=== PATIENT | male | born 1945 | race Caucasian/White ===

== ENCOUNTER → 2016-05-18 | Outpatient (CLI) | payer MEDICARE ==
[~2016-05-18] MED LIST: AC500T PO; ASPI-892 PO; Anti-depressant; CEPH-507 PO; DOCU-143 PO; DOXY100C2 PO; FESO4TAB2 PO; FESO8TAB PO; HYDR-757 PO; LATA2.5D19; LEVO500T2 PO; LEVO500T69 PO; LISI-556 PO; METO25TA PO; PRD20T PO; TRAV2.5D5 OU; WRF5T PO
--- OUTSIDE RECORDS SUMMARY | 2016-05-18 10:00 | XMS REPORT | Continuity of Care Document ---
Author Author [facility] Organization [facility] Address Unknown Phone Unavailable Care Team Providers Care Paint Stripper Name Role Phone Indio Jung PCP [phone] Source Comments Some departments are not documenting in the electronic medical record. If you do not see the information that you expected, contact Release of Information in the Health Information Management department at [phone] for further assistance in locating additional records.[facility] Active Allergies and Adverse Reactions Allergen Noted Date Severity Reactions Comments Cephalexin 12/18/2009 RASH Current Medications Prescription Sig. Disp. Refills Start End Date Status Date CETIRIZINE HCL (ZYRTEC Take 1 Tab by mouth Active PO) Daily. oxycodone (ROXICODONE) 1 5 mL Every 4 Hours as 200 mL 0 12/20/19 Active mg/mL oral solution needed. 10 bacitracin 500 unit/g Apply to affected area 1 Container 0 12/20/19 Active topical ointment Three Times Daily. 10 clindamycin,+, (CLEOCIN) Take 1 Cap by mouth Four 20 Cap 0 12/20/19 Active 300 mg capsule Times Daily. 10 Active Problems Not on file Social History Tobacco Use Types Packs/Day Years Used Date Never Smoker Alcohol Use Drinks/Week oz/Week Comments No Last Filed Vital Signs Vital Sign Reading Time Taken Blood Pressure 138/95 12/19/2009 5:58 AM CDT Pulse 88 12/19/2009 9:55 AM CDT Temperature 36.5 C (97.7 F) 12/19/2009 5:58 AM CDT Respiratory Rate - - Height 1.854 m (6' 1") 12/15/2009 8:00 AM CDT Weight 119.8 kg (264 lb 1.8 oz) 12/15/2009 8:00 AM CDT Body Mass Index 34.85 12/15/2009 8:00 AM CDT Oxygen Saturation 92% 12/19/2009 9:55 AM CDT Plan of Care Health Maintenance Due Date Last Done Comments Physical (Comprehensive) 1952 Exam Pertussis Vaccine 1954 Tetanus Vaccine 01/09/1960 Colorectal Cancer 1993 Screening Shingles Vaccine 2003 Prevnar/Pneumovax (#1) 01/09/2008 Influenza Vaccine 01/15/2016 Results from Last 3 Months Not on file
--- NOTE | 2016-05-20 08:25 | ECHOCARDIOGRAPHY REPORT ---
PROCEDURE PHYSICIAN: SMITA REBOLLAR DATE OF PROCEDURE: 05/18/2016 TWO DIMENSIONAL ECHOCARDIOGRAM REPORT PRIMARY PHYSICIAN: OTHER PHYSICIAN: REFERRING PHYSICIAN: Dr. Cecilio Castano ORDERING PHYSICIAN: INDICATION FOR THE PROCEDURE: Coronary artery disease, hypertension MEASUREMENTS DERIVED VALUES LV DIAMETER (LAX) NORMALS NORMALS Diastolic 4.3 (3.6-5.2) Eject. Fract. 60% (60%+/-6%) Systolic (2.3-3.9) Diastolic Vol. % Shortening (0.22-0.42) Systolic Vol. Aortic Root IVS THICKNESS Diastolic 1. (0.6-1.1) LVPW THICKNESS Diastolic 1. (0.6-1.1) LA DIAMETER Systolic 4.2 (2.1-3.7) FINDINGS: 1. Technical quality is good. 2. The left ventricle is normal in size with normal contractility. Systolic function appeared to be normal. Estimated ejection fraction 60%. 3. The left atrium is mildly dilated. No clot or thrombus were seen within the left atrium. 4. The right atrium and right ventricle are normal in size. No clot or thrombus were seen within the right side. 5. Mitral valve is normal in morphology with mild mitral regurgitation noted by color Doppler flow. Doppler across the mitral valve showed pseudonormalization of E/A, which is suggestive diastolic dysfunction. 6. Aortic valve is functioning normally leaflets were not well visualized. There is no significant aortic stenosis or regurgitation was seen. 7. Tricuspid valve is normal in morphology with mild tricuspid regurgitation noted by color Doppler flow. Doppler across tricuspid valve estimated pulmonary artery pressure of 33+ right atrial pressure. 8. Pulmonic valve is functioning normally. 9. No pericardial effusion. CONCLUSION: 1. Normal left ventricular size and systolic function. Estimated ejection fraction 60%. Diastolic dysfunction is suggested by Doppler. 2. Mildly dilated left atrium. 3. Mild mitral and tricuspid regurgitation. 4. Estimated pulmonary artery pressure of 40 mmHg. Job ID: [id number] Dictated Date: 05/19/2016 16:51:29 Unix Developer Date: 05/20/2016 08:18:14 / lynn
== END ==
LOC: CARD 09:57
PROVIDERS: ATTEND Internal Medicine Cardiovascular Disease
DX: I25.10 Atherosclerotic heart disease of native coronary artery without angina pectoris (principal); I49.3 Ventricular premature depolarization; I10 Essential (primary) hypertension; I48.0 Paroxysmal atrial fibrillation; I47.2 Ventricular tachycardia
CPT/HCPCS: 93306

== ENCOUNTER 2016-06-13 11:12 | Emergency (ER) | payer MEDICARE ==
[~2016-06-13] VITALS: Ht 182.9 cm; Wt 124.7 kg
[~2016-06-13 11:12] MED LIST changes: -LEVO500T2 PO
--- OUTSIDE RECORDS SUMMARY | 2016-06-13 11:17 | XMS REPORT | Continuity of Care Document ---
Author Author [facility] Organization [facility] Address Unknown Phone Unavailable Care Team Providers Care Residential Monitor Name Role Phone Indio Jung PCP [phone] Source Comments Some departments are not documenting in the electronic medical record. If you do not see the information that you expected, contact Release of Information in the Health Information Management department at [phone] for further assistance in locating additional records.[facility] Active Allergies and Adverse Reactions [...]
[2016-06-13] MEDS ORDERED: LEVO500T2 PO (12:01)
--- NOTE | 2016-06-13 12:01 | ED Cough/URI ---
General Chief Complaint: Cough/Cold/Flu Symptoms Stated Complaint: COUGH/FEVER/SWEATS/HERNANDEZ Nursing Triage Note: COUGH CONGESTION FOR 4 WEEKS WAS SEEN AT URGENT CARE 2 WEEKS AGO PUT ON Z PACK AT THAT TIME AND GIVEN STEROID INJECTION. WAS BETTER THAT LAST WEEK FELT LIKE IT WAS COMING BACK. Source: patient Exam Limitations: no limitations History of Present Illness Time seen by provider: 11:59 Initial Comments To Er with c/o cough x4 weeks. Took a course of zithromax 2 weeks ago with minimal improvement. Productive cough continues. Timing/Duration: constant Severity/Quality: moderate Associated Symptoms: cough Allergies and Home Medications Allergies Coded Allergies: No Known Drug Allergies (Unverified , 09/24/10) Home Medications (Reported) Aspirin 81 Mg Tabec 81 MG PO DAILY (Reported) Docusate Sodium 100 Mg Capsule #10 100 MG PO DAILY Prescribed by: MANDA URRUTIA on 01/03/16 142 Fesoterodine Fumarate 8 Mg Tab.sr.24h 8 MG PO DAILY (Reported) Hydrocodone/Acetaminophen 1 Each Tablet #10 1 EACH PO Q4H PRN PRN PAIN Prescribed by: MANDA URRUTIA on 11/13/152008 Hydrocodone/Acetaminophen 1 Each Tablet #30 1 EACH PO Q6H PRN PRN PAIN Prescribed by: MANDA URRUTIA on 01/03/16 142 Latanoprost 2.5 Ml Drops #3 (Reported) Lisinopril 5 Mg Tablet #30 5 MG PO DAILY Prescribed by: SMITA REBOLLAR on 07/10/141036 Metoprolol Succinate 25 Mg Tab.sr.24h 25 MG PO DAILY (Reported) Travoprost (Benzalkonium) 2.5 Ml Drops 1 DROP OU DAILY (Reported) Constitutional: see HPI EENTM: see HPI Respiratory: see HPI cough Cardiovascular: no symptoms reported Genitourinary: no symptoms reported Musculoskeletal: no symptoms reported Skin: no symptoms reported Psychiatric/Neurological: No Symptoms Reported Hematologic/Lymphatic: No Symptoms Reported Immunological/Allergic: no symptoms reported Past Ypndcfy-Ykmvki-Lnmktc Hx Patient Social History Alcohol Use: Denies Use Recreational Drug Use: No Smoking Status: Never a Smoker Recent Foreign Travel: No Contact w/Someone Who Travel: No Recent Infectious Disease Expo: No Recent Hopitalizations: Yes Physical Abuse Screen: No Sexual Abuse: No Immunizations Up To Date Tetanus Booster (TDap): More than 5yrs PED Vaccines UTD: No Date of Pneumonia Vaccine: Jul 10, 2014 Date of Influenza Vaccine: Jul 11, 2014 Seasonal Allergies Seasonal Allergies: Yes Surgeries HX Surgeries: Yes (hernia repair / several skin cancer removal) Surgeries: Abdominal Respiratory Hx Respiratory Disorders: No Cardiovascular Hx Cardiac Disorders: Yes Cardiac Disorders: Atrial Fibrillation, Hypertension Neurological Hx Neurological Disorders: No Reproductive System Hx Reproductive Disorders: No Sexually Transmitted Disease: No HIV/AIDS: No Genitourinary Hx Genitourinary Disorders: Yes Genitourinary Disorders: Kidney Stones Gastrointestinal Hx Gastrointestinal Disorders: No Gastrointestinal Disorders: Hiatal Hernia Musculoskeletal Hx Musculoskeletal Disorders: No Endocrine Hx Endocrine Disorders: No HEENT HX ENT Disorders: No Cancer Hx Cancer: Yes Cancer: Skin Psychosocial Hx Psychiatric Problems: No Integumentary HX Skin/Integumentary Disorder: Yes Blood Transfusions Hx Blood Disorders: No Family Medical History Family Medial History: Arthritis G8 BROTHER Cardiovascular disease 19 MOTHER (AFib) DVT G8 BROTHER FHx: respiratory disease G8 SISTER Physical Exam Vital Signs Vital Sign - Last 12Hours 06/13/16 11:21 Temp 97.8 Pulse 71 Resp 18 B/P 114/73 Pulse Ox 96 O2 Delivery Room Air Capillary Refill : Less Than 3 Seconds General Appearance: WD/WN no apparent distress Eyes: Bilateral Eye EOMI, Bilateral Eye Normal Inspection, Bilateral Eye PERRL HEENT: PERRL/EOMI normal ENT inspection Neck: non-tender full range of motion Respiratory: no respiratory distress no accessory muscle use rales (RLL) Gastrointestinal: normal bowel sounds non tender soft Neurologic/Psychiatric: alert normal mood/affect oriented x 3 Skin: normal color warm/dry Progress/Results/Core Measures Results/Orders My Orders Orders-MANDA URRUTIA APRN Chest Pa/Lat (2 View) (06/13/16 11:34) Vital Signs/I&O Vital Sign - Last 12Hours 06/13/16 11:21 Temp 97.8 Pulse 71 Resp 18 B/P 114/73 Pulse Ox 96 O2 Delivery Room Air Blood Pressure Mean: 87 Departure Impression Impression: Primary Impression: Pneumonia Qualified Code: J18.1 - Lobar pneumonia, unspecified organism Disposition: 01 HOME, SELF-CARE Condition: Stable Departure-Patient Inst. Decision time for Depature: 12:00 Referrals: JULIANE CASTANO MD (PCP/Family) Primary Care Physician Patient Instructions: Community-Acquired Pneumonia in Adults Add. Discharge Instructions: 1. Antiboitics as directed 2. REturn to ER for any concerns 3. Folllow upwith Dr Castano later this week All discharge instructions reviewed with patient and/or family. Voiced understanding. Scripts Levofloxacin (Levaquin)500 Mg [id number] Mg PO DAILY #7 TAB Prov:MANDA URRUTIA APRN 06/13/16 MANDA URRUTIA APRN Jun 13, 2016 12:01
--- NOTE | 2016-06-13 12:05 | Diagnostic Imaging Report ---
INDICATION: Cough, achy joints, fatigue, malaise, night sweats. The exam compared 01/03/2016 FINDINGS: The hilar and mediastinal contours stable. The lungs showed chronic changes of COPD and air trapping stable. No focal infiltrate. No gross overdistention of the vascularity. There is thoracic spondylosis, chronic. No effusion or pneumothorax. IMPRESSION: Stable chronic findings Dictated by: Dictated on workstation # [id number]
[2016-06-13 12:08] VITALS: BP 114/72
== END 2016-06-13 12:08 | disposition home or self-care (01) ==
LOC: EDUNIT# 11:12 → ER 11:14
DX: J18.9 Pneumonia, unspecified organism (principal); R50.9 Fever, unspecified; I10 Essential (primary) hypertension; Z79.82 Long term (current) use of aspirin; Z79.899 Other long term (current) drug therapy
CPT/HCPCS: 71020

== ENCOUNTER → 2017-01-04 | Outpatient (CLI) | payer MEDICARE ==
[~2017-01-04] MED LIST changes: +BARIUM SUSPENSION 105% (LIQUID POLIBAR PLUS) 240 ML/DOSE PO ONE; +BARIUM SUSPENSION 60% (LIQUID EZ PAQUE) 240 ML DOSE PO ONE; +LEVO500T2 PO
--- NOTE | 2017-01-04 17:07 | Diagnostic Imaging Report ---
EXAM: Barium swallow. INDICATION: Difficulty swallowing FINDINGS: There are no prior studies available for comparison. A double contrast study was performed. The patient swallowed the contrast material without difficulty. There is no aspiration or penetration. The esophagus shows fairly good distensibility and motility. There were a few tertiary contractions noted, however. These generally indicate ineffective peristalsis. There was a small sliding hiatal hernia but there is no sign of reflux. A cursory examination of the stomach shows no mass or ulceration. The folds of the duodenal bulb are somewhat irregular and thickened. There also appears to be the suggestion of an ulcer crater in the apex of the duodenal bulb. These findings could be due to chronic duodenitis. The possibility that there is an element of acute duodenitis present and active ulcer crater should still be considered. If further evaluation is desired, then endoscopy would be recommended. There is also some thickening of the folds of the second portion of the duodenum. This does suggest duodenitis. The proximal small bowel is unremarkable. IMPRESSION: 1. There is no evidence for obstruction of the esophagus. There is no sign of aspiration or penetration either. 2. There is a small sliding hiatal hernia but there is no evidence of reflux. 3. The stomach is generally unremarkable. 4. There does appear to be duodenitis and an ulcer crater in the apex of the duodenal bulb. Whether these findings are acute or chronic is not certain. Clinical followup is recommended. These results were discussed with Dr. Julien Frances. Dictated by: Dictated on workstation # [id number]
== END ==
LOC: RAD 08:22
PROVIDERS: ATTEND Otolaryngology Otolaryngology/Facial Plastic Surgery
DX: K44.9 Diaphragmatic hernia without obstruction or gangrene (principal); K29.80 Duodenitis without bleeding; K26.9 Duodenal ulcer, unspecified as acute or chronic, without hemorrhage or perforation
CPT/HCPCS: 74220

== ENCOUNTER 2017-04-17 15:44 | Emergency (ER) | payer MEDICARE ==
[~2017-04-17] VITALS: Ht 185.4 cm; Wt 117.9 kg
[~2017-04-17 15:44] MED LIST changes: -BARIUM SUSPENSION 105% (LIQUID POLIBAR PLUS) 240 ML/DOSE PO ONE; -BARIUM SUSPENSION 60% (LIQUID EZ PAQUE) 240 ML DOSE PO ONE
--- OUTSIDE RECORDS SUMMARY | 2017-04-17 15:48 | XMS REPORT | Clinical Summary ---
Author Author [facility] Organization [facility] Address Unknown Phone Unavailable Care Team Providers Care Vice President Of News Name Role Phone PCP Unavailable Source Comments Some departments are not documenting in the electronic medical record. If you do not see the information that you expected, contact Release of Information in the Health Information Management department at [phone] for further assistance in locating additional records.[facility] Allergies Active Allergy Reactions Severity Noted Date Comments Cephalexin RASH 12/18/2009 Current Medications Prescription Sig. Disp. Refills Start [...] Daily. 10 Active Problems Not on file Family History Medical History Relation Name Comments Cancer Brother Cancer Father Relation Name Status Comments Brother Father Social History Tobacco Use Types Packs/Day Years Used Date Never Smoker Alcohol Use Drinks/Week oz/Week Comments No Sex Assigned at Date Recorded Not on file Last Filed Vital Signs Vital Sign Reading Time Taken Blood Pressure 138/95 12/19/2009 5:58 AM CDT Pulse 88 12/19/2009 9:55 AM CDT Temperature 36.5 C (97.7 F) 12/19/2009 5:58 AM CDT Respiratory Rate - - Oxygen Saturation 92% 12/19/2009 9:55 AM CDT Inhaled Oxygen - - Concentration Weight 119.8 kg (264 lb 1.8 oz) 12/15/2009 8:00 AM CDT Height 185.4 cm (6' 1") 12/15/2009 8:00 AM CDT Body Mass Index 34.85 12/15/2009 8:00 AM CDT Plan of Treatment Health Maintenance Due Date Last Done Comments PHYSICAL (COMPREHENSIVE) 1952 EXAM PERTUSSIS VACCINE 1954 TETANUS VACCINE 01/09/1960 COLORECTAL CANCER 1993 SCREENING SHINGLES VACCINE 2003 PREVNAR/PNEUMOVAX (#1) 01/09/2008 INFLUENZA VACCINE 12/14/2016 Results Not on filefrom Last 3 Months
--- NOTE | 2017-04-17 17:11 | ED Lower Extremity ---
General Chief Complaint: Lower Extremity Stated Complaint: L CALF SWELLING/PAIN Nursing Triage Note: c/o left leg redness/swelling. Onset 3-4 days ago. 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 He presents today with a complaint of 2-3 days of swelling in his left calf. There is some pain. He has a past history of deep venous thrombophlebitis although he is not able to remember which leg. He has been off anticoagulant therapy for some years. He has venous stasis and wears pressure stockings on both legs faithfully. He has also had literally 100s of skin cancers treated in a variety of modalities Onset: last week Pain/Injury Location: left leg Method of Injury: unknown (DESIERE DIAZ MD) Allergies and Home Medications Allergies Coded Allergies: No Known Drug Allergies (Unverified , 09/24/10) Home Medications Aspirin 81 Mg Tabec, 81 MG PO DAILY, (Reported) Docusate Sodium 100 Mg Capsule, 100 MG PO DAILY, #10 Prescribed by: MANDA URRUTIA on 01/03/16 1420 Fesoterodine Fumarate 8 Mg Tab.sr.24h, 8 MG PO DAILY, (Reported) Hydrocodone/Acetaminophen 1 Each Tablet, 1 EACH PO Q4H PRN for PAIN, #10 Prescribed by: MANDA URRUTIA on 11/13/152008 Hydrocodone/Acetaminophen 1 Each Tablet, 1 EACH PO Q6H PRN for PAIN, #30 Prescribed by: MANDA URRUTIA on 01/03/16 1420 Latanoprost 2.5 Ml Drops, #3 (Reported) Levofloxacin 500 Mg Tablet, 500 MG PO DAILY, #7 Prescribed by: MANDA URRUTIA on 06/13/16 1201 Lisinopril 5 Mg Tablet, 5 MG PO DAILY, #30 Ref 4 Prescribed by: SMITA REBOLLAR on 07/10/14 1037 Metoprolol Succinate 25 Mg Tab.sr.24h, 25 MG PO DAILY, (Reported) Rivaroxaban 1 Each Tab.ds.pk, 1 EACH PO UD, #51 15mg by mouth twice daily x 21 days then 20mg by mouth daily Prescribed by: THIEN KOHLER on 04/17/17 185 Travoprost (Benzalkonium) 2.5 Ml Drops, 1 DROP OU DAILY, (Reported) [Anti-depressant] , (Reported) Constitutional: see HPI EENTM: no symptoms reported Respiratory: no symptoms reported Cardiovascular: no symptoms reported Gastrointestinal: no symptoms reported Genitourinary: no symptoms reported Musculoskeletal: muscle pain (left lower extremity) Skin: no symptoms reported Psychiatric/Neurological: No Symptoms Reported (DESIREE DIAZ MD) Past Bfvhjfg-Vihswj-Tdcljk Hx Patient Social History Alcohol Use: Denies Use Recreational Drug Use: No Smoking Status: Never a Smoker Recent Foreign Travel: No Contact w/Someone Who Travel: No Recent Infectious Disease Expo: No Recent Hopitalizations: Yes (DESIREE DIAZ MD) Immunizations Up To Date Tetanus Booster (TDap): More than 5yrs PED Vaccines UTD: No Date of Pneumonia Vaccine: Jul 10, 2014 Date of Influenza Vaccine: Jul 11, 2014 (DESIREE DIAZ MD) Seasonal Allergies Seasonal Allergies: Yes (DESIREE DIAZ MD) Surgeries Surgeries: Abdominal (DESIREE DIAZ MD) Cardiovascular Cardiac Disorders: Atrial Fibrillation, Hypertension (DESIREE DIAZ MD) Reproductive System Hx Reproductive Disorders: No Sexually Transmitted Disease: No HIV/AIDS: No (DESIREE DIAZ MD) Genitourinary Genitourinary Disorders: Kidney Stones (DESIREE DIAZ MD) Gastrointestinal Gastrointestinal Disorders: Hiatal Hernia (DESIREE DIAZ MD) Cancer Cancer: Skin (DESIREE DIAZ MD) Family Medical History Family Medial History: Arthritis G8 BROTHER Cardiovascular disease 19 MOTHER (AFib) DVT G8 BROTHER FHx: respiratory disease G8 SISTER (DESIREE DIAZ MD) Family Medial History: Arthritis G8 BROTHER Cardiovascular disease 19 MOTHER (AFib) DVT G8 BROTHER FHx: respiratory disease G8 SISTER (THIEN KOHLER DO) Physical Exam Vital Signs Vital Sign - Last 12Hours 04/17/17 16:52 Temp 97.5 Pulse 70 Resp 16 B/P (MAP) 150/85 (106) O2 Delivery Room Air (THIEN KOHLER DO) Vital Signs Capillary Refill : Less Than 3 Seconds (DESIREE DIAZ MD) General Appearance: WD/WN, no apparent distress HEENT: normal ENT inspection Neck: full range of motion Cardiovascular: normal peripheral pulses, regular rate, rhythm, no edema, no gallop, no JVD, no murmur Respiratory: chest non-tender, lungs clear, normal breath sounds, no respiratory distress, no accessory muscle use Gastrointestinal: normal bowel sounds, non tender, soft, no organomegaly, no pulsatile mass Neurologic/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 The right leg reveals a compression stocking properly applied. (DESIREE DIAZ MD) Progress/Results/Core Measures Results/Orders Lab Results Laboratory Tests Test 04/17/17 19:00 Range/Units White Blood Count 7.7 4.3-11.0 10^3/uL Red Blood Count 4.79 4.35-5.85 10^6/uL Hemoglobin 14.4 13.3-17.7 G/DL Hematocrit 44 40-54 % Mean Corpuscular Volume 93 80-99 FL Mean Corpuscular Hemoglobin 30 25-34 PG Mean Corpuscular Hemoglobin Concent 32 32-36 G/DL Red Cell Distribution Width 12.7 10.0-14.5 % Platelet Count 215 130-400 10^3/uL Mean Platelet Volume 11.0 H 7.4-10.4 FL Neutrophils (%) (Auto) 58 42-75 % Lymphocytes (%) (Auto) 24 12-44 % Monocytes (%) (Auto) 12 0-12 % Eosinophils (%) (Auto) 5 0-10 % Basophils (%) (Auto) 1 0-10 % Neutrophils # (Auto) 4.5 1.8-7.8 X 10^3 Lymphocytes # (Auto) 1.9 1.0-4.0 X 10^3 Monocytes # (Auto) 0.9 0.0-1.0 X 10^3 Eosinophils # (Auto) 0.4 H 0.0-0.3 10^3/uL Basophils # (Auto) 0.1 0.0-0.1 10^3/uL (JOSE FTHIEN Shelly DO) My Orders Orders - LUIS KOHLERA Shelly DO Enoxaparin Injection (Lovenox Injection) (12/3/17 18:45) Enoxaparin Injection (Lovenox Injection) (04/17/17 18:45) Rivaroxaban Tablet (Xarelto Tablet) (04/17/17 18:45) Basic Metabolic Panel (04/17/17 18:40) Cbc With Automated Diff (04/17/17 18:40) Protime With Inr (04/17/17 18:40) Partial Thromboplastin Time (04/17/17 18:40) (THIEN KOHLER DO) Medications Given in ED Current Medications Medications Dose Ordered Sig/Donna Route Start Time Stop Time Status Last Admin Dose Admin Enoxaparin Sodium 30 mg ONCE ONCE SC 04/17/17 18:45 04/17/17 18:46 UNV 04/17/17 18:56 30 MG Enoxaparin Sodium 100 mg ONCE ONCE SC 04/17/17 18:45 04/17/17 18:46 UNV 04/17/17 18:56 100 MG Rivaroxaban 20 mg ONCE ONCE PO 04/17/17 18:45 04/17/17 18:46 UNV 04/17/17 19:10 20 MG (THIEN KOHLER DO) Vital Signs/I&O Vital Sign - Last 12Hours 04/17/17 04/17/17 04/17/17 16:52 18:56 18:56 Temp 97.5 97.5 97.5 Pulse 70 Resp 16 B/P (MAP) 150/85 (106) O2 Delivery Room Air (THIEN KOHLER DO) Blood Pressure Mean: 106 Progress Note : Progress Note 1814--ASSUMED CARE FROM DR. DIAZ, US RESULTS PENDING (THIEN KOHLER DO) Diagnostic Imaging Comments ULTRASOUND--+ DVT POPLITEAL VEIN AND GREATER SAPHENOUS VEINS, PER RADIOLOGIST REPORT @ 1827 Reviewed: Reviewed by Me (THIEN KOHLER DO) Departure Impression Impression: Primary Impression: Deep vein thrombosis (DVT) of left lower extremity Disposition: 01 HOME, SELF-CARE Condition: Stable Departure-Patient Inst. Referrals: JULINAE MURPHY MD (PCP/Family) Primary Care Physician Patient Instructions: Deep Vein Thrombosis (Blood Clots in the Legs) (DC), How to Prevent Blood Clots Add. Discharge Instructions: WEAR THIGH HIGH ROSEANNE HOSE/COMPRESSION STOCKINGS AT ALL TIMES ELEVATE LEG MUCH POSSIBLE FOLLOW UP WITH DR. MURPHY IN 2-3 DAYS FOR FURTHER CARE RETURN TO ER IF SYMPTOMS WORSEN OR YOU DEVELOP CHEST PAIN, SHORTNESS OF BREATH, PALPITATIONS, OR PASSING OUT. All discharge instructions reviewed with patient and/or family. Voiced understanding. Scripts Rivaroxaban (Xarelto Starter Pack) 1 Each Tab.ds.pk 1 EACH PO UD, #51 PKG 15mg by mouth twice daily x 21 days then 20mg by mouth daily Prov: THIEN KOHLER DO 04/17/17 DESIREE DIAZ MD Apr 17, 2017 17:11 THIEN KOHLER DO Apr 17, 2017 18:34
--- NOTE | 2017-04-17 18:25 | Diagnostic Imaging Report ---
PROCEDURE: US left lower extremity venous. TECHNIQUE: Multiple real-time grayscale images were obtained over the left lower extremity in various projections. Additional duplex Doppler and color Doppler images were also obtained. INDICATION: Left leg pain and swelling. FINDINGS: There is deep venous thrombosis in the popliteal vein extending into the peritoneal trunk which is also occluded. There is also thrombus in the greater saphenous vein from the proximal thigh to the ankle. The left common femoral vein and femoral veins are patent. There are no abnormal fluid collections or masses. IMPRESSION: 1. Deep venous thrombosis in the popliteal vein extending distally into the peritoneal trunk. 2. Superficial thrombophlebitis in the greater saphenous vein, as described. Dictated by: Dictated on workstation # [id number]
[2017-04-17] MEDS ORDERED: ENOXAPARIN 30 MG/0.3 ML (LOVENOX) SYR SC ONE (18:45)
[2017-04-17] MEDS ORDERED: RIVAROXABAN 20 MG TABLET (XARELTO) PO ONE (18:45)
[2017-04-17] MEDS ORDERED: ENOXAPARIN 100 MG/1 ML (LOVENOX) SYR SC ONE (18:45)
[2017-04-17] MEDS ORDERED: RIVA1TAB PO (18:50)
[2017-04-17] MEDS ORDERED: ENOXAPARIN 100 MG/1 ML (LOVENOX) SYR ONE (18:51)
[2017-04-17] MEDS ORDERED: ENOXAPARIN 30 MG/0.3 ML (LOVENOX) SYR ONE (18:52)
[2017-04-17] MEDS ORDERED: RIVAROXABAN 20 MG TABLET (XARELTO) ONE (19:04)
[2017-04-17 19:10] LABS: BASOPHILS # (AUTO) 0.1 10^3/uL (0.0-0.1); BASOPHILS % (AUTO) 1 % (0-10); EOSINOPHILS # (AUTO) 0.4 10^3/uL (0.0-0.3); EOSINOPHILS % (AUTO) 5 % (0-10); LYMPHOCYTES # (AUTO) 1.9 X 10^3 (1.0-4.0); LYMPHOCYTES % (AUTO) 24 % (12-44); MEAN CORPUSCULAR HEMOGLOBIN 30 PG (25-34); MEAN CORPUSCULAR HGB CONC 32 G/DL (32-36); MEAN CORPUSCULAR VOLUME 93 FL (80-99); MONOCYTES # (AUTO) 0.9 X 10^3 (0.0-1.0); MONOCYTES % (AUTO) 12 % (0-12); NEUTROPHILS # (AUTO) 4.5 X 10^3 (1.8-7.8); NEUTROPHILS % (AUTO) 58 % (42-75); PLATELET COUNT 215 10^3/uL (130-400); RED BLOOD COUNT 4.79 10^6/uL (4.35-5.85); RED CELL DISTRIBUTION WIDTH 12.7 % (10.0-14.5); WHITE BLOOD COUNT 7.7 10^3/uL (4.3-11.0)
[2017-04-17 19:32] LABS: PROTHROMBIN TIME PATIENT 13.2 SEC (12.2-14.7)
[2017-04-17 19:36] VITALS: BP 155/96
[2017-04-17 19:40] LABS: ANION GAP 9 MMOL/L (5-14); BLOOD UREA NITROGEN 18 MG/DL (7-18); BUN/CREATININE RATIO 17; CALCIUM 9.2 MG/DL (8.5-10.1); CARBON DIOXIDE 27 MMOL/L (21-32); CHLORIDE 107 MMOL/L (98-107); CREATININE SERUM 1.07 MG/DL (0.60-1.30); GFR ESTIMATED > 60; GLUCOSE 110 MG/DL (70-105); POTASSIUM 4.4 MMOL/L (3.6-5.0); SODIUM 143 MMOL/L (135-145)
== END 2017-04-17 19:35 | disposition home or self-care (01) ==
LOC: EDUNIT# 15:44 → ER 15:45
DX: I82.402 Acute embolism and thrombosis of unspecified deep veins of left lower extremity (principal); I48.91 Unspecified atrial fibrillation; I10 Essential (primary) hypertension; Z85.828 Personal history of other malignant neoplasm of skin; Z87.19 Personal history of other diseases of the digestive system; Z82.49 Family history of ischemic heart disease and other diseases of the circulatory system; Z87.442 Personal history of urinary calculi; Z79.82 Long term (current) use of aspirin
CPT/HCPCS: 36415; 80048; 85025; 85610; 85730; 99283

== ENCOUNTER → 2017-04-26 | Outpatient (CLI) | payer MEDICARE ==
[~2017-04-26] MED LIST changes: +RIVA1TAB PO
[2017-04-26 08:57] LABS: ALANINE AMINOTRANSFERASE 16 U/L (0-55); ALBUMIN 3.7 GM/DL (3.2-4.5); ANION GAP 9 MMOL/L (5-14); ASPARTATE AMINO TRANSFERASE 21 U/L (5-34); BILIRUBIN,TOTAL 0.5 MG/DL (0.1-1.0); BLOOD UREA NITROGEN 19 MG/DL (7-18); BUN/CREATININE RATIO 16; CALCIUM 8.9 MG/DL (8.5-10.1); CARBON DIOXIDE 28 MMOL/L (21-32); CHLORIDE 103 MMOL/L (98-107); CHOLESTEROL 153 MG/DL (< 200); CREATININE SERUM 1.17 MG/DL (0.60-1.30); DIRECT LDL 95 MG/DL (1-129); GFR ESTIMATED > 60; GLUCOSE 112 MG/DL (70-105); POTASSIUM 4.1 MMOL/L (3.6-5.0); SODIUM 140 MMOL/L (135-145); TOTAL PROTEIN 7.1 GM/DL (6.4-8.2); TRIGLYCERIDES 111 MG/DL (<150); VLDL CHOLESTEROL 22 MG/DL (5-40)
== END ==
LOC: LAB 08:18
PROVIDERS: ATTEND Physician Assistant
DX: I25.10 Atherosclerotic heart disease of native coronary artery without angina pectoris (principal); I10 Essential (primary) hypertension; E78.2 Mixed hyperlipidemia
CPT/HCPCS: 36415; 80053; 80061

== ENCOUNTER → 2017-05-17 | Outpatient (CLI) | payer MEDICARE ==
[2017-05-17 09:46] LABS: ALANINE AMINOTRANSFERASE 20 U/L (0-55); BUN/CREATININE RATIO 19; CALCIUM 9.3 MG/DL (8.5-10.1); CARBON DIOXIDE 29 MMOL/L (21-32); CHLORIDE 105 MMOL/L (98-107); CHOLESTEROL 161 MG/DL (< 200); GFR ESTIMATED > 60; GLUCOSE 111 MG/DL (70-105); HDL CHOLESTEROL 41 MG/DL (40-60); POTASSIUM 4.3 MMOL/L (3.6-5.0); SODIUM 141 MMOL/L (135-145); TRIGLYCERIDES 108 MG/DL (<150); VLDL CHOLESTEROL 22 MG/DL (5-40)
--- NOTE | 2017-05-19 16:41 | HISTORY AND PHYSICAL ---
DATE OF SERVICE: DATE OF ADMISSION: 05/17/2017. EGD HISTORY AND PHYSICAL HISTORY OF PRESENT ILLNESS: The patient is a 72-year-old white male who presented to my office on 05/19/2017 for followup of hypertension and paroxysmal atrial fibrillation. From these standpoints, he reports that he has been doing relatively well. He has noted some fatigue, but has not been as physically active and had put on another six pounds over the last 2 months. He denied orthopnea, PND or pedal edema and denied increase in dyspnea on exertion over baseline. 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 He reports a 4 to 5-year history of intermittent dysphagia. It has been getting worse as predominantly to solids, rarely liquids and worse over the past 2 to 3 months. He denies any overt sensation of heartburn. Many years ago, he underwent a barium swallow and was told that he had a hiatal hernia, but he has not had any subsequent evaluation for this and had not mentioned it to me in the past. He denies abdominal pain, melena or bright red blood per rectum. PHYSICAL EXAMINATION: GENERAL: An overweight white male who appears to be in no acute distress. Skin coloration is normal. He does have significant findings of rosacea and solar elastosis involving his face. No overt evidence for neoplasia was present. VITAL SIGNS: Blood pressure 130/70, heart rate 72 and regular. CHEST: Clear. CARDIOVASCULAR: Regular rate and rhythm without murmur, S3 or S4. EXTREMITIES: Reveal no cyanosis, clubbing. He does have 1+ bilateral edema. ASSESSMENT AND PLAN: 1. Further investigation of progressive dysphagia predominantly to solids. The patient is set up for an EGD on 05/20/2017 a.m. He is to hold his Coumadin. We will obtain an INR in the morning prior to endoscopy. 2. Paroxysmal atrial fibrillation, no symptomatic recurrence. Hold Coumadin tonight. 3. Hypertension, under good control. 4. Fatigue, recent normal blood studies, likely related to a weight gain. Intake and dietary history: Significant cutting back on ice cream intake would likely allow several pound per month weight loss. He is not getting any significant fluid calories other than a glass or 2 of milk per day. Association with reflux and fatigue were noted. We will have him followup in four months. Job ID: [id number] DocumentID: [id number] Dictated Date: 05/19/2017 15:40:38 Processing Assistant Date: 05/19/2017 16:40:32 Dictated By: JULIANE MURPHY MD
== END ==
LOC: LAB 08:50
PROVIDERS: ATTEND Internal Medicine
DX: E78.5 Hyperlipidemia, unspecified (principal); I82.409 Acute embolism and thrombosis of unspecified deep veins of unspecified lower extremity; Z79.899 Other long term (current) drug therapy
CPT/HCPCS: 36415; 80048; 80061; 84460

== ENCOUNTER → 2017-05-19 | Outpatient (CLI) | payer MEDICARE | LOC: PREOP 15:10 | PROVIDERS: ATTEND Internal Medicine | DX: Z01.818 Encounter for other preprocedural examination (principal); R13.10 Dysphagia, unspecified ==

== ENCOUNTER 2017-05-20 08:54 | Day surgery (SDC) | payer MEDICARE ==
[~2017-05-20] VITALS: Ht 185.4 cm; Wt 124.7 kg
[2017-05-20] MEDS ORDERED: D5 LR IV SOLUTION 1,000 ML IV STA (09:02)
[2017-05-20 09:15] VITALS: BP 154/96
[2017-05-20] MEDS ORDERED: LIDOCAINE JELLY 2% (XYLOCAINE) 5 ML TUBE MM PRN (09:15)
[2017-05-20] MEDS ORDERED: MIDAZOLAM 2 MG/2 ML (VERSED) VIAL IVP PRN (09:15)
[2017-05-20] MEDS ORDERED: HURRICAINE EXT TUBE (BENZOCAINE) XX PRN (09:15)
--- NOTE | 2017-05-20 09:24 | Pre-Op Note & Conscious Sedat ---
Pre-Operative Progress Note H&P Reviewed The H&P was reviewed, patient examined and no changes noted. Date H&P Reviewed: May 20, 2017 Time H&P Reviewed: 09:24 Conscious Sedation Pre-Proced ASA Class: 2 Airway Mallampati Classification: (jena appropriate class) I. II. III, IV Lungs Heart ASA score ASA 1: a normal healthy patient ASA 2: a patient with a mild systemic disease (mid diabetes, controlled hypertension, obesity ASA 3: a patient with a severe systemic disease that limits activity (angina , COPD, prior Myocardial infarction) ASA 4: a patient with an incapacitating disease that is a constant threat to life (CHF, renal failure) ASA 5: a moribund patient not expected to survive 24 hrs. (ruptured aneurysm) ASA 6: a declared brain patient whose organs are being harvested. For emergent operations, add the letter E after the classification Grade 3 Sedation Plan: Analgesia, Amnesia, Plan communicated to team members, Discussed options with patient/fam, Discussed risks with patient/fam Note The patient is an appropriate candidate to undergo the planned procedure, sedation, and anesthesia. The patient immediately re-assessed prior to indication. JULIANE MURPHY MD May 20, 2017 09:24
[2017-05-20] MEDS ORDERED: D5 LR IV SOLUTION 1,000 ML IV ONE (09:33)
[2017-05-20] MEDS ORDERED: LIDOCAINE JELLY 2% (XYLOCAINE) 5 ML TUBE ONE (10:03)
[2017-05-20] MEDS ORDERED: fentaNYL INJECTION 100 MCG/2 ML AMP ONE (10:03)
[2017-05-20] MEDS ORDERED: MIDAZOLAM 2 MG/2 ML (VERSED) VIAL ONE ×3 (10:03)
[2017-05-20] MEDS ORDERED: HURRICAINE EXT TUBE (BENZOCAINE) ONE (10:03)
[2017-05-20] MEDS: fentaNYL INJECTION 100 MCG/2 ML AMP IVP PRN ×2 (10:44→10:55)
[2017-05-20 10:59] LABS: PROTHROMBIN TIME PATIENT 22.8 SEC (12.2-14.7)
[2017-05-20 11:30] VITALS: BP 149/77
[2017-05-20 11:50] VITALS: BP 116/80
[2017-05-20 12:00] VITALS: BP 116/80
--- NOTE | 2017-05-20 14:30 | OPERATIVE REPORT ---
DATE OF SERVICE: EGD SUMMARY EGD is performed for evaluation of dysphagia. The patient was placed in the left lateral decubitus position. The patient is on Coumadin and INR was obtained with the patient having held his dose for 48 hours, the level was 2.0 2. The endoscope was inserted in the oral cavity and under direct visualization esophagus was intubated. The scope was passed down the esophagus through the stomach and second portion of the duodenum. Careful inspection was made as the endoscope was withdrawn. The patient tolerated the procedure well. FINDINGS: Proximal and mid esophagus were unremarkable. There was a benign appearing stricture with more than usual amount of force I was able to get across strictured area where there is likely a component of increased lower esophageal sphincter tone as well. No evidence for erosive esophagitis was noted. Biopsy was obtained and submitted for histopathology. A small sliding hiatal hernia is present. The cardia, fundus and antrum of the stomach were unremarkable. The pylorus, pyloric channel, duodenal bulb and second portion of duodenum were unremarkable as well with no evidence of peptic ulcer disease. ASSESSMENT: Benign appearing stricture with small sliding hiatal hernia is present. There was no evidence for significant esophageal dilatation to suggest achalasia. The patient underwent dilatation to the 60 Chinese size with a pneumatic dilator with no more than average amount of bleeding postprocedure as well as postbiopsy. We will await on histopath report before making medication recommendations. The patient was advised to hold Coumadin until tomorrow. Job ID: [id number] DocumentID: [id number] Dictated Date: 05/20/2017 11:30:24 Land Lease Information Clerk Date: 05/20/2017 14:29:57 Dictated By: JULIANE MURPHY MD [facility]
== END 2017-05-20 12:00 | disposition home or self-care (01) ==
LOC: ENDO 08:54
PROVIDERS: ATTEND Internal Medicine
DX: K22.2 Esophageal obstruction (principal); K44.9 Diaphragmatic hernia without obstruction or gangrene; I10 Essential (primary) hypertension; I48.0 Paroxysmal atrial fibrillation; R53.83 Other fatigue; E66.3 Overweight; Z68.36 Body mass index [BMI] 36.0-36.9, adult; Z79.01 Long term (current) use of anticoagulants
CPT/HCPCS: 36415; 85610

== ENCOUNTER 2017-07-11 08:12 | Outpatient (RCR) | payer MEDICARE ==
[2017-04-26 08:45] LABS: INR 4.9 (0.8-1.4); PROTHROMBIN TIME PATIENT 44.9 SEC (12.2-14.7)
[2017-05-02 07:54] LABS: INR 1.7 (0.8-1.4); PROTHROMBIN TIME PATIENT 20.3 SEC (12.2-14.7)
[2017-05-10 09:34] LABS: INR 1.9 (0.8-1.4); PROTHROMBIN TIME PATIENT 21.8 SEC (12.2-14.7)
[2017-05-17 09:41] LABS: INR 1.9 (0.8-1.4); PROTHROMBIN TIME PATIENT 21.7 SEC (12.2-14.7)
[2017-06-06 08:13] LABS: INR 1.6 (0.8-1.4); PROTHROMBIN TIME PATIENT 18.6 SEC (12.2-14.7)
[2017-06-21 09:51] LABS: INR 2.1 (0.8-1.4); PROTHROMBIN TIME PATIENT 23.5 SEC (12.2-14.7)
[2017-07-11 08:35] LABS: INR 3.3 (0.8-1.4); PROTHROMBIN TIME PATIENT 33.2 SEC (12.2-14.7)
== END 2017-07-25 | disposition home or self-care (01) ==
LOC: LAB 08:12
PROVIDERS: ATTEND Internal Medicine Cardiovascular Disease
DX: I25.10 Atherosclerotic heart disease of native coronary artery without angina pectoris (principal); I47.2 Ventricular tachycardia; I48.0 Paroxysmal atrial fibrillation; I49.3 Ventricular premature depolarization; I10 Essential (primary) hypertension; E78.2 Mixed hyperlipidemia
CPT/HCPCS: 36415; 80053; 80061; 85610

== ENCOUNTER 2017-10-13 08:16 | Outpatient (RCR) | payer MEDICARE ==
[2017-08-08 09:15] LABS: INR 2.8 (0.8-1.4); PROTHROMBIN TIME PATIENT 29.6 SEC (12.2-14.7)
[2017-10-13 08:38] LABS: INR 2.5 (0.8-1.4); PROTHROMBIN TIME PATIENT 26.9 SEC (12.2-14.7)
== END 2017-10-24 | disposition home or self-care (01) ==
LOC: LAB 08:16
PROVIDERS: ATTEND Internal Medicine Cardiovascular Disease
DX: I25.10 Atherosclerotic heart disease of native coronary artery without angina pectoris (principal); I47.2 Ventricular tachycardia; I48.0 Paroxysmal atrial fibrillation; I49.3 Ventricular premature depolarization; I10 Essential (primary) hypertension; E78.2 Mixed hyperlipidemia
CPT/HCPCS: 36415; 85610

== ENCOUNTER → 2017-11-30 | Outpatient (CLI) | payer MEDICARE ==
[2017-11-30 12:26] LABS: INR 3.2 (0.8-1.4); PROTHROMBIN TIME PATIENT 32.6 SEC (12.2-14.7)
== END ==
LOC: LAB 08:00
PROVIDERS: ATTEND Internal Medicine Cardiovascular Disease
DX: I25.10 Atherosclerotic heart disease of native coronary artery without angina pectoris (principal); I82.409 Acute embolism and thrombosis of unspecified deep veins of unspecified lower extremity; I47.2 Ventricular tachycardia; I48.0 Paroxysmal atrial fibrillation; I49.3 Ventricular premature depolarization
CPT/HCPCS: 36415; 85610

== ENCOUNTER 2018-01-12 13:23 | Outpatient (RCR) | payer MEDICARE ==
[2017-12-21 15:43] LABS: INR 3.1 (0.8-1.4); PROTHROMBIN TIME PATIENT 32.3 SEC (12.2-14.7)
[~2018-01-12 13:23] MED LIST changes: +HYDR-4226 PO; -HYDR-757 PO
[2018-01-12 13:40] LABS: INR 2.8 (0.8-1.4)
== END 2018-01-13 | disposition home or self-care (01) ==
LOC: LAB 13:23
PROVIDERS: ATTEND Internal Medicine Cardiovascular Disease
DX: I25.10 Atherosclerotic heart disease of native coronary artery without angina pectoris (principal); I47.2 Ventricular tachycardia; I48.0 Paroxysmal atrial fibrillation; I49.3 Ventricular premature depolarization
CPT/HCPCS: 36415; 85610

== ENCOUNTER 2018-02-17 08:00 | Outpatient (RCR) | payer MEDICARE ==
[2018-02-17 09:08] LABS: INR 2.8 (0.8-1.4)
== END 2018-03-20 10:42 | disposition home or self-care (01) ==
LOC: LAB 08:00
PROVIDERS: ATTEND Internal Medicine Cardiovascular Disease
DX: I25.10 Atherosclerotic heart disease of native coronary artery without angina pectoris (principal); I47.2 Ventricular tachycardia; I48.0 Paroxysmal atrial fibrillation; I49.3 Ventricular premature depolarization
CPT/HCPCS: 36415; 85610

== ENCOUNTER → 2018-04-14 | Outpatient (CLI) | payer MEDICARE ==
[2018-04-14 17:28] LABS: BASOPHILS % (AUTO) 1 % (0-10); EOSINOPHILS # (AUTO) 0.3 10^3/uL (0.0-0.3); EOSINOPHILS % (AUTO) 5 % (0-10); HEMATOCRIT 46 % (40-54); HEMOGLOBIN 14.8 G/DL (13.3-17.7); LYMPHOCYTES # (AUTO) 1.1 X 10^3 (1.0-4.0); LYMPHOCYTES % (AUTO) 15 % (12-44); MEAN CORPUSCULAR HEMOGLOBIN 30 PG (25-34); MEAN CORPUSCULAR HGB CONC 33 G/DL (32-36); MEAN CORPUSCULAR VOLUME 93 FL (80-99); MEAN PLATELET VOLUME 10.4 FL (7.4-10.4); MONOCYTES % (AUTO) 13 % (0-12); NEUTROPHILS # (AUTO) 5.1 X 10^3 (1.8-7.8); NEUTROPHILS % (AUTO) 67 % (42-75); PLATELET COUNT 184 10^3/uL (130-400); RED BLOOD COUNT 4.91 10^6/uL (4.35-5.85); RED CELL DISTRIBUTION WIDTH 13.4 % (10.0-14.5); WHITE BLOOD COUNT 7.6 10^3/uL (4.3-11.0)
== END ==
LOC: LAB 16:51
PROVIDERS: ATTEND Family Medicine
DX: J18.9 Pneumonia, unspecified organism (principal); I10 Essential (primary) hypertension
CPT/HCPCS: 36415; 85025

== ENCOUNTER → 2018-04-20 | Outpatient (CLI) | payer MEDICARE ==
[2018-04-20 10:06] LABS: ALBUMIN 3.8 GM/DL (3.2-4.5); BILIRUBIN,TOTAL 0.7 MG/DL (0.1-1.0); CALCIUM 9.4 MG/DL (8.5-10.1); CREATININE SERUM 1.2 MG/DL (0.60-1.30); POTASSIUM 4.2 MMOL/L (3.6-5.0); TOTAL PROTEIN 7.2 GM/DL (6.4-8.2)
== END ==
LOC: LAB 09:27
PROVIDERS: ATTEND Physician Assistant
DX: I25.10 Atherosclerotic heart disease of native coronary artery without angina pectoris (principal); I48.0 Paroxysmal atrial fibrillation; E78.2 Mixed hyperlipidemia
CPT/HCPCS: 36415; 80053; 80061

== ENCOUNTER → 2018-05-22 | Outpatient (CLI) | payer MEDICARE | END | disposition home or self-care (01) | LOC: PREOP 06:08 | PROVIDERS: ATTEND Internal Medicine | DX: Z01.818 Encounter for other preprocedural examination (principal) ==

== ENCOUNTER → 2018-05-31 | Outpatient (CLI) | payer MEDICARE | LOC: CARD 13:57 | PROVIDERS: ATTEND Internal Medicine | DX: I11.0 Hypertensive heart disease with heart failure (principal); I50.9 Heart failure, unspecified | CPT/HCPCS: 93306 ==

== ENCOUNTER 2018-06-07 10:35 | Outpatient (RCR) | payer MEDICARE ==
[2018-03-21 10:07] LABS: PROTHROMBIN TIME PATIENT 22.9 SEC (12.2-14.7)
[2018-05-02 10:57] LABS: INR 2.3 (0.8-1.4); PROTHROMBIN TIME PATIENT 25.6 SEC (12.2-14.7)
[2018-06-07 10:54] LABS: INR 2.1 (0.8-1.4); PROTHROMBIN TIME PATIENT 23.6 SEC (12.2-14.7)
== END 2018-06-19 | disposition home or self-care (01) ==
LOC: LAB 10:35
PROVIDERS: ATTEND Internal Medicine Cardiovascular Disease
DX: I25.10 Atherosclerotic heart disease of native coronary artery without angina pectoris (principal); I82.409 Acute embolism and thrombosis of unspecified deep veins of unspecified lower extremity; I47.2 Ventricular tachycardia; I48.0 Paroxysmal atrial fibrillation; I49.3 Ventricular premature depolarization
CPT/HCPCS: 36415; 85610

== ENCOUNTER 2018-08-08 07:58 | Outpatient (CLI) | payer MEDICARE ==
[~2018-08-08] VITALS: Ht 185.4 cm; Wt 127.0 kg
[2018-08-08 08:08] VITALS: BP 130/67
[2018-08-08 08:53] LABS: BASOPHILS % (AUTO) 1 % (0-10); EOSINOPHILS # (AUTO) 0.3 10^3/uL (0.0-0.3); EOSINOPHILS % (AUTO) 5 % (0-10); HEMATOCRIT 46 % (40-54); HEMOGLOBIN 15.4 G/DL (13.3-17.7); LYMPHOCYTES # (AUTO) 1.4 X 10^3 (1.0-4.0); LYMPHOCYTES % (AUTO) 20 % (12-44); MEAN CORPUSCULAR HEMOGLOBIN 31 PG (25-34); MEAN CORPUSCULAR HGB CONC 33 G/DL (32-36); MEAN CORPUSCULAR VOLUME 92 FL (80-99); MEAN PLATELET VOLUME 10.9 FL (7.4-10.4); MONOCYTES # (AUTO) 0.8 X 10^3 (0.0-1.0); MONOCYTES % (AUTO) 12 % (0-12); NEUTROPHILS # (AUTO) 4.5 X 10^3 (1.8-7.8); NEUTROPHILS % (AUTO) 64 % (42-75); PLATELET COUNT 201 10^3/uL (130-400); RED CELL DISTRIBUTION WIDTH 13.7 % (10.0-14.5)
[2018-08-08 09:11] LABS: BUN/CREATININE RATIO 16; CALCIUM 9.2 MG/DL (8.5-10.1); CARBON DIOXIDE 26 MMOL/L (21-32); CHLORIDE 104 MMOL/L (98-107); CREATININE SERUM 1.09 MG/DL (0.60-1.30); GFR ESTIMATED > 60; GLUCOSE 116 MG/DL (70-105); POTASSIUM 3.6 MMOL/L (3.6-5.0); SODIUM 139 MMOL/L (135-145)
[2018-08-08] MEDS ORDERED: ATOR10TA66 PO (09:35)
[2018-08-08] MEDS ORDERED: FINA5TAB6 PO (09:35)
[2018-08-08] MEDS ORDERED: WARF5TAB PO (09:35)
[2018-08-08] MEDS ORDERED: METO-370 PO (09:35)
[2018-08-08] MEDS ORDERED: LISI-556 PO (09:35)
[2018-08-08] MEDS ORDERED: TRAV5DRO OU (09:35)
--- NOTE | 2018-08-08 12:20 | Diagnostic Imaging Report ---
INDICATION: Preop facial lesions. EXAMINATION: PA and lateral chest. FINDINGS: The heart size is mildly enlarged. The pulmonary vascularity is normal. There is a loop recorder projecting over the left lower chest. The lungs are clear. There are no effusions or pneumothoraces. IMPRESSION: No acute abnormalities in the chest. Dictated by: Dictated on workstation # [id number]
== END 2018-08-08 09:00 | disposition home or self-care (01) ==
LOC: PREOP 07:58
PROVIDERS: ATTEND Otolaryngology Otolaryngology/Facial Plastic Surgery
DX: Z01.810 Encounter for preprocedural cardiovascular examination (principal); Z01.811 Encounter for preprocedural respiratory examination; Z01.812 Encounter for preprocedural laboratory examination; Z11.2 Encounter for screening for other bacterial diseases; L98.9 Disorder of the skin and subcutaneous tissue, unspecified
CPT/HCPCS: 36415; 71046; 80048; 85025; 87081; 93005

== ENCOUNTER 2018-08-17 07:02 | Day surgery (SDC) | payer MEDICARE ==
[~2018-08-17] VITALS: Ht 185.4 cm; Wt 127.0 kg
[~2018-08-17 07:02] MED LIST changes: +ATOR10TA66 PO; +FINA5TAB6 PO; +METO-370 PO; +TRAV5DRO OU; +WARF5TAB PO
[2018-08-17 07:15] VITALS: BP 127/82
--- NOTE | 2018-08-17 07:33 | Progress Note-Pre Operative ---
Pre-Operative Progress Note H&P Reviewed The H&P was reviewed, patient examined and no changes noted. Date Seen by Provider: Aug 17, 2018 Time Seen by Provider: 07:30 Date H&P Reviewed: Aug 17, 2018 Time H&P Reviewed: 07:30 Pre-Operative Diagnosis: Excison of Multiple Facial Lesions MELANIE MEDRANO MD Aug 17, 2018 07:33
[2018-08-17] MEDS ORDERED: ONDANSETRON 4 MG/2 ML (SDV) Z0FRAN ONE ×2 (07:53→08:09)
[2018-08-17] MEDS ORDERED: DEXAMETHASONE 10 MG/ML (DECADRON) 1 ML VIAL ONE (07:53)
[2018-08-17] MEDS ORDERED: fentaNYL INJECTION 100 MCG/2 ML AMP ONE (07:53)
[2018-08-17] MEDS ORDERED: proPOfol 200 MG/20 ML (DIPRIVAN) VIAL IV ONE (07:53)
[2018-08-17] MEDS ORDERED: LIDOCAINE PF 2% 5 ML (XYLOCAINE) VIAL ONE (07:53)
[2018-08-17] MEDS ORDERED: MUPIROCIN 2% OINT 22 GM (BACTROBAN) TUBE ONE (07:54)
[2018-08-17] MEDS ORDERED: LIDOCAINE/EPI 1%-1:100,000 (XYLOCAINE) 20ML ONE (07:54)
[2018-08-17 07:55] LABS: INR 1.5 (0.8-1.4); PROTHROMBIN TIME PATIENT 19.1 SEC (12.2-14.7)
[2018-08-17] MEDS ORDERED: LACTATED RINGERS 1,000 ML IV PRN (07:58)
[2018-08-17] MEDS ORDERED: FAMOTIDINE 20MG/2ML IV (PEPCID) ONE (08:09)
[2018-08-17] MEDS ORDERED: SEVOFLURANE (ULTANE) 15 ML INHAL SOLN ONE ×2 (08:14→09:28)
[2018-08-17] MEDS ORDERED: ONDANSETRON 4 MG/2 ML (SDV) Z0FRAN IV ONE (08:15)
[2018-08-17] MEDS ORDERED: FAMOTIDINE 20MG/2ML IV (PEPCID) IV ONE (08:15)
--- OUTSIDE RECORDS SUMMARY | 2018-08-17 08:21 | XMS REPORT | Clinical Summary ---
Author Author [facility] Organization [facility] Address Unknown Phone Unavailable Care Team Providers Care [employer] Name Role Phone Indio Jung MD PCP Corrie Hooper MD Unavailable Source Comments Some departments are not documenting in the electronic medical record. If you do not see the information that you expected, contact Release of Information in the Health Information Management department at [phone] for further assistance in locating additional records.[facility] Allergies Comments Active Allergy Reactions Severity Noted Date Cephalexin RASH 12/18/2009 Medications End Date Status Medication Sig Dispensed Refills Start Date Active CETIRIZINE HCL (ZYRTEC Take 1 Tab by 0 PO) mouth Daily. Active oxycodone (ROXICODONE) 1 5 mL Every 4 200 mL 0 mg/mL oral solution Hours as 0 needed. Active bacitracin 500 unit/g Apply to 1 Container 0 topical ointment affected area 0 Three Times Daily. Active clindamycin,+, (CLEOCIN) Take 1 Cap by 20 Cap 0 300 mg capsule mouth Four 0 Times Daily. Active Problems Not on file Family History Medical History Relation Name Comments Cancer Brother Cancer Father Relation Name Status Comments Brother Father Social History Date Tobacco Use Types Packs/Day Years Used Never Smoker Alcohol Use Drinks/Week oz/Week Comments No Sex Assigned at Date Recorded Not on file Industry Job Start Date Occupation Not on file Not on file Not on file Travel End Travel History Travel Start No recent travel history available. Last Filed Vital Signs Time Taken Vital Sign Reading 12/19/2009 5:58 AM CDT Blood Pressure 138/95 12/19/2009 9:55 AM CDT Pulse 88 12/19/2009 5:58 AM CDT Temperature 36.5 C (97.7 F) - Respiratory Rate - 12/19/2009 9:55 AM CDT Oxygen Saturation 92% - Inhaled Oxygen - Concentration 12/15/2009 8:00 AM CDT Weight 119.8 kg (264 lb 1.8 oz) 12/15/2009 8:00 AM CDT Height 185.4 cm (6' 1") 12/15/2009 8:00 AM CDT Body Mass Index 34.85 Plan of Treatment Health Maintenance Due Date Last Done Comments PHYSICAL (COMPREHENSIVE) 1950 EXAM DTAP/TDAP VACCINES (1 - 1961 Tdap) COLORECTAL CANCER 1993 SCREENING SHINGLES RECOMBINANT 1993 VACCINE (1 of 2) PNEUMONIA (PCV13/PPSV23) 01/09/2008 VACCINES (1 of 2 - PCV13) INFLUENZA VACCINE 12/14/2017 Results Not on filefrom Last 3 Months
--- OUTSIDE RECORDS SUMMARY | 2018-08-17 08:25 | XMS REPORT | Continuity of Care Document ---
Author Author [facility] Organization [facility] Address Unknown Phone Unavailable Allergies Active Description Code Type Severity Reaction Onset Reported/Identified Relationship to Patient Clinical Status Yes No Known Drug Allergies [id number] Drug Allergy Unknown N/A 09/24/2010 Medications There is no data. Problems Date Dx Coded Attending Type Code Diagnosis Diagnosed By 04/14/1041 KETURAH MORATAYA, SMITA Valdes Ot I25.10 ATHSCL HEART DISEASE OF [place] CORONARY 04/14/1041 SMITA REBOLLAR MD Ot I47.2 VENTRICULAR TACHYCARDIA 04/14/1041 SMITA REBOLLAR MD Ot I48.0 PAROXYSMAL ATRIAL FIBRILLATION 04/14/1041 SMITA REBOLLAR MD Ot I49.3 VENTRICULAR PREMATURE DEPOLARIZATION 09/28/2010 Ot 453.40 ACUTE VENOUS EMBOLISM THROMBOSIS [facility] 09/28/2010 Ot 459.81 VENOUS INSUFFICIENCY NOS 09/28/2010 Ot V10.82 HX-MALIG SKIN MELANOMA 09/28/2010 Ot V10.83 HX-SKIN MALIGNANCY NEC 12/30/2010 Ot 453.40 ACUTE VENOUS EMBOLISM THROMBOSIS [facility] 12/30/2010 Ot V58.61 ANTICOAGULANTS,LT,CURRENT USE 03/31/2011 Ot 453.40 ACUTE VENOUS EMBOLISM THROMBOSIS [facility] 03/31/2011 Ot V58.61 ANTICOAGULANTS,LT,CURRENT USE 04/26/2011 Ot 552.21 OBSTR INCISIONAL HERNIA 04/26/2011 Ot V64.41 LAPAROSCOPIC SURGICAL PROC CONVERTED TO 07/27/2011 Ot 453.40 ACUTE VENOUS EMBOLISM THROMBOSIS [facility] 07/27/2011 Ot V58.61 ANTICOAGULANTS,LT,CURRENT USE 11/21/2011 Ot 453.40 ACUTE VENOUS EMBOLISM THROMBOSIS [facility] 11/21/2011 Ot V58.61 ANTICOAGULANTS,LT,CURRENT USE 05/16/2012 Ot 466.0 ACUTE BRONCHITIS 05/16/2012 Ot 786.2 COUGH 10/16/2012 KAPIL MORATAYA, ALEXSANDRA Conley Ot V12.72 PERSONAL HISTORY OF COLONIC POLYPS 07/07/2013 RAMA MORATAYA, YONATHAN Baron Ot 892.0 OPEN WOUND OF FOOT 07/07/2013 RAMA MORATAYA, YONATHAN Baron Ot E000.8 OTHER EXTERNAL CAUSE STATUS 07/07/2013 RAMA MORATAYA, YONATHAN Baron Ot E920.8 ACC-CUTTING INSTRUM NEC 07/07/2013 YONATHAN ONTIVEROS MD Ot V06.1 [id number], COMBINED [ 04/29/2014 SIGRID MORATAYA, YINA Nga Ot 789.09 ABDOMINAL PAIN, OTHER SPECIFIED SITE 04/29/2014 Ot 172.3 04/29/2014 Ot 172.3 04/29/2014 Ot 453.41 04/29/2014 Ot 782.3 04/29/2014 Ot 453.40 04/29/2014 Ot V58.61 04/29/2014 Ot 799.81 04/29/2014 Ot 172.3 04/29/2014 Ot 453.40 04/29/2014 Ot V58.61 04/29/2014 MITCHELL MORATAYA, MELANIE Moctezuma Ot 172.3 04/29/2014 KAPIL MORATAYA, ALEXSANDRA Conley Ot V72.84 04/29/2014 MITCHELL MORATAYA, MELANIE P Ot 172.3 04/29/2014 Ot 473.9 05/01/2014 MITCHELL MORATAYA, MELANIE Moctezuma Ot V10.82 05/22/2014 MITCHELL MORATAYA, MELANIE P Ot V10.82 06/10/2014 MITCHELL MORATAYA, MELANIE P Ot V10.82 06/18/2014 Ot 172.3 06/18/2014 Ot 172.3 06/18/2014 Ot 453.41 06/18/2014 Ot 782.3 06/18/2014 Ot 453.40 06/18/2014 Ot V58.61 06/18/2014 Ot 799.81 06/18/2014 Ot 172.3 06/18/2014 Ot 453.40 06/18/2014 Ot V58.61 06/18/2014 MITCHELL MORATAYA, MELANIE P Ot 172.3 06/18/2014 KAPIL MORATAYA, ALEXSANDRA Conley Ot V72.84 06/18/2014 MITCHELL MORATAYA, MELANIE P Ot 172.3 06/18/2014 Ot 473.9 06/18/2014 MITCHELL MORATAYA, MELANIE Moctezuma Ot V10.82 06/18/2014 Ot 172.3 06/18/2014 Ot 172.3 06/18/2014 Ot 453.41 06/18/2014 Ot 782.3 06/18/2014 Ot 453.40 06/18/2014 Ot V58.61 06/18/2014 Ot 799.81 06/18/2014 Ot 172.3 06/18/2014 Ot 453.40 06/18/2014 Ot V58.61 06/18/2014 MITCHELL MORATAYA, MELANIE P Ot 172.3 06/18/2014 KAPIL MORATAYA, ALEXSANDRA S Ot V72.84 06/18/2014 MITCHELL MORATAYA, MELANIE P Ot 172.3 06/18/2014 Ot 473.9 06/18/2014 MITCHELL MORATAYA, MELANIE P Ot V10.82 06/20/2014 Ot 172.3 06/20/2014 Ot 172.3 06/20/2014 Ot 453.41 06/20/2014 Ot 782.3 06/20/2014 Ot 453.40 06/20/2014 Ot V58.61 06/20/2014 Ot 799.81 06/20/2014 Ot 172.3 06/20/2014 Ot 453.40 06/20/2014 Ot V58.61 06/20/2014 MITCHELL MORATAYA, MELANIE P Ot 172.3 06/20/2014 KAPIL MORATAYA, ALEXSANDRA S Ot V72.84 06/20/2014 MITCHELL MORATAYA, MELANIE P Ot 172.3 06/20/2014 Ot 473.9 06/20/2014 MITCHELL MORATAYA, MELANIE P Ot V10.82 06/20/2014 KAPIL MORATAYA, ALEXSANDRA S Ot 553.20 06/20/2014 KAPIL MORATAYA, ALEXSANDRA S Ot V72.63 06/20/2014 KAPIL MORATAYA, ALEXSANDRA S Ot V72.81 06/20/2014 KAPIL MORATAYA, ALEXSANDRA S Ot V72.83 06/20/2014 KAPIL MORATAYA, ALEXSANDRA S Ot V74.8 06/20/2014 YONATHAN ONTIVEROS MD Ot 427.31 ATRIAL FIBRILLATION 06/20/2014 RAMA MORATAYA, YONATHAN Baron Ot 729.5 PAIN IN LIMB 06/20/2014 YONATHAN ONTIVEROS MD Ot V12.51 HX-VENOUS THROMBOSIS EMBOLISM 06/20/2014 YONATHAN ONTIVEROS MD Ot V58.69 OTH MED,LT,CURRENT USE 06/20/2014 KAPIL MORATAYA, ALEXSANDRA S Ot 553.20 06/20/2014 KAPIL MORATAYA, ALEXSANDRA S Ot V72.63 06/20/2014 KAPIL MORATAYA, ALEXSANDRA Conley Ot V72.81 06/20/2014 KAPIL MORATAYA, ALEXSANDRA Conley Ot V72.83 06/20/2014 KAPIL MORATAYA, ALEXSANDRA S Ot V74.8 07/02/2014 Ot 172.3 07/02/2014 Ot 172.3 07/02/2014 Ot 453.41 07/02/2014 Ot 782.3 07/02/2014 Ot 453.40 07/02/2014 Ot V58.61 07/02/2014 Ot 799.81 07/02/2014 Ot 172.3 07/02/2014 Ot 453.40 07/02/2014 Ot V58.61 07/02/2014 MITCHELL MORATAYA, MELANIE P Ot 172.3 07/02/2014 KAPIL MORATAYA, ALEXSANDRA S Ot V72.84 07/02/2014 MITCHELL MORATAYA, MELANIE P Ot 172.3 07/02/2014 Ot 473.9 07/02/2014 MITCHELL MORATAYA, MELANIE P Ot V10.82 07/02/2014 KAPIL MORATAYA, ALEXSANDRA S Ot 553.20 07/02/2014 KAPIL MORATAYA, ALEXSANDRA S Ot V72.63 07/02/2014 KAPIL MORATAYA, ALEXSANDRA S Ot V72.81 07/02/2014 KAPIL MORATAYA, ALEXSANDRA Conley Ot V72.83 07/02/2014 KAPIL MORATAYA, ALEXSANDRA S Ot V74.8 07/11/2014 KAPIL MORATAYA, ALEXSANDRA S Ot 553.20 07/11/2014 KAPIL MORATAYA, ALEXSANDRA S Ot V72.63 07/11/2014 KAPIL MORATAYA, ALEXSANDRA S Ot V72.81 07/11/2014 KAPIL MORATAYA, ALEXSANDRA S Ot V72.83 07/11/2014 KAPIL MORATAYA, ALEXSANDRA S Ot V74.8 07/11/2014 KAPIL MORATAYA, ALEXSANDRA S Ot 553.20 07/11/2014 KAPIL MORATAYA, ALEXSANDRA S Ot V72.63 07/11/2014 KAPIL MORATAYA, ALEXSANDRA S Ot V72.81 07/11/2014 KAPIL MORATAYA, ALEXSANDRA S Ot V72.83 07/11/2014 KAPIL MORATAYA, ALEXSANDRA S Ot V74.8 07/12/2014 Ot 278.00 OBESITY, NOS 07/12/2014 Ot 401.9 HYPERTENSION NOS 07/12/2014 Ot 414.01 CORONARY ATHEROSCLEROSIS OF [place] CORON 07/12/2014 Ot 425.4 PRIM CARDIOMYOPATHY NEC 07/12/2014 Ot 427.0 PAROX ATRIAL TACHYCARDIA 07/12/2014 Ot 427.1 PAROX VENTRIC TACHYCARD 07/12/2014 Ot 427.31 ATRIAL FIBRILLATION 07/12/2014 Ot V58.69 OTH MED,LT, CURRENT USE 07/12/2014 Ot V85.34 BODY MASS INDEX 34.0-34.9, ADULT 09/13/2014 Ot 172.3 09/13/2014 Ot 172.3 09/13/2014 Ot 453.41 09/13/2014 Ot 782.3 09/13/2014 Ot 453.40 09/13/2014 Ot V58.61 09/13/2014 Ot 799.81 09/13/2014 Ot 172.3 09/13/2014 Ot 453.40 09/13/2014 Ot V58.61 09/13/2014 MITCHELL MORATAYA, MELANIE P Ot 172.3 09/13/2014 KAPIL MORATAYA, ALEXSANDRA S Ot V72.84 09/13/2014 MITCHELL MORATAYA, MELANIE P Ot 172.3 09/13/2014 Ot 473.9 09/13/2014 MITCHELL MORATAYA, MELANIE P Ot V10.82 09/13/2014 KAPIL MORATAYA, ALEXSANDRA S Ot 553.20 09/13/2014 KAPIL MORATAYA, ALEXSANDRA S Ot V72.63 09/13/2014 KAPIL MORATAYA, ALEXSANDRA S Ot V72.81 09/13/2014 KAPIL MORATAYA, ALEXSANDRA S Ot V72.83 09/13/2014 KAPIL MORATAYA, ALEXSANDRA S Ot V74.8 09/13/2014 KETURAH MORATAYA, SMITA Valdes Ot 173.31 09/13/2014 KETURAH MORATAYA, SMITA J Ot 278.00 09/13/2014 KETURAH MORATAYA, SMITA J Ot 401.9 09/13/2014 KETURAH MORATAYA, SMITA J Ot 427.69 09/13/2014 KETURAH MORATAYA, SMITA Valdes Ot V85.35 09/13/2014 KAPIL MORATAYA, ALEXSANDRA S Ot 553.20 09/13/2014 KAPIL MORATAYA, ALEXSANDRA S Ot V72.63 09/13/2014 KAPIL MORATAYA, ALEXSANDRA S Ot V74.8 09/14/2014 KAPIL MORATAYA, ALEXSANDRA S Ot 278.00 OBESITY, NOS 09/14/2014 ALEXSANDRA DICK MD Ot 401.9 HYPERTENSION NOS 09/14/2014 KAPIL MORATAYA, ALEXSANDRA Conley Ot 414.01 CORONARY ATHEROSCLEROSIS OF [place] CORON 09/14/2014 ALEXSANDRA DICK MD Ot 416.8 CHR PULMON HEART DIS NEC 09/14/2014 ALEXSANDRA DICK MD Ot 425.4 PRIM CARDIOMYOPATHY NEC 09/14/2014 ALEXSANDRA DICK MD Ot 426.11 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 09/14/2014 ALEXSANDRA DICK MD Ot 427.1 PAROX VENTRIC TACHYCARD 09/14/2014 ALEXSANDRA DICK MD Ot 427.31 ATRIAL FIBRILLATION 09/14/2014 ALEXSANDRA DICK MD Ot 552.21 OBSTR INCISIONAL HERNIA 09/14/2014 ALEXSANDRA DICK MD Ot 568.0 PERITONEAL [id number] 09/14/2014 ALEXSANDRA DICK MD Ot V64.41 LAPAROSCOPIC SURGICAL PROC CONVERTED TO 09/14/2014 ALEXSANDRA DICK MD Ot V85.34 BODY MASS INDEX 34.0-34.9, ADULT 10/01/2014 RAMA MORATAYA, YONATHAN Baron Ot 998.11 HEMOR COMPLIC A PROCEDURE 10/12/2014 ALEXSANDRA DICK MD Ot 553.20 10/12/2014 ALEXSANDRA DICK MD Ot V72.63 10/12/2014 ALEXSANDRA DICK MD Ot V74.8 12/04/2014 MANDA URRUTIA FIELD TECHNICIAN Ot 785.1 PALPITATIONS 12/04/2014 MANDA URRUTIA FIELD TECHNICIAN Ot 786.50 CHEST PAIN NOS 02/20/2015 Ot 172.3 02/20/2015 Ot 172.3 02/20/2015 Ot 453.41 02/20/2015 Ot 782.3 02/20/2015 Ot 453.40 02/20/2015 Ot V58.61 02/20/2015 Ot 799.81 02/20/2015 Ot 172.3 02/20/2015 Ot 453.40 02/20/2015 Ot V58.61 02/20/2015 MELANIE MEDRANO MD Ot 172.3 02/20/2015 ALEXSANDRA DICK MD Ot V72.84 02/20/2015 MELANIE MEDRANO MD Ot 172.3 02/20/2015 Ot 473.9 02/20/2015 MELANIE MEDRANO MD Ot V10.82 02/20/2015 KAPIL MORATAYA, ALEXSANDRA S Ot 553.20 02/20/2015 KAPIL MORATAYA, ALEXSANDRA S Ot V72.63 02/20/2015 KAPIL MORATAYA, ALEXSANDRA S Ot V72.81 02/20/2015 KAPIL MORATAYA, ALEXSANDRA S Ot V72.83 02/20/2015 KAPIL MORATAYA, ALEXSANDRA S Ot V74.8 02/20/2015 KETURAH MORATAYA, SMITA Valdes Ot 173.31 02/20/2015 KETURAH MORATAYA, SMITA Valdes Ot 278.00 02/20/2015 KETURAH MORATAYA, SMITA Valdes Ot 401.9 02/20/2015 SMITA REBOLLAR MD Ot 427.69 02/20/2015 SMITA REBOLLAR MD Ot V85.35 02/20/2015 KAPIL MORATAYA, ALEXSANDRA S Ot 553.20 02/20/2015 KAPIL MORATAYA, ALEXSANDRA S Ot V72.63 02/20/2015 KAPIL MORATAYA, ALEXSANDRA S Ot V74.8 02/21/2015 SMITA REBOLLAR MD Ot E66.9 02/21/2015 SMITA RBEOLLAR MD Ot I10 02/21/2015 SMITA REBOLLAR MD Ot I25.10 02/21/2015 SMITA REBOLLAR MD Ot I49.3 02/21/2015 SMITA REBOLLAR MD Ot E66.9 02/21/2015 SMITA REBOLLAR MD Ot I10 02/21/2015 SMITA REBOLLAR MD Ot I25.10 02/21/2015 SMITA REBOLLAR MD Ot I49.3 03/19/2015 Ot 172.3 03/19/2015 Ot 172.3 03/19/2015 Ot 453.41 03/19/2015 Ot 782.3 03/19/2015 Ot 453.40 03/19/2015 Ot V58.61 03/19/2015 Ot 799.81 03/19/2015 Ot 172.3 03/19/2015 Ot 453.40 03/19/2015 Ot V58.61 03/19/2015 MELANIE MEDRANO MD Ot 172.3 03/19/2015 KAPIL MORTAAYA, ALEXSANDRA S Ot V72.84 03/19/2015 MELANIE MEDRANO MD Ot 172.3 03/19/2015 Ot 473.9 03/19/2015 MITCHELL MORATAYA, MELANIE Moctezuma Ot V10.82 03/19/2015 KAPIL MORATAYA, ALEXSANDRA S Ot 553.20 03/19/2015 KAPIL MORATAYA, ALEXSANDRA S Ot V72.63 03/19/2015 KAPIL MORATAYA, ALEXSANDRA S Ot V72.81 03/19/2015 KAPIL MORATAYA, ALEXSANDRA S Ot V72.83 03/19/2015 KAPIL MORATAYA, ALEXSANDRA S Ot V74.8 03/19/2015 KETURAH MORAATYA, SMITA Valdes Ot 173.31 03/19/2015 KETURAH MORATAYA, SMITA Valdes Ot 278.00 03/19/2015 KETURAH MORATAYA, SMITA Valdes Ot 401.9 03/19/2015 KETURAH MORATAYA, SMITA Valdes Ot 427.69 03/19/2015 KETURAH MORATAYA, SMITA Valdes Ot V85.35 03/19/2015 KAPIL MORATAYA, ALEXSANDRA S Ot 553.20 03/19/2015 KAPIL MORATAYA, ALEXSANDRA S Ot V72.63 03/19/2015 KAPIL MORATAYA, ALEXSANDRA S Ot V74.8 03/19/2015 Ot E66.9 03/19/2015 Ot I10 03/19/2015 Ot I25.10 03/19/2015 KETURAH MORATAYA, SMITA Valdes Ot E66.9 03/19/2015 KETURAH MORATAYA, SMITA Valdes Ot I10 03/19/2015 KETURAH MORATAYA, SMITA Valdes Ot I25.10 03/19/2015 KETURAH MORATAYA, SMITA Valdes Ot I49.3 03/19/2015 Ot E66.9 03/19/2015 Ot I10 03/19/2015 Ot I25.10 03/25/2015 Ot 172.3 03/25/2015 Ot 172.3 03/25/2015 Ot 453.41 03/25/2015 Ot 782.3 03/25/2015 Ot 453.40 03/25/2015 Ot V58.61 03/25/2015 Ot 799.81 03/25/2015 Ot 172.3 03/25/2015 Ot 453.40 03/25/2015 Ot V58.61 03/25/2015 MELANIE MEDRANO MD Ot 172.3 03/25/2015 KAPIL MORATAYA, ALEXSANDRA S Ot V72.84 03/25/2015 MELANIE MEDRANO MD Ot 172.3 03/25/2015 Ot 473.9 03/25/2015 MITCHELL MORATAYA, MELANIE P Ot V10.82 03/25/2015 KAPIL MORATAYA, ALEXSANDRA S Ot 553.20 03/25/2015 KAPIL MORATAYA, ALEXSANDRA S Ot V72.63 03/25/2015 KAPIL MORATAYA, ALEXSANDRA S Ot V72.81 03/25/2015 KAPIL MORATAYA, ALEXSANDRA S Ot V72.83 03/25/2015 KAPIL MORATAYA, ALEXSANDRA S Ot V74.8 03/25/2015 KETURAH MORATAYA, SMITA Valdes Ot 173.31 03/25/2015 KETURAH MORATAYA, SMITA Valdes Ot 278.00 03/25/2015 KETURAH MORATAYA, SMITA Valdes Ot 401.9 03/25/2015 KETURAH MORATAYA, SMITA Valdes Ot 427.69 03/25/2015 KETURAH MORATAYA, SMITA Valdes Ot V85.35 03/25/2015 KAPIL MORATAYA, ALEXSANDRA S Ot 553.20 03/25/2015 KAPIL MORATAYA, ALEXSANDRA S Ot V72.63 03/25/2015 KAPIL MORATAYA, ALEXSANDRA S Ot V74.8 03/25/2015 Ot E66.9 03/25/2015 Ot I10 03/25/2015 Ot I25.10 03/25/2015 SMITA REBOLLAR MD Ot E66.9 03/25/2015 SMITA REBOLLAR MD Ot I10 03/25/2015 SMITA REBOLLAR MD Ot I25.10 03/25/2015 SMITA REBOLLAR MD Ot I49.3 03/25/2015 SMITA REBOLLAR MD Ot E66.9 03/25/2015 SMITA REBOLLAR MD Ot I10 03/25/2015 SMITA REBOLLAR MD Ot I42.9 03/25/2015 SMITA REBOLLAR MD Ot I47.2 03/25/2015 SMITA REBOLLAR MD Ot I48.0 03/25/2015 SMITA REBOLLAR MD Ot I49.3 03/25/2015 SMITA REBOLLAR MD Ot Z68.32 03/25/2015 SMITA REBOLLAR MD Ot Z79.899 03/27/2015 Ot E66.9 03/27/2015 Ot I10 03/27/2015 Ot I25.10 03/31/2015 KETURAH MORATAYA, SMITA Valdes Ot E66.9 03/31/2015 KETURAH MORATAYA, SMITA J Ot I10 03/31/2015 KETURAH MORATAYA, SMITA J Ot I42.9 03/31/2015 KETURAH MORATAYA, SMITA J Ot I47.2 03/31/2015 KETURAH MORATAYA, SMITA Valdes Ot I48.0 03/31/2015 KETURAH MORATAYA, SMITA Valdes Ot I49.3 03/31/2015 KETURAH MORATAYA, SMITA J Ot Z68.32 03/31/2015 KETURAH MORATAYA, SMITA J Ot Z79.899 04/14/2015 KETURAH MORATAYA, SMITA Valdes Ot E66.9 04/14/2015 KETURAH MORATAYA, SMITA Valdes Ot I10 04/14/2015 KETURAH MORATAYA, SMITA Valdes Ot I42.9 04/14/2015 KETURAH MORATAYA, SMITA Valdes Ot I47.2 04/14/2015 KETURAH MORATAYA, SMITA Valdes Ot I48.0 04/14/2015 KETURAH MORATAYA, SMITA Valdes Ot I49.3 04/14/2015 KETURAH MORATAYA, SMITA Valdes Ot Z68.32 04/14/2015 KETURAH MORATAYA, SMITA Valdes Ot Z79.899 04/15/2015 KETURAH MORATAYA, SMITA Valdes Ot E66.9 04/15/2015 KETURAH MORATAYA, SMITA Valdes Ot I10 04/15/2015 KETURAH MORATAYA, SMITA Valdes Ot I25.10 04/15/2015 KETURAH MORATAYA, SMITA Valdes Ot I49.3 04/17/2015 KETURAH MORATAYA, SMITA Valdes Ot E66.9 04/17/2015 KETURAH MORATAYA, SMITA J Ot I10 04/17/2015 KETURAH MORATAYA, SMITA J Ot I25.10 04/17/2015 KETURAH MORATAYA, SMITA J Ot I49.3 04/17/2015 KETURAH MORATAYA, SMITA Valdes Ot E66.9 04/17/2015 KETURAH MORATAYA, SMITA J Ot I10 04/17/2015 KETURAH MORATAYA, SMITA Valdes Ot I42.9 04/17/2015 KETURAH MORATAYA, SMITA Valdes Ot I47.2 04/17/2015 SMITA REBOLLAR MD Ot I48.0 04/17/2015 SMITA REBOLLAR MD Ot I49.3 04/17/2015 SMITA REBOLLAR MD Ot Z68.32 04/17/2015 SMITA REBOLLAR MD, Ot Z79.899 04/26/2015 STONE BEEBE Ot G47.33 OBSTRUCTIVE SLEEP APNEA (ADULT) (PEDIATR 04/26/2015 STONE BEEBE Ot G47.61 PERIODIC LIMB MOVEMENT DISORDER 05/01/2015 MITCHELL MORATAYA, MELANIE Moctezuma Ot C43.39 05/21/2015 SMITA REBOLLAR MD Ot E66.9 OBESITY, UNSPECIFIED 05/21/2015 SMITA REBOLLAR MD Ot I10 ESSENTIAL (PRIMARY) HYPERTENSION 05/21/2015 SMITA REBOLLAR MD Ot I25.10 ATHSCL HEART DISEASE OF [place] CORONARY 05/21/2015 SMITA REBOLLAR MD Ot I49.3 VENTRICULAR PREMATURE DEPOLARIZATION 06/12/2015 MITCHELL MORATAYA, MELANIE Moctezuma Ot C43.39 07/19/2015 KIMMY DOMINGUEZ APRN Ot G47.33 OBSTRUCTIVE SLEEP APNEA (ADULT) (PEDIATR 07/24/2015 KIMMY DOMINGUEZ APRN Ot G47.33 08/13/2015 STONE BEEBE Ot I10 08/13/2015 STONE BEEBE Ot I25.10 08/13/2015 STONE BEEBE Ot I48.0 08/13/2015 STONE BEEBE Ot I49.3 09/04/2015 STONE BEEBE Ot I10 ESSENTIAL (PRIMARY) HYPERTENSION 09/04/2015 STONE BEEBE Ot I25.10 ATHSCL HEART DISEASE OF [place] CORONARY 09/04/2015 STONE BEEBE Ot I48.0 PAROXYSMAL ATRIAL FIBRILLATION 09/04/2015 STONE BEEBE Ot I49.3 VENTRICULAR PREMATURE DEPOLARIZATION 11/13/2015 MANDA URRUTIA APRN Ot T45.1X5A ADVERSE EFFECT OF ANTINEOPLASTIC AND IMM 11/14/2015 MANDA URRUTIA APRN Ot T45.1X5A ADVERSE EFFECT OF ANTINEOPLASTIC AND IMM 11/16/2015 RAMA MORATAYA, YONATHAN Baron Ot L24.4 IRRITANT CONTACT DERMATITIS DUE TO DRUGS 11/20/2015 RAMA MORATAYA, YONATHAN Baron Ot L24.4 IRRITANT CONTACT DERMATITIS DUE TO DRUGS 01/03/2016 Ot 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 01/03/2016 Ot 453.41 ACUTE VENOUS EMBOLISM THROMBOSIS DEEP 01/03/2016 Ot 782.3 EDEMA 01/03/2016 Ot 453.40 ACUTE VENOUS EMBOLISM THROMBOSIS UNSP 01/03/2016 Ot V58.61 ANTICOAGULANTS,LT,CURRENT USE 01/03/2016 Ot 799.81 DECREASED LIBIDO 01/03/2016 Ot 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 01/03/2016 Ot 453.40 ACUTE VENOUS EMBOLISM THROMBOSIS UNSP 01/03/2016 Ot V58.61 ANTICOAGULANTS,LT,CURRENT USE 01/03/2016 MITCHELL MORATAYA, MELANIE Moctezuma Ot 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 01/03/2016 KAPIL MORATAYA, ALEXSANDRA S Ot V72.84 EXAM PRE-OPERATIVE NOS 01/03/2016 MELANIE MEDRANO MD Ot 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 01/03/2016 Ot 473.9 CHRONIC SINUSITIS NOS 01/03/2016 MITCHELL MORATAYA, MELANIE Moctezuma Ot V10.82 HX-MALIG SKIN MELANOMA 01/03/2016 KAPIL MORATAYA, ALEXSANDRA S Ot 553.20 VENTRAL HERNIA NOS 01/03/2016 KAPIL MORATAYA, ALEXSANDRA S Ot V72.63 PRE-PROCEDURAL LABORATORY EXAMINATION 01/03/2016 KAPIL MORATAYA, ALEXSANDRA S Ot V72.81 [id number] CARDIOVASCULAR 01/03/2016 ALEXSANDRA DICK MD S Ot V72.83 EXAM PRE-OPERATIVE NEC 01/03/2016 KAPIL MORATAYA, ALEXSANDRA S Ot V74.8 SCREEN-BACTERIAL DIS NEC 01/03/2016 KETURAH MORATAYA, SMITA Valdes Ot 173.31 BASAL CELL CARCINOMA OF SKIN OF OTH UN 01/03/2016 SMITA REBOLLAR MD Ot 278.00 OBESITY, NOS 01/03/2016 SMITA REBOLLAR MD Ot 401.9 HYPERTENSION NOS 01/03/2016 SMITA REBOLLAR MD Ot 427.69 PREMATURE BEATS NEC 01/03/2016 SMITA REBOLLAR MD Ot V85.35 BODY MASS INDEX 35.0-35.9, ADULT 01/03/2016 KAPIL MORATAYA, ALEXSANDRA S Ot 553.20 VENTRAL HERNIA NOS 01/03/2016 ALEXSANDRA DICK MD S Ot V72.63 PRE-PROCEDURAL LABORATORY EXAMINATION 01/03/2016 ALEXSANDRA DICK MD Ot V74.8 SCREEN-BACTERIAL DIS NEC 01/03/2016 Ot E66.9 OBESITY, UNSPECIFIED 01/03/2016 Ot I10 ESSENTIAL ( PRIMARY) HYPERTENSION 01/03/2016 Ot I25.10 ATHSCL HEART DISEASE OF [place] CORONARY 01/03/2016 SMITA REBOLLAR MD Ot E66.9 OBESITY, UNSPECIFIED 01/03/2016 SMITA REBOLLAR MD Ot I10 ESSENTIAL (PRIMARY) HYPERTENSION 01/03/2016 SMITA REBOLLAR MD Ot I42.9 CARDIOMYOPATHY, UNSPECIFIED 01/03/2016 SMITA REBOLLAR MD Ot I47.2 VENTRICULAR TACHYCARDIA 01/03/2016 SMITA REBOLLAR MD Ot I48.0 PAROXYSMAL ATRIAL FIBRILLATION 01/03/2016 SMITA REBOLLAR MD Ot I49.3 VENTRICULAR PREMATURE DEPOLARIZATION 01/03/2016 SMITA REBOLLAR MD Ot Z68.32 BODY MASS INDEX (BMI) 32.0-32.9, ADULT 01/03/2016 SMITA REBOLLAR MD Ot Z79.899 OTHER [facility] (CURRENT) DRUG THERAPY 01/03/2016 MITCHELL MORATAYA, MELANIE Moctezuma Ot C43.39 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 01/03/2016 SMITA REBOLLAR MD Ot E66.9 OBESITY, UNSPECIFIED 01/03/2016 SMITA REBOLLAR MD Ot I10 ESSENTIAL (PRIMARY) HYPERTENSION 01/03/2016 SMITA REBOLLAR MD Ot I25.10 ATHSCL HEART DISEASE OF [place] CORONARY 01/03/2016 SMITA REBOLLAR MD Ot I49.3 VENTRICULAR PREMATURE DEPOLARIZATION 01/03/2016 STONE BEEBE Ot I10 ESSENTIAL (PRIMARY) HYPERTENSION 01/03/2016 STONE BEEBE Ot I25.10 ATHSCL HEART DISEASE OF [place] CORONARY 01/03/2016 STONE BEEBE Ot I48.0 PAROXYSMAL ATRIAL FIBRILLATION 01/03/2016 STONE BEEBE Ot I49.3 VENTRICULAR PREMATURE DEPOLARIZATION 01/03/2016 MANDA URRUTIA APRN Ot S22.31XA FRACTURE OF ONE RIB, RIGHT SIDE, INIT FO 01/03/2016 URRUTIA, PETER J FIELD TECHNICIAN Ot S29.9XXA UNSPECIFIED INJURY OF THORAX, INITIAL EN 01/03/2016 MANDA URRUTIA FIELD TECHNICIAN Ot W01.198A FALL SAME LEV FROM SLIP/TRIP W STRIKE AG 01/03/2016 MANDA URRUTIA APRN Ot Y92.512 SUPERMARKET, STORE OR MARKET PLACE 01/03/2016 MANDA URRUTIA FIELD TECHNICIAN Ot Y99.8 OTHER EXTERNAL CAUSE STATUS 01/05/2016 MANDA URRUTIA FIELD TECHNICIAN Ot S22.31XA FRACTURE OF ONE RIB, RIGHT SIDE, INIT FO 01/05/2016 MANDA URRUTIA FIELD TECHNICIAN Ot S29.9XXA UNSPECIFIED INJURY OF THORAX, INITIAL EN 01/05/2016 MANDA URRUTIA FIELD TECHNICIAN Ot W01.198A FALL SAME LEV FROM SLIP/TRIP W STRIKE AG 01/05/2016 MANDA URRUTIA APRN Ot Y92.512 SUPERMARKET, STORE OR MARKET PLACE 01/05/2016 MANDA URRUTIA APRN Ot Y99.8 OTHER EXTERNAL CAUSE STATUS 04/22/2016 Ot 799.81 DECREASED LIBIDO 04/22/2016 Ot 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 04/22/2016 Ot 453.40 ACUTE VENOUS EMBOLISM THROMBOSIS UNSP 04/22/2016 Ot V58.61 ANTICOAGULANTS,LT,CURRENT USE 04/22/2016 MELANIE MEDRANO MD Ot 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 04/22/2016 ALEXSANDRA DICK MD Ot V72.84 EXAM PRE-OPERATIVE NOS 04/22/2016 MELANIE MEDRANO MD Ot 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 04/22/2016 Ot 473.9 CHRONIC SINUSITIS NOS 04/22/2016 MELANIE MEDRANO MD Ot V10.82 HX-MALIG SKIN MELANOMA 04/22/2016 ALEXSANDRA DICK MD Ot 553.20 VENTRAL HERNIA NOS 04/22/2016 ALEXSANDRA DICK MD Ot V72.63 PRE-PROCEDURAL LABORATORY EXAMINATION 04/22/2016 ALEXSANDRA DICK MD Ot V72.81 [id number] CARDIOVASCULAR 04/22/2016 ALEXSANDRA DICK MD Ot V72.83 EXAM PRE-OPERATIVE NEC 04/22/2016 ALEXSANDRA DICK MD Ot V74.8 SCREEN-BACTERIAL DIS NEC 04/22/2016 SMITA REBOLLAR MD Ot 173.31 BASAL CELL CARCINOMA OF SKIN OF OTH UN 04/22/2016 SMITA REBOLLAR MD Ot 278.00 OBESITY, NOS 04/22/2016 SMITA REBOLLAR MD Ot 401.9 HYPERTENSION NOS 04/22/2016 SMITA REBOLLAR MD Ot 427.69 PREMATURE BEATS NEC 04/22/2016 SMITA REBOLLAR MD Ot V85.35 BODY MASS INDEX 35.0-35.9, ADULT 04/22/2016 ALEXSANDRA DICK MD Ot 553.20 VENTRAL HERNIA NOS 04/22/2016 ALEXSANDRA DICK MD Ot V72.63 PRE-PROCEDURAL LABORATORY EXAMINATION 04/22/2016 ALEXSANDRA DICK MD Ot V74.8 SCREEN-BACTERIAL DIS NEC 04/22/2016 Ot E66.9 OBESITY, UNSPECIFIED 04/22/2016 Ot I10 ESSENTIAL ( PRIMARY) HYPERTENSION 04/22/2016 Ot I25.10 ATHSCL HEART DISEASE OF [place] CORONARY 04/22/2016 SMITA REBOLLAR MD Ot E66.9 OBESITY, UNSPECIFIED 04/22/2016 SMITA REBOLLAR MD Ot I10 ESSENTIAL (PRIMARY) HYPERTENSION 04/22/2016 SMITA REBOLLAR MD Ot I42.9 CARDIOMYOPATHY, UNSPECIFIED 04/22/2016 SMITA REBOLLAR MD Ot I47.2 VENTRICULAR TACHYCARDIA 04/22/2016 SMITA REBOLLAR MD Ot I48.0 PAROXYSMAL ATRIAL FIBRILLATION 04/22/2016 SMITA REBOLLRA MD Ot I49.3 VENTRICULAR PREMATURE DEPOLARIZATION 04/22/2016 SMITA REBOLLAR MD Ot Z68.32 BODY MASS INDEX (BMI) 32.0-32.9, ADULT 04/22/2016 SMITA REBOLLAR MD Ot Z79.899 OTHER LABORER PLUMBING (CURRENT) DRUG THERAPY 04/22/2016 MITCHELL MORATAYA, MELANIE Moctezuma Ot C43.39 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 04/22/2016 SMITA REBOLLAR MD Ot E66.9 OBESITY, UNSPECIFIED 04/22/2016 SMITA REBOLLAR MD Ot I10 ESSENTIAL (PRIMARY) HYPERTENSION 04/22/2016 SMITA REBOLLAR MD Ot I25.10 ATHSCL HEART DISEASE OF [place] CORONARY 04/22/2016 SMITA REBOLLAR MD Ot I49.3 VENTRICULAR PREMATURE DEPOLARIZATION 04/22/2016 STONE BEEBE Ot I10 ESSENTIAL (PRIMARY) HYPERTENSION 04/22/2016 STONE BEEBE Ot I25.10 ATHSCL HEART DISEASE OF [place] CORONARY 04/22/2016 STONE BEEBE Ot I48.0 PAROXYSMAL ATRIAL FIBRILLATION 04/22/2016 DOMI DOBBINS STONE K Ot I49.3 VENTRICULAR PREMATURE DEPOLARIZATION 04/23/2016 SMITA REBOLLAR MD Ot I10 ESSENTIAL (PRIMARY) HYPERTENSION 04/23/2016 SMITA REBOLLAR MD Ot I25.10 ATHSCL HEART DISEASE OF [place] CORONARY 04/23/2016 SMITA REBOLLAR MD Ot I47.2 VENTRICULAR TACHYCARDIA 04/23/2016 SMITA REBOLLAR MD Ot I48.0 PAROXYSMAL ATRIAL FIBRILLATION 04/23/2016 SMITA REBOLLAR MD Ot I49.3 VENTRICULAR PREMATURE DEPOLARIZATION 05/14/2016 SMITA REBOLLAR MD Ot I10 ESSENTIAL (PRIMARY) HYPERTENSION 05/14/2016 SMITA REBOLLAR MD Ot I25.10 ATHSCL HEART DISEASE OF [place] CORONARY 05/14/2016 SMITA REBOLLAR MD Ot I47.2 VENTRICULAR TACHYCARDIA 05/14/2016 SMITA REBOLLAR MD Ot I48.0 PAROXYSMAL ATRIAL FIBRILLATION 05/14/2016 SMITA REBOLLAR MD Ot I49.3 VENTRICULAR PREMATURE DEPOLARIZATION 05/19/2016 SMITA REBOLLAR MD Ot I10 ESSENTIAL (PRIMARY) HYPERTENSION 05/19/2016 SMITA REBOLLAR MD Ot I25.10 ATHSCL HEART DISEASE OF [place] CORONARY 05/19/2016 SMITA REBOLLAR MD Ot I47.2 VENTRICULAR TACHYCARDIA 05/19/2016 SMITA REBOLLAR MD Ot I48.0 PAROXYSMAL ATRIAL FIBRILLATION 05/19/2016 SMITA REBOLLAR MD Ot I49.3 VENTRICULAR PREMATURE DEPOLARIZATION 06/13/2016 MANDA URRUTIA APRN Ot I10 ESSENTIAL (PRIMARY) HYPERTENSION 06/13/2016 MANDA URRUTIA APRN Ot J18.9 PNEUMONIA, UNSPECIFIED ORGANISM 06/13/2016 MANDA URRUTIA APRN Ot R05 COUGH 06/13/2016 MANDA URRUTIA APRN Ot R50.9 FEVER, UNSPECIFIED 06/13/2016 MANDA URRUTIA APRN Ot Z79.82 LABORER PLUMBING (CURRENT) USE OF ASPIRIN 06/13/2016 MANDA URRUTIA FIELD TECHNICIAN Ot Z79.899 OTHER LABORER PLUMBING (CURRENT) DRUG THERAPY 06/15/2016 MANDA URRUTIA FIELD TECHNICIAN Ot I10 ESSENTIAL (PRIMARY) HYPERTENSION 06/15/2016 MANDA URRUTIA FIELD TECHNICIAN Ot J18.9 PNEUMONIA, UNSPECIFIED ORGANISM 06/15/2016 MANDA URRUTIA FIELD TECHNICIAN Ot R05 COUGH 06/15/2016 MANDA URRUTIA FIELD TECHNICIAN Ot R50.9 FEVER, UNSPECIFIED 06/15/2016 MANDA URRUTIA FIELD TECHNICIAN Ot Z79.82 [facility] (CURRENT) USE OF ASPIRIN 06/15/2016 MANDA URRUTIA FIELD TECHNICIAN Ot Z79.899 OTHER LABORER [place] (CURRENT) DRUG THERAPY 06/16/2016 SMITA REBOLLAR MD Ot I10 ESSENTIAL (PRIMARY) HYPERTENSION 06/16/2016 SMITA REBOLLAR MD Ot I25.10 ATHSCL HEART DISEASE OF [place] CORONARY 06/16/2016 SMITA REBOLLAR MD Ot I47.2 VENTRICULAR TACHYCARDIA 06/16/2016 SMITA REBOLLAR MD Ot I48.0 PAROXYSMAL ATRIAL FIBRILLATION 06/16/2016 SMITA REBOLLAR MD Ot I49.3 VENTRICULAR PREMATURE DEPOLARIZATION 06/17/2016 SMITA REBOLLAR MD Ot I10 ESSENTIAL (PRIMARY) HYPERTENSION 06/17/2016 SMITA REBOLLAR MD Ot I25.10 ATHSCL HEART DISEASE OF [place] CORONARY 06/17/2016 SMITA REBOLLAR MD Ot I47.2 VENTRICULAR TACHYCARDIA 06/17/2016 SMITA REBOLLAR MD Ot I48.0 PAROXYSMAL ATRIAL FIBRILLATION 06/17/2016 SMITA REBOLLAR MD Ot I49.3 VENTRICULAR PREMATURE DEPOLARIZATION 01/25/2017 MELANIE MEDRANO MD Ot K26.9 DUODENAL ULCER, UNSP ACUTE OR CHRONIC 01/25/2017 MELANIE MEDRANO MD Ot K29.80 DUODENITIS WITHOUT BLEEDING 01/25/2017 MELANIE MEDRANO MD Ot K44.9 DIAPHRAGMATIC HERNIA WITHOUT OBSTRUCTION 02/03/2017 MELANIE MEDRANO MD Ot K26.9 DUODENAL ULCER, UNSP ACUTE OR CHRONIC 02/03/2017 MELANIE MEDRANO MD Ot K29.80 DUODENITIS WITHOUT BLEEDING 02/03/2017 MELANIE MEDRANO MD Ot K44.9 DIAPHRAGMATIC HERNIA WITHOUT OBSTRUCTION 03/25/2017 JULIANE MURPHY MD Ot R16.0 HEPATOMEGALY, NOT ELSEWHERE CLASSIFIED 04/17/2017 JOSE F DO, THIEN K Ot I10 ESSENTIAL (PRIMARY) HYPERTENSION 04/17/2017 JOSE F DO, THIEN K Ot I48.91 UNSPECIFIED ATRIAL FIBRILLATION 04/17/2017 JOSE F DO, THIEN K Ot I82.402 ACUTE EMBOLISM AND THOMBOS UNSP DEEP VEI 04/17/2017 JOSE F DO TIHEN K Ot M79.89 OTHER SPECIFIED SOFT TISSUE DISORDERS 04/17/2017 JOSE F DO THIEN K Ot Z79.82 [facility] (CURRENT) USE OF ASPIRIN 04/17/2017 JOSE F DO THIEN K Ot Z82.49 FAMILY HX OF ISCHEM HEART DIS AND OTH DI 04/17/2017 JOSE F DO, THIEN K Ot Z85.828 PERSONAL HISTORY OF OTHER MALIGNANT NEOP 04/17/2017 JOSE F DO THIEN K Ot Z87.19 PERSONAL HISTORY OF OTHER DISEASES OF TH 04/17/2017 JOSE F DO THIEN K Ot Z87.442 PERSONAL HISTORY OF URINARY CALCULI 04/18/2017 JULIANE MURPHY MD Ot R16.0 HEPATOMEGALY, NOT ELSEWHERE CLASSIFIED 04/20/2017 JOSE F DO, THIEN K Ot I10 ESSENTIAL (PRIMARY) HYPERTENSION 04/20/2017 JOSE F DO, THIEN K Ot I48.91 UNSPECIFIED ATRIAL FIBRILLATION 04/20/2017 JOSE F DO, THIEN K Ot I82.402 ACUTE EMBOLISM AND THOMBOS UNSP DEEP VEI 04/20/2017 JOSE F DO THIEN K Ot M79.89 OTHER SPECIFIED SOFT TISSUE DISORDERS 04/20/2017 JOSE F DO THIEN K Ot Z79.82 [facility] (CURRENT) USE OF ASPIRIN 04/20/2017 JOSE F DO THIEN K Ot Z82.49 FAMILY HX OF ISCHEM HEART DIS AND OTH DI 04/20/2017 JOSE F DO THIEN K Ot Z85.828 PERSONAL HISTORY OF OTHER MALIGNANT NEOP 04/20/2017 JOSE F DO, THIEN K Ot Z87.19 PERSONAL HISTORY OF OTHER DISEASES OF TH 04/20/2017 JOSE F DO THIEN K Ot Z87.442 PERSONAL HISTORY OF URINARY CALCULI 04/20/2017 JULIANE MURPHY MD Ot R16.0 HEPATOMEGALY, NOT ELSEWHERE CLASSIFIED 05/02/2017 SMITA REBOLLAR MD Ot I25.10 ATHSCL HEART DISEASE OF [place] CORONARY 05/02/2017 SMITA REBOLLAR MD Ot I47.2 VENTRICULAR TACHYCARDIA 05/02/2017 SMITA REBOLLAR MD Ot I48.0 PAROXYSMAL ATRIAL FIBRILLATION 05/02/2017 SMITA REBOLLAR MD Ot I49.3 VENTRICULAR PREMATURE DEPOLARIZATION 05/02/2017 SMITA REBOLLAR MD Ot I25.10 ATHSCL HEART DISEASE OF [place] CORONARY 05/02/2017 SMITA REBOLLAR MD Ot I47.2 VENTRICULAR TACHYCARDIA 05/02/2017 SMITA REBOLLAR MD Ot I48.0 PAROXYSMAL ATRIAL FIBRILLATION 05/02/2017 SMITA REBOLLAR MD Ot I49.3 VENTRICULAR PREMATURE DEPOLARIZATION 05/10/2017 STONE BEEBE Ot E78.2 MIXED HYPERLIPIDEMIA 05/10/2017 STONE BEEBE Ot I10 ESSENTIAL (PRIMARY) HYPERTENSION 05/10/2017 STONE BEEBE Ot I25.10 ATHSCL HEART DISEASE OF [place] CORONARY 05/17/2017 MELANIE MEDRANO MD Ot 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 05/17/2017 ALEXSANDRA DICK MD Ot V72.84 EXAM PRE-OPERATIVE NOS 05/17/2017 MELANIE MEDRANO MD Ot 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 05/17/2017 Ot 473.9 CHRONIC SINUSITIS NOS 05/17/2017 MELANIE MEDRANO MD Ot V10.82 HX-MALIG SKIN MELANOMA 05/17/2017 ALEXSANDRA DICK MD Ot 553.20 VENTRAL HERNIA NOS 05/17/2017 ALEXSANDRA DICK MD Ot V72.63 PRE-PROCEDURAL LABORATORY EXAMINATION 05/17/2017 ALEXSANDRA DICK MD Ot V72.81 UDGB-FTE-UEMEQIBEO CARDIOVASCULAR 05/17/2017 ALEXSANDRA DICK MD Ot V72.83 EXAM PRE-OPERATIVE NEC 05/17/2017 ALEXSANDRA DICK MD Ot V74.8 SCREEN-BACTERIAL DIS NEC 05/17/2017 SMITA REBOLLAR MD Ot 173.31 BASAL CELL CARCINOMA OF SKIN OF OTH UN 05/17/2017 SMITA REBOLLAR MD Ot 278.00 OBESITY, NOS 05/17/2017 SMITA REBOLLAR MD Ot 401.9 HYPERTENSION NOS 05/17/2017 SMITA REBOLLAR MD Ot 427.69 PREMATURE BEATS NEC 05/17/2017 SMIAT REBOLLAR MD Ot V85.35 BODY MASS INDEX 35.0-35.9, ADULT 05/17/2017 ALEXSANDRA DICK MD Ot 553.20 VENTRAL HERNIA NOS 05/17/2017 ALEXSANDRA DICK MD Ot V72.63 PRE-PROCEDURAL LABORATORY EXAMINATION 05/17/2017 ALEXSANDRA DICK MD Ot V74.8 SCREEN-BACTERIAL DIS NEC 05/17/2017 Ot E66.9 OBESITY, UNSPECIFIED 05/17/2017 Ot I10 ESSENTIAL ( PRIMARY) HYPERTENSION 05/17/2017 Ot I25.10 ATHSCL HEART DISEASE OF [place] CORONARY 05/17/2017 SMITA REBOLLAR MD Ot E66.9 OBESITY, UNSPECIFIED 05/17/2017 SMITA REBOLLAR MD, Ot I10 ESSENTIAL (PRIMARY) HYPERTENSION 05/17/2017 SMITA REBOLLAR MD Ot I42.9 CARDIOMYOPATHY, UNSPECIFIED 05/17/2017 SMITA REBOLLAR MD Ot I47.2 VENTRICULAR TACHYCARDIA 05/17/2017 SMITA REBOLLAR MD Ot I48.0 PAROXYSMAL ATRIAL FIBRILLATION 05/17/2017 SMITA REBOLLAR MD Ot I49.3 VENTRICULAR PREMATURE DEPOLARIZATION 05/17/2017 SMITA REBOLLAR MD Ot Z68.32 BODY MASS INDEX (BMI) 32.0-32.9, ADULT 05/17/2017 SMITA REBOLLAR MD Ot Z79.899 OTHER [facility] (CURRENT) DRUG THERAPY 05/17/2017 MITCHELL MORATAYA, MELANIE Moctezuma Ot C43.39 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 05/17/2017 SMITA REBOLLAR MD Ot E66.9 OBESITY, UNSPECIFIED 05/17/2017 SMITA REBOLLAR MD Ot I10 ESSENTIAL (PRIMARY) HYPERTENSION 05/17/2017 SMITA REBOLLAR MD Ot I25.10 ATHSCL HEART DISEASE OF [place] CORONARY 05/17/2017 SMITA REBOLLAR MD Ot I49.3 VENTRICULAR PREMATURE DEPOLARIZATION 05/17/2017 STONE BEEBE Ot I10 ESSENTIAL (PRIMARY) HYPERTENSION 05/17/2017 STONE BEEBE Ot I25.10 ATHSCL HEART DISEASE OF [place] CORONARY 05/17/2017 STONE BEEBE Ot I48.0 PAROXYSMAL ATRIAL FIBRILLATION 05/17/2017 STONE BEEBE Ot I49.3 VENTRICULAR PREMATURE DEPOLARIZATION 05/17/2017 SMITA REBOLLAR MD Ot I10 ESSENTIAL (PRIMARY) HYPERTENSION 05/17/2017 SMITA REBOLLAR MD Ot I25.10 ATHSCL HEART DISEASE OF [place] CORONARY 05/17/2017 SMITA REBOLLAR MD Ot I47.2 VENTRICULAR TACHYCARDIA 05/17/2017 SMITA REBOLLAR MD Ot I48.0 PAROXYSMAL ATRIAL FIBRILLATION 05/17/2017 SMITA REBOLLAR MD Ot I49.3 VENTRICULAR PREMATURE DEPOLARIZATION 05/17/2017 SMITA REBOLLAR MD Ot I10 ESSENTIAL (PRIMARY) HYPERTENSION 05/17/2017 SMITA REBOLLAR MD Ot I25.10 ATHSCL HEART DISEASE OF [place] CORONARY 05/17/2017 SMITA REBOLLAR MD Ot I47.2 VENTRICULAR TACHYCARDIA 05/17/2017 SMITA REBOLLAR MD Ot I48.0 PAROXYSMAL ATRIAL FIBRILLATION 05/17/2017 SMITA REBOLLAR MD Ot I49.3 VENTRICULAR PREMATURE DEPOLARIZATION 05/17/2017 MELANIE MEDRANO MD Ot K26.9 DUODENAL ULCER, UNSP ACUTE OR CHRONIC 05/17/2017 MELANIE MEDRANO MD Ot K29.80 DUODENITIS WITHOUT BLEEDING 05/17/2017 MELANIE MEDRANO MD Ot K44.9 DIAPHRAGMATIC HERNIA WITHOUT OBSTRUCTION 05/17/2017 KATHERINE MORATAYA, JULIANE Baron Ot R16.0 HEPATOMEGALY, NOT ELSEWHERE CLASSIFIED 05/17/2017 STONE EBEBE Ot E78.2 MIXED HYPERLIPIDEMIA 05/17/2017 STONE BEEBE Ot I10 ESSENTIAL (PRIMARY) HYPERTENSION 05/17/2017 STONE BEEBE Ot I25.10 ATHSCL HEART DISEASE OF [place] CORONARY 05/17/2017 SMITA REBOLLAR MD Ot I25.10 ATHSCL HEART DISEASE OF [place] CORONARY 05/17/2017 SMITA REBOLLAR MD Ot I47.2 VENTRICULAR TACHYCARDIA 05/17/2017 SMITA REBOLLAR MD Ot I48.0 PAROXYSMAL ATRIAL FIBRILLATION 05/17/2017 SMITA REBOLLAR MD Ot I49.3 VENTRICULAR PREMATURE DEPOLARIZATION 05/17/2017 KATHERINE MORATAYA, JULIANE Baron Ot E78.2 MIXED HYPERLIPIDEMIA 05/18/2017 SMITA REBOLLAR MD Ot I25.10 ATHSCL HEART DISEASE OF [place] CORONARY 05/18/2017 SMITA REBOLLAR MD Ot I47.2 VENTRICULAR TACHYCARDIA 05/18/2017 SMITA REBOLLAR MD Ot I48.0 PAROXYSMAL ATRIAL FIBRILLATION 05/18/2017 SMITA REBOLLAR MD Ot I49.3 VENTRICULAR PREMATURE DEPOLARIZATION 05/18/2017 MELANIE MEDRANO MD Ot 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 05/18/2017 ALEXSANDRA DICK MD Ot V72.84 EXAM PRE-OPERATIVE NOS 05/18/2017 MELANIE MEDRANO MD Ot 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 05/18/2017 Ot 473.9 CHRONIC SINUSITIS NOS 05/18/2017 MELANIE MEDRANO MD Ot V10.82 HX-MALIG SKIN MELANOMA 05/18/2017 ALEXSANDRA DICK MD Ot 553.20 VENTRAL HERNIA NOS 05/18/2017 ALEXSANDRA DICK MD Ot V72.63 PRE-PROCEDURAL LABORATORY EXAMINATION 05/18/2017 ALEXSANDRA DICK MD Ot V72.81 UASO-OFL-GYYBSUWIF CARDIOVASCULAR 05/18/2017 ALEXSANDRA DICK MD Ot V72.83 EXAM PRE-OPERATIVE NEC 05/18/2017 ALEXSANDRA DICK MD Ot V74.8 SCREEN-BACTERIAL DIS NEC 05/18/2017 SMITA REBOLLAR MD Ot 173.31 BASAL CELL CARCINOMA OF SKIN OF OTH UN 05/18/2017 SMITA REBOLLAR MD Ot 278.00 OBESITY, NOS 05/18/2017 SMITA REBOLLAR MD Ot 401.9 HYPERTENSION NOS 05/18/2017 SMITA REBOLLAR MD Ot 427.69 PREMATURE BEATS NEC 05/18/2017 SMITA REBOLLAR MD Ot V85.35 BODY MASS INDEX 35.0-35.9, ADULT 05/18/2017 ALEXSANDRA DICK MD Ot 553.20 VENTRAL HERNIA NOS 05/18/2017 ALEXSANDRA DICK MD Ot V72.63 PRE-PROCEDURAL LABORATORY EXAMINATION 05/18/2017 ALEXSANDRA DICK MD Ot V74.8 SCREEN-BACTERIAL DIS NEC 05/18/2017 Ot E66.9 OBESITY, UNSPECIFIED 05/18/2017 Ot I10 ESSENTIAL ( PRIMARY) HYPERTENSION 05/18/2017 Ot I25.10 ATHSCL HEART DISEASE OF [place] CORONARY 05/18/2017 SMITA REBOLLAR MD Ot E66.9 OBESITY, UNSPECIFIED 05/18/2017 SMITA REBOLLAR MD Ot I10 ESSENTIAL (PRIMARY) HYPERTENSION 05/18/2017 SMITA REBOLLAR MD Ot I42.9 CARDIOMYOPATHY, UNSPECIFIED 05/18/2017 SMITA REBOLLAR MD Ot I47.2 VENTRICULAR TACHYCARDIA 05/18/2017 SMITA REBOLLAR MD Ot I48.0 PAROXYSMAL ATRIAL FIBRILLATION 05/18/2017 SMITA REBOLLAR MD Ot I49.3 VENTRICULAR PREMATURE DEPOLARIZATION 05/18/2017 SMITA REBOLLAR MD Ot Z68.32 BODY MASS INDEX (BMI) 32.0-32.9, ADULT 05/18/2017 SMITA REBOLLAR MD Ot Z79.899 OTHER [facility] (CURRENT) DRUG THERAPY 05/18/2017 MITCHELL MORATAYA, MELANIE Moctezuma Ot C43.39 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 05/18/2017 SMITA REBOLLAR MD Ot E66.9 OBESITY, UNSPECIFIED 05/18/2017 SMITA REBOLLAR MD Ot I10 ESSENTIAL (PRIMARY) HYPERTENSION 05/18/2017 SMITA REBOLLAR MD Ot I25.10 ATHSCL HEART DISEASE OF [place] CORONARY 05/18/2017 SMITA REBOLLAR MD Ot I49.3 VENTRICULAR PREMATURE DEPOLARIZATION 05/18/2017 STONE BEEBE Ot I10 ESSENTIAL (PRIMARY) HYPERTENSION 05/18/2017 STONE BEEBE Ot I25.10 ATHSCL HEART DISEASE OF [place] CORONARY 05/18/2017 STONE BEEBE Ot I48.0 PAROXYSMAL ATRIAL FIBRILLATION 05/18/2017 STONE BEEBE Ot I49.3 VENTRICULAR PREMATURE DEPOLARIZATION 05/18/2017 SMITA REBOLLAR MD Ot I10 ESSENTIAL (PRIMARY) HYPERTENSION 05/18/2017 SMITA REBOLLAR MD Ot I25.10 ATHSCL HEART DISEASE OF [place] CORONARY 05/18/2017 SMITA REBOLLAR MD Ot I47.2 VENTRICULAR TACHYCARDIA 05/18/2017 SMITA REBOLLAR MD Ot I48.0 PAROXYSMAL ATRIAL FIBRILLATION 05/18/2017 SMITA REBOLLAR MD Ot I49.3 VENTRICULAR PREMATURE DEPOLARIZATION 05/18/2017 SMITA REBOLLAR MD Ot I10 ESSENTIAL (PRIMARY) HYPERTENSION 05/18/2017 SMITA REBOLLAR MD Ot I25.10 ATHSCL HEART DISEASE OF [place] CORONARY 05/18/2017 SMITA REBOLLAR MD Ot I47.2 VENTRICULAR TACHYCARDIA 05/18/2017 SMITA REBOLLAR MD Ot I48.0 PAROXYSMAL ATRIAL FIBRILLATION 05/18/2017 SMITA REBOLLAR MD Ot I49.3 VENTRICULAR PREMATURE DEPOLARIZATION 05/18/2017 MELANIE MEDRANO MD Ot K26.9 DUODENAL ULCER, UNSP ACUTE OR CHRONIC 05/18/2017 MELANIE MEDRANO MD Ot K29.80 DUODENITIS WITHOUT BLEEDING 05/18/2017 MELANIE MEDRANO MD Ot K44.9 DIAPHRAGMATIC HERNIA WITHOUT OBSTRUCTION 05/18/2017 JULIANE MURPHY MD Ot R16.0 HEPATOMEGALY, NOT ELSEWHERE CLASSIFIED 05/18/2017 STONE BEEBE Ot E78.2 MIXED HYPERLIPIDEMIA 05/18/2017 STONE BEEBE Ot I10 ESSENTIAL (PRIMARY) HYPERTENSION 05/18/2017 STONE BEEBE Ot I25.10 ATHSCL HEART DISEASE OF [place] CORONARY 05/18/2017 SMITA REBOLLAR MD Ot I25.10 ATHSCL HEART DISEASE OF [place] CORONARY 05/18/2017 SMITA REBOLLAR MD Ot I47.2 VENTRICULAR TACHYCARDIA 05/18/2017 SMITA REBOLLAR MD Ot I48.0 PAROXYSMAL ATRIAL FIBRILLATION 05/18/2017 SMITA REBOLLAR MD Ot I49.3 VENTRICULAR PREMATURE DEPOLARIZATION 05/18/2017 JULIANE MURPHY MD Ot E78.5 HYPERLIPIDEMIA, UNSPECIFIED 05/18/2017 JULIANE MURPHY MD Ot I82.409 ACUTE EMBOLISM AND THOMBOS UNSP DEEP VN 05/18/2017 JULIANE MURPHY MD Ot Z79.899 OTHER [facility] (CURRENT) DRUG THERAPY 05/18/2017 SMITA REBOLLAR MD Ot I25.10 ATHSCL HEART DISEASE OF [place] CORONARY 05/18/2017 SMITA REBOLLAR MD Ot I47.2 VENTRICULAR TACHYCARDIA 05/18/2017 SMITA REBOLLAR MD Ot I48.0 PAROXYSMAL ATRIAL FIBRILLATION 05/18/2017 KETURAH MORATAYA, SMITA Valdes Ot I49.3 VENTRICULAR PREMATURE DEPOLARIZATION 05/20/2017 KATHERINE MORATAYA, JULIANE Baron Ot E66.3 OVERWEIGHT 05/20/2017 KATHERINE MORATAYA, JULIANE Baron Ot I10 ESSENTIAL (PRIMARY) HYPERTENSION 05/20/2017 KATHERINE MORATAYA, JULIANE Baron Ot I48.0 PAROXYSMAL ATRIAL FIBRILLATION 05/20/2017 KATHERINE MORATAYA, JULIANE Baron Ot K22.2 ESOPHAGEAL OBSTRUCTION 05/20/2017 KATHERINE MORATAYA, JULIANE Baron Ot K44.9 DIAPHRAGMATIC HERNIA WITHOUT OBSTRUCTION 05/20/2017 KATHERINE MORATAYA, JULIANE Baron Ot R53.83 OTHER FATIGUE 05/20/2017 JULIANE MURPHY MD Ot Z68.36 BODY MASS INDEX (BMI) 36.0-36.9, ADULT 05/20/2017 JULIANE MURPHY MD Ot Z79.01 [facility] (CURRENT) USE OF ANTICOAGULANT 05/23/2017 JULIANE MURPHY MD Ot E66.3 OVERWEIGHT 05/23/2017 JULIANE MURPHY MD Ot I10 ESSENTIAL (PRIMARY) HYPERTENSION 05/23/2017 JULIANE MURPHY MD Ot I48.0 PAROXYSMAL ATRIAL FIBRILLATION 05/23/2017 JULIANE MURPHY MD Ot K22.2 ESOPHAGEAL OBSTRUCTION 05/23/2017 JULIANE MURPHY MD Ot K44.9 DIAPHRAGMATIC HERNIA WITHOUT OBSTRUCTION 05/23/2017 JULIANE MURPHY MD Ot R53.83 OTHER FATIGUE 05/23/2017 JULIANE MURPHY MD Ot Z68.36 BODY MASS INDEX (BMI) 36.0-36.9, ADULT 05/23/2017 JULIANE MURPHY MD Ot Z79.01 [facility] (CURRENT) USE OF ANTICOAGULANT 05/26/2017 JULIANE MURPHY MD Ot E66.3 OVERWEIGHT 05/26/2017 JULIANE MURPHY MD Ot I10 ESSENTIAL (PRIMARY) HYPERTENSION 05/26/2017 JULIANE MURPHY MD Ot I48.0 PAROXYSMAL ATRIAL FIBRILLATION 05/26/2017 JULIANE MURPHY MD Ot K22.2 ESOPHAGEAL OBSTRUCTION 05/26/2017 JULIANE MURPHY MD Ot K44.9 DIAPHRAGMATIC HERNIA WITHOUT OBSTRUCTION 05/26/2017 JULIANE MURPHY MD Ot R53.83 OTHER FATIGUE 05/26/2017 JULIANE MURPHY MD Ot Z68.36 BODY MASS INDEX (BMI) 36.0-36.9, ADULT 05/26/2017 JULIANE MURPHY MD Ot Z79.01 [facility] (CURRENT) USE OF ANTICOAGULANT 06/07/2017 JULIANE MURPHY MD Ot E78.5 HYPERLIPIDEMIA, UNSPECIFIED 06/07/2017 JULIANE MURPHY MD Ot I82.409 ACUTE EMBOLISM AND THOMBOS UNSP DEEP VN 06/07/2017 JULIANE MURPHY MD Ot Z79.899 OTHER [facility] (CURRENT) DRUG THERAPY 07/25/2017 SMITA REBOLLAR MD Ot E78.2 MIXED HYPERLIPIDEMIA 07/25/2017 SMITA REBOLLAR MD Ot I10 ESSENTIAL (PRIMARY) HYPERTENSION 07/25/2017 SMITA REBOLLAR MD Ot I25.10 ATHSCL HEART DISEASE OF [place] CORONARY 07/25/2017 SMITA REBOLLAR MD Ot I47.2 VENTRICULAR TACHYCARDIA 07/25/2017 SMITA REBOLLAR MD Ot I48.0 PAROXYSMAL ATRIAL FIBRILLATION 07/25/2017 SMITA REBOLLAR MD Ot I49.3 VENTRICULAR PREMATURE DEPOLARIZATION 08/25/2017 SMITA REBOLLAR MD Ot E78.2 MIXED HYPERLIPIDEMIA 08/25/2017 SMITA REBOLLAR MD Ot I10 ESSENTIAL (PRIMARY) HYPERTENSION 08/25/2017 SMITA REBOLLAR MD Ot I25.10 ATHSCL HEART DISEASE OF [place] CORONARY 08/25/2017 SMITA REBOLLAR MD Ot I47.2 VENTRICULAR TACHYCARDIA 08/25/2017 SMITA REBOLLAR MD Ot I48.0 PAROXYSMAL ATRIAL FIBRILLATION 08/25/2017 SMITA REBOLLAR MD Ot I49.3 VENTRICULAR PREMATURE DEPOLARIZATION 09/12/2017 SMITA REBOLLAR MD Ot E78.2 MIXED HYPERLIPIDEMIA 09/12/2017 SMITA REBOLLAR MD Ot I10 ESSENTIAL (PRIMARY) HYPERTENSION 09/12/2017 SMITA REBOLLAR MD Ot I25.10 ATHSCL HEART DISEASE OF [place] CORONARY 09/12/2017 SMITA REBOLLAR MD Ot I47.2 VENTRICULAR TACHYCARDIA 09/12/2017 SMITA REBOLLAR MD Ot I48.0 PAROXYSMAL ATRIAL FIBRILLATION 09/12/2017 SMITA REBOLLAR MD Ot I49.3 VENTRICULAR PREMATURE DEPOLARIZATION 10/24/2017 SMITA REBOLLAR MD Ot E78.2 MIXED HYPERLIPIDEMIA 10/24/2017 SMITA REBOLLAR MD J Ot I10 ESSENTIAL (PRIMARY) HYPERTENSION 10/24/2017 SMITA REBOLLAR MD Ot I25.10 ATHSCL HEART DISEASE OF [place] CORONARY 10/24/2017 SMITA REBOLLAR MD Ot I47.2 VENTRICULAR TACHYCARDIA 10/24/2017 SMITA REBOLLAR MD Ot I48.0 PAROXYSMAL ATRIAL FIBRILLATION 10/24/2017 SMITA REBOLLAR MD Ot I49.3 VENTRICULAR PREMATURE DEPOLARIZATION 01/09/2018 SMITA REBOLLAR MD Ot E78.2 MIXED HYPERLIPIDEMIA 01/09/2018 SMITA REBOLLAR MD Ot E78.5 HYPERLIPIDEMIA, UNSPECIFIED 01/09/2018 SMITA REBOLLAR MD Ot I10 ESSENTIAL (PRIMARY) HYPERTENSION 01/09/2018 SMITA REBOLLAR MD Ot I25.10 ATHSCL HEART DISEASE OF [place] CORONARY 01/09/2018 SMITA REBOLLAR MD Ot I47.2 VENTRICULAR TACHYCARDIA 01/09/2018 SMITA REBOLLAR MD Ot I48.0 PAROXYSMAL ATRIAL FIBRILLATION 01/09/2018 SMITA REBOLLAR MD Ot I49.3 VENTRICULAR PREMATURE DEPOLARIZATION 01/09/2018 SMITA REBOLLAR MD Ot I82.409 ACUTE EMBOLISM AND THOMBOS UNSP DEEP VN 01/09/2018 SMITA REBOLLAR MD Ot Z79.899 OTHER [facility] (CURRENT) DRUG THERAPY 01/09/2018 SMITA REBOLLAR MD Ot E78.2 MIXED HYPERLIPIDEMIA 01/09/2018 SMITA REBOLLAR MD Ot E78.5 HYPERLIPIDEMIA, UNSPECIFIED 01/09/2018 SMITA REBOLLAR MD Ot I10 ESSENTIAL (PRIMARY) HYPERTENSION 01/09/2018 SMITA REBOLLAR MD Ot I25.10 ATHSCL HEART DISEASE OF [place] CORONARY 01/09/2018 SMITA REBOLLAR MD Ot I47.2 VENTRICULAR TACHYCARDIA 01/09/2018 SMITA REBOLLAR MD Ot I48.0 PAROXYSMAL ATRIAL FIBRILLATION 01/09/2018 SMITA REBOLLAR MD Ot I49.3 VENTRICULAR PREMATURE DEPOLARIZATION 01/09/2018 SMITA REBOLLAR MD Ot I82.409 ACUTE EMBOLISM AND THOMBOS UNSP DEEP VN 01/09/2018 SMITA REBOLLAR MD Ot Z79.899 OTHER [facility] (CURRENT) DRUG THERAPY 01/13/2018 SMITA REBOLLAR MD Ot I25.10 ATHSCL HEART DISEASE OF [place] CORONARY 01/13/2018 SMITA REBOLLAR MD Ot I47.2 VENTRICULAR TACHYCARDIA 01/13/2018 SMITA REBOLLAR MD Ot I48.0 PAROXYSMAL ATRIAL FIBRILLATION 01/13/2018 SMITA REBOLLAR MD Ot I49.3 VENTRICULAR PREMATURE DEPOLARIZATION 02/02/2018 Ot I25.10 ATHSCL HEART DISEASE OF [place] CORONARY 02/02/2018 Ot I47.2 VENTRICULAR TACHYCARDIA 02/02/2018 Ot I48.0 PAROXYSMAL ATRIAL FIBRILLATION 02/02/2018 Ot I49.3 VENTRICULAR PREMATURE DEPOLARIZATION 02/02/2018 Ot I82.409 ACUTE EMBOLISM AND THOMBOS UNSP DEEP VN 02/07/2018 SMITA REBOLLAR MD Ot I25.10 ATHSCL HEART DISEASE OF [place] CORONARY 02/07/2018 SMITA REBOLLAR MD Ot I47.2 VENTRICULAR TACHYCARDIA 02/07/2018 SMITA REBOLLAR MD Ot I48.0 PAROXYSMAL ATRIAL FIBRILLATION 02/07/2018 SMITA REBOLLAR MD Ot I49.3 VENTRICULAR PREMATURE DEPOLARIZATION 02/13/2018 SMITA REBOLLAR MD Ot I25.10 ATHSCL HEART DISEASE OF [place] CORONARY 02/13/2018 SMITA REBOLLAR MD Ot I47.2 VENTRICULAR TACHYCARDIA 02/13/2018 SMITA REBOLLAR MD Ot I48.0 PAROXYSMAL ATRIAL FIBRILLATION 02/13/2018 SMITA REBOLLAR MD Ot I49.3 VENTRICULAR PREMATURE DEPOLARIZATION 03/21/2018 SMITA REBOLLAR MD Ot I25.10 ATHSCL HEART DISEASE OF [place] CORONARY 03/21/2018 SMITA REBOLLAR MD Ot I47.2 VENTRICULAR TACHYCARDIA 03/21/2018 SMITA REBOLLAR MD Ot I48.0 PAROXYSMAL ATRIAL FIBRILLATION 03/21/2018 SMITA REBOLLAR MD Ot I49.3 VENTRICULAR PREMATURE DEPOLARIZATION 04/18/2018 LEENA GONG DO Ot I10 ESSENTIAL (PRIMARY) HYPERTENSION 04/18/2018 LEENA GONG DO Ot J18.9 PNEUMONIA, UNSPECIFIED ORGANISM 04/24/2018 STONE BEEBE Ot E78.2 MIXED HYPERLIPIDEMIA 04/24/2018 STONE BEEBE Ot I25.10 ATHSCL HEART DISEASE OF [place] CORONARY 04/24/2018 STONE BEEBE Ot I48.0 PAROXYSMAL ATRIAL FIBRILLATION 05/05/2018 LEENA GONG DO Ot I10 ESSENTIAL (PRIMARY) HYPERTENSION 05/05/2018 LEENA GONG DO Ot J18.9 PNEUMONIA, UNSPECIFIED ORGANISM 05/12/2018 SMITA REBOLLAR MD Ot I25.10 ATHSCL HEART DISEASE OF [place] CORONARY 05/12/2018 SMITA REBOLLAR MD Ot I47.2 VENTRICULAR TACHYCARDIA 05/12/2018 SMITA REBOLLAR MD Ot I48.0 PAROXYSMAL ATRIAL FIBRILLATION 05/12/2018 SMITA REBOLLAR MD Ot I49.3 VENTRICULAR PREMATURE DEPOLARIZATION 05/12/2018 SMITA REBOLLAR MD Ot I82.409 ACUTE EMBOLISM AND THOMBOS UNSP DEEP VN 05/13/2018 STONE BEEBE Ot E78.2 MIXED HYPERLIPIDEMIA 05/13/2018 STONE BEEBE Ot I25.10 ATHSCL HEART DISEASE OF [place] CORONARY 05/13/2018 SOTNE BEEBE Ot I48.0 PAROXYSMAL ATRIAL FIBRILLATION 05/23/2018 JULINAE MURPHY MD Ot Z01.818 ENCOUNTER FOR OTHER PREPROCEDURAL EXAMIN 06/02/2018 JULIANE MURPHY MD Ot I11.0 HYPERTENSIVE HEART DISEASE WITH HEART FA 06/02/2018 JULIANE MURPHY MD, Ot I50.9 HEART FAILURE, UNSPECIFIED 06/19/2018 SMITA REBOLLAR MD, Ot I25.10 ATHSCL HEART DISEASE OF [place] CORONARY 06/19/2018 SMITA REBOLLAR MD Ot I47.2 VENTRICULAR TACHYCARDIA 06/19/2018 SMITA REBOLLAR MD Ot I48.0 PAROXYSMAL ATRIAL FIBRILLATION 06/19/2018 SMITA REBOLLAR MD Ot I49.3 VENTRICULAR PREMATURE DEPOLARIZATION 06/19/2018 SMITA REBOLLAR MD Ot I82.409 ACUTE EMBOLISM AND THOMBOS UNSP DEEP VN 06/20/2018 JULIANE MURPHY MD Ot I11.0 HYPERTENSIVE HEART DISEASE WITH HEART FA 06/20/2018 JULIANE MURPHY MD Ot I50.9 HEART FAILURE, UNSPECIFIED 06/22/2018 SMITA REBOLLAR MD Ot I25.10 ATHSCL HEART DISEASE OF [place] CORONARY 06/22/2018 SMITA REBOLLAR MD Ot I47.2 VENTRICULAR TACHYCARDIA 06/22/2018 SMITA REBOLLAR MD Ot I48.0 PAROXYSMAL ATRIAL FIBRILLATION 06/22/2018 SMITA REBOLLAR MD Ot I49.3 VENTRICULAR PREMATURE DEPOLARIZATION 06/22/2018 SMITA REBOLLAR MD Ot I82.409 ACUTE EMBOLISM AND THOMBOS UNSP DEEP VN 06/28/2018 KATHERINE MORATAYA, JULIANE Baron Ot I11.0 HYPERTENSIVE HEART DISEASE WITH HEART FA 06/28/2018 JULIANE MURPHY MD Ot I50.9 HEART FAILURE, UNSPECIFIED 07/26/2018 SMITA REBOLLAR MD Ot I25.10 ATHSCL HEART DISEASE OF [place] CORONARY 07/26/2018 SMITA REBOLLAR MD Ot I47.2 VENTRICULAR TACHYCARDIA 07/26/2018 SMITA REBOLLAR MD Ot I48.0 PAROXYSMAL ATRIAL FIBRILLATION 07/26/2018 SMITA REBOLLAR MD Ot I49.3 VENTRICULAR PREMATURE DEPOLARIZATION 07/26/2018 SMITA REBOLLAR MD Ot I82.409 ACUTE EMBOLISM AND THOMBOS UNSP DEEP VN 08/08/2018 SMITA REBOLLAR MD Ot I25.10 ATHSCL HEART DISEASE OF [place] CORONARY 08/08/2018 SMITA REBOLLAR MD Ot I47.2 VENTRICULAR TACHYCARDIA 08/08/2018 SMITA REBOLLAR MD Ot I48.0 PAROXYSMAL ATRIAL FIBRILLATION 08/08/2018 SMITA REBOLLAR MD Ot I49.3 VENTRICULAR PREMATURE DEPOLARIZATION 08/09/2018 MELANIE MEDRANO MD Ot L98.9 DISORDER OF THE SKIN AND SUBCUTANEOUS TI 08/09/2018 MELANIE MEDRANO MD Ot Z01.810 ENCOUNTER FOR PREPROCEDURAL CARDIOVASCUL 08/09/2018 MELANIE MEDRANO MD Ot Z01.811 ENCOUNTER FOR PREPROCEDURAL RESPIRATORY 08/09/2018 MELANIE MEDRANO MD Ot Z01.812 ENCOUNTER FOR PREPROCEDURAL LABORATORY E 08/09/2018 MELANIE MEDRANO MD Ot Z11.2 ENCOUNTER FOR SCREENING FOR OTHER BACTER Procedures Code Description Performed By Performed On 53.51 INCISIONAL HERNIA REPAIR 04/25/2011 53.51 INCISIONAL HERNIA REPAIR 09/13/2014 Results Test Result Range Comprehensive metabolic panel - 04/22/16 08:35 Serum or plasma sodium measurement (moles/volume) 140 mmol/L 135-145 Serum or plasma potassium measurement (moles/volume) 3.9 mmol/L 3.6-5.0 Serum or plasma chloride measurement (moles/volume) 105 mmol/L 98-107 Carbon dioxide 26 mmol/L 21-32 Serum or plasma anion gap determination (moles/volume) 9 mmol/L 5-14 Serum or plasma urea nitrogen measurement (mass/volume) 19 mg/dL 7-18 Serum or plasma creatinine measurement (mass/volume) 1.01 mg/dL 0.60-1.30 Serum or plasma urea nitrogen/creatinine mass ratio 19 NRG Serum or plasma creatinine measurement with calculation of estimated glomerular filtration rate > NRG Serum or plasma glucose measurement (mass/volume) 110 mg/dL 70-105 Serum or plasma calcium measurement (mass/volume) 9.0 mg/dL 8.5-10.1 Serum or plasma total bilirubin measurement (mass/volume) 0.5 mg/dL 0.1-1.0 Serum or plasma alkaline phosphatase measurement (enzymatic activity/volume) 89 U/L 40-136 Serum or plasma aspartate aminotransferase measurement (enzymatic activity/ volume) 21 U/L 5-34 Serum or plasma alanine aminotransferase measurement (enzymatic activity/volume ) 21 U/L 0-55 Serum or plasma protein measurement (mass/volume) 6.8 g/dL 6.4-8.2 Serum or plasma albumin measurement (mass/volume) 3.8 g/dL 3.2-4.5 Lipid 1996 panel - 04/22/16 08:35 Serum or plasma triglyceride measurement (mass/volume) 80 mg/dL <150 Serum or plasma cholesterol measurement (mass/volume) 150 mg/dL < 200 Serum or plasma cholesterol in HDL measurement (mass/volume) 43 mg/ dL 40-60 Cholesterol in LDL [mass/volume] in serum or plasma by direct assay 94 mg/dL 1-129 Serum or plasma cholesterol in VLDL measurement (mass/volume) 16 mg/ dL 5-40 Complete blood count (CBC) with automated white blood cell (WBC) differential - 04/17/17 19:00 Blood leukocytes automated count (number/volume) 7.7 10*3/uL 4.3-11.0 Blood erythrocytes automated count (number/volume) 4.79 10*6/uL 4.35-5.85 Venous blood hemoglobin measurement (mass/volume) 14.4 g/dL 13.3-17.7 Blood hematocrit (volume fraction) 44 % 40-54 Automated erythrocyte mean corpuscular volume 93 [foz_us] 80-99 Automated erythrocyte mean corpuscular hemoglobin (mass per erythrocyte) 30 pg 25-34 Automated erythrocyte mean corpuscular hemoglobin concentration measurement ( mass/volume) 32 g/dL 32-36 Automated erythrocyte distribution width ratio 12.7 % 10.0-14.5 Automated blood platelet count (count/volume) 215 10*3/uL 130-400 Automated blood platelet mean volume measurement 11.0 [foz_us] 7.4-10.4 Automated blood neutrophils/100 leukocytes 58 % 42-75 Automated blood lymphocytes/100 leukocytes 24 % 12-44 Blood monocytes/100 leukocytes 12 % 0-12 Automated blood eosinophils/100 leukocytes 5 % 0-10 Automated blood basophils/100 leukocytes 1 % 0-10 Blood neutrophils automated count (number/volume) 4.5 10*3 1.8-7.8 Blood lymphocytes automated count (number/volume) 1.9 10*3 1.0-4.0 Blood monocytes automated count (number/volume) 0.9 10*3 0.0-1.0 Automated eosinophil count 0.4 10*3/uL 0.0-0.3 Automated blood basophil count (count/volume) 0.1 10*3/uL 0.0-0.1 PT panel in platelet poor plasma by coagulation assay - 04/17/17 19:00 Prothrombin time (PT) in platelet poor plasma by coagulation assay 13.2 s 12.2-14.7 INR in platelet poor plasma or blood by coagulation assay 1.0 0.8-1.4 Whole blood basic metabolic panel - 04/17/17 19:00 Serum or plasma sodium measurement (moles/volume) 143 mmol/L 135-145 Serum or plasma potassium measurement (moles/volume) 4.4 mmol/L 3.6-5.0 Serum or plasma chloride measurement (moles/volume) 107 mmol/L 98-107 Carbon dioxide 27 mmol/L 21-32 Serum or plasma anion gap determination (moles/volume) 9 mmol/L 5-14 Serum or plasma urea nitrogen measurement (mass/volume) 18 mg/dL 7-18 Serum or plasma creatinine measurement (mass/volume) 1.07 mg/dL 0.60-1.30 Serum or plasma urea nitrogen/creatinine mass ratio 17 NRG Serum or plasma creatinine measurement with calculation of estimated glomerular filtration rate > NRG Serum or plasma glucose measurement (mass/volume) 110 mg/dL 70-105 Serum or plasma calcium measurement (mass/volume) 9.2 mg/dL 8.5-10.1 Activated partial thromboplastin time (aPTT) in platelet poor plasma bycoagulation assay - 04/17/17 19:00 Activated partial thromboplastin time (aPTT) in platelet poor plasma bycoagulation assay 29 s 24-35 PT panel in platelet poor plasma by coagulation assay - 05/10/17 09:20 Prothrombin time (PT) in platelet poor plasma by coagulation assay 21.8 s 12.2-14.7 INR in platelet poor plasma or blood by coagulation assay 1.9 0.8-1.4 Whole blood basic metabolic panel - 05/17/17 09:18 Serum or plasma sodium measurement (moles/volume) 141 mmol/L 135-145 Serum or plasma potassium measurement (moles/volume) 4.3 mmol/L 3.6-5.0 Serum or plasma chloride measurement (moles/volume) 105 mmol/L 98-107 Carbon dioxide 29 mmol/L 21-32 Serum or plasma anion gap determination (moles/volume) 7 mmol/L 5-14 Serum or plasma urea nitrogen measurement (mass/volume) 21 mg/dL 7-18 Serum or plasma creatinine measurement (mass/volume) 1.10 mg/dL 0.60-1.30 Serum or plasma urea nitrogen/creatinine mass ratio 19 NRG Serum or plasma creatinine measurement with calculation of estimated glomerular filtration rate > NRG Serum or plasma glucose measurement (mass/volume) 111 mg/dL 70-105 Serum or plasma calcium measurement (mass/volume) 9.3 mg/dL 8.5-10.1 Serum or plasma alanine aminotransferase measurement (enzymatic activity/volume ) - 05/17/17 09:18 Serum or plasma alanine aminotransferase measurement (enzymatic activity/volume ) 20 U/L 0-55 Lipid 1996 panel - 05/17/17 09:18 Serum or plasma triglyceride measurement (mass/volume) 108 mg/dL <150 Serum or plasma cholesterol measurement (mass/volume) 161 mg/dL < 200 Serum or plasma cholesterol in HDL measurement (mass/volume) 41 mg/ dL 40-60 Cholesterol in LDL [mass/volume] in serum or plasma by direct assay 100 mg/dL 1-129 Serum or plasma cholesterol in VLDL measurement (mass/volume) 22 mg/ dL 5-40 PT panel in platelet poor plasma by coagulation assay - 05/20/17 10:31 Prothrombin time (PT) in platelet poor plasma by coagulation assay 22.8 s 12.2-14.7 INR in platelet poor plasma or blood by coagulation assay 2.0 0.8-1.4 PT panel in platelet poor plasma by coagulation assay - 06/21/17 09:33 Prothrombin time (PT) in platelet poor plasma by coagulation assay 23.5 s 12.2-14.7 INR in platelet poor plasma or blood by coagulation assay 2.1 0.8-1.4 PT panel in platelet poor plasma by coagulation assay - 07/11/17 08:18 Prothrombin time (PT) in platelet poor plasma by coagulation assay 33.2 s 12.2-14.7 INR in platelet poor plasma or blood by coagulation assay 3.3 0.8-1.4 PT panel in platelet poor plasma by coagulation assay - 11/30/17 12:08 Prothrombin time (PT) in platelet poor plasma by coagulation assay 32.6 s 12.2-14.7 INR in platelet poor plasma or blood by coagulation assay 3.2 0.8-1.4 PT panel in platelet poor plasma by coagulation assay - 12/21/17 15:11 Prothrombin time (PT) in platelet poor plasma by coagulation assay 32.3 s 12.2-14.7 INR in platelet poor plasma or blood by coagulation assay 3.1 0.8-1.4 PT panel in platelet poor plasma by coagulation assay - 01/12/18 13:25 Prothrombin time (PT) in platelet poor plasma by coagulation assay 30.0 s 12.2-14.7 INR in platelet poor plasma or blood by coagulation assay 2.8 0.8-1.4 Complete blood count (CBC) with automated white blood cell (WBC) differential - 04/14/18 17:23 Blood leukocytes automated count (number/volume) 7.6 10*3/uL 4.3-11.0 Blood erythrocytes automated count (number/volume) 4.91 10*6/uL 4.35-5.85 Venous blood hemoglobin measurement (mass/volume) 14.8 g/dL 13.3-17.7 Blood hematocrit (volume fraction) 46 % 40-54 Automated erythrocyte mean corpuscular volume 93 [foz_us] 80-99 Automated erythrocyte mean corpuscular hemoglobin (mass per erythrocyte) 30 pg 25-34 Automated erythrocyte mean corpuscular hemoglobin concentration measurement ( mass/volume) 33 g/dL 32-36 Automated erythrocyte distribution width ratio 13.4 % 10.0-14.5 Automated blood platelet count (count/volume) 184 10*3/uL 130-400 Automated blood platelet mean volume measurement 10.4 [foz_us] 7.4-10.4 Automated blood neutrophils/100 leukocytes 67 % 42-75 Automated blood lymphocytes/100 leukocytes 15 % 12-44 Blood monocytes/100 leukocytes 13 % 0-12 Automated blood eosinophils/100 leukocytes 5 % 0-10 Automated blood basophils/100 leukocytes 1 % 0-10 Blood neutrophils automated count (number/volume) 5.1 10*3 1.8-7.8 Blood lymphocytes automated count (number/volume) 1.1 10*3 1.0-4.0 Blood monocytes automated count (number/volume) 1.0 10*3 0.0-1.0 Automated eosinophil count 0.3 10*3/uL 0.0-0.3 Automated blood basophil count (count/volume) 0.0 10*3/uL 0.0-0.1 Methicillin resistant Staphylococcus aureus (MRSA) screening culture - 08:30 Methicillin resistant Staphylococcus aureus (MRSA) screening culture NEG NRG Complete blood count (CBC) with automated white blood cell (WBC) differential - 08/08/18 08:45 Blood leukocytes automated count (number/volume) 7.0 10*3/uL 4.3-11.0 Blood erythrocytes automated count (number/volume) 5.05 10*6/uL 4.35-5.85 Venous blood hemoglobin measurement (mass/volume) 15.4 g/dL 13.3-17.7 Blood hematocrit (volume fraction) 46 % 40-54 Automated erythrocyte mean corpuscular volume 92 [foz_us] 80-99 Automated erythrocyte mean corpuscular hemoglobin (mass per erythrocyte) 31 pg 25-34 Automated erythrocyte mean corpuscular hemoglobin concentration measurement ( mass/volume) 33 g/dL 32-36 Automated erythrocyte distribution width ratio 13.7 % 10.0-14.5 Automated blood platelet count (count/volume) 201 10*3/uL 130-400 Automated blood platelet mean volume measurement 10.9 [foz_us] 7.4-10.4 Automated blood neutrophils/100 leukocytes 64 % 42-75 Automated blood lymphocytes/100 leukocytes 20 % 12-44 Blood monocytes/100 leukocytes 12 % 0-12 Automated blood eosinophils/100 leukocytes 5 % 0-10 Automated blood basophils/100 leukocytes 1 % 0-10 Blood neutrophils automated count (number/volume) 4.5 10*3 1.8-7.8 Blood lymphocytes automated count (number/volume) 1.4 10*3 1.0-4.0 Blood monocytes automated count (number/volume) 0.8 10*3 0.0-1.0 Automated eosinophil count 0.3 10*3/uL 0.0-0.3 Automated blood basophil count (count/volume) 0.0 10*3/uL 0.0-0.1 PT panel in platelet poor plasma by coagulation assay - 08/08/18 08:45 Prothrombin time (PT) in platelet poor plasma by coagulation assay 21.9 s 12.2-14.7 INR in platelet poor plasma or blood by coagulation assay 1.8 0.8-1.4 Whole blood basic metabolic panel - 08/08/18 08:45 Serum or plasma sodium measurement (moles/volume) 139 mmol/L 135-145 Serum or plasma potassium measurement (moles/volume) 3.6 mmol/L 3.6-5.0 Serum or plasma chloride measurement (moles/volume) 104 mmol/L 98-107 Carbon dioxide 26 mmol/L 21-32 Serum or plasma anion gap determination (moles/volume) 9 mmol/L 5-14 Serum or plasma urea nitrogen measurement (mass/volume) 17 mg/dL 7-18 Serum or plasma creatinine measurement (mass/volume) 1.09 mg/dL 0.60-1.30 Serum or plasma urea nitrogen/creatinine mass ratio 16 NRG Serum or plasma creatinine measurement with calculation of estimated glomerular filtration rate > NRG Serum or plasma glucose measurement (mass/volume) 116 mg/dL 70-105 Serum or plasma calcium measurement (mass/volume) 9.2 mg/dL 8.5-10.1 Encounters ACCT No. Visit Date/Time Discharge Status Pt. Type Provider Facility Loc./Unit Complaint [id number] 08/08/2018 08:39:00 08/08/2018 23:59:59 [facility] Outpatient KETURAH MORATAYA, SMITA Valdes [facility] LAB I25.10 [id number] 08/08/2018 07:58:00 08/08/2018 09:00:00 DIS Outpatient MELANIE MEDRANO MD [facility] PREOP MULTIPLE FACIAL LESIONS [id number] 06/07/2018 10:35:00 06/19/2018 00:01:00 DIS Outpatient SMITA REBOLLAR MD [facility] LAB I25.10 [id number] 05/31/2018 13:57:00 05/31/2018 23:59:59 CLS Outpatient JULIANE MURPHY MD [facility] CARD CHF [id number] 05/26/2018 10:15:00 05/26/2018 23:59:59 CLS Preadmit JULIANE MURPHY MD [facility] ENDO SCREENING/FAMILY HX COLON CA [id number] 05/22/2018 06:08:00 05/22/2018 23:59:59 CLS Outpatient JULIANE MURPHY MD [facility] PREOP COLONOSCOPY [id number] 04/20/2018 09:27:00 04/20/2018 23:59:59 CLS Outpatient STONE BEEBE [facility] LAB I25.10 [id number] 04/14/2018 16:51:00 04/14/2018 23:59:59 CLS Outpatient LEENA GONG DO [facility] LAB PNEUMONIA [id number] 02/17/2018 08:00:00 03/20/2018 10:42:00 DIS Outpatient SMITA REBOLLAR MD [facility] LAB I25.10 I82.409 [id number] 01/12/2018 13:23:00 01/13/2018 00:01:00 DIS Outpatient SMITA REBOLLAR MD [facility] LAB I25.10 I82.409 [id number] 10/13/2017 08:16:00 10/24/2017 00:01:00 DIS Outpatient SMITA REBOLLAR MD [facility] LAB I25.10 I82.409 [id number] 07/11/2017 08:12:00 07/25/2017 00:01:00 DIS Outpatient SMITA REBOLLAR MD [facility] LAB I25.10 I82.409 [id number] 05/20/2017 08:54:00 05/20/2017 12:00:00 DIS Outpatient JULIANE MURPHY MD [facility] ENDO DYSPHAGIA [id number] 05/19/2017 15:10:00 05/19/2017 23:59:59 CLS Outpatient JULIANE MURPHY MD [facility] PREOP DYPHAGIA [id number] 05/17/2017 08:50:00 05/17/2017 23:59:59 CLS Outpatient JULIANE MURPHY MD [facility] LAB E78.5, I82.409, Z79 [id number] 04/26/2017 08:18:00 04/26/2017 23:59:59 CLS Outpatient STONE BEEBE [facility] LAB I25.10 I10 E78.2 [id number] 04/17/2017 15:45:00 04/17/2017 19:35:00 DIS Emergency THIEN KOHLER DO [facility] ER L CALF SWELLING/PAIN [id number] 03/25/2017 06:56:00 03/25/2017 23:59:59 CLS Outpatient JULIANE MURPHY MD [facility] RAD ELEVATED LIVER FUNCTION STUDIES [id number] 01/04/2017 08:22:00 01/04/2017 23:59:59 CLS Outpatient MELANIE MEDRANO MD [facility] RAD DYSPHAGIA [id number] 06/13/2016 11:14:00 06/13/2016 12:08:00 DIS Emergency MANDA URRUTIA APRN [facility] ER COUGH/FEVER/SWEATS/HERNANDEZ [id number] 05/18/2016 09:57:00 05/18/2016 23:59:59 CLS Outpatient SMITA REBOLLAR MD [facility] CARD CAD,PVC,HTN,PAF,NSVT [id number] 04/22/2016 08:26:00 04/22/2016 23:59:59 CLS Outpatient SMITA REBOLLAR MD [facility] LAB CAD,PVC,HTN,PAF [id number] 01/03/2016 13:14:00 01/03/2016 14:38:00 DIS Emergency MANDA URRUTIA FIELD TECHNICIAN [facility] ER BACK INJ/PAIN [id number] 11/16/2015 07:50:00 11/16/2015 08:51:00 DIS Emergency YONATHAN ONTIVEROS MD [facility] ER FACIAL RASH, POSS ALLERGIC REACTION [id number] 11/13/2015 19:52:00 11/13/2015 20:17:00 DIS Emergency MANDA URRUTIA FIELD TECHNICIAN [facility] ER ALLERGIC REACTION TO MEDICINE [id number] 08/12/2015 08:06:00 08/12/2015 23:59:59 CLS Outpatient STONE BEEBE [facility] LAB CAD, HTN, PAF , PVC [id number] 07/18/2015 19:51:00 07/19/2015 06:05:00 DIS Outpatient KIMMY DOMINGUEZ APRN [facility] SLEEP OBSTRUCTIVE SLEEP APNEA [id number] 06/26/2015 10:55:00 06/26/2015 23:59:59 CLS Preadmit LESLIE GARCES APRN [facility] WOUNDCARE [id number] 05/22/2015 09:30:00 05/22/2015 23:59:59 CLS Preadmit SMITA REBOLLAR MD [facility] CARD CAD,HTN,PVC [id number] 02/20/2015 08:56:00 05/21/2015 00:01:00 DIS Outpatient SMITA REBOLLAR MD [facility] CARD CAD,HTN,PVC [id number] 04/29/2015 08:51:00 04/29/2015 23:59:59 CLS Outpatient MELANIE MEDRANO MD [facility] RAD MALIGNENT CA OF LT CHEEK [id number] 04/25/2015 20:29:00 04/26/2015 05:00:00 DIS Outpatient STONE BEEBE [facility] SLEEP ARRHYTHMIAS , HTN, EXCESSIVE DAYTIME SLEEPINESS [id number] 03/19/2015 09:07:00 03/19/2015 23:59:59 CLS Outpatient SMITA REBOLLAR MD [facility] CATH AFIB,NSVT,PVC, PALPITATIONS,CHF [id number] 12/04/2014 10:42:00 12/04/2014 13:08:00 DIS Emergency MANDA URRUTIA APRN [facility] ER CHEST PAIN/WEAKNESS [id number] 10/01/2014 08:14:00 10/01/2014 09:02:00 DIS Emergency YONATHAN ONTIVEROS MD [facility] ER POST OP BLEEDING [id number] 09/13/2014 09:30:00 09/14/2014 13:18:00 DIS Inpatient ALEXSANDRA DICK MD [facility] SURGICAL VENTRAL HERNIA [id number] 09/09/2014 10:03:00 09/09/2014 23:59:59 CLS Outpatient ALEXSANDRA DICK MD [facility] PREOP VENTRAL HERNIA [id number] 07/03/2014 08:00:00 07/03/2014 23:59:59 CLS Outpatient SMITA REBOLLAR MD [facility] CARD HTN,PVC [id number] 06/20/2014 10:36:00 06/20/2014 11:41:00 DIS Emergency YONATHAN ONTIVEROS MD [facility] ER L LEG PAIN [id number] 06/19/2014 08:00:00 06/19/2014 23:59:59 CLS Preadmit ALEXSANDRA DICK MD [facility] SDC VENTRAL HERNIA [id number] 06/18/2014 08:04:00 06/18/2014 23:59:59 CLS Outpatient ALEXSANDRA DICK MD [facility] PREOP VENTRAL HERNIA [id number] 04/30/2014 08:03:00 04/30/2014 23:59:59 CLS Outpatient MELANIE MEDRANO MD [facility] RAD HX MELANOMA LT CHEEK [id number] 04/29/2014 08:00:00 04/29/2014 10:40:00 DIS Emergency YINA MATTA MD [facility] ER LEFT FLANK PAIN [id number] 10/16/2013 08:00:00 10/16/2013 23:59:59 CLS Outpatient MELANIE MEDRANO MD [facility] RAD MELANOMA [id number] 07/07/2013 16:45:00 07/07/2013 17:40:00 DIS Emergency YONATHAN ONTIVEROS MD [facility] ER LEFT FOOT INJ [id number] 11/14/2012 06:30:00 11/14/2012 23:59:59 CLS Outpatient MELANIE MEDRANO MD [facility] RAD 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 [id number] 10/16/2012 05:57:00 10/16/2012 11:00:00 DIS Outpatient ALEXSANDRA DICK MD [facility] CHANGE IN BOWEL HABITS [id number] 10/12/2012 07:35:00 10/12/2012 23:59:59 CLS Outpatient ALEXSANDRA DICK MD [facility] PREOP CHANGE IN BOWEL HABITS [id number] 08/17/2018 07:30:00 PEN Preadmit MELANIE MEDRANO MD [facility] MULTIPLE FACIAL LESIONS [id number] 11/30/2017 08:00:00 Document Registration [id number] 02/27/2015 14:41:00 Document Registration [id number] 07/10/2014 08:04:00 Document Registration [id number] 04/29/2014 10:54:00 Document Registration [id number] 04/29/2014 10:54:00 Document Registration [id number] 10/29/2013 08:44:00 Document Registration [id number] 05/16/2012 12:50:00 Document Registration [id number] 11/22/2011 00:00:00 Document Registration [id number] 11/09/2011 09:10:00 Document Registration [id number] 09/20/2011 08:05:00 Document Registration [id number] 07/26/2011 08:09:00 Document Registration [id number] 06/28/2011 08:52:00 Document Registration [id number] 04/25/2011 03:58:00 Document Registration [id number] 03/29/2011 08:02:00 Document Registration [id number] 12/16/2010 07:52:00 Document Registration [id number] 10/15/2010 07:59:00 Document Registration [id number] 09/29/2010 11:17:00 Document Registration [id number] 09/24/2010 09:18:00 Document Registration [id number] 09/23/2010 16:34:00 Document Registration [id number] 04/16/2010 10:11:00 Document Registration
[2018-08-17] MEDS ORDERED: GLYCOPYRROLATE 0.2 MG/ML (ROBINUL) 2 ML VIAL ONE (09:18)
[2018-08-17] MEDS ORDERED: BSS 15 ML ONE (09:29)
--- NOTE | 2018-08-17 09:32 | Progress Note-Post Operative ---
Post-Operative Progess Note Surgeon (s)/[employer]ater (s) Surgeon MELANIE MEDRANO MD [employer] n/a Pre-Operative Diagnosis Excison of Multiple Facial Lesions Post-Operative Diagnosis same Post-Op Procedure Note Date of Procedure: Aug 17, 2018 Name of Procedure Performed: Excision of Multriple Facial Lesions with Reconstruction/Repair Description & Findings Description and Findings: n/a Anesthesia Type get Estimated Blood Loss minimal Packing none. Specimen(s) collected/removed nasal lesion-basal cell-clear margins right medial [place] lesion-basal cell margins clear right pre-auricular lesion left scalp lesion right cfheek lesion MELANIE MEDRANO MD Aug 17, 2018 09:32
[2018-08-17] MEDS ORDERED: HYDROcodone/APAP 5 MG/325 MG (LORTAB) TAB PO PRN (09:45)
[2018-08-17] MEDS ORDERED: ACETAMINOPHEN 325 MG TABLET PO PRN (09:45)
[2018-08-17 10:30] VITALS: BP 140/71
[2018-08-17 11:00] VITALS: BP 129/77
--- NOTE | 2018-08-17 11:08 | Anesthesia-General Post-Op ---
General Patient Condition Mental Status/LOC: Same as Preop Cardiovascular: Satisfactory Nausea/Vomiting: Absent Respiratory: Satisfactory Pain: Controlled Complications: Absent Post Op Complications Complications None Follow Up Care/Instructions Patient Instructions None needed. Anesthesia/Patient Condition Patient Condition Patient is doing well, no complaints, stable vital signs, no apparent adverse anesthesia problems. MATTHEW STORY DO Aug 17, 2018 11:08
--- NOTE | 2018-08-17 11:10 | NUR ---
SLIGHT DRAINAGE NOTED FROM INCISION TO LEFT TEMPORAL AREA OF FOREHEAD. COVERED WITH GAUZE ET TAPE.
[2018-08-17] MEDS ORDERED: HYDR-3812 PO (11:29)
[2018-08-17 11:30] VITALS: BP 154/78
[2018-08-17 11:45] VITALS: BP 154/78
== END 2018-08-17 12:10 | disposition home or self-care (01) ==
LOC: SDC 07:02
PROVIDERS: ATTEND Otolaryngology Otolaryngology/Facial Plastic Surgery
DX: C44.311 Basal cell carcinoma of skin of nose (principal); C44.1121 Basal cell carcinoma of skin of right upper eyelid, including canthus; C44.212 Basal cell carcinoma of skin of right ear and external auricular canal; C44.319 Basal cell carcinoma of skin of other parts of face; I11.0 Hypertensive heart disease with heart failure; I50.9 Heart failure, unspecified; I48.91 Unspecified atrial fibrillation; G47.33 Obstructive sleep apnea (adult) (pediatric); K21.9 Gastro-esophageal reflux disease without esophagitis; K44.9 Diaphragmatic hernia without obstruction or gangrene; Z86.718 Personal history of other venous thrombosis and embolism; Z79.01 Long term (current) use of anticoagulants; Z79.899 Other long term (current) drug therapy
CPT/HCPCS: 36415; 85610

== ENCOUNTER 2018-09-15 13:34 | Outpatient (RCR) | payer MEDICARE ==
[2018-07-25 14:03] LABS: INR 1.8 (0.8-1.4); PROTHROMBIN TIME PATIENT 21.1 SEC (12.2-14.7)
[2018-08-08 09:07] LABS: INR 1.8 (0.8-1.4); PROTHROMBIN TIME PATIENT 21.9 SEC (12.2-14.7)
[2018-08-25 10:46] LABS: INR 1.8 (0.8-1.4)
[~2018-09-15 13:34] MED LIST changes: +HYDR-3812 PO
[2018-09-15 13:54] LABS: INR 2.3 (0.8-1.4)
== END 2018-10-23 | disposition home or self-care (01) ==
LOC: LAB 13:34
PROVIDERS: ATTEND Internal Medicine Cardiovascular Disease
DX: I25.10 Atherosclerotic heart disease of native coronary artery without angina pectoris (principal); I47.2 Ventricular tachycardia; I48.0 Paroxysmal atrial fibrillation; I49.3 Ventricular premature depolarization
CPT/HCPCS: 36415; 85610

== ENCOUNTER 2018-11-10 10:32 | Emergency (ER) | payer MEDICARE ==
[~2018-11-10] VITALS: Ht 182.9 cm; Wt 124.7 kg
--- NOTE | 2018-11-10 12:30 | ED Lower Extremity ---
General Chief Complaint: Lower Extremity Stated Complaint: LACERATION LEFT FOOT Nursing Triage Note: PT AMB TO TRIAGE WITH COMPLAINT OF BLEEDING TOE AFTER TRIMMING TOENAILS. STATES HE IS UNABLE TO STOP BLEEDING. TAKES COUMADIN. Nursing Sepsis Screen: No Definite Risk Source: patient Exam Limitations: no limitations History of Present Illness Date Seen by Provider: Nov 10, 2018 Time Seen by Provider: 12:29 Initial Comments To ER with reports of bleeding to the distal aspect of the left fourth toe after accidentally trimming it too short with her slippers this morning. He is on Coumadin. Onset: just prior to arrival Pain/Injury Location: left 4th toe Modifying Factors: Worse With Movement Allergies and Home Medications Allergies Coded Allergies: Sulfa (Sulfonamide Antibiotics) (Unverified Adverse Reaction, Unknown, 08/17/18) Home Medications Atorvastatin Calcium 10 Mg Tablet, 10 MG PO HS, (Reported) Finasteride 5 Mg Tablet, 5 MG PO HS, (Reported) Hydrocodone/Acetaminophen 1 Each Tablet, 1 TAB PO Q4H PRN for PAIN-MODERATE Prescribed by: JOY MCKEON on 08/17/18 1129 Lisinopril 5 Mg Tablet, 5 MG PO HS, (Reported) Metoprolol Succinate 50 Mg Tab.er.24h, 50 MG PO HS, (Reported) Travoprost 5 Ml Drops, 1 DROP OU HS, (Reported) Patient Home Medication List Home Medication List Reviewed: Yes Review of Systems Constitutional: see HPI EENTM: see HPI Respiratory: no symptoms reported Cardiovascular: no symptoms reported Genitourinary: no symptoms reported Musculoskeletal: no symptoms reported Skin: no symptoms reported Psychiatric/Neurological: No Symptoms Reported Past Mgybtun-Wxkzwt-Wslxoy Hx Patient Social History Alcohol Use: Denies Use Recreational Drug Use: No Smoking Status: Never a Smoker 2nd Hand Smoke Exposure: No Recent Foreign Travel: No Contact w/Someone Who Travel: No Recent Infectious Disease Expo: No Recent Hopitalizations: No Immunizations Up To Date Tetanus Booster (TDap): More than 5yrs PED Vaccines UTD: No Date of Pneumonia Vaccine: Jul 10, 2014 Date of Influenza Vaccine: Mar 15, 2018 Seasonal Allergies Seasonal Allergies: Yes Past Medical History Surgeries: Yes (hernia repair / several skin cancer removal) Abdominal, Tonsillectomy Respiratory: Yes Sleep Apnea Currently Using CPAP: Yes Cardiac: Yes (linq recorder) Atrial Fibrillation, Hypertension Neurological: No Reproductive Disorders: No Sexually Transmitted Disease: No HIV/AIDS: No Genitourinary: Yes Benign Prostatic Hyperpl, Kidney Stones Gastrointestinal: No Hiatal Hernia Musculoskeletal: No Endocrine: No HEENT: No Cancer: Yes Skin What Type of Treatment Did You: Radiation, Surgical Intervention Psychosocial: No Integumentary: Yes (skin lesions) Blood Disorders: No Family Medical History Arthritis G8 BROTHER Cardiovascular disease 19 MOTHER (AFib) DVT G8 BROTHER FHx: respiratory disease G8 SISTER Physical Exam Vital Signs Vital Signs - First Documented 11/10/18 10:47 Pulse 68 Resp 17 B/P (MAP) 123/100 (108) Pulse Ox 96 Capillary Refill : Less Than 3 Seconds Height, Weight, BMI Height: 6'0" Weight: 275lbs. 0.0oz. 124.504359pt; 36.9 BMI Method:Stated General Appearance: WD/WN, no apparent distress HEENT: PERRL/EOMI, normal ENT inspection Respiratory: no respiratory distress, no accessory muscle use Hips: bilateral hip non-tender, bilateral hip normal inspection, bilateral hip normal range of motion Legs: bilateral leg non-tender, bilateral leg normal inspection, bilateral leg normal range of motion Knees: bilateral knee non-tender, bilateral knee normal inspection, bilateral knee normal range of motion Ankles: bilateral ankle non-tender, bilateral ankle normal inspection, bilateral ankle normal range of motion Feet: left foot other (active bleeding from the distal aspect of the left fourth toe. This was stopped with silver nitrate.) Neurologic/Psychiatric: alert, normal mood/affect, oriented x 3 Skin: normal color, warm/dry Progress/Results/Core Measures Results/Orders Vital Signs/I&O 11/10/18 10:47 Pulse 68 Resp 17 B/P (MAP) 123/100 (108) Pulse Ox 96 Blood Pressure Mean: 108 Departure Impression Primary Impression: Avulsion of toe Qualified Codes: S91.109A - Unspecified open wound of unspecified toe(s) without damage to nail, initial encounter Disposition: 01 HOME, SELF-CARE Condition: Stable Departure-Patient Inst. Decision time for Depature: 12:30 Referrals: JULIANE MURPHY MD (PCP/Family) Primary Care Physician Patient Instructions: NO INSTRUCTIONS GIVEN Add. Discharge Instructions: 1. Return to ER for any concerns 2. Follow-up with your doctor next week 3. All discharge instructions reviewed with patient and/or family. Voiced understanding. URRUTIA,PETER J TIMBER SUPERVISOR Nov 10, 2018 12:30
[2018-11-10 12:39] VITALS: BP 123/100
== END 2018-11-10 12:39 | disposition home or self-care (01) ==
LOC: EDUNIT# 10:32 → ER 10:35
DX: S91.105A Unspecified open wound of left lesser toe(s) without damage to nail, initial encounter (principal); G47.30 Sleep apnea, unspecified; I48.91 Unspecified atrial fibrillation; I10 Essential (primary) hypertension; N40.0 Benign prostatic hyperplasia without lower urinary tract symptoms; Z87.19 Personal history of other diseases of the digestive system; Z87.442 Personal history of urinary calculi; Z88.2 Allergy status to sulfonamides; Z90.89 Acquired absence of other organs; Z85.828 Personal history of other malignant neoplasm of skin; Z82.49 Family history of ischemic heart disease and other diseases of the circulatory system; Z79.01 Long term (current) use of anticoagulants; W29.8XXA Contact with other powered hand tools and household machinery, initial encounter

== ENCOUNTER 2019-01-02 12:05 | Outpatient (RCR) | payer MEDICARE ==
[2018-10-26 16:30] LABS: INR 2.3 (0.8-1.4); PROTHROMBIN TIME PATIENT 26.7 SEC (12.2-14.7)
[2018-11-24 13:26] LABS: INR 2.5 (0.8-1.4); PROTHROMBIN TIME PATIENT 27.8 SEC (12.2-14.7)
[2019-01-02 12:36] LABS: INR 2.4 (0.8-1.4); PROTHROMBIN TIME PATIENT 27.2 SEC (12.2-14.7)
== END 2019-01-24 | disposition home or self-care (01) ==
LOC: LAB 12:05
PROVIDERS: ATTEND Internal Medicine Cardiovascular Disease
DX: I25.10 Atherosclerotic heart disease of native coronary artery without angina pectoris (principal); I47.2 Ventricular tachycardia; I48.0 Paroxysmal atrial fibrillation; I49.3 Ventricular premature depolarization
CPT/HCPCS: 36415; 85610

== ENCOUNTER 2019-05-04 14:41 | Outpatient (RCR) | payer MEDICARE ==
[2019-02-05 12:36] LABS: INR 2.2 (0.8-1.4)
[2019-03-05 12:27] LABS: INR 1.9 (0.8-1.4); PROTHROMBIN TIME PATIENT 22.4 SEC (12.2-14.7)
[2019-03-20 13:15] LABS: INR 2.1 (0.8-1.4); PROTHROMBIN TIME PATIENT 24.3 SEC (12.2-14.7)
[2019-05-04 15:06] LABS: INR 2.8 (0.8-1.4)
== END 2019-05-06 | disposition home or self-care (01) ==
LOC: LAB 14:41
PROVIDERS: ATTEND Internal Medicine Cardiovascular Disease
DX: I25.10 Atherosclerotic heart disease of native coronary artery without angina pectoris (principal); I47.2 Ventricular tachycardia; I48.0 Paroxysmal atrial fibrillation; I49.3 Ventricular premature depolarization; I82.409 Acute embolism and thrombosis of unspecified deep veins of unspecified lower extremity
CPT/HCPCS: 36415; 85610

== ENCOUNTER → 2019-06-15 | Outpatient (CLI) | payer MEDICARE ==
[~2019-06-15] MED LIST changes: -METO-370 PO; +METO50TA7 PO
[2019-06-15 10:25] LABS: ALBUMIN 3.8 GM/DL (3.2-4.5); BILIRUBIN,TOTAL 0.6 MG/DL (0.1-1.0); CALCIUM 9.2 MG/DL (8.5-10.1); CREATININE SERUM 1.23 MG/DL (0.60-1.30); POTASSIUM 4.1 MMOL/L (3.6-5.0); TOTAL PROTEIN 7.3 GM/DL (6.4-8.2)
== END ==
LOC: LAB 09:56
PROVIDERS: ATTEND Physician Assistant
DX: I25.10 Atherosclerotic heart disease of native coronary artery without angina pectoris (principal); I10 Essential (primary) hypertension; I47.2 Ventricular tachycardia; N40.0 Benign prostatic hyperplasia without lower urinary tract symptoms
CPT/HCPCS: 36415; 80053; 80061

== ENCOUNTER 2019-06-20 14:17 | Outpatient (RCR) | payer MEDICARE ==
[~2019-06-20 14:17] MED LIST changes: +ACHD5005 PO; -HYDR-3812 PO
[2019-06-20 14:49] LABS: PROTHROMBIN TIME PATIENT 23.2 SEC (12.2-14.7)
[2019-08-06 10:31] LABS: INR 2.2 (0.8-1.4); PROTHROMBIN TIME PATIENT 25.2 SEC (12.2-14.7)
== END 2019-09-18 | disposition home or self-care (01) ==
LOC: LAB 14:17
PROVIDERS: ATTEND Internal Medicine Cardiovascular Disease
DX: Z51.81 Encounter for therapeutic drug level monitoring (principal); Z79.01 Long term (current) use of anticoagulants
CPT/HCPCS: 36415; 85610

== ENCOUNTER 2019-09-28 12:54 | Outpatient (RCR) | payer MEDICARE ==
[~2019-09-28 12:54] MED LIST changes: -WARF5TAB PO; +WARF5TAB2 PO
[2019-09-28 13:20] LABS: INR 2.4 (0.8-1.4)
[2019-10-10] MEDS ORDERED: WARF5TAB2 PO ×2 (13:26)
[2019-11-03] MEDS ORDERED: PRD20T PO (03:12)
[2019-11-03] MEDS ORDERED: FAMO40TA72 PO (03:12)
== END 2019-12-27 | disposition home or self-care (01) ==
LOC: LAB 12:54
PROVIDERS: ATTEND Internal Medicine Cardiovascular Disease
DX: Z51.81 Encounter for therapeutic drug level monitoring (principal); Z79.01 Long term (current) use of anticoagulants
CPT/HCPCS: 36415; 85610

== ENCOUNTER 2019-10-12 08:09 | Outpatient (RCR) | payer MEDICARE ==
[~2019-10-12] VITALS: Ht 182 cm; Wt 129.5 kg
[~2019-10-12 08:09] MED LIST changes: +WARF5TAB PO; -WARF5TAB2 PO
== END 2019-10-12 14:32 | disposition home or self-care (01) ==
LOC: PREOP 08:09
PROVIDERS: ATTEND Surgery
DX: Z01.812 Encounter for preprocedural laboratory examination (principal); Z11.59 Encounter for screening for other viral diseases; C44.712 Basal cell carcinoma of skin of right lower limb, including hip
CPT/HCPCS: 87635

== ENCOUNTER → 2019-10-15 | Outpatient (CLI) | payer MEDICARE ==
--- NOTE | 2019-10-15 16:06 | Diagnostic Imaging Report ---
PROCEDURE: US right lower extremity venous. TECHNIQUE: Multiple real-time grayscale images were obtained over the right lower extremity in various projections. Additional spectral analysis and color Doppler duplex images were also obtained. INDICATION: Right leg swelling and pain. Patient has stopped blood thinners three days ago. FINDINGS: There is thrombus occluding the deep venous system on the right lower extremity from just distal to the common femoral vein into the gastrocnemius veins. The greater saphenous and common femoral vein are widely patent. IMPRESSION: Long segment deep venous thrombosis of the right lower extremity. Dictated by: Dictated on workstation # [id number]
== END ==
LOC: RAD 13:51
PROVIDERS: ATTEND Internal Medicine
DX: I82.401 Acute embolism and thrombosis of unspecified deep veins of right lower extremity (principal)

== ENCOUNTER 2019-11-02 23:38 | Emergency (ER) | payer MEDICARE ==
[~2019-11-02] VITALS: Ht 182.9 cm; Wt 129.3 kg
--- NOTE | 2019-11-02 23:46 | ED Dyspnea ---
General Stated Complaint: SOA,ALLERGIC RXN Source of Information: Patient History of Present Illness Date Seen by Provider: Nov 02, 2019 Time Seen by Provider: 23:40 Initial Comments PT ARRIVES VIA POV FROM HOME C/O SHORTNESS OF BREATH AND CHEST TIGHTNESS SINCE 1500 TODAY PT RELATES THAT WHILE HE WAS AT HOME, HE WAS STUNG BY SOMETHING ON RIGHT UPPER ABDOMEN--DID NOT SEE WHAT IT WAS STATES SHORTLY AFTER THAT, HE BEGAN TO HAVE THE SHORTNESS OF BREATH AND CHEST TIGHTNESS TOOK 2 BENADRYL AND IT HELPED, THEN SYMPTOMS RETURNED / GOT WORSE AN HOUR AGO, TOOK ANOTHER BENADRYL WITHOUT RELIEF NO SYNCOPE NO SWEATS NO CHANGE IN CHRONIC LEG SWELLING NO SWELLING OF TONGUE OR THROAT STATES HE WAS WHEEZING WHEN HE TRIED TO LAY DOWN TONIGHT NO FEVER NO COUGH NO RECENT ILLNESS NO KNOWN EXPOSURE TO COVID-19 PT HAD NEGATIVE COVID-19 TEST DONE LAST WEEK--WAS ROUTINE PRE-OP SCREEN, PT IS SCHEDULED TO HAVE A BASAL CELL CANCER REMOVED PT HAS CHRONIC ATRIAL FIBRILLATION AND IS ON ELIQUIS ( SWITCHED FROM FLUORESCENT LAMP REPLACER COUMADIN USE) HAS HAD CARDIAC CATHS--NO INTERVENTION, BUT DOES HAVE LINQ RECORDER DEVICE IN PLACE PCP: DR. MURPHY PILLOWCASE MAKER: DR REBOLLAR Allergies and Home Medications Allergies Coded Allergies: Sulfa (Sulfonamide Antibiotics) (Unverified Allergy, Mild, N/V, 10/10/19) Home Medications Atorvastatin Calcium 10 Mg Tablet, 10 MG PO HS, (Reported) Famotidine 40 Mg Tablet, 40 MG PO DAILY Prescribed by: THIEN KOHLER on 11/03/19311 Finasteride 5 Mg Tablet, 5 MG PO HS, (Reported) Lisinopril 5 Mg Tablet, 5 MG PO HS, (Reported) Metoprolol Succinate 50 Mg Tab.er.24h, 50 MG PO HS, (Reported) Prednisone 20 Mg Tab, 40 MG PO DAILY Prescribed by: THIEN KOHLER on 11/03/19311 Warfarin Sodium 5 Mg Tablet, 5 MG PO SuTuThFrSa, (Reported) Warfarin Sodium 5 Mg Tablet, 7.5 MG PO MoWe, (Reported) Patient Home Medication List Home Medication List Reviewed: Yes Review of Systems Review of Systems Constitutional: no symptoms reported; No chills, No dizziness, No fever EENTM: no symptoms reported; No nose congestion, No throat swelling Respiratory: see HPI, orthopnea, short of breath Cardiovascular: see HPI, chest pain, edema; No palpitations, No syncope Gastrointestinal: no symptoms reported Genitourinary: no symptoms reported Musculoskeletal: other (NO CHANGE IN CHRONIC EDEMA) Skin: see HPI Psychiatric/Neurological: No Symptoms Reported Endocrine: No Symptoms Reported Hematologic/Lymphatic: No Symptoms Reported Past Csxkjnh-Qlmlal-Sqhylw Hx Past Med/Social Hx: Reviewed and Corrections made Patient Social History 2nd Hand Smoke Exposure: No Recent Hopitalizations: No Immunizations Up To Date Tetanus Booster (TDap): More than 5yrs PED Vaccines UTD: No Date of Pneumonia Vaccine: Jul 10, 2014 Date of Influenza Vaccine: Feb 19, 2019 Seasonal Allergies Seasonal Allergies: Yes Past Medical History Surgeries: Yes (HERNIA REPAIR X 2;MULT SKIN CANCER REMOVALS; CARDIAC CATH; LINQ DEVICE ) Abdominal, Cardiac, Tonsillectomy Respiratory: Yes Sleep Apnea Currently Using CPAP: Yes Cardiac: Yes (LINQ RECORDER; CARDIAC CATHS-NO INTERVENTION) Atrial Fibrillation, Chronic Edema/Swelling, Deep Vein Thrombosis, Hypertension Neurological: No Reproductive Disorders: No Sexually Transmitted Disease: No HIV/AIDS: No Genitourinary: Yes Benign Prostatic Hyperpl, Kidney Stones Gastrointestinal: Yes Gastroesophageal Reflux, Hiatal Hernia Musculoskeletal: No Endocrine: No (OBESITY) HEENT: Yes (GLASSES) Loss of Vision: Denies Hearing Impairment: Hard of Hearing Cancer: Yes Skin Did You Recieve Any Treatments: Yes What Type of Treatment Did You: Radiation, Surgical Intervention Psychosocial: No Integumentary: Yes (SKIN CANCERS ) Blood Disorders: No Adverse Reaction/Blood Tranf: No (N/A) Family Medical History Arthritis G8 BROTHER Cardiovascular disease 19 MOTHER (AFib) DVT G8 BROTHER FHx: respiratory disease G8 SISTER ADDITIONAL PSH: -EGD'S AND COLONOSCOPIES - Physical Exam Vital Signs Vital Signs - First Documented 11/02/19 23:51 Temp 36.9 Pulse 75 Resp 18 B/P (MAP) 156/104 (121) O2 Delivery Room Air Capillary Refill : Height, Weight, BMI Height: 6'0" Weight: 275lbs. 0.0oz. 124.877102nc; 39.09 BMI Method:Stated General Appearance: Mild Distress (MILD TO MODERATE DYSPNEA--ABLE TO TALK IN SHORT SENTENCES), Obese HEENT: PERRL/EOMI Neck: Normal Inspection Respiratory: Accessory Muscle Use, Rales (IN BASES); No Wheezing; Other (MILD TO MODERATE DYSPNEA ON ARRIVAL) Cardiovascular: No JVD, No Murmur, Irregularly Irregular Gastrointestinal: Non Tender, Soft, Hernia (VENTRAL/INCISIONAL HERNIA) Extremity: Non Tender, No Calf Tenderness, Pedal Edema (3+ EDEMA BILATERALLY WITH CHRONIC VENOUS STASIS CHANGES BILATERALLY) Neurologic/Psychiatric: Alert, Oriented x3, No Motor/Sensory Deficits, Normal Mood/Affect, 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 HAS ANOTHER AREA OF ERYTHEMA LATERAL TO THIS IN MID AXILLARY LINE-IN LINEAR DISTRIBUTION. ) Progress/Results/Core Measures Results/Orders Lab Results Laboratory Tests Test 11/02/19 00:13 11/03/19 00:08 11/03/19 02:45 Range/Units White Blood Count 9.3 4.3-11.0 10^3/uL Red Blood Count 4.97 4.35-5.85 10^6/uL Hemoglobin 15.2 13.3-17.7 G/DL Hematocrit 46 40-54 % Mean Corpuscular Volume 92 80-99 FL Mean Corpuscular Hemoglobin 31 25-34 PG Mean Corpuscular Hemoglobin Concent 33 32-36 G/DL Red Cell Distribution Width 13.7 10.0-14.5 % Platelet Count 198 130-400 10^3/uL Mean Platelet Volume 11.3 H 7.4-10.4 FL Neutrophils (%) (Auto) 80 H 42-75 % Lymphocytes (%) (Auto) 12 12-44 % Monocytes (%) (Auto) 7 0-12 % Eosinophils (%) (Auto) 1 0-10 % Basophils (%) (Auto) 0 0-10 % Neutrophils # (Auto) 7.5 1.8-7.8 X 10^3 Lymphocytes # (Auto) 1.1 1.0-4.0 X 10^3 Monocytes # (Auto) 0.7 0.0-1.0 X 10^3 Eosinophils # (Auto) 0.1 0.0-0.3 10^3/uL Basophils # (Auto) 0.0 0.0-0.1 10^3/uL Erythrocyte Sedimentation Rate 10 0-30 MM/HR Prothrombin Time 16.7 H 12.2-14.7 SEC INR Comment 1.3 0.8-1.4 Activated Partial Thromboplast Time 30 24-35 SEC D-Dimer 0.58 H 0.00-0.49 UG/ML Sodium Level 142 135-145 MMOL/L Potassium Level 3.7 3.6-5.0 MMOL/L Chloride Level 101 98-107 MMOL/L Carbon Dioxide Level 31 21-32 MMOL/L Anion Gap 10 5-14 MMOL/L Blood Urea Nitrogen 16 7-18 MG/DL Creatinine 1.39 H 0.60-1.30 MG/DL Estimat Glomerular Filtration Rate 50 BUN/Creatinine Ratio 12 Glucose Level 153 H 70-105 MG/DL Calcium Level 9.7 8.5-10.1 MG/DL Corrected Calcium 9.8 8.5-10.1 MG/DL Magnesium Level 1.9 1.6-2.4 MG/DL Total Bilirubin 0.6 0.1-1.0 MG/DL Aspartate Amino Transf (AST/SGOT) 35 H 5-34 U/L Alanine Aminotransferase (ALT/SGPT) 37 0-55 U/L Alkaline Phosphatase 73 40-136 U/L Lactate Dehydrogenase 212 125-220 U/L Total Creatine Kinase 57 30-200 U/L Creatine Kinase MB 1.3 <6.6 NG/ML Troponin I 0.034 H < 0.028 <0.028 NG/ML C-Reactive Protein High Sensitivity 0.40 0.00-0.50 MG/DL B-Type Natriuretic Peptide 102.1 H <100.0 PG/ML Total Protein 7.7 6.4-8.2 GM/DL Albumin 3.9 3.2-4.5 GM/DL Lipase 14 8-78 U/L Procalcitonin 0.06 <0.10 NG/ML My Orders Orders - JOSE F,THIEN K DO Diphenhydramine Injection (Benadryl Inje (11/03/19 00:00) Methylprednisolone Sod Succ (Solu-Medrol (11/03/19 00:00) Famotidine Injection (Pepcid Injection) (11/03/19 00:00) Ed Iv/Invasive Line Start (11/02/19 23:46) Ekg Tracing (11/02/19 23:46) O2 (11/02/19 23:46) Monitor-Rhythm Ecg Trace Only (11/02/19 23:46) BNP (11/02/19 23:46) Cbc With Automated Diff (11/02/19 23:46) Comprehensive Metabolic Panel (11/02/19 23:46) Creatine Kinase (11/02/19 23:46) Creatine Kinase Mb (11/02/19 23:46) Lipase (11/02/19 23:46) Magnesium (11/02/19 23:46) Protime With Inr (11/02/19 23:46) Partial Thromboplastin Time (11/02/19 23:46) Troponin I (11/02/19 23:46) Fibrin Degradation Products (11/02/19 23:46) Procalcitonin (Pct) (11/02/19 23:46) Hs C Reactive Protein (11/02/19 23:46) Erythrocyte Sedimentation Rate (11/02/19 23:46) LDH (11/02/19 23:46) Coronavirus Sars-Cov-2 So 2018 (11/02/19 23:46) Chest 1 View, Ap/Pa Only (11/03/19 00:01) Ed Iv/Invasive Line Start (11/03/19 01:29) Ns Iv 1000 Ml (Sodium Chloride 0.9%) (11/03/19 01:29) Ekg Tracing (11/03/19 02:46) Troponin I (11/03/19 02:46) Medications Given in ED Current Medications Medications Dose Ordered Sig/Donna Route Start Time Stop Time Status Last Admin Dose Admin Diphenhydramine HCl 50 mg ONCE ONCE IVP 11/03/19 00:00 11/03/19 00:01 DC 11/03/19 00:23 50 MG Famotidine 40 mg ONCE ONCE IVP 11/03/19 00:00 11/03/19 00:01 DC 11/03/19 00:28 40 MG Methylprednisolone Sodium Succinate 125 mg ONCE ONCE IVP 11/03/19 00:00 11/03/19 00:01 DC 11/03/19 00:23 125 MG Vital Signs/I&O 11/02/19 23:51 Temp 36.9 Pulse 75 Resp 18 B/P (MAP) 156/104 (121) O2 Delivery Room Air Progress Progress Note : Progress Note PT SEEN IN COVID UNIT AND PPE WORN AT ALL TIMES, BASED ON PT'S PRESENTING COMPLAINT OF SHORTNESS OF BREATH, PER CURRENT HOSPITAL GUIDELINES. COVID-19 TESTING PERFORMED MONITOR SHOWING ATRIAL FIBRILLATION ON ARRIVAL, WITH FREQUENT MULTIFOCAL PVC'S AND PAC'S --APPEARS TO HAVE INTERMITTENT ATRIAL FIBRILLATION PT GIVEN SOLU-MEDROL, PEPCID AND BENADRYL--SIGNIFICANT IMPROVEMENT/RESOLUTION OF SYMPTOMS. PT OBSERVED AND 3 HOUR REPEAT EKG AND TROPONIN PERFORMED. REPEAT EKG UNCHANGED REPEAT TROPONIN NEGATIVE. Initial ECG Impression Date: Nov 03, 2019 Initial ECG Impression Time: 23:51 Initial ECG Rate: 74 Initial ECG Rhythm: Normal Sinus (WITH PAC'S AND PVC'S ) Initial ECG Impression: Nonspecific Changes, 1st Degree AV Block EKG : EKG Time: 02:46 Rate: 91 Rhythm: Normal Sinus ( WITH MULTIFOCAL PVC'S) ECG Comparisson: Unchanged Diagnostic Imaging Comments CXR Reviewed: Reviewed by Me Departure Impression Primary Impression: INSECT BITE WITH SYSEMIC ALLERGIC REACTION Disposition: 01 HOME, SELF-CARE Condition: Improved Departure-Patient Inst. Referrals: JULIANE MURPHY MD (PCP/Family) Primary Care Physician Patient Instructions: BRONCHOSPASM-ADULT, Insect Bites and Stings (DC) Add. Discharge Instructions: CONTINUE YOUR REGULAR MEDICATIONS PRESCRIBED CONTINUE BENADRYL 50 MG EVERY 4 HOURS NEEDED RETURN TO ER IF SYMPTOMS RETURN Scripts Famotidine (Pepcid) 40 Mg Tablet 40 MG PO DAILY, #10 TAB Prov: THIEN KOHLER DO 11/03/19 Prednisone (Prednisone) 20 Mg Tab 40 MG PO DAILY, #6 TAB 0 Refills Prov: THIEN KOHLER DO 11/03/19 THIEN KOHLER DO Nov 02, 2019 23:46
[2019-11-03] MEDS ORDERED: FAMOTIDINE 20MG/2ML IV (PEPCID) IVP ONE
[2019-11-03] MEDS ORDERED: diphenhydrAMINE 50 MG/ML INJ (BENADRYL) IVP ONE
[2019-11-03] MEDS ORDERED: methylPREDNISolone 125 MG (Solu-MEDROL) VIAL IVP ONE
[2019-11-03 00:48] LABS: BASOPHILS % (AUTO) 0 % (0-10); EOSINOPHILS # (AUTO) 0.1 10^3/uL (0.0-0.3); EOSINOPHILS % (AUTO) 1 % (0-10); HEMATOCRIT 46 % (40-54); HEMOGLOBIN 15.2 G/DL (13.3-17.7); LYMPHOCYTES # (AUTO) 1.1 X 10^3 (1.0-4.0); LYMPHOCYTES % (AUTO) 12 % (12-44); MEAN CORPUSCULAR HEMOGLOBIN 31 PG (25-34); MEAN CORPUSCULAR HGB CONC 33 G/DL (32-36); MEAN CORPUSCULAR VOLUME 92 FL (80-99); MEAN PLATELET VOLUME 11.3 FL (7.4-10.4); MONOCYTES # (AUTO) 0.7 X 10^3 (0.0-1.0); MONOCYTES % (AUTO) 7 % (0-12); NEUTROPHILS # (AUTO) 7.5 X 10^3 (1.8-7.8); NEUTROPHILS % (AUTO) 80 % (42-75); PLATELET COUNT 198 10^3/uL (130-400); RED CELL DISTRIBUTION WIDTH 13.7 % (10.0-14.5); WHITE BLOOD COUNT 9.3 10^3/uL (4.3-11.0)
[2019-11-03 00:58] LABS: ALBUMIN 3.9 GM/DL (3.2-4.5); POTASSIUM 3.7 MMOL/L (3.6-5.0)
[2019-11-03 00:59] LABS: CALCIUM 9.7 MG/DL (8.5-10.1)
[2019-11-03 01:00] LABS: FIBRIN DEGRADATION PRODUCTS 0.58 UG/ML (0.00-0.49); INR 1.3 (0.8-1.4); PROTHROMBIN TIME PATIENT 16.7 SEC (12.2-14.7)
[2019-11-03 01:01] LABS: TOTAL PROTEIN 7.7 GM/DL (6.4-8.2)
[2019-11-03 01:02] LABS: BILIRUBIN,TOTAL 0.6 MG/DL (0.1-1.0)
[2019-11-03 01:04] LABS: CREATININE SERUM 1.39 MG/DL (0.60-1.30)
[2019-11-03 01:07] LABS: MAGNESIUM 1.9 MG/DL (1.6-2.4)
[2019-11-03 01:15] LABS: CREATINE KINASE MB 1.3 NG/ML (<6.6)
[2019-11-03 01:17] LABS: ERYTHROCYTE SEDIMENTATION RATE 10 MM/HR (0-30)
[2019-11-03] MEDS ORDERED: NS IV 1000 ML 1,000 ML IV SCH (01:29)
[2019-11-03] MEDS ORDERED: FAMO40TA72 PO (03:12)
[2019-11-03] MEDS ORDERED: PRD20T PO (03:12)
[2019-11-03 03:31] VITALS: BP 153/87
--- NOTE | 2019-11-03 05:31 | Diagnostic Imaging Report ---
INDICATION: Shortness of air. COMPARISON: 08/08/2018 FINDINGS: Single frontal radiograph view of the chest was obtained and shows moderate cardiomegaly and mild pulmonary vascular congestion. There is also mild diffuse prominence of the pulmonary interstitium. Right basilar patchy atelectasis is noted. There is no large effusion or pneumothorax. Osseous structures show no gross acute abnormalities. IMPRESSION: 1. Cardiomegaly with sequela of CHF including interstitial pulmonary edema. 2. Small amount of right basilar atelectasis. Dictated by: Dictated on workstation # [id number]
== END 2019-11-03 03:41 | disposition home or self-care (01) ==
LOC: EDUNIT# 23:38 → ER 23:41
DX: S30.861A Insect bite (nonvenomous) of abdominal wall, initial encounter (principal); T78.49XA Other allergy, initial encounter; I48.91 Unspecified atrial fibrillation; E66.9 Obesity, unspecified; I10 Essential (primary) hypertension; K21.9 Gastro-esophageal reflux disease without esophagitis; Z85.828 Personal history of other malignant neoplasm of skin; Z79.01 Long term (current) use of anticoagulants; Z95.9 Presence of cardiac and vascular implant and graft, unspecified; Z88.2 Allergy status to sulfonamides; Z68.38 Body mass index [BMI] 38.0-38.9, adult; Z20.828 Contact with and (suspected) exposure to other viral communicable diseases; Z82.49 Family history of ischemic heart disease and other diseases of the circulatory system; Z86.718 Personal history of other venous thrombosis and embolism; W57.XXXA Bitten or stung by nonvenomous insect and other nonvenomous arthropods, initial encounter; Y92.009 Unspecified place in unspecified non-institutional (private) residence as the place of occurrence of the external cause
CPT/HCPCS: 71045; 80053; 82550; 82553; 83615; 83690; 83735; 83880; 84145; 84484; 85025; 85379; 85610; 85652; 85730; 86141; 93041; 99284; U0002; 36415; 87635; 93005

== ENCOUNTER → 2020-03-06 | Outpatient (CLI) | payer MEDICARE ==
[~2020-03-06] MED LIST changes: +FAMO40TA72 PO; -WARF5TAB PO; +WARF5TAB2 PO
[2020-03-06 10:28] LABS: BASOPHILS # (AUTO) 0.1 10^3/uL (0.0-0.1); BASOPHILS % (AUTO) 1 % (0-10); EOSINOPHILS # (AUTO) 0.2 10^3/uL (0.0-0.3); EOSINOPHILS % (AUTO) 3 % (0-10); HEMATOCRIT 44 % (40-54); HEMOGLOBIN 14.3 g/dL (13.3-17.7); LYMPHOCYTES # (AUTO) 1.8 10^3/uL (1.0-4.0); LYMPHOCYTES % (AUTO) 25 % (12-44); MEAN CORPUSCULAR HEMOGLOBIN 31 pg (25-34); MEAN CORPUSCULAR HGB CONC 33 g/dL (32-36); MEAN CORPUSCULAR VOLUME 93 fL (80-99); MEAN PLATELET VOLUME 11.1 fL (9.0-12.2); MONOCYTES # (AUTO) 1.1 10^3/uL (0.0-1.0); MONOCYTES % (AUTO) 15 % (0-12); NEUTROPHILS # (AUTO) 4.1 10^3/uL (1.8-7.8); NEUTROPHILS % (AUTO) 55 % (42-75); PLATELET COUNT 209 10^3/uL (130-400); WHITE BLOOD COUNT 7.3 10^3/uL (4.3-11.0)
[2020-03-06 11:01] LABS: ERYTHROCYTE SEDIMENTATION RATE 21 MM/HR (0-30)
== END ==
LOC: LAB 10:13
PROVIDERS: ATTEND Podiatrist Foot & Ankle Surgery
DX: R60.9 Edema, unspecified (principal); R52 Pain, unspecified
CPT/HCPCS: 36415; 84550; 85025; 85652

== ENCOUNTER → 2020-07-17 | Outpatient (CLI) | payer MEDICARE ==
[~2020-07-17] MED LIST changes: +LISI-729 PO
== END ==
LOC: CARD 11:46
PROVIDERS: ATTEND Internal Medicine Cardiovascular Disease
DX: I10 Essential (primary) hypertension (principal); I08.0 Rheumatic disorders of both mitral and aortic valves
CPT/HCPCS: 93306

== ENCOUNTER → 2020-07-25 | Outpatient (CLI) | payer MEDICARE ==
[2020-07-25 10:34] LABS: CALCIUM 9.2 MG/DL (8.5-10.1); CREATININE SERUM 1.34 MG/DL (0.60-1.30); POTASSIUM 4.1 MMOL/L (3.6-5.0); URIC ACID 7.1 MG/DL (2.6-7.2)
== END ==
LOC: LAB 09:45
PROVIDERS: ATTEND Internal Medicine
DX: E11.9 Type 2 diabetes mellitus without complications (principal); M10.9 Gout, unspecified
CPT/HCPCS: 36415; 80048; 83036; 84550

== ENCOUNTER → 2020-10-06 | Outpatient (CLI) | payer MEDICARE ==
--- NOTE | 2020-10-06 12:18 | Diagnostic Imaging Report ---
INDICATION: LT SHOULDER PAIN, HISTORY MELANOMA. TECHNIQUE: Three views of the left shoulder CORRELATION STUDY: None FINDINGS: The glenohumeral and acromioclavicular alignment are maintained and unremarkable. There is no evidence for acute fracture or dislocation. Loop recorder device is present. Surgical clips within the soft tissue of the neck. IMPRESSION: 1. Negative for acute bony abnormality about the shoulder. Dictated by: Dictated on workstation # [id number]
--- NOTE | 2020-10-06 12:37 | Diagnostic Imaging Report ---
INDICATION: Chest pain, hoarseness, weight loss, post fall. TECHNIQUE: Two view chest at 12:08 PM. CORRELATION STUDY: 11/03/2019. FINDINGS: A Loop recorder device is over the left heart border. The heart size and vasculature are overall within normal lives. Mildly tortuous course of the thoracic aorta. Mildly hyperinflated lung bills and mildly prominent interstitial markings. No infiltrate. Slight blunting of the right costophrenic angle. Mildly advanced degenerative changes through the thoracic spine. IMPRESSION: Chronic appearing changes about the chest. Negative for acute cardiopulmonary abnormality. Dictated by: Dictated on workstation # [id number]
== END ==
LOC: RAD 11:41
PROVIDERS: ATTEND Internal Medicine
DX: M25.512 Pain in left shoulder (principal); R07.9 Chest pain, unspecified; R49.0 Dysphonia
CPT/HCPCS: 71046; 73030

== ENCOUNTER 2020-11-16 17:55 | Emergency (ER) | payer MEDICARE ==
[~2020-11-16] VITALS: Ht 182 cm; Wt 77.1 kg
[2020-11-16] MEDS ORDERED: APIX5TAB PO (18:17)
[2020-11-16] MEDS ORDERED: ALLO300T2 PO (18:17)
[2020-11-16] MEDS ORDERED: LACTATED RINGERS 1,000 ML IV ONE ×2 (18:19→18:30)
--- NOTE | 2020-11-16 18:28 | ED GI ---
General Chief Complaint: Respiratory Problems Stated Complaint: LIGHTHEADED/DIARRHEA/WEAKNESS/SOB Nursing Triage Note: PT PRESENTS TO ED [facility] FROM HOME WITH COMPLAINTS OF SOA X 1 WEEK, GENERILZED WEAKNESS, AND 2 EPISODES OF DIAHRREA Source of Information: Patient Exam Limitations: No Limitations History of Present Illness Date Seen by Provider: Nov 16, 2020 Time Seen by Provider: 18:07 Initial Comments Patient to the ER by private conveyance from home with chief complaint of 2 days of loose watery stools. Is not having any abdominal pain. He has decreased his appetite because he is concerned about having diarrhea. He started a new med from Dr. Bonner for his multiple skin cancers basal cell carcinomas etc roughly 3 to 4 months ago. He read on the medication insert the GI symptoms are very common side effect of that medication so he associates that with today's episodes. He has had no fevers chills cough chest pain shortness of breath swelling or weakness. He says he has not had much sun exposure. He typically walks twice a day for exercise but says he has not been able to do that because of his diarrhea for the past couple days. He is at poor appetite for the past 1 to 2 weeks because of taste change associated with the medication. He is known to Dr. Mack and Dr. Castano. He is up-to-date with his COVID-19 vaccination with derma and uses Eliquis for atrial fibrillation. Echocardiogram by Dr. Mack from July 2020 demonstrates an EF 55 to 65%. Cardiac catheterization [address] Mack demonstrates nonischemic cardiomyopathy with an EF of 40 to 45% and normal coronaries. Allergies and Home Medications Allergies Coded Allergies: Sulfa (Sulfonamide Antibiotics) (Unverified Allergy, Mild, N/V, 10/10/19) Home Medications Apixaban 5 Mg Tablet, 5 MG PO BID, (Reported) Last Action: New Order Atorvastatin Calcium 10 Mg Tablet, 10 MG PO HS, (Reported) Famotidine 40 Mg Tablet, 40 MG PO DAILY Prescribed by: THIEN KOHLER on 11/03/19 0312 Finasteride 5 Mg Tablet, 5 MG PO HS, (Reported) Lisinopril 5 Mg Tablet, 5 MG PO HS, (Reported) Metoprolol Succinate 50 Mg Tab.er.24h, 50 MG PO HS, (Reported) Prednisone 20 Mg Tab, 40 MG PO DAILY Prescribed by: THIEN KOHLER on 11/03/19 0312 Warfarin Sodium 5 Mg Tablet, 5 MG PO SuTuThFrSa, (Reported) Warfarin Sodium 5 Mg Tablet, 7.5 MG PO MoWe, (Reported) Patient Home Medication List Home Medication List Reviewed: Yes Review of Systems Review of Systems Constitutional: No chills, No diaphoresis EENTM: No Blurred Vision, No Double Vision Respiratory: Denies Cough, Denies Shortness of Air Cardiovascular: Denies Chest Pain, Denies Lightheadedness Gastrointestinal: Denies Abdominal Pain, Denies Constipated; Diarrhea; Denies Nausea; Poor Fluid Intake; Denies Rectal Bleeding, Denies Vomiting Genitourinary: Denies Burning, Denies Discharge Musculoskeletal: No back pain, No joint pain All Other Systems Reviewed Negative Unless Noted: Yes Past Yvemima-Zbffuq-Txoape Hx Patient Social History Tobacco Use?: No Substance use?: No Alcohol Use?: No Pt feels they are or have been: No Immunizations Up To Date Tetanus Booster (TDap): More than 5yrs PED Vaccines UTD: No First/Initial COVID19 Vaccinat: 08/06/20 Second COVID19 Vaccination Rayray: 09/04/20 COVID19 Vaccine Turbine Attendant: Backtrace I/Ojory Seasonal Allergies Seasonal Allergies: Yes Past Medical History Surgery/Hospitalization HX: HX OF SKIN CA, HTN, HIGH CHOLESTEROL, GOUT Surgeries: Yes (HERNIA REPAIR X 2;MULT SKIN CANCER REMOVALS; CARDIAC CATH; LINQ DEVICE ) Abdominal, Cardiac, Tonsillectomy Respiratory: Yes Sleep Apnea Currently Using CPAP: Yes Cardiac: Yes (LINQ RECORDER; CARDIAC CATHS-NO INTERVENTION) Atrial Fibrillation, Chronic Edema/Swelling, Deep Vein Thrombosis, Hypertension Neurological: No Reproductive Disorders: No Sexually Transmitted Disease: No HIV/AIDS: No Genitourinary: Yes Benign Prostatic Hyperpl, Kidney Stones Gastrointestinal: Yes Gastroesophageal Reflux, Hiatal Hernia Musculoskeletal: No Endocrine: No (OBESITY) HEENT: Yes (GLASSES) Loss of Vision: Denies Hearing Impairment: Hard of Hearing Cancer: Yes Skin Did You Recieve Any Treatments: Yes What Type of Treatment Did You: Radiation, Surgical Intervention Psychosocial: No Integumentary: Yes (SKIN CANCERS ) Blood Disorders: No Adverse Reaction/Blood Tranf: No (N/A) Family Medical History Arthritis G8 BROTHER Cardiovascular disease 19 MOTHER (AFib) DVT G8 BROTHER FHx: respiratory disease G8 SISTER ADDITIONAL PSH: -EGD'S AND COLONOSCOPIES - Physical Exam Vital Signs Vital Signs - First Documented 11/16/20 18:08 Temp 35.5 Pulse 75 Resp 18 B/P (MAP) 122/103 (109) Pulse Ox 94 Capillary Refill : Less Than 3 Seconds Height/Weight/BMI Height: 6'0" Weight: 275lbs. 0.0oz. 124.918451hs; 23.00 BMI Method:Stated General Appearance: WD/WN, no apparent distress HEENT: PERRL/EOMI; No pharynx normal (Oropharynx is dry); other (Hard of hearing) Neck: full range of motion, normal inspection Respiratory: lungs clear, normal breath sounds, no respiratory distress, no accessory muscle use Cardiovascular: normal peripheral pulses, regular rate, rhythm Gastrointestinal: normal bowel sounds, non tender, soft, no organomegaly Extremities: normal range of motion, non-tender, normal inspection, normal ca pillary refill Neurologic/Psychiatric: alert, normal mood/affect, oriented x 3 Skin: warm/dry, other (Erythematous with several small actinic keratoses throughout) Progress/Results/Core Measures Results/Orders Lab Results Laboratory Tests Test 11/16/20 18:10 Range/Units White Blood Count 13.9 H 4.3-11.0 10^3/uL Red Blood Count 4.84 4.30-5.52 10^6/uL Hemoglobin 15.1 13.3-17.7 g/dL Hematocrit 46 40-54 % Mean Corpuscular Volume 95 80-99 fL Mean Corpuscular Hemoglobin 31 25-34 pg Mean Corpuscular Hemoglobin Concent 33 32-36 g/dL Red Cell Distribution Width 14.7 H 10.0-14.5 % Platelet Count 250 130-400 10^3/uL Mean Platelet Volume 12.6 H 9.0-12.2 fL Immature Granulocyte % (Auto) 1 % Neutrophils (%) (Auto) 67 42-75 % Lymphocytes (%) (Auto) 19 12-44 % Monocytes (%) (Auto) 10 0-12 % Eosinophils (%) (Auto) 3 0-10 % Basophils (%) (Auto) 1 0-10 % Neutrophils # (Auto) 9.3 H 1.8-7.8 10^3/uL Lymphocytes # (Auto) 2.6 1.0-4.0 10^3/uL Monocytes # (Auto) 1.3 H 0.0-1.0 10^3/uL Eosinophils # (Auto) 0.4 H 0.0-0.3 10^3/uL Basophils # (Auto) 0.1 0.0-0.1 10^3/uL Immature Granulocyte # (Auto) 0.2 H 0.0-0.1 10^3/uL Sodium Level 140 135-145 MMOL/L Potassium Level 4.1 3.6-5.0 MMOL/L Chloride Level 104 98-107 MMOL/L Carbon Dioxide Level 23 21-32 MMOL/L Anion Gap 13 5-14 MMOL/L Blood Urea Nitrogen 51 H 7-18 MG/DL Creatinine 2.15 H 0.60-1.30 MG/DL Estimat Glomerular Filtration Rate 30 BUN/Creatinine Ratio 24 Glucose Level 139 H 70-105 MG/DL Calcium Level 9.6 8.5-10.1 MG/DL Corrected Calcium 9.8 8.5-10.1 MG/DL Total Bilirubin 0.6 0.1-1.0 MG/DL Aspartate Amino Transf (AST/SGOT) 16 5-34 U/L Alanine Aminotransferase (ALT/SGPT) 15 0-55 U/L Alkaline Phosphatase 74 40-136 U/L Total Protein 7.3 6.4-8.2 GM/DL Albumin 3.8 3.2-4.5 GM/DL Lipase 67 8-78 U/L Influenza Type A (RT-PCR) Not Detected Not Detecte Influenza Type B (RT-PCR) Not Detected Not Detecte SARS-CoV-2 RNA (RT-PCR) Not Detected Not Detecte My Orders Orders - GUILLERMINA DUMONT Lactated Ringers (Lr 1000 Ml Iv Solution (11/16/20 18:19) Covid 19 Inhouse Test (11/16/20 18:21) Influenza A And B By Pcr (11/16/20 18:21) Cbc With Automated Diff (11/16/20 18:21) Comprehensive Metabolic Panel (11/16/20 18:21) Lipase (11/16/20 18:21) Ed Iv/Invasive Line Start (11/16/20 18:21) Lactated Ringers (Lr 1000 Ml Iv Solution (11/16/20 18:30) Ekg Tracing (11/16/20 19:07) Continuous Ekg Monitoring (11/16/20 19:07) Medications Given in ED Current Medications Medications Dose Ordered Sig/Donna Route Start Time Stop Time Status Last Admin Dose Admin Lactated Ringer's 1,000 ml @ 0 mls/hr Q0M ONCE IV 11/16/20 18:30 11/16/20 18:31 DC 11/16/20 18:00 0 MLS/HR Vital Signs/I&O 11/16/20 18:08 Temp 35.5 Pulse 75 Resp 18 B/P (MAP) 122/103 (109) Pulse Ox 94 Blood Pressure Mean: 109 Progress Progress Note #1: Time: 18:27 Progress Note He is not having abdominal pain just 2 days of diarrhea. Viral or sun exposure come to mind but he states he has not been out in the heat much. Plan to check some labs give him a liter of lactated Ringer's and reassess. Vital signs are stable. Progress Note #2: Time: 20:01 Progress Note Patient does have some dehydration evident on labs which goes with his history and physical exam. We have given him some fluids and he says he is already ready to go home after a 500 mL bolus. We will let him finish out the liter and start some Imodium. Follow-up [address] Castano Initial ECG Impression Date: Nov 16, 2020 Initial ECG Impression Time: 19:21 Initial ECG Rate: 92 Initial ECG Rhythm: Normal Sinus Initial ECG Intervals: Normal Initial ECG Impression: Normal Initial ECG Comparisson: No Previous ECG Available Comment Irregular, paired couplets with prolonged CA interval, sinus rhythm with borderline prolonged QTC interval. No clinically relevant ST elevation or depression from baseline Departure Impression Primary Impression: Gastroenteritis and colitis, viral Disposition: HOME, SELF-CARE Condition: Stable Departure-Patient Inst. Decision time for Depature: 20:03 Referrals: JULIANE CASTANO MD (PCP/Family) Primary Care Physician Patient Instructions: Dehydration, Adult ED, Diarrhea, Adult ED Add. Discharge Instructions: If you develop any nausea you can use Zofran 1 tablet every 6 hours under the tongue as necessary. Drink plenty of fluids. Sports drinks are encouraged. supervisor sample preparation some Imodium/loperamide. 2tablets at once and then 1 tablet every 4 hours afterwards that you still have a loose, watery stool. Return to the ER if you continue to get dehydrated and cannot keep up with your fluid intake or you have new or worrisome symptoms. Otherwise follow-up with your primary care doctor outpatient as needed. All discharge instructions reviewed with patient and/or family. Voiced understanding. Scripts Ondansetron (Ondansetron Odt) 4 Mg Tab.rapdis 4 MG PO Q6H PRN for NAUSEA/VOMITING, #8 TAB 0 Refills Prov: GUILLERMINA DUMONT 11/16/20 Copy Copies To 1: JULIANE CASTANO MD, TITUS J Nov 16, 2020 18:28
[2020-11-16 18:56] LABS: BASOPHILS # (AUTO) 0.1 10^3/uL (0.0-0.1); BASOPHILS % (AUTO) 1 % (0-10); EOSINOPHILS # (AUTO) 0.4 10^3/uL (0.0-0.3); EOSINOPHILS % (AUTO) 3 % (0-10); HEMATOCRIT 46 % (40-54); HEMOGLOBIN 15.1 g/dL (13.3-17.7); LYMPHOCYTES # (AUTO) 2.6 10^3/uL (1.0-4.0); LYMPHOCYTES % (AUTO) 19 % (12-44); MEAN CORPUSCULAR HEMOGLOBIN 31 pg (25-34); MEAN CORPUSCULAR HGB CONC 33 g/dL (32-36); MEAN CORPUSCULAR VOLUME 95 fL (80-99); MEAN PLATELET VOLUME 12.6 fL (9.0-12.2); MONOCYTES # (AUTO) 1.3 10^3/uL (0.0-1.0); MONOCYTES % (AUTO) 10 % (0-12); NEUTROPHILS # (AUTO) 9.3 10^3/uL (1.8-7.8); NEUTROPHILS % (AUTO) 67 % (42-75); PLATELET COUNT 250 10^3/uL (130-400); WHITE BLOOD COUNT 13.9 10^3/uL (4.3-11.0)
[2020-11-16 19:18] LABS: ALBUMIN 3.8 GM/DL (3.2-4.5)
[2020-11-16 19:19] LABS: POTASSIUM 4.1 MMOL/L (3.6-5.0)
[2020-11-16 19:20] LABS: CALCIUM 9.6 MG/DL (8.5-10.1)
[2020-11-16 19:21] LABS: TOTAL PROTEIN 7.3 GM/DL (6.4-8.2)
[2020-11-16 19:23] LABS: BILIRUBIN,TOTAL 0.6 MG/DL (0.1-1.0)
[2020-11-16 19:25] LABS: CREATININE SERUM 2.15 MG/DL (0.60-1.30)
[2020-11-16] MEDS ORDERED: ONDA4TAB11 PO (20:04)
[2020-11-16 20:19] VITALS: BP 117/64
== END 2020-11-16 20:19 | disposition home or self-care (01) ==
LOC: EDUNIT# 17:55 → ER 17:56
DX: A08.4 Viral intestinal infection, unspecified (principal); I10 Essential (primary) hypertension; G47.30 Sleep apnea, unspecified; N40.0 Benign prostatic hyperplasia without lower urinary tract symptoms; I48.91 Unspecified atrial fibrillation; K21.9 Gastro-esophageal reflux disease without esophagitis; E66.9 Obesity, unspecified; Z68.23 Body mass index [BMI] 23.0-23.9, adult; Z20.822 Contact with and (suspected) exposure to COVID-19; Z86.718 Personal history of other venous thrombosis and embolism; Z79.01 Long term (current) use of anticoagulants; Z79.899 Other long term (current) drug therapy; Z79.52 Long term (current) use of systemic steroids
CPT/HCPCS: 36415; 80053; 83690; 85025; 87636; 93005

== ENCOUNTER → 2020-11-24 | Outpatient (CLI) | payer MEDICARE ==
[~2020-11-24] MED LIST changes: +ALLO300T2 PO; +APIX5TAB PO; +ONDA4TAB11 PO
[2020-11-24 12:44] LABS: POTASSIUM 4.7 MMOL/L (3.6-5.0)
[2020-11-24 12:50] LABS: CREATININE SERUM 2.25 MG/DL (0.60-1.30)
== END ==
LOC: LAB 12:09
PROVIDERS: ATTEND Internal Medicine
DX: I10 Essential (primary) hypertension (principal)
CPT/HCPCS: 36415; 80048

== ENCOUNTER → 2020-12-12 | Outpatient (CLI) | payer MEDICARE ==
[2020-12-12 10:19] LABS: BASOPHILS # (AUTO) 0.1 10^3/uL (0.0-0.1); BASOPHILS % (AUTO) 1 % (0-10); EOSINOPHILS # (AUTO) 0.1 10^3/uL (0.0-0.3); EOSINOPHILS % (AUTO) 2 % (0-10); HEMATOCRIT 42 % (40-54); HEMOGLOBIN 13.7 g/dL (13.3-17.7); LYMPHOCYTES # (AUTO) 1.4 10^3/uL (1.0-4.0); LYMPHOCYTES % (AUTO) 19 % (12-44); MEAN CORPUSCULAR HEMOGLOBIN 31 pg (25-34); MEAN CORPUSCULAR HGB CONC 33 g/dL (32-36); MEAN CORPUSCULAR VOLUME 96 fL (80-99); MEAN PLATELET VOLUME 12.1 fL (9.0-12.2); MONOCYTES # (AUTO) 0.8 10^3/uL (0.0-1.0); MONOCYTES % (AUTO) 11 % (0-12); NEUTROPHILS # (AUTO) 4.9 10^3/uL (1.8-7.8); NEUTROPHILS % (AUTO) 67 % (42-75); PLATELET COUNT 201 10^3/uL (130-400); WHITE BLOOD COUNT 7.3 10^3/uL (4.3-11.0)
[2020-12-12 10:36] LABS: ALBUMIN 3.7 GM/DL (3.2-4.5); BILIRUBIN,TOTAL 0.6 MG/DL (0.1-1.0); CALCIUM 9.5 MG/DL (8.5-10.1); CREATININE SERUM 1.83 MG/DL (0.60-1.30); POTASSIUM 4.3 MMOL/L (3.6-5.0)
== END ==
LOC: LAB 09:59
PROVIDERS: ATTEND Internal Medicine
DX: I10 Essential (primary) hypertension (principal); N17.8 Other acute kidney failure
CPT/HCPCS: 36415; 80053; 84443; 85025

== ENCOUNTER → 2020-12-19 | Outpatient (CLI) | payer MEDICARE | LOC: CARD 10:00 | PROVIDERS: ATTEND Nurse Practitioner Family | DX: R00.1 Bradycardia, unspecified (principal) | CPT/HCPCS: 93306 ==

== ENCOUNTER 2021-04-11 16:17 | Emergency (ER) | payer MEDICARE ==
[~2021-04-11] VITALS: Ht 183 cm; Wt 119.7 kg
[~2021-04-11 16:17] MED LIST changes: -LISI-729 PO; +LISI5TAB20 PO
[2021-04-11] MEDS ORDERED: ASPIRIN 81 MG CHEW (CHILDREN'S ASA) PO ONE (16:30)
--- NOTE | 2021-04-11 16:46 | ED Cardiac General ---
History of Present Illness General Chief Complaint: Cardiac/General Problems Stated Complaint: SOB/HEART PALPITATIONS Source: patient Exam Limitations: no limitations (MANDA URRUTIA APRN) History of Present Illness Date Seen by Provider: Apr 11, 2021 Time Seen by Provider: 16:43 Initial Comments To ER with a cough of 3 weeks duration. Sometimes is productive and sometimes not. No chest pain. He has occasional palpitations and shortness of breath. No fevers or chills. Has had both Covid vaccines. Follows with Dr. Mack for history of atrial fibrillation. Managed with Eliquis. Timing/Duration: changing over time Severity: moderate Location: central Prior CP/Workup: no prior chest pain NTG SL ASSISTANCE REPRESENTATIVE: No ASA po ASSISTANCE REPRESENTATIVE: No Associated Systoms: No Chest Pain; Cough; No Diaphoresis, No Fever/Chills, No Headaches, No Loss of Appetite, No Malaise, No Nausea/Vomiting (MANDA URRUTIA APRN) Allergies and Home Medications Allergies Coded Allergies: Sulfa (Sulfonamide Antibiotics) (Unverified Allergy, Mild, N/V, 10/10/19) Patient Home Medication List Home Medication List Reviewed: Yes (MANDA URRUTIA APRN) Allopurinol (Allopurinol) 300 Mg Tablet, 300 MG PO, (Reported) Entered as Reported by: PURNIMA FERRARI on 11/16/201816 Apixaban (Eliquis) 5 Mg Tablet, 5 MG PO BID, (Reported) Entered as Reported by: PURNIMA FERRARI on 11/16/201816 Atorvastatin Calcium (Atorvastatin Calcium) 10 Mg Tablet, 10 MG PO HS, (Reported) Entered as Reported by: DOREEN MARK on 08/08/18 0935 Famotidine (Pepcid) 40 Mg Tablet, 40 MG PO DAILY Prescribed by: THIEN KOHLER on 11/03/19 0312 Finasteride (Finasteride) 5 Mg Tablet, 5 MG PO HS, (Reported) Entered as Reported by: DOREEN MARK on 08/08/18 0935 Lisinopril (Lisinopril) 5 Mg Tablet, 5 MG PO HS, (Reported) Entered as Reported by: DOREEN MARK on 08/08/18 0935 Metoprolol Succinate (Metoprolol Succinate) 50 Mg Tab.er.24h, 50 MG PO HS, (Reported) Entered as Reported by: DOREEN MARK on 08/08/18 0935 Ondansetron (Ondansetron Odt) 4 Mg Tab.rapdis, 4 MG PO Q6H PRN for NAUSEA/VOMITING Prescribed by: GUILLERMINA DUMONT on 11/16/202003 Prednisone (Prednisone) 20 Mg Tab, 40 MG PO DAILY Prescribed by: THIEN KOHLER on 11/03/19 0312 Warfarin Sodium (Coumadin) 5 Mg Tablet, 5 MG PO SuTuThFrSa, (Reported) Entered as Reported by: LANA TIMMONS on 10/10/19 1326 Warfarin Sodium (Coumadin) 5 Mg Tablet, 7.5 MG PO MoWe, (Reported) Entered as Reported by: LANA TIMMONS on 10/10/19 1326 Review of Systems Review of Systems Constitutional: see HPI; No chills, No fever EENTM: No Symptoms Reported Respiratory: See HPI, Cough, SOA With Exertion Cardiovascular: See HPI; Denies Chest Pain, Denies Edema; Irregular Heart Rate, Palpitations Gastrointestinal: No Symptoms Reported, See HPI Genitourinary: No Symptoms Reported Musculoskeletal: no symptoms reported Skin: no symptoms reported Psychiatric/Neurological: No Symptoms Reported Endocrine: No Symptoms Reported (MANDA URRUTIA APRN) Past Gcoezxq-Gtzboq-Bxoawr Hx Patient Social History Tobacco Use?: No Substance use?: No Alcohol Use?: No Pt feels they are or have been: No (MANDA URRUTIA APRN) Immunizations Up To Date Tetanus Booster (TDap): More than 5yrs PED Vaccines UTD: No First/Initial COVID19 Vaccinat: 08/06/20 Second COVID19 Vaccination Rayray: 09/04/20 Third COVID19 Vaccination Date: 08/06/20 (MANDA URRUTIA APRN) Seasonal Allergies Seasonal Allergies: Yes (MANDA URRUTIA APRN) Past Medical History Surgery/Hospitalization HX: PMH : AFIB Surgeries: Yes (HERNIA REPAIR X 2;MULT SKIN CANCER REMOVALS; CARDIAC CATH; LINQ DEVICE ) Abdominal, Cardiac, Tonsillectomy Respiratory: Yes Sleep Apnea Currently Using CPAP: Yes Cardiac: Yes (LINQ RECORDER; CARDIAC CATHS-NO INTERVENTION) Atrial Fibrillation, Chronic Edema/Swelling, Deep Vein Thrombosis, Hypertension Neurological: No Reproductive Disorders: No Sexually Transmitted Disease: No HIV/AIDS: No Genitourinary: Yes Benign Prostatic Hyperpl, Kidney Stones Gastrointestinal: Yes Gastroesophageal Reflux, Hiatal Hernia Musculoskeletal: No Endocrine: No (OBESITY) HEENT: Yes (GLASSES) Loss of Vision: Denies Hearing Impairment: Hard of Hearing Cancer: Yes Skin Did You Recieve Any Treatments: Yes What Type of Treatment Did You: Radiation, Surgical Intervention Psychosocial: No Integumentary: Yes (SKIN CANCERS ) Blood Disorders: No Adverse Reaction/Blood Tranf: No (N/A) (MANDA URRUTIA APRN) Family Medical History Arthritis G8 BROTHER Cardiovascular disease 19 MOTHER (AFib) DVT G8 BROTHER FHx: respiratory disease G8 SISTER ADDITIONAL PSH: -EGD'S AND COLONOSCOPIES - (MANDA URRUTIA APRN) Physical Exam Vital Signs Vital Signs - First Documented 04/11/21 16:32 Temp 36.8 Pulse 86 Resp 20 B/P (MAP) 131/90 (104) Pulse Ox 95 (YINA MATTA MD) Vital Signs Capillary Refill : (MANDA URRUTIA APRN) Height, Weight, BMI Height: 6'0" Weight: 275lbs. 0.0oz. 124.254451vh; 23.00 BMI Method:Stated General Appearance: No Apparent Distress, WD/WN, Other (Alert and oriented jok ing, laughing jovial and pleasant. No distress. Bedside telemetry shows atrial fibrillation rate of 80s to 90s. Blood pressure 131/90.) Neck: Full Range of Motion, Normal Inspection Respiratory: Lungs Clear, Normal Breath Sounds, No Accessory Muscle Use, No Respiratory Distress Cardiovascular: No Bradycardia; Irregularly Irregular; No JVD, No Tachycardia Gastrointestinal: Non Tender, Soft Extremity: Normal Capillary Refill, Normal Inspection, Pedal Edema (Bilateral lower extremities) Neurologic/Psychiatric: Alert, Oriented x3 Skin: Normal Color, Warm/Dry (MANDA URRUTIA APRN) Progress/Results/Core Measures Results/Orders Lab Results Laboratory Tests Test 04/11/21 16:43 04/11/21 16:54 Range/Units White Blood Count 7.9 4.3-11.0 10^3/uL Red Blood Count 4.48 4.30-5.52 10^6/uL Hemoglobin 13.6 13.3-17.7 g/dL Hematocrit 43 40-54 % Mean Corpuscular Volume 96 80-99 fL Mean Corpuscular Hemoglobin 30 25-34 pg Mean Corpuscular Hemoglobin Concent 32 32-36 g/dL Red Cell Distribution Width 13.2 10.0-14.5 % Platelet Count 227 130-400 10^3/uL Mean Platelet Volume 11.7 9.0-12.2 fL Immature Granulocyte % (Auto) 0 % Neutrophils (%) (Auto) 64 42-75 % Lymphocytes (%) (Auto) 21 12-44 % Monocytes (%) (Auto) 11 0-12 % Eosinophils (%) (Auto) 2 0-10 % Basophils (%) (Auto) 1 0-10 % Neutrophils # (Auto) 5.1 1.8-7.8 10^3/uL Lymphocytes # (Auto) 1.7 1.0-4.0 10^3/uL Monocytes # (Auto) 0.9 0.0-1.0 10^3/uL Eosinophils # (Auto) 0.2 0.0-0.3 10^3/uL Basophils # (Auto) 0.1 0.0-0.1 10^3/uL Immature Granulocyte # (Auto) 0.0 0.0-0.1 10^3/uL Prothrombin Time 15.8 H 12.2-14.7 SEC INR Comment 1.2 0.8-1.4 Activated Partial Thromboplast Time 33 24-35 SEC Sodium Level 141 135-145 MMOL/L Potassium Level 4.0 3.6-5.0 MMOL/L Chloride Level 103 98-107 MMOL/L Carbon Dioxide Level 27 21-32 MMOL/L Anion Gap 11 5-14 MMOL/L Blood Urea Nitrogen 19 H 7-18 MG/DL Creatinine 1.42 H 0.60-1.30 MG/DL Estimat Glomerular Filtration Rate 48 BUN/Creatinine Ratio 13 Glucose Level 116 H 70-105 MG/DL Calcium Level 9.5 8.5-10.1 MG/DL Corrected Calcium 9.5 8.5-10.1 MG/DL Magnesium Level 1.9 1.6-2.4 MG/DL Total Bilirubin 0.9 0.1-1.0 MG/DL Aspartate Amino Transf (AST/SGOT) 22 5-34 U/L Alanine Aminotransferase (ALT/SGPT) 14 0-55 U/L Alkaline Phosphatase 94 40-136 U/L Myoglobin 68.0 10.0-92.0 NG/ML Troponin I 0.046 H <0.028 NG/ML B-Type Natriuretic Peptide 427.6 H <100.0 PG/ML Total Protein 7.3 6.4-8.2 GM/DL Albumin 4.0 3.2-4.5 GM/DL SARS-CoV-2 RNA (RT-PCR) Not Detected Not Detecte (YINA MATTA MD) Medications Given in ED Current Medications Medications Dose Ordered Sig/Donna Route Start Time Stop Time Status Last Admin Dose Admin Aspirin 324 mg ONCE ONCE PO 04/11/21 16:30 04/11/21 16:31 DC 04/11/21 16:51 324 MG Furosemide 40 mg ONCE ONCE IVP 04/11/21 18:45 04/11/21 18:46 DC 04/11/21 18:44 40 MG (YINA MATTA MD) Vital Signs/I&O 04/11/21 04/11/21 16:32 18:53 Temp 36.8 Pulse 86 76 Resp 20 18 B/P (MAP) 131/90 (104) 175/100 Pulse Ox 95 98 (YINA MATTA MD) Departure Communication (Admissions) 1830-I spoke with Dr. Mack, recommends Lasix 40 mg IV x1 here and he will follow up with the patient on Tuesday. (MANDA URRUTIA APRN) Impression Primary Impression: Palpitations Disposition: 01 HOME, SELF-CARE Condition: Stable Departure-Patient Inst. Decision time for Depature: 18:32 (MANDA URRUTIA APRN) Referrals: JULIANE MURPHY MD (PCP/Family) Primary Care Physician Patient Instructions: Palpitations ED Add. Discharge Instructions: 1. Call Dr. Mack on Tuesday to make an appointment to be seen. Return to ER for any worsening. All discharge instructions reviewed with patient and/or family. Voiced understanding. ATTENDING PHYSICIAN NOTE: I was physically present as attending physician in the emergency department during the care of this patient, but I was not directly involved in the decision making or delivery of care for this patient. (YINA MATTA MD) Copy Copies To 1: SMITA MACK MD, PETER J APRN Apr 11, 2021 16:46 YINA MATTA MD Apr 11, 2021 20:24
[2021-04-11 16:54] LABS: BASOPHILS # (AUTO) 0.1 10^3/uL (0.0-0.1); BASOPHILS % (AUTO) 1 % (0-10); EOSINOPHILS # (AUTO) 0.2 10^3/uL (0.0-0.3); EOSINOPHILS % (AUTO) 2 % (0-10); HEMATOCRIT 43 % (40-54); HEMOGLOBIN 13.6 g/dL (13.3-17.7); LYMPHOCYTES # (AUTO) 1.7 10^3/uL (1.0-4.0); LYMPHOCYTES % (AUTO) 21 % (12-44); MEAN CORPUSCULAR HEMOGLOBIN 30 pg (25-34); MEAN CORPUSCULAR HGB CONC 32 g/dL (32-36); MEAN CORPUSCULAR VOLUME 96 fL (80-99); MEAN PLATELET VOLUME 11.7 fL (9.0-12.2); MONOCYTES # (AUTO) 0.9 10^3/uL (0.0-1.0); MONOCYTES % (AUTO) 11 % (0-12); NEUTROPHILS # (AUTO) 5.1 10^3/uL (1.8-7.8); NEUTROPHILS % (AUTO) 64 % (42-75); PLATELET COUNT 227 10^3/uL (130-400); WHITE BLOOD COUNT 7.9 10^3/uL (4.3-11.0)
[2021-04-11 17:06] LABS: INR 1.2 (0.8-1.4); PROTHROMBIN TIME PATIENT 15.8 SEC (12.2-14.7)
[2021-04-11 17:07] LABS: CALCIUM 9.5 MG/DL (8.5-10.1)
[2021-04-11 17:08] LABS: TOTAL PROTEIN 7.3 GM/DL (6.4-8.2)
[2021-04-11 17:10] LABS: BILIRUBIN,TOTAL 0.9 MG/DL (0.1-1.0)
[2021-04-11 17:12] LABS: CREATININE SERUM 1.42 MG/DL (0.60-1.30)
[2021-04-11 17:15] LABS: MAGNESIUM 1.9 MG/DL (1.6-2.4)
--- NOTE | 2021-04-11 17:55 | Diagnostic Imaging Report ---
INDICATION: Chest pain. COMPARISON: 11/03/2019. FINDINGS: The heart is enlarged, increased from prior. Vascular congestion has developed. There are small pleural effusions, greater right, new, as well as pulmonary edema. IMPRESSION: Failure pattern has developed, as described. Dictated by: Dictated on workstation # [id number]
[2021-04-11] MEDS ORDERED: FUROSEMIDE 40 MG/4 ML INJ (LASIX) IVP ONE (18:45)
[2021-04-11 18:53] VITALS: BP 175/100
== END 2021-04-11 18:53 | disposition home or self-care (01) ==
LOC: EDUNIT# 16:17 → ER 16:19
DX: R00.2 Palpitations (principal); G47.30 Sleep apnea, unspecified; I10 Essential (primary) hypertension; I48.91 Unspecified atrial fibrillation; K21.9 Gastro-esophageal reflux disease without esophagitis; N40.0 Benign prostatic hyperplasia without lower urinary tract symptoms; E66.9 Obesity, unspecified; Z68.23 Body mass index [BMI] 23.0-23.9, adult; Z20.822 Contact with and (suspected) exposure to COVID-19; Z86.718 Personal history of other venous thrombosis and embolism; Z79.01 Long term (current) use of anticoagulants; Z79.899 Other long term (current) drug therapy
CPT/HCPCS: 36415; 71045; 80053; 83735; 83874; 83880; 84484; 85025; 85610; 85730; 87636; 93005; 93041

== ENCOUNTER 2021-04-16 16:05 | Inpatient (IN) | payer MEDICARE ==
[2021-04-16] VITALS (7 sets, daily range): BP systolic 106–153; BP diastolic 51–106
[~2021-04-16] VITALS: Ht 182.8 cm; Wt 107.9 kg
[2021-04-16] MEDS ORDERED: meTOprolol 5 MG/5 ML (LOPRESSOR) VIAL IV ONE (16:15)
--- NOTE | 2021-04-16 16:18 | ED General ---
General Stated Complaint: INTERMITTEN SOB/HEART RACING Source of Information: Patient Exam Limitations: No Limitations History of Present Illness Date Seen by Provider: Apr 16, 2021 Time Seen by Provider: 16:16 Initial Comments To ER by private vehicle with reports of palpitations and shortness of breath. This is been ongoing for a couple of months. I saw him here a few days ago for the same. He has known atrial fibrillation on Eliquis. He followed up with Dr. Mack on Tuesday and was started on Toprol-XL 25 mg. He denies any improvement in symptoms. Timing/Duration: Constant, Getting Worse Severity: Moderate Allergies and Home Medications Allergies Coded Allergies: Sulfa (Sulfonamide Antibiotics) (Unverified Allergy, Mild, N/V, 10/10/19) Patient Home Medication List Home Medication List Reviewed: Yes Allopurinol (Allopurinol) 300 Mg Tablet, 300 MG PO, (Reported) Entered as Reported by: PURNIMA FERRARI on 11/16/201816 Apixaban (Eliquis) 5 Mg Tablet, 5 MG PO BID, (Reported) Entered as Reported by: PURNIMA FERRARI on 11/16/201816 Atorvastatin Calcium (Atorvastatin Calcium) 10 Mg Tablet, 10 MG PO HS, (Reported) Entered as Reported by: DOREEN MARK on 08/08/18 09 Famotidine (Pepcid) 40 Mg Tablet, 40 MG PO DAILY Prescribed by: THIEN KOHLER on 11/03/19311 Finasteride (Finasteride) 5 Mg Tablet, 5 MG PO HS, (Reported) Entered as Reported by: DOREEN MARK on 08/08/18 0935 Lisinopril (Lisinopril) 5 Mg Tablet, 5 MG PO HS, (Reported) Entered as Reported by: DOREEN MARK on 08/08/18 09 Metoprolol Succinate (Metoprolol Succinate) 50 Mg Tab.er.24h, 50 MG PO HS, (Reported) Entered as Reported by: DOREEN MARK on 08/08/18 09 Ondansetron (Ondansetron Odt) 4 Mg Tab.rapdis, 4 MG PO Q6H PRN for NAUSEA/VOMITING Prescribed by: GUILLERMINA DUMONT on 11/16/202003 Prednisone (Prednisone) 20 Mg Tab, 40 MG PO DAILY Prescribed by: THIEN KOHLER on 11/03/19 0312 Warfarin Sodium (Coumadin) 5 Mg Tablet, 5 MG PO SuTuThFrSa, (Reported) Entered as Reported by: LANA TIMMONS on 10/10/19 1326 Warfarin Sodium (Coumadin) 5 Mg Tablet, 7.5 MG PO MoWe, (Reported) Entered as Reported by: LANA TIMMONS on 10/10/19 1326 Review of Systems Review of Systems Constitutional: see HPI EENTM: see HPI Respiratory: see HPI, dyspnea on exertion, short of breath Cardiovascular: no symptoms reported, palpitations Genitourinary: no symptoms reported Musculoskeletal: no symptoms reported Skin: no symptoms reported Psychiatric/Neurological: No Symptoms Reported Hematologic/Lymphatic: No Symptoms Reported Immunological/Allergic: no symptoms reported Past Jybbkro-Tanvzd-Lfrvmr Hx Immunizations Up To Date Tetanus Booster (TDap): More than 5yrs PED Vaccines UTD: No First/Initial COVID19 Vaccinat: 08/06/20 Second COVID19 Vaccination Rayray: 09/04/20 Third COVID19 Vaccination Date: 08/06/20 Seasonal Allergies Seasonal Allergies: Yes Past Medical History Surgery/Hospitalization HX: PMH : AFIB Surgeries: Yes (HERNIA REPAIR X 2;MULT SKIN CANCER REMOVALS; CARDIAC CATH; LINQ DEVICE ) Abdominal, Cardiac, Tonsillectomy Respiratory: Yes Sleep Apnea Currently Using CPAP: Yes Cardiac: Yes (LINQ RECORDER; CARDIAC CATHS-NO INTERVENTION) Atrial Fibrillation, Chronic Edema/Swelling, Deep Vein Thrombosis, Hypertension Neurological: No Reproductive Disorders: No Sexually Transmitted Disease: No HIV/AIDS: No Genitourinary: Yes Benign Prostatic Hyperpl, Kidney Stones Gastrointestinal: Yes Gastroesophageal Reflux, Hiatal Hernia Musculoskeletal: No Endocrine: No (OBESITY) HEENT: Yes (GLASSES) Loss of Vision: Denies Hearing Impairment: Hard of Hearing Cancer: Yes Skin Did You Recieve Any Treatments: Yes What Type of Treatment Did You: Radiation, Surgical Intervention Psychosocial: No Integumentary: Yes (SKIN CANCERS ) Blood Disorders: No Adverse Reaction/Blood Tranf: No (N/A) Family Medical History Arthritis G8 BROTHER Cardiovascular disease 19 MOTHER (AFib) DVT G8 BROTHER FHx: respiratory disease G8 SISTER ADDITIONAL PSH: -EGD'S AND COLONOSCOPIES - Physical Exam Vital Signs Vital Signs - First Documented 04/16/21 16:09 Pulse 85 Resp 18 B/P (MAP) 151/115 (127) Pulse Ox 95 O2 Delivery Room Air Capillary Refill : Height, Weight, BMI Height: 6'0" Weight: 275lbs. 0.0oz. 124.838746ak; 35.00 BMI Method:Stated General Appearance: No Apparent Distress, WD/WN Eyes: Bilateral Eye Normal Inspection, Bilateral Eye PERRL, Bilateral Eye EOMI Neck: Full Range of Motion, Normal Inspection Respiratory: No Accessory Muscle Use, No Respiratory Distress, Other (bibasilar crackles) Cardiovascular: Normal Peripheral Pulses, Irregularly Irregular, Other (Rate of 105 A. fib with frequent multifocal PVCs) Gastrointestinal: Normal Bowel Sounds, Non Tender, Soft Extremity: Normal Capillary Refill, Pedal Edema Neurologic/Psychiatric: Alert, Oriented x3 Skin: Normal Color, Warm/Dry Progress/Results/Core Measures Suspected Sepsis SIRS Temperature: Pulse: Respiratory Rate: Laboratory Tests 04/16/21 16:26: White Blood Count 8.6 Blood Pressure / Mean: Laboratory Tests 04/16/21 16:26: Creatinine 1.48H, INR Comment 1.3, Platelet Count 235, Total Bilirubin 1.3H Results/Orders Lab Results Laboratory Tests Test 04/16/21 16:26 Range/Units White Blood Count 8.6 4.3-11.0 10^3/uL Red Blood Count 4.88 4.30-5.52 10^6/uL Hemoglobin 14.8 13.3-17.7 g/dL Hematocrit 46 40-54 % Mean Corpuscular Volume 95 80-99 fL Mean Corpuscular Hemoglobin 30 25-34 pg Mean Corpuscular Hemoglobin Concent 32 32-36 g/dL Red Cell Distribution Width 13.2 10.0-14.5 % Platelet Count 235 130-400 10^3/uL Mean Platelet Volume 12.3 H 9.0-12.2 fL Immature Granulocyte % (Auto) 0 % Neutrophils (%) (Auto) 61 42-75 % Lymphocytes (%) (Auto) 24 12-44 % Monocytes (%) (Auto) 12 0-12 % Eosinophils (%) (Auto) 2 0-10 % Basophils (%) (Auto) 1 0-10 % Neutrophils # (Auto) 5.3 1.8-7.8 10^3/uL Lymphocytes # (Auto) 2.1 1.0-4.0 10^3/uL Monocytes # (Auto) 1.0 0.0-1.0 10^3/uL Eosinophils # (Auto) 0.1 0.0-0.3 10^3/uL Basophils # (Auto) 0.1 0.0-0.1 10^3/uL Immature Granulocyte # (Auto) 0.0 0.0-0.1 10^3/uL Prothrombin Time 16.2 H 12.2-14.7 SEC INR Comment 1.3 0.8-1.4 Activated Partial Thromboplast Time 33 24-35 SEC Sodium Level 142 135-145 MMOL/L Potassium Level 3.6 3.6-5.0 MMOL/L Chloride Level 103 98-107 MMOL/L Carbon Dioxide Level 27 21-32 MMOL/L Anion Gap 12 5-14 MMOL/L Blood Urea Nitrogen 18 7-18 MG/DL Creatinine 1.48 H 0.60-1.30 MG/DL Estimat Glomerular Filtration Rate 46 BUN/Creatinine Ratio 12 Glucose Level 120 H 70-105 MG/DL Calcium Level 10.0 8.5-10.1 MG/DL Corrected Calcium 9.8 8.5-10.1 MG/DL Magnesium Level 2.0 1.6-2.4 MG/DL Total Bilirubin 1.3 H 0.1-1.0 MG/DL Aspartate Amino Transf (AST/SGOT) 19 5-34 U/L Alanine Aminotransferase (ALT/SGPT) 14 0-55 U/L Alkaline Phosphatase 94 40-136 U/L Total Protein 7.9 6.4-8.2 GM/DL Albumin 4.2 3.2-4.5 GM/DL My Orders Orders - MANDA URRUTIA [employer] EXECUTIVE Cbc With Automated Diff (04/16/21 16:14) Magnesium (04/16/21 16:14) Chest 1 View, Ap/Pa Only (04/16/21 16:14) Ekg Tracing (04/16/21 16:14) Comprehensive Metabolic Panel (04/16/21 16:14) Myoglobin Serum (04/16/21 16:14) Protime With Inr (04/16/21 16:14) Partial Thromboplastin Time (04/16/21 16:14) O2 (04/16/21 16:14) Monitor-Rhythm Ecg Trace Only (04/16/21 16:14) Lipid Panel (04/17/21 06:00) Ed Iv/Invasive Line Start (04/16/21 16:14) Troponin I [place] (04/16/21 16:14) Metoprolol Tartrate Injection (Lopressor (04/16/21 16:15) Amiodarone For Bolus (Cordarone Bolus) (04/16/21 16:45) Amiodarone Injection (Cordarone Injectio (04/16/21 16:45) Medications Given in ED Current Medications Medications Dose Ordered Sig/Donna Route Start Time Stop Time Status Last Admin Dose Admin Metoprolol Tartrate 5 mg ONCE ONCE IV 04/16/21 16:15 04/16/21 16:16 DC 04/16/21 16:39 5 MG Vital Signs/I&O 04/16/21 16:09 Pulse 85 Resp 18 B/P (MAP) 151/115 (127) Pulse Ox 95 O2 Delivery Room Air Capillary Refill : Departure Communication (Admissions) NAME: CHETAN GARCIA MED REC#: [id number] PT STATUS: REG ER : 1945 PHYSICIAN: MANDA URRUTIA APRN ADMIT DATE: 04/16/21/ER Draft Date of Exam:04/16/21 CHEST 1 VIEW, AP/PA ONLY HISTORY: Chest pain COMPARISON: 04/11/2021 TECHNIQUE: Frontal view of the chest. FINDINGS: There is a moderate right pleural effusion which is increased since the prior study. There is marked cardiomegaly which is unchanged. There is central vascular congestion with mild interstitial edema. No pneumothorax is seen. There is no left effusion. IMPRESSION: 1. Moderate right pleural effusion, increased since the prior exam. 2. Cardiomegaly with central vascular congestion and mild interstitial edema. Dictated on workstation # [id number] Dict: 04/16/216 Trans: 04/16/211647 CV [id number] Interpreted by: UDAY KAUR MD Electronically signed by: [id number]-troponin is pending most of his labs are back. Chest x-ray shows a new small right pleural effusion from just a few days ago. He has quite a bit of ventricular ectopy on his EKG today that was not present previously. Discussed with Dr. Mack will admit the patient on amiodarone protocol, continue aspirin plus Eliquis, n.p.o. after midnight in case troponin is elevated he may need to cath tomorrow. He had an echocardiogram on 12/26/2020 showing ejection fraction of 55 to 65%. He had a cardiac catheterization in 2014 showing nonischemic cardiomyopathy with normal coronaries but at that time he had an ejection fraction of 40 to 45%. Impression Primary Impression: Ventricular ectopy present on electrocardiography Additional Impression: Palpitations Disposition: ADMITTED INPATIENT Condition: Stable Admissions Decision to Admit Reason: Admit from ER (General) Decision to Admit/Date: Apr 16, 2021 Time/Decision to Admit Time: 16:47 Departure-Patient Inst. Referrals: JULIANE MURPHY MD (PCP/Family) Primary Care Physician MANDA URRUTIA APRN Apr 16, 2021 16:18
[2021-04-16 16:33] LABS: BASOPHILS # (AUTO) 0.1 10^3/uL (0.0-0.1); BASOPHILS % (AUTO) 1 % (0-10); EOSINOPHILS # (AUTO) 0.1 10^3/uL (0.0-0.3); EOSINOPHILS % (AUTO) 2 % (0-10); HEMATOCRIT 46 % (40-54); HEMOGLOBIN 14.8 g/dL (13.3-17.7); LYMPHOCYTES # (AUTO) 2.1 10^3/uL (1.0-4.0); LYMPHOCYTES % (AUTO) 24 % (12-44); MEAN CORPUSCULAR HEMOGLOBIN 30 pg (25-34); MEAN CORPUSCULAR HGB CONC 32 g/dL (32-36); MEAN CORPUSCULAR VOLUME 95 fL (80-99); MEAN PLATELET VOLUME 12.3 fL (9.0-12.2); MONOCYTES % (AUTO) 12 % (0-12); NEUTROPHILS # (AUTO) 5.3 10^3/uL (1.8-7.8); NEUTROPHILS % (AUTO) 61 % (42-75); PLATELET COUNT 235 10^3/uL (130-400); WHITE BLOOD COUNT 8.6 10^3/uL (4.3-11.0)
[2021-04-16 16:37] LABS: ALBUMIN 4.2 GM/DL (3.2-4.5); POTASSIUM 3.6 MMOL/L (3.6-5.0)
[2021-04-16 16:39] LABS: TOTAL PROTEIN 7.9 GM/DL (6.4-8.2)
[2021-04-16 16:41] LABS: BILIRUBIN,TOTAL 1.3 MG/DL (0.1-1.0); INR 1.3 (0.8-1.4); PROTHROMBIN TIME PATIENT 16.2 SEC (12.2-14.7)
[2021-04-16 16:43] LABS: CREATININE SERUM 1.48 MG/DL (0.60-1.30)
[2021-04-16] MEDS ORDERED: AMIODARONE FOR BOLUS 150 MG in D5W 100 ML IVPB 100 ML IV ONE (16:45)
--- NOTE | 2021-04-16 16:49 | Diagnostic Imaging Report ---
HISTORY: Chest pain COMPARISON: 04/11/2021 TECHNIQUE: Frontal view of the chest. FINDINGS: There is a moderate right pleural effusion which is increased since the prior study. There is marked cardiomegaly which is unchanged. There is central vascular congestion with mild interstitial edema. No pneumothorax is seen. There is no left effusion. IMPRESSION: 1. Moderate right pleural effusion, increased since the prior exam. 2. Cardiomegaly with central vascular congestion and mild interstitial edema. Dictated by: Dictated on workstation # [id number]
[2021-04-16] MEDS ORDERED: ASPIRIN 81 MG CHEW (CHILDREN'S ASA) PO ONE (17:15)
[2021-04-16] MEDS: AMIODARONE INJECTION 450 MG in D5W IV SOLUTION (EXCEL) 250 ML IV SCH (18:03)
[2021-04-16] MEDS ORDERED: ONDANSETRON 4 MG/2 ML (SDV) Z0FRAN IV PRN (19:30)
[2021-04-16] MEDS ORDERED: MELATONIN 3 MG TABLET PO PRN (19:30)
[2021-04-16] MEDS ORDERED: AMIODARONE INJECTION 450 MG in D5W IV SOLUTION (EXCEL) 250 ML IV SCH (19:30)
[2021-04-16] MEDS ORDERED: polyethylene glycoL POWDER 17 GM (MIRALAX) PACK PO PRN (19:30)
[2021-04-16] MEDS ORDERED: ANTACID SUSP 30 ML UDC (MYLANTA) PO PRN (19:30)
[2021-04-16] MEDS ORDERED: ONDANSETRON 4 MG (ZOFRAN) ORAL DISSOLVE TAB PO PRN (19:30)
[2021-04-16] MEDS: inSUlin ASPART (NovoLOG) 1 UNIT/0.01 ML (CHARGE PER UNIT) SC SCH (20:42)
[2021-04-16] MEDS ORDERED: ENOXAPARIN 100 MG/1 ML (LOVENOX) SYR SC SCH (21:00)
[2021-04-17] VITALS (7 sets, daily range): BP systolic 119–145; BP diastolic 85–106
[2021-04-17] MEDS: AMIODARONE INJECTION 450 MG in D5W IV SOLUTION (EXCEL) 250 ML IV SCH ×2 (03:32→17:32)
[2021-04-17] MEDS: ACETAMINOPHEN 325 MG TABLET PO PRN ×2 (05:46→20:37)
[2021-04-17 06:09] LABS: BASOPHILS # (AUTO) 0.1 10^3/uL (0.0-0.1)
[2021-04-17 06:11] LABS: BASOPHILS % (AUTO) 1 % (0-10); EOSINOPHILS # (AUTO) 0.1 10^3/uL (0.0-0.3); EOSINOPHILS % (AUTO) 1 % (0-10); HEMATOCRIT 44 % (40-54); HEMOGLOBIN 14.1 g/dL (13.3-17.7); LYMPHOCYTES # (AUTO) 1.5 10^3/uL (1.0-4.0); LYMPHOCYTES % (AUTO) 19 % (12-44); MEAN CORPUSCULAR HEMOGLOBIN 30 pg (25-34); MEAN CORPUSCULAR HGB CONC 32 g/dL (32-36); MEAN CORPUSCULAR VOLUME 94 fL (80-99); MEAN PLATELET VOLUME 12.7 fL (9.0-12.2); MONOCYTES # (AUTO) 0.9 10^3/uL (0.0-1.0); MONOCYTES % (AUTO) 11 % (0-12); NEUTROPHILS # (AUTO) 5.5 10^3/uL (1.8-7.8); NEUTROPHILS % (AUTO) 68 % (42-75); PLATELET COUNT 178 10^3/uL (130-400); WHITE BLOOD COUNT 8.1 10^3/uL (4.3-11.0)
[2021-04-17 06:21] LABS: TRIGLYCERIDES 65 MG/DL (<150); VLDL CHOLESTEROL 13 MG/DL (5-40)
[2021-04-17 06:26] LABS: CHOLESTEROL 117 MG/DL (< 200)
[2021-04-17 06:27] LABS: HDL CHOLESTEROL 41 MG/DL (40-60)
[2021-04-17] MEDS: inSUlin ASPART (NovoLOG) 1 UNIT/0.01 ML (CHARGE PER UNIT) SC SCH ×4 (06:39→20:45)
[2021-04-17 06:42] LABS: ALBUMIN 3.7 GM/DL (3.2-4.5); POTASSIUM 4.4 MMOL/L (3.6-5.0)
[2021-04-17 06:43] LABS: CALCIUM 9.6 MG/DL (8.5-10.1)
[2021-04-17 06:44] LABS: TOTAL PROTEIN 6.9 GM/DL (6.4-8.2)
[2021-04-17 06:46] LABS: BILIRUBIN,TOTAL 1.6 MG/DL (0.1-1.0)
[2021-04-17 06:48] LABS: CREATININE SERUM 1.35 MG/DL (0.60-1.30)
[2021-04-17] MEDS: ASPIRIN 81 MG CHEW (CHILDREN'S ASA) PO SCH (09:05)
[2021-04-17] MEDS ORDERED: VERAPAMIL 5 MG/2 ML (CALAN) VIAL IV ONE (09:15)
[2021-04-17] MEDS ORDERED: fentaNYL INJ 100 MCG/2 ML AMP ONE (09:15)
[2021-04-17] MEDS ORDERED: MIDAZOLAM 5 MG/5 ML (VERSED) VIAL ONE (09:16)
[2021-04-17] MEDS ORDERED: HEParin 1000 UNIT/ML (10ML VIAL) FOR BOLUS ONE (09:16)
[2021-04-17] MEDS ORDERED: NS IV 1000 ML 1,000 ML ONE (09:16)
[2021-04-17] MEDS ORDERED: HEParin (CATH LAB) 2,000 ML IV ONE (09:16)
[2021-04-17] MEDS ORDERED: NITRO DRIP 25000 MCG/D5W 250 ML IV ONE (09:16)
[2021-04-17] MEDS ORDERED: LIDOCAINE 1% INJ 20 ML 20 ML VIAL ONE (09:19)
--- NOTE | 2021-04-17 09:50 | Conscious Sedation/ASA ---
Conscious Sedation Pre-Proced Time 09:50 ASA Score 3 For ASA 3 and 4: Consider anesthesia and medical clearance. Also, for patients with a history of failed moderate sedation consider anesthesia. Airway Lungs Heart ASA score ASA 1: a normal healthy patient ASA 2: a patient with a mild systemic disease (mid diabetes, controlled hypertension, obesity x ASA 3: a patient with a severe systemic disease that limits activity (angina, COPD, prior Myocardial infarction) ASA 4: a patient with an incapacitating disease that is a constant threat to life (CHF, renal failure) ASA 5: a moribund patient not expected to survive 24 hrs. (ruptured aneurysm) ASA 6: a declared brain- patient whose organs are being harvested. For emergent operations, add the letter E after the classification Mallampati Classification Grade 3 Sedation Plan Analgesia, Amnesia, Plan communicated to team members, Discussed options with patient/fam, Discussed risks with patient/fam The patient is an appropriate candidate to undergo the planned procedure, sedation, and anesthesia. The patient immediately re-assessed prior to indication. SMITA REBOLLAR MD Apr 17, 2021 09:50
--- NOTE | 2021-04-17 09:50 | Consultation-Cardiology ---
HPI-Cardiology Cardiology Consultation Date of Consultation 04/17/21 Date of Admission Time Seen by Provider: 09:47 Indication: Palpitation, shortness of breath HPI 76 years old gentleman with paroxysmal atrial fibrillation, history of DVT, history of nonsustained ventricular tachycardia. Has been having increasing palpitation, has called the office multiple times for worsening shortness of breath and palpitation. He was sent to the emergency room and noted to have atrial fibrillation with frequent PVCs and elevated BNP and troponin level. He denied chest pain, no syncope or near syncopal episodes. He was started on amiodarone drip last night. Home Medications & Allergies Allergies: Coded Allergies: Sulfa (Sulfonamide Antibiotics) (Unverified Allergy, Mild, N/V, 10/10/19) Home Medication List Reviewed: Yes IBA-Dmotay-Pfxtxl Hx Patient Social History Marital Status: Employed/Student: retired Smoking Status: Never a Smoker 2nd Hand Smoke Exposure: No Recent Hopitalizations: No Have you traveled recently?: No Alcohol Use?: No Substance type: Other Immunizations Up To Date Tetanus Booster (TDap): More than 5yrs Date of Pneumonia Vaccine: Jul 10, 2014 Date of Influenza Vaccine: Feb 19, 2019 Past Medical History Discussed below Family Medical History Family History: Arthritis G8 BROTHER Cardiovascular disease 19 MOTHER (AFib) DVT G8 BROTHER FHx: respiratory disease G8 SISTER Review of Systems-General Review of Systems Constitutional: see HPI EENTM: see HPI Respiratory: see HPI, dyspnea on exertion, short of breath Cardiovascular: no symptoms reported, palpitations Genitourinary: no symptoms reported Musculoskeletal: no symptoms reported Skin: no symptoms reported Psychiatric/Neurological: No Symptoms Reported Reviewed Test Results Reviewed Test Results Lab Laboratory Tests Test 04/16/21 16:26 04/16/21 17:19 04/16/21 20:31 04/17/21 05:15 Range/Units White Blood Count 8.6 8.1 4.3-11.0 10^3/uL Red Blood Count 4.88 4.66 4.30-5.52 10^6/uL Hemoglobin 14.8 14.1 13.3-17.7 g/dL Hematocrit 46 44 40-54 % Mean Corpuscular Volume 95 94 80-99 fL Mean Corpuscular Hemoglobin 30 30 25-34 pg Mean Corpuscular Hemoglobin Concent 32 32 32-36 g/dL Red Cell Distribution Width 13.2 13.3 10.0-14.5 % Platelet Count 235 178 130-400 10^3/uL Mean Platelet Volume 12.3 H 12.7 H 9.0-12.2 fL Immature Granulocyte % (Auto) 0 0 % Neutrophils (%) (Auto) 61 68 42-75 % Lymphocytes (%) (Auto) 24 19 12-44 % Monocytes (%) (Auto) 12 11 0-12 % Eosinophils (%) (Auto) 2 1 0-10 % Basophils (%) (Auto) 1 1 0-10 % Neutrophils # (Auto) 5.3 5.5 1.8-7.8 10^3/uL Lymphocytes # (Auto) 2.1 1.5 1.0-4.0 10^3/uL Monocytes # (Auto) 1.0 0.9 0.0-1.0 10^3/uL Eosinophils # (Auto) 0.1 0.1 0.0-0.3 10^3/uL Basophils # (Auto) 0.1 0.1 0.0-0.1 10^3/uL Immature Granulocyte # (Auto) 0.0 0.0 0.0-0.1 10^3/uL Prothrombin Time 16.2 H 12.2-14.7 SEC INR Comment 1.3 0.8-1.4 Activated Partial Thromboplast Time 33 24-35 SEC Sodium Level 142 141 135-145 MMOL/L Potassium Level 3.6 4.4 3.6-5.0 MMOL/L Chloride Level 103 106 98-107 MMOL/L Carbon Dioxide Level 27 23 21-32 MMOL/L Anion Gap 12 12 5-14 MMOL/L Blood Urea Nitrogen 18 19 H 7-18 MG/DL Creatinine 1.48 H 1.35 H 0.60-1.30 MG/DL Estimat Glomerular Filtration Rate 46 51 BUN/Creatinine Ratio 12 14 Glucose Level 120 H 113 H 70-105 MG/DL Calcium Level 10.0 9.6 8.5-10.1 MG/DL Corrected Calcium 9.8 9.8 8.5-10.1 MG/DL Magnesium Level 2.0 1.6-2.4 MG/DL Total Bilirubin 1.3 H 1.6 H 0.1-1.0 MG/DL Aspartate Amino Transf (AST/SGOT) 19 25 5-34 U/L Alanine Aminotransferase (ALT/SGPT) 14 14 0-55 U/L Alkaline Phosphatase 94 79 40-136 U/L Myoglobin 75.1 10.0-92.0 NG/ML Troponin I 0.040 H 0.046 H <0.028 NG/ML Total Protein 7.9 6.9 6.4-8.2 GM/DL Albumin 4.2 3.7 3.2-4.5 GM/DL B-Type Natriuretic Peptide 666.0 H <100.0 PG/ML Glucometer 132 H 70-110 MG/DL Percent Immature Platelet Fraction 8.0 H 0.0-7.6 % Triglycerides Level 65 <150 MG/DL Cholesterol Level 117 < 200 MG/DL LDL Cholesterol Direct 69 1-129 MG/DL VLDL Cholesterol 13 5-40 MG/DL HDL Cholesterol 41 40-60 MG/DL Test 04/17/21 06:37 Range/Units Glucometer 113 H 70-110 MG/DL Physical Exam Physical Exam Vital Signs Vital Signs - First Documented 04/16/21 04/16/21 04/16/21 16:09 18:35 20:00 Temp 36.2 Pulse 85 Resp 18 B/P (MAP) 151/115 (127) Pulse Ox 95 O2 Delivery Room Air O2 Flow Rate 2.00 Capillary Refill : Less Than 3 Seconds Height, Weight, BMI Height: 6'0" Weight: 275lbs. 0.0oz. 124.193363zx; 31.81 BMI Method:Stated General Appearance: No Apparent Distress, WD/WN Eyes: Bilateral Eye Normal Inspection, Bilateral Eye PERRL, Bilateral Eye EOMI Neck: Full Range of Motion, Normal Inspection Respiratory: No Accessory Muscle Use, No Respiratory Distress, Other (bibasilar crackles) Cardiovascular: Normal Peripheral Pulses, Irregularly Irregular, Other (Rate of 105 A. fib with frequent multifocal PVCs) Gastrointestinal: Normal Bowel Sounds, Non Tender, Soft Extremity: Normal Capillary Refill, Pedal Edema Neurologic/Psychiatric: Alert, Oriented x3 Skin: Normal Color, Warm/Dry A/P-Cardiology Admission Diagnosis Palpitation Shortness of breath Atrial fibrillation Hypertension Assessment/Plan Palpitation, frequent PVCs, history of ventricular tachycardia, no recent cardiac work-up, I am planning to proceed with cardiac catheterization, continue on amiodarone loading dose. Shortness of breath, congestive heart failure, left ventricular systolic dysfunction, had history of aortic valve sclerosis no aortic stenosis. Last echo in December 2020 showing normal LV size with EF 55 to 60%, grade 1 diastolic dysfunction, prominent right atrium., Mildly dilated left atrium, mild mitral regurgitation, PA pressure was 25 to 30 mmHg Paroxysmal atrial fibrillation, maintained on Toprol XL 50 mg and Coumadin, s/p LINQ implantation with battery reached end of life Jun 2018. Started on amiodarone drip Deep venous thrombosis, unprovoked, in the left calf, occurred April 2017, repeat ultrasound in October 2019 showed long segments of DVT on the right lower extremity, treated with Coumadin in the past, currently on Eliquis Nonsustained ventricular tachycardia noted during exercise stress test in 2014. Holter monitor revealed episodes of nonsustained ventricular tachycardia area patient is maintained on Toprol-XL 50 mg. NO further episode detected on loop recorder. Restarting Toprol 25 mg daily and monitor tolerance and response Nonobstructive coronary artery disease per cardiac catheterization carried out on July 10, 2014. Has been having chest pain and shortness of breath on exertion worsening recently, I am proceeding with cardiac catheterization possible PTCA Nonischemic cardiomyopathy with EF 40-45 percent in June 2014. Resolved, last echo showed improvement with normal ejection fraction. Continue to monitor Pulmonary hypertension with PA pressure 40 mmHg, improved, continue to monitor [id number] score is 2, yearly risk of stroke without oral anticoagulation is 2.2 percent. Maintained on Coumadin, continue to monitor PT/INR. Hypertension, good control, continue to monitor blood pressure/heart rate. SMITA REBOLLAR MD Apr 17, 2021 09:50
--- NOTE | 2021-04-17 10:34 | Cardiac Cath Report ---
Cardiac Cath Report Physician (s)/Butter Printer (s) Physician SMITA REBOLLAR MD Pre-Procedure Diagnosis Pre-Procedure Diagnosis: Coronary artery disease Post-Procedure Note Procedure Start Date: Apr 17, 2021 Name of Procedure: Left heart catheterization Findings/Procedure Note PROCEDURE NOTE: 76-year-old gentleman with paroxysmal atrial fibrillation, frequent PVCs, history of nonsustained ventricular tachycardia, admitted with shortness of breath, chest pain, had elevation in troponin level. Scheduled for cardiac catheterization possible PTCA. After explaining the procedure to the patient, all pros and cons were explained, all questions were answered. The patient signed the consent and then he was placed on the cardiac catheterization laboratory. Groin was prepped SL fashion local anesthesia was used. Sheath placed in the right radial artery, Sherrill catheter was prolapsed to the left ventricular cavity, pressure was measured, pullback LV to aorta was done, engaged the left main and angiogram to the left system was done, I was unable to engage the right, I used Raghu right catheter and engaged the right coronary artery and angiogram was done. At the end of the procedure the sheath was removed. Vascular band was used FINDINGS: Hemodynamics LV 128/22, end-diastolic pressure of 22 Aorta 126/77 mean of 96 ANATOMY: Left Main is free of obstructive disease Left Anterior Descending has mild disease but slow flow due to small vessel disease Left Circumflex has mild disease nonobstructive disease Right Coronary Artery is large dominant artery with slow flow due to small vessel disease LV Gram was not done, pressure was measured CONCLUSION: 1. Slow flow in the coronary system, there is no significant obstructive d isease. 2. Elevated left ventricular end-diastolic pressure DISCUSSION AND RECOMMENDATION: Patient was started on amiodarone, restart Eliquis, I will evaluate 2D echo and started diuretics. Monitor tolerance and response Anesthesia Type: Conscious Sedation Estimated blood loss (mL): 10 ml Contrast Amount: 38 ml Total Radiation Dose: 691 mGy Post-Procedure Diagnosis Post-operative diagnosis: Shortness of breath Atrial fibrillation Palpitation Hypertension SMITA REBOLLAR MD Apr 17, 2021 10:34
[2021-04-17] MEDS: NS IV 1000 ML 1,000 ML IV SCH ×2 (11:57→21:39)
[2021-04-17] MEDS: FUROSEMIDE 40 MG/4 ML INJ (LASIX) IVP SCH ×2 (11:57→17:09)
[2021-04-17] MEDS ORDERED: MTP25TSR PO (12:40)
[2021-04-17] MEDS ORDERED: D5W IV SOLUTION (EXCEL) 0 ML IV ONE (17:17)
--- NOTE | 2021-04-17 17:44 | History & Physical-Hospitalist ---
History of Present Illness HPI/Chief Complaint Juan Ramon Masters is a 76 year old male with PMH HTN, HLD, AFib, NSVT, BPH, GERD, DVT, TASHI, obestity, CKD, who presented with shortness of breath. He has also been having palpitations. He denies chest pain. He denies cough. He denies fevers and chills. He denies abdominal pain, nausea, vomiting, and diarrhea. He has no other complaints or concerns. He is feeling much better upon my exam. Source: patient Exam Limitations: no limitations Date Seen 04/17/21 Time Seen by a Provider: 12:45 Attending Physician Hiro Andrew MD PCP Cecilio Castano MD Referring Physician Date of Admission Apr 16, 2021 at 17:07 Home Medications & Allergies Home Medications Reviewed patient Home Medication Reconciliation performed by pharmacy medication reconciliations digital camera technician and/or nursing. Patients Allergies have been reviewed. Allergies Allergies Coded Allergies Sulfa (Sulfonamide Antibiotics) (Unverified Allergy, Mild, N/V, 10/10/19) Past Cjqgdla-Tvqrtc-Mdulev Hx Patient Social History Marrital Status: Employed/Student: retired Tobacco Use?: No Smoking Status: Never a Smoker Use of E-Cig and/or Vaping Ochoa: Never a User Substance type: Other Alcohol Use?: No Pt feels they are or have been: No Immunizations Up To Date Date of Influenza Vaccine: Feb 19, 2019 First/Initial COVID19 Vaccinat: 08/06/20 Second COVID19 Vaccination Rayray: 09/04/20 PED Vaccines UTD: No Date of Pneumonia Vaccine: Jul 10, 2014 Seasonal Allergies Seasonal Allergies: Yes Current Status Advance Directives: No Communicates: Verbally Primary Language: Armenian Preferred Spoken Language: Armenian Is interpretation needed?: No Sensory deficits: Vision impairment Past Medical History Surgeries: Abdominal, Cardiac, Tonsillectomy Sleep Apnea Currently Using CPAP: Yes Atrial Fibrillation, Chronic Edema/Swelling, Deep Vein Thrombosis, Hypertension Sexually Transmitted Disease: No HIV/AIDS: No Benign Prostatic Hyperpl, Kidney Stones Gastroesophageal Reflux, Hiatal Hernia Loss of Vision: Denies Hearing Impairment: Hard of Hearing Skin Did You Recieve Any Treatments: Yes What Type of Treatment Did You: Radiation, Surgical Intervention Blood Disorders: No Adverse Reaction/Blood Tranf: No (N/A) Family Medical History Arthritis G8 BROTHER Cardiovascular disease 19 MOTHER (AFib) DVT G8 BROTHER FHx: respiratory disease G8 SISTER ADDITIONAL PSH: -EGD'S AND COLONOSCOPIES - Review of Systems Constitutional: no symptoms reported EENTM: no symptoms reported Respiratory: short of breath Cardiovascular: palpitations Gastrointestinal: no symptoms reported Genitourinary: no symptoms reported Musculoskeletal: no symptoms reported Skin: no symptoms reported Psychiatric/Neurological: No Symptoms Reported Physical Exam Physical Exam Vital Signs Vital Signs - First Documented 04/16/21 04/16/21 04/16/21 16:09 18:35 20:00 Temp 36.2 Pulse 85 Resp 18 B/P (MAP) 151/115 (127) Pulse Ox 95 O2 Delivery Room Air O2 Flow Rate 2.00 Capillary Refill : Less Than 3 Seconds Height, Weight, BMI Height: 6'0" Weight: 275lbs. 0.0oz. [id number]; 31.81 BMI Method:Stated General Appearance: No Apparent Distress, Obese, Other HEENT: PERRL/EOMI, Pharynx Normal Neck: Normal Inspection, Supple Respiratory: Lungs Clear, Normal Breath Sounds, No Respiratory Distress Cardiovascular: No Edema, No Murmur, Irregularly Irregular Gastrointestinal: Normal Bowel Sounds, Non Tender, Soft Extremity: Normal Inspection, Non Tender, No Pedal Edema Neurologic/Psychiatric: Alert, Oriented x3, No Motor/Sensory Deficits, Normal Mood/Affect Skin: Warm/Dry, Other (plethoric) Results Results/Procedures Labs Laboratory Tests 04/16/21 16:26 04/17/21 05:15 Patient resulted labs reviewed. Imaging: Reviewed Imaging Report Assessment/Plan Admission Diagnosis Ventricular ectopy Admission Status: Inpatient Order (span 2 midnights) Reason for Inpatient Admission: IV antiarrhythmics Assessment and Plan Ventricular ectopy Frequent PVCs Atrial fibrillation Acute on chronic heart failure with preserved ejection fraction Cardiology consulted Left heart cath unremarkable Echo with EF 40-45% Amiodarone gtt Eliquis Lasix HTN BPH HLD Continue home meds Obesity Clinically significant, no acute management needs Diagnosis/Problems Diagnosis/Problems (1) Ventricular ectopy Status: Acute (2) Palpitations Status: Acute (3) Acute on chronic heart failure with preserved ejection fraction (HFpEF) Status: Acute (4) Afib Status: Chronic (5) Obesity Status: Chronic (6) HTN (hypertension) Status: Chronic (7) HLD (hyperlipidemia) Status: Chronic (8) BPH (benign prostatic hyperplasia) Status: Chronic (9) History of DVT (deep vein thrombosis) Status: Chronic HIRO ANDREW MD Apr 17, 2021 17:44
[2021-04-17] MEDS: AMIODARONE 200 MG (CORDARONE) TAB PO SCH (20:27)
[2021-04-17] MEDS: APIXABAN 5 MG (ELIQUIS) TABLET PO SCH (20:27)
[2021-04-17] MEDS ORDERED: AtorvaSTATin TABLET 10 MG TABLET PO SCH (21:00)
[2021-04-17] MEDS ORDERED: FINASTERIDE (PROSCAR) 5 MG TAB PO SCH (21:00)
[2021-04-17] MEDS ORDERED: ALLOPURINOL 300 MG (ZYLOPRIM) TAB PO SCH (21:00)
[2021-04-18] VITALS: BP 137/94
[2021-04-18 04:00] VITALS: BP 138/86
[2021-04-18 05:59] LABS: HEMATOCRIT 43 % (40-54); HEMOGLOBIN 13.9 g/dL (13.3-17.7); MEAN CORPUSCULAR HEMOGLOBIN 30 pg (25-34); MEAN CORPUSCULAR HGB CONC 32 g/dL (32-36); MEAN CORPUSCULAR VOLUME 94 fL (80-99); MEAN PLATELET VOLUME 12.5 fL (9.0-12.2); PLATELET COUNT 184 10^3/uL (130-400); WHITE BLOOD COUNT 11.1 10^3/uL (4.3-11.0)
[2021-04-18 06:27] LABS: POTASSIUM 3.5 MMOL/L (3.6-5.0)
[2021-04-18 06:28] LABS: CALCIUM 9.1 MG/DL (8.5-10.1)
[2021-04-18 06:33] LABS: CREATININE SERUM 1.46 MG/DL (0.60-1.30)
[2021-04-18 06:35] LABS: MAGNESIUM 1.7 MG/DL (1.6-2.4)
[2021-04-18] MEDS ORDERED: KCL 20 MEQ TAB (K-DUR) PO SCH (07:00)
[2021-04-18] MEDS: inSUlin ASPART (NovoLOG) 1 UNIT/0.01 ML (CHARGE PER UNIT) SC SCH ×2 (07:31→10:56)
[2021-04-18 08:00] VITALS: BP 155/85
[2021-04-18] MEDS: ACETAMINOPHEN 325 MG TABLET PO PRN (08:09)
[2021-04-18] MEDS: NS IV 1000 ML 1,000 ML IV SCH (08:41)
[2021-04-18] MEDS: ASPIRIN 81 MG CHEW (CHILDREN'S ASA) PO SCH (08:42)
[2021-04-18] MEDS: APIXABAN 5 MG (ELIQUIS) TABLET PO SCH (08:42)
[2021-04-18] MEDS: FUROSEMIDE 40 MG/4 ML INJ (LASIX) IVP SCH (08:42)
[2021-04-18] MEDS: AMIODARONE 200 MG (CORDARONE) TAB PO SCH (08:42)
--- NOTE | 2021-04-18 11:00 | Progress Note - Cardiology ---
Cardiology SOAP Progress Note Subjective: Reports resolution of palpitations No cp or palp or syncope Chronic, mod exertional shortness of breath Gen malaise present but better No n/v/d Wants to go home. Refuses to stay in the hosp any longer Objective: I&O/Vital Signs 04/17/21 04/18/21 04/18/21 04/18/21 22:57 00:00 01:00 02:57 Temp 37.2 Pulse 66 78 Resp 22 B/P (MAP) 137/94 (108) Pulse Ox 95 95 95 O2 Delivery Nasal Cannula Nasal Cannula Nasal Cannula O2 Flow Rate 2.00 2.50 2.00 04/18/21 04/18/21 04/18/21 04:00 07:00 08:00 Temp 36.9 36.9 Pulse 78 61 71 Resp 20 22 B/P (MAP) 138/86 (103) 155/85 (108) Pulse Ox 95 96 O2 Delivery Nasal Cannula Nasal Cannula O2 Flow Rate 3.00 2.00 04/18/21 00:00 Intake Total 910 ml Output Total 2950 ml Balance -2040 ml Weight (Pounds): 275 Weight (Ounces): 0.0 Weight (Calculated Kilograms): 124.115668 Constitutional: AAO x 3, well-developed, well-nourished Respiratory: No accessory muscle use; other (good, bilateral air entry) Cardiovascular: irregularly irregular, S1 and S2, systolic murmur (soft BAY at card base) Gastrointestional: No tender; soft; No guarding, No rebound; audible bowel sounds Extremities: No clubbing, No cyanosis, No significant edema Neurologic/Psychiatric: oriented x 3, other (moves all limbs equally) Skin: warm/dry; No rash on exposed areas, No ulcerations on exposed areas Results/Procedures: Labs Laboratory Tests 04/17/21 11:03: Glucometer 109 04/17/21 15:48: Glucometer 119H 04/17/21 20:19: Glucometer 92 04/18/21 05:30: White Blood Count 11.1H, Red Blood Count 4.58, Hemoglobin 13.9, Hematocrit 43, Mean Corpuscular Volume 94, Mean Corpuscular Hemoglobin 30, Mean Corpuscular Hemoglobin Concent 32, Red Cell Distribution Width 13.2, Platelet Count 184, Mean Platelet Volume 12.5H, Sodium Level 141, Potassium Level 3.5L, Chloride Level 103, Carbon Dioxide Level 24, Anion Gap 14, Blood Urea Nitrogen 21H, Creatinine 1.46H, Estimat Glomerular Filtration Rate 47, BUN/Creatinine Ratio 14, Glucose Level 104, Calcium Level 9.1, Magnesium Level 1.7 04/18/21 10:28: Glucometer 109 Laboratory Tests 04/16/21 16:26 04/17/21 05:15 04/18/21 05:30 A/P: Assessment: Atrial fibrillation: persistent/permanent - rate controlled, stroke prophylaxis with apixaban Frequent PVCs, improved after initiation of amiodarone Ac on chronic systolic CHF due to nonischemic cardiomyopathy, clinically compensated - Echo on 04/17/21: LVEF 40-45%, biatrial enlargement, AoV sclerosis w/o stenosis, mild to mod MR and TR, PASP 40-45 mmHg - Card cath on 04/17/21: Slow flow in the coronary system, there is no significant obstructive disease. 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 Discussed. He understands SERENITY VELASQUEZ MD [facility] Apr 18, 2021 11:00
[2021-04-18] MEDS ORDERED: AMIO200T65 PO (11:09)
[2021-04-18] MEDS ORDERED: POTA10TA37 PO (11:09)
[2021-04-18] MEDS ORDERED: FURO-124 PO (11:09)
[2021-04-18] MEDS ORDERED: KCL 20 MEQ TAB (K-DUR) PO ONE (11:30)
[2021-04-18 12:00] VITALS: BP 132/82
[2021-04-18 12:25] VITALS: BP 132/82
[2021-04-18] MEDS ORDERED: RT-ALBUTEROL SULF 2.5 MG/3 ML PRE-MIX VIAL INH PRN (13:00)
[2021-04-18] MEDS ORDERED: RT-ALBUTEROL SULF 2.5 MG/3 ML PRE-MIX VIAL INH SCH (15:00)
== END 2021-04-18 14:15 | disposition home or self-care (01) | DRG 286 ==
LOC: EDUNIT# 16:05 → ER 16:07 → CSD 17:07
PROVIDERS: ADMIT Internal Medicine; ATTEND Internal Medicine
PROC: 4A023N7 Measurement of Cardiac Sampling and Pressure, Left Heart, Percutaneous Approach (ICD-10-PCS; principal; 2021-04-17)
PROC: B2111ZZ Fluoroscopy of Multiple Coronary Arteries using Low Osmolar Contrast (ICD-10-PCS; 2021-04-17)
DX: I49.3 Ventricular premature depolarization (principal); I50.33 Acute on chronic diastolic (congestive) heart failure; I47.1 Supraventricular tachycardia; I13.0 Hypertensive heart and chronic kidney disease with heart failure and stage 1 through stage 4 chronic kidney disease, or unspecified chronic kidney disease; I47.2 Ventricular tachycardia; I48.21 Permanent atrial fibrillation; E78.5 Hyperlipidemia, unspecified; I48.91 Unspecified atrial fibrillation; N40.0 Benign prostatic hyperplasia without lower urinary tract symptoms; K21.9 Gastro-esophageal reflux disease without esophagitis; Z86.718 Personal history of other venous thrombosis and embolism; G47.33 Obstructive sleep apnea (adult) (pediatric); E66.9 Obesity, unspecified; N18.9 Chronic kidney disease, unspecified; Z85.828 Personal history of other malignant neoplasm of skin; Z92.21 Personal history of antineoplastic chemotherapy; I25.10 Atherosclerotic heart disease of native coronary artery without angina pectoris; I48.0 Paroxysmal atrial fibrillation; I42.8 Other cardiomyopathies; I27.20 Pulmonary hypertension, unspecified
CPT/HCPCS: 36415; 71045; 80048; 80053; 80061; 82947; 83735; 83874; 83880; 84484; 85025; 85027; 85610; 85730; 93005; 93041; 93306; 93458; 94640; 94664; 94760

== ENCOUNTER → 2021-05-06 | Outpatient (CLI) | payer MEDICARE ==
[~2021-05-06] MED LIST changes: +AMIO200T65 PO; +FURO-124 PO; +MTP25TSR PO; +POTA10TA37 PO
[2021-05-06 14:32] LABS: BASOPHILS # (AUTO) 0.1 10^3/uL (0.0-0.1); BASOPHILS % (AUTO) 1 % (0-10); EOSINOPHILS # (AUTO) 0.2 10^3/uL (0.0-0.3); EOSINOPHILS % (AUTO) 2 % (0-10); HEMATOCRIT 43 % (40-54); HEMOGLOBIN 13.7 g/dL (13.3-17.7); LYMPHOCYTES # (AUTO) 1.6 10^3/uL (1.0-4.0); LYMPHOCYTES % (AUTO) 15 % (12-44); MEAN CORPUSCULAR HEMOGLOBIN 30 pg (25-34); MEAN CORPUSCULAR HGB CONC 32 g/dL (32-36); MEAN CORPUSCULAR VOLUME 95 fL (80-99); MEAN PLATELET VOLUME 12.3 fL (9.0-12.2); MONOCYTES # (AUTO) 1.3 10^3/uL (0.0-1.0); MONOCYTES % (AUTO) 12 % (0-12); NEUTROPHILS # (AUTO) 7.4 10^3/uL (1.8-7.8); NEUTROPHILS % (AUTO) 70 % (42-75); PLATELET COUNT 218 10^3/uL (130-400); WHITE BLOOD COUNT 10.6 10^3/uL (4.3-11.0)
[2021-05-06 14:37] LABS: ALBUMIN 3.6 GM/DL (3.2-4.5); BILIRUBIN,TOTAL 0.9 MG/DL (0.1-1.0); CALCIUM 9.4 MG/DL (8.5-10.1); CREATININE SERUM 1.46 MG/DL (0.60-1.30); POTASSIUM 4.1 MMOL/L (3.6-5.0); TOTAL PROTEIN 7.1 GM/DL (6.4-8.2)
== END ==
LOC: LAB 13:58
PROVIDERS: ATTEND Internal Medicine
DX: I48.91 Unspecified atrial fibrillation (principal); E11.9 Type 2 diabetes mellitus without complications
CPT/HCPCS: 36415; 80053; 85025

== ENCOUNTER → 2021-06-10 | Outpatient (CLI) | payer MEDICARE ==
[2021-06-10 11:10] LABS: HEMATOCRIT 46 % (40-54); HEMOGLOBIN 14.5 g/dL (13.3-17.7); MEAN CORPUSCULAR HEMOGLOBIN 30 pg (25-34); MEAN CORPUSCULAR HGB CONC 32 g/dL (32-36); MEAN CORPUSCULAR VOLUME 94 fL (80-99); PLATELET COUNT 158 10^3/uL (130-400); WHITE BLOOD COUNT 7.5 10^3/uL (4.3-11.0)
[2021-06-10 11:20] LABS: ALBUMIN 3.8 GM/DL (3.2-4.5); POTASSIUM 4.2 MMOL/L (3.6-5.0)
[2021-06-10 11:21] LABS: CALCIUM 9.3 MG/DL (8.5-10.1)
[2021-06-10 11:22] LABS: TOTAL PROTEIN 7.1 GM/DL (6.4-8.2)
[2021-06-10 11:26] LABS: CREATININE SERUM 1.51 MG/DL (0.60-1.30)
== END ==
LOC: LAB 10:46
PROVIDERS: ATTEND Internal Medicine
DX: I48.91 Unspecified atrial fibrillation (principal); R41.3 Other amnesia
CPT/HCPCS: 36415; 80053; 82607; 84443; 85027

== ENCOUNTER 2021-07-06 10:03 | Emergency (ER) | payer MEDICARE ==
[~2021-07-06] VITALS: Ht 182 cm; Wt 113.0 kg
--- NOTE | 2021-07-06 10:39 | ED Abdominal Pain ---
General Chief Complaint: Abdominal/GI Problems Stated Complaint: ABD PAIN/DIZZINESS Nursing Triage Note: Pt here with abdominal pain, sudden onset this morning [id number]. EMS reports that upon their arrival patient was ambulating to their cot and was found to be in bigeminy, non-perfusing, at a rate of 30-40's. Pt also c/o dizziness. Source of Information: Patient Exam Limitations: No Limitations History of Present Illness Date Seen by Provider: Jul 06, 2021 Time Seen by Provider: 10:28 Initial Comments Patient is a 76-year-old male who presents to the emergency department with a chief complaint of left-sided abdominal pain. Patient states that he woke with the symptoms around 7:00 this morning. He rated them at about a "7-8". Patient denies any associated symptoms such as nausea, vomiting, diarrhea. He has had multiple times a night to urinate, 5 or 6. He has chronic lower extremity edema for which he routinely wears compression stockings however he decided not to wear them today secondary to coming to the emergency department. He states that he is completely pain-free at this time. He has had colonoscopy in the past but states its been many years ago. Denies any recent black or bloody stools, no blood in his urine. Nothing really made the pain any better or worse. He states he was able to make it through his breakfast this morning. No recent fevers or chills or other symptoms of illness. He has a history of chronic atrial fibrillation anticoagulated on Eliquis. According to EMS the patient was quite bradycardic in the 30s and 40s in a bigeminy rhythm which resolved after he got settled on the ambulance cot. Patient states he was a little bit dizzy and weak this morning. Again asymptomatic at this time, resting comfortably. No complaints. Previous cholecystectomy he thinks. Otherwise no abdominal surgeries. All other review of systems reviewed and negative except as stated Timing/Duration: 1-3 Hours Severity/Quality: Moderate Location: Other (left sided abdomen) Radiation: No Radiation Activities at Onset: Sleeping Associated Symptoms: Denies Symptoms Allergies and Home Medications Allergies Coded Allergies: Sulfa (Sulfonamide Antibiotics) (Unverified Allergy, Mild, N/V, 10/10/19) Patient Home Medication List Home Medication List Reviewed: Yes Allopurinol (Allopurinol) 300 Mg Tablet, 300 MG PO HS, (Reported) Entered as Reported by: PURNIMA FERRARI on 11/16/201816 Amiodarone HCl (Amiodarone HCl) 200 Mg Tablet, 400 MG PO BID Prescribed by: HIRO ANDREW on 04/18/21 110 Apixaban (Eliquis) 5 Mg Tablet, 5 MG PO BID, (Reported) Entered as Reported by: PURNIMA FERRARI on 11/16/201816 Atorvastatin Calcium (Atorvastatin Calcium) 10 Mg Tablet, 10 MG PO HS, (Reported) Entered as Reported by: DOREEN MARK on 08/08/18 0935 Finasteride (Finasteride) 5 Mg Tablet, 5 MG PO HS, (Reported) Entered as Reported by: DOREEN MARK on 08/08/18 0935 Furosemide (Lasix) 40 Mg Tablet, 40 MG PO DAILY Prescribed by: HIRO ANDREW on 04/18/21 110 Metoprolol Succinate (Metoprolol Succinate) 25 Mg Tab.er.24h, 25 MG PO HS, (Reported) Entered as Reported by: KATHLEEN HANLEY on 04/17/21 1240 Potassium Chloride (Potassium Chloride) 10 Meq Tab.er.prt, 10 MEQ PO DAILY Prescribed by: HIRO ANDREW on 04/18/21 1109 Review of Systems Review of Systems Constitutional: see HPI EENTM: No Symptoms Reported Respiratory: No Symptoms Reported Cardiovascular: No Symptoms Reported Gastrointestinal: Abdominal Pain Genitourinary: No Symptoms Reported Musculoskeletal: no symptoms reported Skin: no symptoms reported Psychiatric/Neurological: No Symptoms Reported All Other Systems Reviewed Negative Unless Noted: Yes Past Etbtmwg-Mfdrhg-Bewuzq Hx Immunizations Up To Date Tetanus Booster (TDap): More than 5yrs PED Vaccines UTD: No First/Initial COVID19 Vaccinat: 08/06/20 Second COVID19 Vaccination Rayrya: 09/04/20 Third COVID19 Vaccination Date: 08/06/20 Seasonal Allergies Seasonal Allergies: Yes Past Medical History Surgery/Hospitalization HX: 150 SKIN CANCER REMOVED. ABD HERNIA REPAIRS, T&A, Surgeries: Yes (HERNIA REPAIR X 2;MULT SKIN CANCER REMOVALS; CARDIAC CATH; LINQ DEVICE ) Abdominal, Cardiac, Tonsillectomy Respiratory: Yes Sleep Apnea Currently Using CPAP: Yes Cardiac: Yes (LINQ RECORDER; CARDIAC CATHS-NO INTERVENTION) Atrial Fibrillation, Chronic Edema/Swelling, Deep Vein Thrombosis, Hypertension Neurological: No Reproductive Disorders: No Sexually Transmitted Disease: No HIV/AIDS: No Genitourinary: Yes Benign Prostatic Hyperpl, Kidney Stones Gastrointestinal: Yes Gastroesophageal Reflux, Hiatal Hernia Musculoskeletal: No Endocrine: No (OBESITY) HEENT: Yes (GLASSES) Loss of Vision: Denies Hearing Impairment: Hard of Hearing Cancer: Yes Skin Did You Recieve Any Treatments: Yes What Type of Treatment Did You: Radiation, Surgical Intervention Psychosocial: No Integumentary: Yes (SKIN CANCERS ) Blood Disorders: No Adverse Reaction/Blood Tranf: No (N/A) Family Medical History Arthritis G8 BROTHER Cardiovascular disease 19 MOTHER (AFib) DVT G8 BROTHER FHx: respiratory disease G8 SISTER ADDITIONAL PSH: -EGD'S AND COLONOSCOPIES - Physical Exam Vital Signs Vital Signs - First Documented 07/06/21 10:15 Temp 36.2 Pulse 86 Resp 20 B/P (MAP) 152/71 (98) Pulse Ox 96 O2 Delivery Room Air Capillary Refill : Less Than 3 Seconds Height/Weight/BMI Height: 6'0" Weight: 275lbs. 0.0oz. 124.531808ic; 34.00 BMI Method:Stated General Appearance: WD/WN, no apparent distress HEENT: PERRL/EOMI Neck: normal inspection Respiratory: lungs clear, normal breath sounds, no respiratory distress, no accessory muscle use Cardiovascular: irregularly irregular Peripheral Pulses: 2+ Radial Pulses (R) Gastrointestinal: normal bowel sounds, non tender, soft, no pulsatile mass Extremities: normal inspection, pedal edema (2+ bilateral) Neurologic/Psychiatric: alert, normal mood/affect, oriented x 3 Skin: normal color, warm/dry Progress/Results/Core Measures Results/Orders Lab Results Laboratory Tests Test 07/06/21 10:15 07/06/21 11:45 Range/Units White Blood Count 7.0 4.3-11.0 10^3/uL Red Blood Count 4.76 4.30-5.52 10^6/uL Hemoglobin 14.2 13.3-17.7 g/dL Hematocrit 45 40-54 % Mean Corpuscular Volume 94 80-99 fL Mean Corpuscular Hemoglobin 30 25-34 pg Mean Corpuscular Hemoglobin Concent 32 32-36 g/dL Red Cell Distribution Width 15.8 H 10.0-14.5 % Platelet Count 167 130-400 10^3/uL Mean Platelet Volume 12.6 H 9.0-12.2 fL Immature Granulocyte % (Auto) 1 % Neutrophils (%) (Auto) 66 42-75 % Lymphocytes (%) (Auto) 18 12-44 % Monocytes (%) (Auto) 12 0-12 % Eosinophils (%) (Auto) 2 0-10 % Basophils (%) (Auto) 1 0-10 % Neutrophils # (Auto) 4.6 1.8-7.8 10^3/uL Lymphocytes # (Auto) 1.3 1.0-4.0 10^3/uL Monocytes # (Auto) 0.8 0.0-1.0 10^3/uL Eosinophils # (Auto) 0.2 0.0-0.3 10^3/uL Basophils # (Auto) 0.1 0.0-0.1 10^3/uL Immature Granulocyte # (Auto) 0.0 0.0-0.1 10^3/uL Prothrombin Time 16.0 H 12.2-14.7 SEC INR Comment 1.2 0.8-1.4 Activated Partial Thromboplast Time 33 24-35 SEC Sodium Level 142 135-145 MMOL/L Potassium Level 4.2 3.6-5.0 MMOL/L Chloride Level 106 98-107 MMOL/L Carbon Dioxide Level 27 21-32 MMOL/L Anion Gap 9 5-14 MMOL/L Blood Urea Nitrogen 22 H 7-18 MG/DL Creatinine 1.45 H 0.60-1.30 MG/DL Estimat Glomerular Filtration Rate 49 BUN/Creatinine Ratio 15 Glucose Level 114 H 70-105 MG/DL Calcium Level 9.5 8.5-10.1 MG/DL Corrected Calcium 9.6 8.5-10.1 MG/DL Total Bilirubin 1.1 H 0.1-1.0 MG/DL Aspartate Amino Transf (AST/SGOT) 26 5-34 U/L Alanine Aminotransferase (ALT/SGPT) 17 0-55 U/L Alkaline Phosphatase 122 40-136 U/L C-Reactive Protein High Sensitivity 0.78 H 0.00-0.50 MG/DL Total Protein 7.5 6.4-8.2 GM/DL Albumin 3.9 3.2-4.5 GM/DL Lipase 12 8-78 U/L Urine Color YELLOW Urine Clarity CLEAR Urine pH 5.5 5-9 Urine Specific [place] >=1.030 1.016-1.022 Urine Protein 2+ H NEGATIVE Urine Glucose (UA) NEGATIVE NEGATIVE Urine Ketones NEGATIVE NEGATIVE Urine Nitrite POSITIVE H NEGATIVE Urine Bilirubin NEGATIVE NEGATIVE Urine Urobilinogen 0.2 < = 1.0 MG/DL Urine Leukocyte Esterase 2+ H NEGATIVE Urine RBC (Auto) 3+ H NEGATIVE Urine RBC 2-5 H /HPF Urine WBC >100 H /HPF Urine Crystals NONE /LPF Urine Bacteria FEW H /HPF Urine Casts NONE /LPF Urine Mucus NEGATIVE /LPF Urine Culture Indicated YES My Orders Orders - KHURRAM GALLEGO MD Ua Culture If Indicated (07/06/21 10:34) Cbc With Automated Diff (07/06/21 10:34) Comprehensive Metabolic Panel (07/06/21 10:34) Lipase (07/06/21 10:34) Hs C Reactive Protein (07/06/21 10:34) Ekg Tracing (07/06/21 10:34) Protime With Inr (07/06/21 10:34) Partial Thromboplastin Time (07/06/21 10:34) Ed Iv/Invasive Line Start (07/06/21 10:35) Urine Culture (07/06/21 11:45) Vital Signs/I&O 07/06/21 10:15 Temp 36.2 Pulse 86 Resp 20 B/P (MAP) 152/71 (98) Pulse Ox 96 O2 Delivery Room Air Blood Pressure Mean: 98 Progress Progress Note : Time: 12:14 Progress Note Patient seen and evaluated, 76-year-old with left flank pain. Pain had resolved by the time he got to the emergency department. He remained pain-free throughout his ER visit. Laboratory studies obtained and evaluated, no elevated white blood cell count, he is not anemic. Chemistries are normal. CRP is very minimally elevated. He does have evidence of urinary tract infection on urinalysis. His vital signs remained stable. He is given his first dose of Cipro here in the emergency department. He is advised to keep his follow-up appointment with his primary care doctor on of this week which she had previously scheduled. He is comfortable with this plan of care. Return precautions discussed. He verbalized understanding, all questions are sought and answered. Initial ECG Impression Date: Jul 06, 2021 Initial ECG Impression Time: 10:40 Initial ECG Rate: 90 Comment Junctional rhythm vs atrial fibrillation; ventricular bigeminy; no STTW change/elevation or depression Departure Impression Primary Impression: Abdominal pain Qualified Codes: R10.12 - Left upper quadrant pain Additional Impression: Urinary tract infection Qualified Codes: N39.0 - Urinary tract infection, site not specified; R31.9 - Hematuria, unspecified Disposition: 01 HOME, SELF-CARE Condition: Stable Departure-Patient Inst. Decision time for Depature: 12:12 Referrals: JULIANE CASTANO MD (PCP/Family) Primary Care Physician Patient Instructions: Urinary Tract Infection, Adult ED Add. Discharge Instructions: Plenty of fluids to stay well-hydrated over the next several days. Take Cipro, 500 mg antibiotic twice daily for 7 days. We have given you your fi rst dose today in the emergency department. Keep your follow-up with Dr. Castano for July 09. Return to the emergency room for any return of or worsening abdominal pain especially if you develop a fever. Scripts Ciprofloxacin HCl (Ciprofloxacin HCl) 500 Mg Tablet 500 MG PO BID for 7 Days, #14 TAB Prov: KHURRAM GALLEGO MD 07/06/21 Copy Copies To 1: JULIANE CASTANO MD, KATHRYN M MD Jul 06, 2021 10:38
[2021-07-06 10:41] LABS: BASOPHILS # (AUTO) 0.1 10^3/uL (0.0-0.1); BASOPHILS % (AUTO) 1 % (0-10); EOSINOPHILS # (AUTO) 0.2 10^3/uL (0.0-0.3); EOSINOPHILS % (AUTO) 2 % (0-10); HEMATOCRIT 45 % (40-54); HEMOGLOBIN 14.2 g/dL (13.3-17.7); LYMPHOCYTES # (AUTO) 1.3 10^3/uL (1.0-4.0); LYMPHOCYTES % (AUTO) 18 % (12-44); MEAN CORPUSCULAR HEMOGLOBIN 30 pg (25-34); MEAN CORPUSCULAR HGB CONC 32 g/dL (32-36); MEAN CORPUSCULAR VOLUME 94 fL (80-99); MEAN PLATELET VOLUME 12.6 fL (9.0-12.2); MONOCYTES # (AUTO) 0.8 10^3/uL (0.0-1.0); MONOCYTES % (AUTO) 12 % (0-12); NEUTROPHILS # (AUTO) 4.6 10^3/uL (1.8-7.8); NEUTROPHILS % (AUTO) 66 % (42-75); PLATELET COUNT 167 10^3/uL (130-400)
[2021-07-06 10:45] LABS: ALBUMIN 3.9 GM/DL (3.2-4.5); POTASSIUM 4.2 MMOL/L (3.6-5.0)
[2021-07-06 10:46] LABS: CALCIUM 9.5 MG/DL (8.5-10.1)
[2021-07-06 10:48] LABS: TOTAL PROTEIN 7.5 GM/DL (6.4-8.2)
[2021-07-06 10:49] LABS: BILIRUBIN,TOTAL 1.1 MG/DL (0.1-1.0)
[2021-07-06 10:51] LABS: CREATININE SERUM 1.45 MG/DL (0.60-1.30)
[2021-07-06 10:52] LABS: INR 1.2 (0.8-1.4)
[2021-07-06 11:57] LABS: BILIRUBIN,URINE NEGATIVE (NEGATIVE); CLARITY,URINE CLEAR; COLOR,URINE YELLOW; GLUCOSE, URINE (UA) NEGATIVE (NEGATIVE); KETONES,URINE NEGATIVE (NEGATIVE); LEUKOCYTE ESTERASE ,URINE 2+ (NEGATIVE); NITRITE,URINE POSITIVE (NEGATIVE); PH,URINE 5.5 (5-9); PROTEIN,URINE 2+ (NEGATIVE)
[2021-07-06 12:06] LABS: BACTERIA,URINE FEW /HPF; WBC,URINE >100 /HPF
[2021-07-06] MEDS ORDERED: CIPR500T5 PO (12:14)
[2021-07-06] MEDS ORDERED: CIPROFLOXACIN 500 MG (CIPRO) TABLET PO STA (12:15)
[2021-07-06 13:10] VITALS: BP 152/71
== END 2021-07-06 13:10 | disposition home or self-care (01) ==
LOC: EDUNIT# 10:03 → ER 10:04
DX: N39.0 Urinary tract infection, site not specified (principal); G47.30 Sleep apnea, unspecified; I10 Essential (primary) hypertension; I48.91 Unspecified atrial fibrillation; N40.0 Benign prostatic hyperplasia without lower urinary tract symptoms; E66.9 Obesity, unspecified; Z68.34 Body mass index [BMI] 34.0-34.9, adult; Z86.718 Personal history of other venous thrombosis and embolism; Z79.01 Long term (current) use of anticoagulants
CPT/HCPCS: 36415; 80053; 81000; 83690; 85025; 85610; 85730; 86141; 87077; 87088; 93005

== ENCOUNTER → 2021-07-20 | Outpatient (CLI) | payer MEDICARE ==
[~2021-07-20] MED LIST changes: +CIPR500T5 PO
== END | disposition home or self-care (01) ==
LOC: PREOP 05:34
PROVIDERS: ATTEND Internal Medicine
DX: Z01.818 Encounter for other preprocedural examination (principal)

== ENCOUNTER 2021-09-28 12:12 | Observation (INO) | payer MEDICARE ==
[~2021-09-28] VITALS: Ht 183 cm; Wt 109.0 kg
[~2021-09-28 12:12] MED LIST changes: +CARB1DRO OU; +LISI10TA25 PO; +MIRT-47 PO; +PANT40TA52 PO
[2021-09-28 12:28] LABS: BASOPHILS # (AUTO) 0.1 10^3/uL (0.0-0.1); BASOPHILS % (AUTO) 1 % (0-10); EOSINOPHILS # (AUTO) 0.1 10^3/uL (0.0-0.3); EOSINOPHILS % (AUTO) 2 % (0-10); HEMATOCRIT 34 % (40-54); HEMOGLOBIN 10.6 g/dL (13.3-17.7); LYMPHOCYTES # (AUTO) 1.6 10^3/uL (1.0-4.0); LYMPHOCYTES % (AUTO) 24 % (12-44); MEAN CORPUSCULAR HEMOGLOBIN 27 pg (25-34); MEAN CORPUSCULAR HGB CONC 31 g/dL (32-36); MEAN CORPUSCULAR VOLUME 87 fL (80-99); MEAN PLATELET VOLUME 10.4 fL (9.0-12.2); MONOCYTES # (AUTO) 0.9 10^3/uL (0.0-1.0); MONOCYTES % (AUTO) 14 % (0-12); NEUTROPHILS # (AUTO) 3.9 10^3/uL (1.8-7.8); NEUTROPHILS % (AUTO) 59 % (42-75); PLATELET COUNT 237 10^3/uL (130-400); WHITE BLOOD COUNT 6.6 10^3/uL (4.3-11.0)
--- NOTE | 2021-09-28 12:29 | ED Chest Pain ---
General Stated Complaint: HEART PALPITATIONS Source: patient Exam Limitations: no limitations History of Present Illness Date Seen by Provider: September 28, 2021 Time Seen by Provider: 12:24 Initial Comments To ER by EMS from home with reports of palpitations since this morning as well as increasing shortness of breath. History of palpitations from frequent PVCs, CHF with ejection fraction of 40%, paroxysmal atrial fibrillation and DVT managed with Coumadin, hypertension, pulmonary hypertension, nonischemic cardiomyopathy. He had a cardiac catheterization earlier this year showing slow flow but no obstructive disease. Timing/Duration: 2-3 days Severity/Quality: moderate Location: central Radiation: no radiation Activities at Onset: none ASA po HELMET BINDER: No NTG SL HELMET BINDER: No Associated Symptoms: shortness of breath Allergies and Home Medications Allergies Coded Allergies: Sulfa (Sulfonamide Antibiotics) (Unverified Allergy, Mild, N/V, 10/10/19) Patient Home Medication List Home Medication List Reviewed: Yes Allopurinol (Allopurinol) 300 Mg Tablet, 300 MG PO HS Prescribed by: HIRO ANDREW on 07/29/211912 Apixaban (Eliquis) 5 Mg Tablet, 5 MG PO BID Prescribed by: HIRO ANDREW on 07/29/211912 Atorvastatin Calcium (Atorvastatin Calcium) 10 Mg Tablet, 10 MG PO HS Prescribed by: HIRO ANDREW on 07/29/211912 Carboxymethylcellulose Sodium (Refresh Plus) 1 Each Droperette, 0 EACH OU PRN PRN for DRY EYES Prescribed by: HIRO ANDREW on 07/29/211912 Finasteride (Finasteride) 5 Mg Tablet, 5 MG PO HS Prescribed by: HIRO ANDREW on 07/29/211912 Lisinopril (Lisinopril) 10 Mg Tablet, 10 MG PO DAILY Prescribed by: HIRO ANDREW on 07/29/211912 Metoprolol Succinate (Metoprolol Succinate) 25 Mg Tab.er.24h, 25 MG PO HS Prescribed by: HIRO ANDREW on 07/29/211912 Mirtazapine (Mirtazapine) 15 Mg Tab.rapdis, 15 MG PO HS Prescribed by: HIRO ANDREW on 07/29/211912 Pantoprazole Sodium (Pantoprazole Sodium) 40 Mg Tablet.dr, 40 MG PO DAILY Prescribed by: HIRO ANDREW on 07/29/211912 Review of Systems Review of Systems Constitutional: see HPI EENTM: No Symptoms Reported Respiratory: See HPI; Denies Cough; Orthopnea, Shortness of Air Cardiovascular: See HPI; Denies Chest Pain; Palpitations Gastrointestinal: No Symptoms Reported Genitourinary: No Symptoms Reported Musculoskeletal: no symptoms reported Skin: no symptoms reported Psychiatric/Neurological: No Symptoms Reported Endocrine: No Symptoms Reported Hematologic/Lymphatic: No Symptoms Reported Past Uwcmzcs-Krpfog-Ylwrqj Hx Immunizations Up To Date Tetanus Booster (TDap): More than 5yrs PED Vaccines UTD: No First/Initial COVID19 Vaccinat: 08/06/20 Second COVID19 Vaccination Rayray: 09/04/20 Third COVID19 Vaccination Date: 08/06/20 Seasonal Allergies Seasonal Allergies: Yes Past Medical History Surgery/Hospitalization HX: Yes, CHF Surgeries: Yes (HERNIA REPAIR X 2;MULT SKIN CANCER REMOVALS; CARDIAC CATH; LINQ DEVICE ) Abdominal, Cardiac, Tonsillectomy Respiratory: Yes Sleep Apnea Currently Using CPAP: Yes Cardiac: Yes (LINQ RECORDER; CARDIAC CATHS-NO INTERVENTION) Atrial Fibrillation, Chronic Edema/Swelling, Deep Vein Thrombosis, Hypertension Neurological: No Reproductive Disorders: No Sexually Transmitted Disease: No HIV/AIDS: No Genitourinary: Yes Benign Prostatic Hyperpl, Kidney Stones Gastrointestinal: Yes Gastroesophageal Reflux, Hiatal Hernia Musculoskeletal: No Endocrine: No (OBESITY) HEENT: Yes (GLASSES) Loss of Vision: Denies Hearing Impairment: Hard of Hearing Cancer: Yes Skin Did You Recieve Any Treatments: Yes What Type of Treatment Did You: Radiation, Surgical Intervention Psychosocial: No Integumentary: Yes (SKIN CANCERS ) Blood Disorders: No Adverse Reaction/Blood Tranf: No (N/A) Family Medical History Arthritis G8 BROTHER Cardiovascular disease 19 MOTHER (AFib) DVT G8 BROTHER FHx: respiratory disease G8 SISTER ADDITIONAL PSH: -EGD'S AND COLONOSCOPIES - Physical Exam Vital Signs Vital Signs - First Documented 09/28/21 12:21 Temp 36.0 Pulse 89 Resp 18 B/P (MAP) 142/101 (115) O2 Delivery Room Air Capillary Refill : Height, Weight, BMI Height: 6'0" Weight: 275lbs. 0.0oz. [id number]; 33.63 BMI Method:Stated General Appearance: No Apparent Distress, WD/WN Respiratory: No Accessory Muscle Use, No Respiratory Distress Cardiovascular: Irregularly Irregular, Other (Underlying rate controlled atrial fibrillation with multifocal PVCs.) Gastrointestinal: Normal Bowel Sounds, Non Tender, Soft Extremity: Normal Capillary Refill, Normal Inspection, Other (Pitting edema 3+ up to the knees, 2+ pitting edema to the posterior aspect of the thighs up to the groin.) Neurologic/Psychiatric: Alert, Oriented x3 Skin: Normal Color, Warm/Dry Progress/Results/Core Measures Results/Orders Lab Results Laboratory Tests Test 09/28/21 12:21 Range/Units White Blood Count 6.6 4.3-11.0 10^3/uL Red Blood Count 3.97 L 4.30-5.52 10^6/uL Hemoglobin 10.6 L 13.3-17.7 g/dL Hematocrit 34 L 40-54 % Mean Corpuscular Volume 87 80-99 fL Mean Corpuscular Hemoglobin 27 25-34 pg Mean Corpuscular Hemoglobin Concent 31 L 32-36 g/dL Red Cell Distribution Width 14.6 H 10.0-14.5 % Platelet Count 237 130-400 10^3/uL Mean Platelet Volume 10.4 9.0-12.2 fL Immature Granulocyte % (Auto) 0 % Neutrophils (%) (Auto) 59 42-75 % Lymphocytes (%) (Auto) 24 12-44 % Monocytes (%) (Auto) 14 H 0-12 % Eosinophils (%) (Auto) 2 0-10 % Basophils (%) (Auto) 1 0-10 % Neutrophils # (Auto) 3.9 1.8-7.8 10^3/uL Lymphocytes # (Auto) 1.6 1.0-4.0 10^3/uL Monocytes # (Auto) 0.9 0.0-1.0 10^3/uL Eosinophils # (Auto) 0.1 0.0-0.3 10^3/uL Basophils # (Auto) 0.1 0.0-0.1 10^3/uL Immature Granulocyte # (Auto) 0.0 0.0-0.1 10^3/uL Prothrombin Time 19.0 H 12.2-14.7 SEC INR Comment 1.5 H 0.8-1.4 Activated Partial Thromboplast Time 31 24-35 SEC Sodium Level 141 135-145 MMOL/L Potassium Level 3.8 3.6-5.0 MMOL/L Chloride Level 106 98-107 MMOL/L Carbon Dioxide Level 25 21-32 MMOL/L Anion Gap 10 5-14 MMOL/L Blood Urea Nitrogen 17 7-18 MG/DL Creatinine 1.21 0.60-1.30 MG/DL Estimat Glomerular Filtration Rate 61 BUN/Creatinine Ratio 14 Glucose Level 127 H 70-105 MG/DL Calcium Level 9.3 8.5-10.1 MG/DL Corrected Calcium 9.5 8.5-10.1 MG/DL Magnesium Level 1.6 1.6-2.4 MG/DL Total Bilirubin 1.0 0.1-1.0 MG/DL Aspartate Amino Transf (AST/SGOT) 20 5-34 U/L Alanine Aminotransferase (ALT/SGPT) 10 0-55 U/L Alkaline Phosphatase 124 40-136 U/L Myoglobin 59.9 10.0-92.0 NG/ML Troponin I 0.029 H <0.028 NG/ML B-Type Natriuretic Peptide 2279.3 H <100.0 PG/ML Total Protein 7.5 6.4-8.2 GM/DL Albumin 3.8 3.2-4.5 GM/DL My Orders Orders - MANDA URRUTIA APRN Chest 1 View, Ap/Pa Only (09/28/21 12:14) Ekg Tracing (09/28/21 12:14) Cbc With Automated Diff (09/28/21 12:14) Magnesium (09/28/21 12:14) Comprehensive Metabolic Panel (09/28/21 12:14) Myoglobin Serum (09/28/21 12:14) Protime With Inr (09/28/21 12:14) Partial Thromboplastin Time (09/28/21 12:14) O2 (09/28/21 12:14) Monitor-Rhythm Ecg Trace Only (09/28/21 12:14) Lipid Panel (09/29/21 06:00) Ed Iv/Invasive Line Start (09/28/21 12:14) Bnp [place] (09/28/21 12:14) Troponin I [place] (09/28/21 12:14) Furosemide Injection (Lasix Injection) (09/28/21 13:15) Vital Signs/I&O 09/28/21 12:21 Temp 36.0 Pulse 89 Resp 18 B/P (MAP) 142/101 (115) O2 Delivery Room Air Departure Communication (Admissions) NAME: CHETAN GARCIA [facility] REC#: [id number] PT STATUS: REG ER : 1945 PHYSICIAN: MANDA URRUTIA APRN ADMIT DATE: 09/28/21/ER Draft Date of Exam:09/28/21 CHEST 1 VIEW, AP/PA ONLY INDICATION: Chest pain. COMPARISON: Exam is compared with study from 07/23/2021. FINDINGS: The heart is enlarged. There are bilateral pleural effusions. There is vascular congestion and bilateral perihilar mixed interstitial and airspace opacities, likely edema. While the cardiomegaly and pleural fluid volume are unchanged from prior, the suspected pulmonary edema is less severe than on prior. No pneumothorax. IMPRESSION: Likely recurrent failure pattern with relative reduction in pulmonary edema when compared to the prior. Dictated on workstation # [id number] Dict: 09/28/21 1237 Trans: 09/28/21 1240 [id number] Interpreted by: JANNA CAMILO Electronically signed by: EKG shows underlying atrial fibrillation with multifocal PVCs. Normal intervals. No ST segment change. Impression Primary Impression: Acute on chronic heart failure with preserved ejection fraction (HFpEF) Disposition: ADMITTED INPATIENT Condition: Stable Admissions Decision to Admit Reason: Admit from ER (General) Decision to Admit/Date: September 28, 2021 Time/Decision to Admit Time: 12:40 Departure-Patient Inst. Referrals: JULIANE MURPHY MD (PCP/Family) Primary Care Physician MANDA URRUTIA APRN September 28, 2021 12:29
--- NOTE | 2021-09-28 12:40 | Diagnostic Imaging Report ---
INDICATION: Chest pain. COMPARISON: Exam is compared with study from 07/23/2021. FINDINGS: The heart is enlarged. There are bilateral pleural effusions. There is vascular congestion and bilateral perihilar mixed interstitial and airspace opacities, likely edema. While the cardiomegaly and pleural fluid volume are unchanged from prior, the suspected pulmonary edema is less severe than on prior. No pneumothorax. IMPRESSION: Likely recurrent failure pattern with relative reduction in pulmonary edema when compared to the prior. Dictated by: Dictated on workstation # [id number]
[2021-09-28 12:44] LABS: INR 1.5 (0.8-1.4)
[2021-09-28 12:45] LABS: ALBUMIN 3.8 GM/DL (3.2-4.5); POTASSIUM 3.8 MMOL/L (3.6-5.0)
[2021-09-28 12:46] LABS: CALCIUM 9.3 MG/DL (8.5-10.1)
[2021-09-28 12:48] LABS: TOTAL PROTEIN 7.5 GM/DL (6.4-8.2)
[2021-09-28 12:51] LABS: CREATININE SERUM 1.21 MG/DL (0.60-1.30)
[2021-09-28 12:54] LABS: MAGNESIUM 1.6 MG/DL (1.6-2.4)
[2021-09-28] MEDS ORDERED: FUROSEMIDE 40 MG/4 ML INJ (LASIX) IVP ONE (13:15)
--- NOTE | 2021-09-28 14:17 | History & Physical-Hospitalist ---
History of Present Illness HPI/Chief Complaint Patient is 76-year-old male with past medical history of congestive heart failure, atrial fibrillation, and DVT who presented to the emergency department due to hospital due to palpitations. He states that they started around 11:00 this morning. He had similar episodes in April when he was admitted with CHF. He does have significant lower extremity edema which she says is chronic and has been since he was here in April. He sees Dr. Camejo and his son wraps them and Jonathan bandages and compression socks daily. They do think it is a little bit worse over the past couple of days ago. Date Seen 09/28/21 Time Seen by a Provider: 14:12 Attending Physician Jenny Tinoco MD PCP Cecilio Castano MD Referring Physician Date of Admission September 28, 2021 at 13:08 Home Medications & Allergies Home Medications Reviewed patient Home Medication Reconciliation performed by pharmacy medication reconciliations test technician and/or nursing. Patients Allergies have been reviewed. Allergies Allergies Coded Allergies Sulfa (Sulfonamide Antibiotics) (Unverified Allergy, Mild, N/V, 10/10/19) Past Bmtntnw-Rnlhzg-Rqcerb Hx Patient Social History Tobacco Use?: No Smoking Status: Never a Smoker Smokeless Tobacco Frequency: Never a User Use of E-Cig and/or Vaping dev: No Use of E-Cig and/or Vaping Ochoa: Never a User Substance use?: No Alcohol Use?: No Pt feels they are or have been: No Immunizations Up To Date Date of Influenza Vaccine: Apr 02, 2021 First/Initial COVID19 Vaccinat: 08/06/20 Second COVID19 Vaccination Rayray: 09/04/20 PED Vaccines UTD: No Date of Pneumonia Vaccine: Jul 10, 2014 Seasonal Allergies Seasonal Allergies: Yes Current Status Advance Directives: No Communicates: Verbally Primary Language: Malaysian Preferred Spoken Language: Malaysian Is interpretation needed?: No Sensory deficits: Vision impairment Past Medical History Surgeries: Abdominal, Cardiac, Tonsillectomy Sleep Apnea Currently Using CPAP: Yes Atrial Fibrillation, Chronic Edema/Swelling, Deep Vein Thrombosis, Hypertension Sexually Transmitted Disease: No HIV/AIDS: No Benign Prostatic Hyperpl, Kidney Stones Gastroesophageal Reflux, Hiatal Hernia Loss of Vision: Denies Hearing Impairment: Hard of Hearing Skin Did You Recieve Any Treatments: Yes What Type of Treatment Did You: Radiation, Surgical Intervention Blood Disorders: No Adverse Reaction/Blood Tranf: No (N/A) Family Medical History Reviewed Nursing Family Hx Arthritis G8 BROTHER Cardiovascular disease 19 MOTHER (AFib) DVT G8 BROTHER FHx: respiratory disease G8 SISTER ADDITIONAL PSH: -EGD'S AND COLONOSCOPIES - Review of Systems Constitutional: No chills, No fever EENTM: no symptoms reported Respiratory: no symptoms reported Cardiovascular: No chest pain; edema, palpitations Gastrointestinal: No constipation, No diarrhea, No nausea, No vomiting Genitourinary: no symptoms reported Musculoskeletal: no symptoms reported Skin: hx of skin cancer Psychiatric/Neurological: No Symptoms Reported Physical Exam Physical Exam Vital Signs Vital Signs - First Documented 09/28/21 09/28/21 09/28/21 12:21 14:16 20:40 Temp 36.0 Pulse 89 Resp 18 B/P (MAP) 142/101 (115) Pulse Ox 96 O2 Delivery Room Air O2 Flow Rate 0.00 Capillary Refill : Less Than 3 Seconds Height, Weight, BMI Height: 6'0" Weight: 275lbs. 0.0oz. 124.442079be; 27.00 BMI Method:Stated General Appearance: No Apparent Distress, Chronically ill, Cachetic (temporal wasting) HEENT: PERRL/EOMI, Moist Mucous Membranes; No Scleral Icterus (L), No Scleral Icterus (R) Neck: Normal Inspection, Supple Respiratory: Lungs Clear, No Accessory Muscle Use, No Respiratory Distress Cardiovascular: No JVD, No Murmur, Irregularly Irregular Gastrointestinal: Normal Bowel Sounds, Non Tender, Soft, Distended (very mild) Extremity: No Calf Tenderness, No Pedal Edema Neurologic/Psychiatric: Alert, Oriented x3, Normal Mood/Affect Results Results/Procedures Labs Laboratory Tests 09/28/21 12:21 09/29/21 05:30 Patient resulted labs reviewed. Imaging: Reviewed Imaging Report Imaging [facility] [place] [place] NAME: CHETAN GARCIA MED REC#: [id number] PT STATUS: REG ER : 1945 PHYSICIAN: MANDA URRUTIA APRN ADMIT DATE: 09/28/21/ER Draft Date of Exam:09/28/21 CHEST 1 VIEW, AP/PA ONLY INDICATION: Chest pain. COMPARISON: Exam is compared with study from 07/23/2021. FINDINGS: The heart is enlarged. There are bilateral pleural effusions. There is vascular congestion and bilateral perihilar mixed interstitial and airspace opacities, likely edema. While the cardiomegaly and pleural fluid volume are unchanged from prior, the suspected pulmonary edema is less severe than on prior. No pneumothorax. IMPRESSION: Likely recurrent failure pattern with relative reduction in pulmonary edema when compared to the prior. Dictated on workstation # [id number] Dict: 09/28/21 1237 Trans: 09/28/21 1240 [id number] Interpreted by: JANNA CAMILO Electronically signed by: Assessment/Plan Admission Diagnosis Acutely decompensated systolic heart failure Admission Status: Observation Assessment and Plan Acutely decompensated systolic heart failure HTN A-fib Echo from 40-45% from April of 2021 Dr Mack consulted, appreciate recs Admit with tele IV Lasix OT for edema HLD CKD 3a History of DVT BPH Obesity Cardiology following Continue home meds when med rec done INR subtherapeutic- trend Diagnosis/Problems Diagnosis/Problems (1) Acute on chronic heart failure with preserved ejection fraction (HFpEF) Status: Acute (2) Permanent atrial fibrillation Status: Chronic (3) Primary hypertension Status: Chronic (4) Mixed hyperlipidemia Status: Chronic (5) History of DVT (deep vein thrombosis) Status: Chronic (6) BPH (benign prostatic hyperplasia) Status: Chronic Qualifiers: Lower urinary tract symptom presence: symptoms absent Qualified Codes: N40.0 - Benign prostatic hyperplasia without lower urinary tract symptoms (7) BASAL CELL CA Status: Resolved Resolution Date/Time: 09/29/21 @ 09:35 Clinical Quality Measures AMI/AHF: ASA po Prior to arrival: JENNY Crum MD September 28, 2021 14:17
[2021-09-28 14:34] VITALS: BP 133/101
[2021-09-28] MEDS ORDERED: CATHETER FLUSH 10 ML SYR IV PRN (15:00)
[2021-09-28 15:11] VITALS: BP 133/101
[2021-09-28] MEDS ORDERED: RT-ALBUTEROL/IPRATROPIUM 3 ML (DUONEB) VIAL INH PRN (15:30)
--- NOTE | 2021-09-28 15:34 | Occ Therapy Progress Note ---
Therapy Progress Note OT orders received in regards to edema management. OT visited with pt and his son, they indicate pt's son typically wraps pts LEs with jonathan wrap or applies compression socks. Pt's son demo'd ability to wrap LEs with jonathan wraps, no concerns noted. Jonathan wrap removed and compression socks donned. OT educated son with some "tips" on donning compression socks, pt and son verbalize understanding. Pt and son have no concerns with donning either compression socks or jonathan wraps. D/C from OT services. 1, visit [address] OT September 28, 2021 15:34
[2021-09-28] MEDS ORDERED: ALLO300T2 PO (15:40)
[2021-09-28] MEDS ORDERED: APIX5TAB PO (15:40)
[2021-09-28] MEDS ORDERED: ATOR10TA66 PO (15:40)
[2021-09-28] MEDS ORDERED: FINA5TAB6 PO (15:40)
[2021-09-28 15:50] VITALS: BP 171/83
[2021-09-28] MEDS ORDERED: ACET-2267 PO (15:50)
[2021-09-28] MEDS: FUROSEMIDE 40 MG/4 ML INJ (LASIX) IVP SCH (17:11)
[2021-09-28 20:25] VITALS: BP 176/85
[2021-09-28] MEDS: RT-ALBUTEROL/IPRATROPIUM 3 ML (DUONEB) VIAL INH SCH (20:40)
[2021-09-28] MEDS: CATHETER FLUSH 10 ML SYR IV SCH (21:21)
[2021-09-28] MEDS: KCL 20 MEQ TAB (K-DUR) PO SCH (21:21)
[2021-09-28 23:50] VITALS: BP 136/79
[2021-09-29 04:03] VITALS: BP 147/83
[2021-09-29 06:01] LABS: CALCIUM 9.2 MG/DL (8.5-10.1); CREATININE SERUM 1.33 MG/DL (0.60-1.30); POTASSIUM 3.9 MMOL/L (3.6-5.0)
[2021-09-29] MEDS: CATHETER FLUSH 10 ML SYR IV SCH (06:20)
[2021-09-29] MEDS: FUROSEMIDE 40 MG/4 ML INJ (LASIX) IVP SCH (06:20)
[2021-09-29] MEDS: RT-ALBUTEROL/IPRATROPIUM 3 ML (DUONEB) VIAL INH SCH (07:18)
[2021-09-29 08:00] VITALS: BP 176/100
[2021-09-29] MEDS ORDERED: FURO-125 PO (08:17)
--- NOTE | 2021-09-29 08:18 | Consultation-Cardiology ---
HPI-Cardiology Cardiology Consultation Date of Consultation 09/29/21 Date of Admission Time Seen by Provider: 08:12 Indication: Palpitation HPI 76-year-old gentleman with extensive cardiac history, had history of atrial fibrillation. Started to have palpitation and called EMS, came into the emergency room. He was noted to have elevated BNP and significant pedal edema. He denied any chest pain. No syncope or near syncopal episodes. Modification. Having generalized fatigue, was confused last night. Trying to walk out of the hospital. Home Medications & Allergies Allergies: Coded Allergies: Sulfa (Sulfonamide Antibiotics) (Unverified Allergy, Mild, N/V, 10/10/19) Home Medication List Reviewed: Yes [id number] Hx Patient Social History Marital Status: Employed/Student: retired Smoking Status: Never a Smoker 2nd Hand Smoke Exposure: No Recent Hopitalizations: No Have you traveled recently?: No Alcohol Use?: No Immunizations Up To Date Tetanus Booster (TDap): More than 5yrs Date of Pneumonia Vaccine: Jul 10, 2014 Date of Influenza Vaccine: Apr 02, 2021 Past Medical History Discussed below Family Medical History Family History: Arthritis G8 BROTHER Cardiovascular disease 19 MOTHER (AFib) DVT G8 BROTHER FHx: respiratory disease G8 SISTER Review of Systems-General Review of Systems Constitutional: No chills, No fever; malaise EENTM: see HPI, no symptoms reported Respiratory: no symptoms reported, see HPI Cardiovascular: see HPI; No chest pain; edema, palpitations Gastrointestinal: see HPI; No constipation, No diarrhea, No nausea, No vomiting Genitourinary: no symptoms reported, see HPI Musculoskeletal: no symptoms reported, see HPI Skin: see HPI, hx of skin cancer Psychiatric/Neurological: No Symptoms Reported, See HPI Reviewed Test Results Reviewed Test Results Lab Laboratory Tests Test 09/28/21 12:21 09/29/21 05:30 Range/Units White Blood Count 6.6 4.3-11.0 10^3/uL Red Blood Count 3.97 L 4.30-5.52 10^6/uL Hemoglobin 10.6 L 13.3-17.7 g/dL Hematocrit 34 L 40-54 % Mean Corpuscular Volume 87 80-99 fL Mean Corpuscular Hemoglobin 27 25-34 pg Mean Corpuscular Hemoglobin Concent 31 L 32-36 g/dL Red Cell Distribution Width 14.6 H 10.0-14.5 % Platelet Count 237 130-400 10^3/uL Mean Platelet Volume 10.4 9.0-12.2 fL Immature Granulocyte % (Auto) 0 % Neutrophils (%) (Auto) 59 42-75 % Lymphocytes (%) (Auto) 24 12-44 % Monocytes (%) (Auto) 14 H 0-12 % Eosinophils (%) (Auto) 2 0-10 % Basophils (%) (Auto) 1 0-10 % Neutrophils # (Auto) 3.9 1.8-7.8 10^3/uL Lymphocytes # (Auto) 1.6 1.0-4.0 10^3/uL Monocytes # (Auto) 0.9 0.0-1.0 10^3/uL Eosinophils # (Auto) 0.1 0.0-0.3 10^3/uL Basophils # (Auto) 0.1 0.0-0.1 10^3/uL Immature Granulocyte # (Auto) 0.0 0.0-0.1 10^3/uL Prothrombin Time 19.0 H 12.2-14.7 SEC INR Comment 1.5 H 0.8-1.4 Activated Partial Thromboplast Time 31 24-35 SEC Sodium Level 141 142 135-145 MMOL/L Potassium Level 3.8 3.9 3.6-5.0 MMOL/L Chloride Level 106 105 98-107 MMOL/L Carbon Dioxide Level 25 25 21-32 MMOL/L Anion Gap 10 12 5-14 MMOL/L Blood Urea Nitrogen 17 22 H 7-18 MG/DL Creatinine 1.21 1.33 H 0.60-1.30 MG/DL Estimat Glomerular Filtration Rate 61 55 BUN/Creatinine Ratio 14 17 Glucose Level 127 H 119 H 70-105 MG/DL Calcium Level 9.3 9.2 8.5-10.1 MG/DL Corrected Calcium 9.5 8.5-10.1 MG/DL Magnesium Level 1.6 1.6-2.4 MG/DL Total Bilirubin 1.0 0.1-1.0 MG/DL Aspartate Amino Transf (AST/SGOT) 20 5-34 U/L Alanine Aminotransferase (ALT/SGPT) 10 0-55 U/L Alkaline Phosphatase 124 40-136 U/L Myoglobin 59.9 10.0-92.0 NG/ML Troponin I 0.029 H <0.028 NG/ML B-Type Natriuretic Peptide 2279.3 H <100.0 PG/ML Total Protein 7.5 6.4-8.2 GM/DL Albumin 3.8 3.2-4.5 GM/DL Triglycerides Level 52 <150 MG/DL Cholesterol Level 93 < 200 MG/DL LDL Cholesterol Direct 42 1-129 MG/DL VLDL Cholesterol 10 5-40 MG/DL HDL Cholesterol 40 40-60 MG/DL Physical Exam Physical Exam Vital Signs Vital Signs - First Documented 09/28/21 09/28/21 09/28/21 12:21 14:16 20:40 Temp 36.0 Pulse 89 Resp 18 B/P (MAP) 142/101 (115) Pulse Ox 96 O2 Delivery Room Air O2 Flow Rate 0.00 Capillary Refill : Less Than 3 Seconds Height, Weight, BMI Height: 6'0" Weight: 275lbs. 0.0oz. [age]yo; 32.54 BMI Method:Stated General Appearance: No Apparent Distress, Chronically ill, Cachetic (temporal wasting) Eyes: Bilateral Eye Normal Inspection, Bilateral Eye PERRL, Bilateral Eye EOMI HEENT: PERRL/EOMI, Moist Mucous Membranes; No Scleral Icterus (L), No Scleral Icterus (R) Neck: Normal Inspection, Supple Respiratory: Lungs Clear, No Accessory Muscle Use, No Respiratory Distress Cardiovascular: No JVD, No Murmur, Irregularly Irregular Gastrointestinal: Normal Bowel Sounds, Non Tender, Soft, Distended (very mild) Back: Normal Inspection, No CVA Tenderness, No Vertebral Tenderness Extremity: No Calf Tenderness, No Pedal Edema Neurologic/Psychiatric: Alert, Oriented x3, Normal Mood/Affect Skin: Normal Color, Warm/Dry Lymphatic: No Adenopathy A/P-Cardiology Admission Diagnosis Palpitation Congestive heart failure, acute on chronic left ventricular systolic dysfunction, nonischemic cardiomyopathy Paroxysmal atrial fibrillation Lymphedema Assessment/Plan Palpitation, probably episode of atrial fibrillation with rapid ventricular response, heart rate is better controlled. History of nonsustained ventricular tachycardia in the past, frequent PVCs. Continue to monitor Patient still in atrial fibrillation, continue to monitor Congestive heart failure, acute on chronic left ventricular systolic dysfunction with ejection fraction 40 to 45%. Nonischemic cardiomyopathy, responding to diuretics Monitor renal function closely Peripheral edema, chronic. History of venous insufficiency, was having his legs wrapped by his son History of chronic lymphedema, unable to tolerate diuretics in the past, using compression socks and wraps. Started on Lasix. Continue to monitor renal function closely. Acute renal insufficiency, slightly worsening after diuresis. Continue to monitor Paroxysmal atrial fibrillation, underlying bradycardia. Was on Toprol in the past and it was discontinued due to bradycardia. He is currently bradycardic, he is asymptomatic. If he becomes symptomatic I will consider pacemaker placement History of loop recorder implantation, reached end-of-life in 2019 that was extracted. Doing well. Coronary artery disease, Cardiac catheterization done in June 2014 showing nonobstructive disease. Cardiac catheterization was carried out on April 17, 2021 showing slow flow in the coronary system with no significant obstructive disease. Continue to monitor 2D echo was done on April 17, 2021 showing normal left ventricular size, mildly reduced systolic function, EF 40 to 45%, diffuse hypokinesia, left atrium 5.4 cm, moderate mitral regurgitation, aortic valve sclerosis, mild to moderate tricuspid regurgitation, PA pressure of 40 to 45 mmHg. Deep venous thrombosis, unprovoked, in the left calf, occurred April 2017, repeat ultrasound in October 2019 showed long segments of DVT on the right lower extremity, treated with Coumadin in the past, currently on Eliquis Nonsustained ventricular tachycardia noted during exercise stress test in June 2014. Holter monitor revealed episodes of nonsustained ventricular tachycardia area patient is maintained on Toprol-XL 50 mg. Started on amiodarone during the hospital stay in April 2021. Currently bradycardic, not taking amiodarone or Toprol and he is still bradycardic with a heart rate 44. I will continue monitoring Aortic valve stenosis, mild per echocardiogram done in July 2020 with aortic valve sclerosis. Normal LV function. Pulmonary hypertension with PA pressure 40 mmHg, improved, continue to monitor [id number] score is 2, yearly risk of stroke without oral anticoagulation is 2.2 percent. Currently on Eliquis 5 mg twice daily. Continue to Hypertension, good control, continue to monitor blood pressure/heart rate. Obesity, BMI is 32, we discussed weight loss and exercise PVCs, asymptomatic. Continue to monitor Obstructive sleep, patient uses CPAP. Mild bilateral carotid stenosis, last ultrasound was done in June 2020, I will evaluate carotid ultrasound History of basal and squamous cell skin carcinoma. Monitored by check embosser in [place]. Continue to monitor. Clinical Quality Measures AMI/AHF: ASA po Prior to arrival: No SMITA REBOLLAR MD September 29, 2021 08:18
[2021-09-29 08:31] VITALS: BP 164/90
[2021-09-29] MEDS: KCL 20 MEQ TAB (K-DUR) PO SCH (08:54)
[2021-09-29] MEDS ORDERED: APIXABAN 5 MG (ELIQUIS) TABLET PO SCH (09:00)
--- NOTE | 2021-09-29 09:34 | Discharge Summary ---
Diagnosis/Chief Complaint Date of Admission September 28, 2021 at 13:08 Date of Discharge Discharge Date: September 29, 2021 Admission Diagnosis Acutely decompensated systolic heart failure Primary Care Juliane Murphy MD Discharge Summary Discharge Physical Exam Allergies: Coded Allergies: Sulfa (Sulfonamide Antibiotics) (Unverified Allergy, Mild, N/V, 10/10/19) Vitals & I&Os Vital Signs Date Time Temp Pulse Resp B/P (MAP) Pulse Ox O2 Delivery O2 Flow Rate FiO2 09/29/21 08:31 164/90 (114) 09/29/21 08:00 37.0 70 20 97 Room Air 09/29/21 07:18 0.00 General Appearance: No Apparent Distress, Chronically ill Cardiovascular: Regular Rate, Rhythm, No Murmur Gastrointestinal: Normal Bowel Sounds, Non Tender, Soft Extremity: Swelling (3+ bilateral) Neurologic/Psychiatric: Alert, Oriented x3 Hospital Course Patient was admitted to the hospital secondary to acutely decompensated congestive heart failure. He was treated with IV Lasix and was diuresed 3-1/2 L. His symptoms improved. He was seen by his primary news commentator Dr. Mack who recommended continuing oral Lasix at home. He was discharged in stable improved condition to follow-up with Dr. Murphy. I did call and update Dr. Irais lund of this hospital stay. Labs (last 24 hrs) Laboratory Tests 09/28/21 12:21: White Blood Count 6.6, Red Blood Count 3.97L, Hemoglobin 10.6L, Hematocrit 34L, Mean Corpuscular Volume 87, Mean Corpuscular Hemoglobin 27, Mean Corpuscular Hemoglobin Concent 31L, Red Cell Distribution Width 14.6H, Platelet Count 237, Mean Platelet Volume 10.4, Immature Granulocyte % (Auto) 0, Neutrophils (%) (Auto) 59, Lymphocytes (%) (Auto) 24, Monocytes (%) (Auto) 14H, Eosinophils (%) (Auto) 2, Basophils (%) (Auto) 1, Neutrophils # (Auto) 3.9, Lymphocytes # (Auto) 1.6, Monocytes # (Auto) 0.9, Eosinophils # (Auto) 0.1, Basophils # (Auto) 0.1, Immature Granulocyte # (Auto) 0.0, Prothrombin Time 19.0H, INR Comment 1.5H, Activated Partial Thromboplast Time 31, Sodium Level 141, Potassium Level 3.8, Chloride Level 106, Carbon Dioxide Level 25, Anion Gap 10, Blood Urea Nitrogen 17, Creatinine 1.21, Estimat Glomerular Filtration Rate 61, BUN/Creatinine Ratio 14, Glucose Level 127H, Calcium Level 9.3, Corrected Calcium 9.5, Magnesium Level 1.6, Total Bilirubin 1.0, Aspartate Amino Transf (AST/SGOT) 20, Alanine Aminotransferase (ALT/SGPT) 10, Alkaline Phosphatase 124, Myoglobin 59.9, Troponin I 0.029H, B-Type Natriuretic Peptide 2279.3H, Total Protein 7.5, Albumin 3.8 09/29/21 05:30: Sodium Level 142, Potassium Level 3.9, Chloride Level 105, Carbon Dioxide Level 25, Anion Gap 12, Blood Urea Nitrogen 22H, Creatinine 1.33H, Estimat Glomerular Filtration Rate 55, BUN/Creatinine Ratio 17, Glucose Level 119H, Calcium Level 9.2, Triglycerides Level 52, Cholesterol Level 93, LDL Cholesterol Direct 42, VLDL Cholesterol 10, HDL Cholesterol 40 Patient resulted labs reviewed. Pending Labs Laboratory Tests 09/29/21 05:30: Sodium Level 142, Potassium Level 3.9, Chloride Level 105, Carbon Dioxide Level 25, Anion Gap 12, Blood Urea Nitrogen 22, Creatinine 1.33, Estimat Glomerular Filtration Rate 55, BUN/Creatinine Ratio 17, Glucose Level 119, Calcium Level 9.2, Triglycerides Level 52, Cholesterol Level 93, LDL Cholesterol Direct 42, VLDL Cholesterol 10, HDL Cholesterol 40 Imaging: Reviewed Imaging Report Discharge Home Medications: Active Scripts Active Lasix (Furosemide) 20 Mg Tablet 20 Mg PO DAILY Reported Tylenol Extra Strength (Acetaminophen) 500 Mg Tablet 500-1,000 Mg PO Q8H PRN Finasteride 5 Mg Tablet 5 Mg PO HS LAST FILLED 05-13-2021 #90/90 DAY SUPPLY Eliquis (Apixaban) 5 Mg Tablet 5 Mg PO BID LAST FILLED 04-08-2021 #180/90 DAY SUPPLY Allopurinol 300 Mg Tablet 300 Mg PO HS Atorvastatin Calcium 10 Mg Tablet 10 Mg PO HS Instructions to patient/family Please see electronic discharge instructions given to patient. Clinical Quality Measures AMI/AHF: ASA po Prior to arrival: No Copy Copies To 1: JULIANE MURPHY MD, KATELYN M MD September 29, 2021 09:34
[2021-09-29 11:14] VITALS: BP 151/88
--- NOTE | 2021-09-29 11:24 | Discharge Inst-Simple/Standard ---
Discharge Inst-Standard Discharge Medications New, Converted or Re-Newed RX: Transmitted to Pharmacy Patient Instructions/Follow Up Plan of Care/Instructions/FU: Please continue to take your medications as written. Please follow up with Dr Castano and Dr Martina ying up this hospital stay. Activity as Tolerated: Yes Discharge Diet: Low Sodium Diet Return to The Hospital For: Chest pain, shortness of breath, palpitations, increasing swelling, if you feel you are getting worse. JENNY LOPEZ MD September 29, 2021 11:24
[2021-09-29 12:20] VITALS: BP 151/88
[2021-09-29] MEDS ORDERED: ALLOPURINOL 300 MG (ZYLOPRIM) TAB PO SCH (21:00)
[2021-09-29] MEDS ORDERED: AtorvaSTATin TABLET 10 MG TABLET PO SCH (21:00)
[2021-09-29] MEDS ORDERED: FINASTERIDE (PROSCAR) 5 MG TAB PO SCH (21:00)
== END 2021-09-29 12:20 | disposition home or self-care (01) ==
LOC: EDUNIT# 12:12 → ER 12:13 → 4TH 13:08
PROVIDERS: ADMIT Family Medicine; ATTEND Family Medicine
DX: I13.0 Hypertensive heart and chronic kidney disease with heart failure and stage 1 through stage 4 chronic kidney disease, or unspecified chronic kidney disease (principal); I50.23 Acute on chronic systolic (congestive) heart failure; N18.31 Chronic kidney disease, stage 3a; I49.3 Ventricular premature depolarization; I48.0 Paroxysmal atrial fibrillation; I48.19 Other persistent atrial fibrillation; I27.20 Pulmonary hypertension, unspecified; I42.9 Cardiomyopathy, unspecified; E78.5 Hyperlipidemia, unspecified; E66.9 Obesity, unspecified; N40.0 Benign prostatic hyperplasia without lower urinary tract symptoms; I25.10 Atherosclerotic heart disease of native coronary artery without angina pectoris; I35.0 Nonrheumatic aortic (valve) stenosis; G47.33 Obstructive sleep apnea (adult) (pediatric); I65.23 Occlusion and stenosis of bilateral carotid arteries; Z68.21 Body mass index [BMI] 21.0-21.9, adult; Z79.01 Long term (current) use of anticoagulants; Z86.718 Personal history of other venous thrombosis and embolism; Z88.2 Allergy status to sulfonamides; Z82.49 Family history of ischemic heart disease and other diseases of the circulatory system; Z85.828 Personal history of other malignant neoplasm of skin
CPT/HCPCS: 36415; 71045; 80048; 80053; 80061; 83735; 83874; 83880; 84484; 85025; 85610; 85730; 93005; 93041; 94640; 94760; G0378

== ENCOUNTER 2021-10-30 15:41 | Emergency (ER) | payer MEDICARE ==
[~2021-10-30] VITALS: Ht 175.3 cm; Wt 104.3 kg
[~2021-10-30 15:41] MED LIST changes: +ACET-2267 PO; +FURO-125 PO
[2021-10-30 16:03] LABS: BASOPHILS # (AUTO) 0.1 10^3/uL (0.0-0.1); BASOPHILS % (AUTO) 1 % (0-10); EOSINOPHILS # (AUTO) 0.2 10^3/uL (0.0-0.3); EOSINOPHILS % (AUTO) 4 % (0-10); HEMATOCRIT 33 % (40-54); HEMOGLOBIN 10.2 g/dL (13.3-17.7); LYMPHOCYTES # (AUTO) 1.2 10^3/uL (1.0-4.0); LYMPHOCYTES % (AUTO) 21 % (12-44); MEAN CORPUSCULAR HEMOGLOBIN 25 pg (25-34); MEAN CORPUSCULAR HGB CONC 31 g/dL (32-36); MEAN CORPUSCULAR VOLUME 82 fL (80-99); MEAN PLATELET VOLUME 10.1 fL (9.0-12.2); MONOCYTES # (AUTO) 0.7 10^3/uL (0.0-1.0); MONOCYTES % (AUTO) 11 % (0-12); NEUTROPHILS # (AUTO) 3.7 10^3/uL (1.8-7.8); NEUTROPHILS % (AUTO) 63 % (42-75); PLATELET COUNT 201 10^3/uL (130-400)
[2021-10-30 16:09] LABS: ALBUMIN 3.5 GM/DL (3.2-4.5); POTASSIUM 4.3 MMOL/L (3.6-5.0)
[2021-10-30 16:10] LABS: CALCIUM 8.8 MG/DL (8.5-10.1)
[2021-10-30 16:13] LABS: BILIRUBIN,TOTAL 0.7 MG/DL (0.1-1.0)
[2021-10-30 16:15] LABS: CREATININE SERUM 1.5 MG/DL (0.60-1.30)
[2021-10-30 16:18] LABS: MAGNESIUM 1.8 MG/DL (1.6-2.4)
[2021-10-30 16:20] LABS: INR 1.6 (0.8-1.4)
--- NOTE | 2021-10-30 16:25 | Diagnostic Imaging Report ---
EXAMINATION: Chest 1 view HISTORY: Chest pain COMPARISON: 09/28/2021 FINDINGS: Stable enlargement of the cardiac silhouette. There are bilateral pleural effusions with atelectasis or consolidation within the mid and lower lungs bilaterally. No pneumothorax. Degenerative changes of the thoracic spine. Osseous structures are otherwise intact. IMPRESSION: 1. Stable cardiomegaly with bilateral pleural effusions. Stable bibasilar atelectasis or consolidation. Dictated by: Dictated on workstation # [id number]
[2021-10-30 17:14] LABS: BILIRUBIN,URINE NEGATIVE (NEGATIVE); CLARITY,URINE CLEAR; COLOR,URINE YELLOW; GLUCOSE, URINE (UA) NEGATIVE (NEGATIVE); KETONES,URINE NEGATIVE (NEGATIVE); LEUKOCYTE ESTERASE ,URINE NEGATIVE (NEGATIVE); NITRITE,URINE NEGATIVE (NEGATIVE); PH,URINE 5.5 (5-9); PROTEIN,URINE 1+ (NEGATIVE)
[2021-10-30 17:52] LABS: BACTERIA,URINE MODERATE /HPF; CALCIUM OXALATE CRYSTALS,UR FEW /LPF; HYALINE CASTS, URINE 0-2 /LPF; SQUAMOUS EPITHELIAL CELL,UR 0-2 /HPF; WBC,URINE 0-2 /HPF
[2021-10-30] MEDS ORDERED: CEFD300C3 PO (19:12)
--- NOTE | 2021-10-30 19:13 | ED General ---
General Chief Complaint: Cardiac/General Problems Stated Complaint: SOA Nursing Triage Note: PT BROUGHT IN BY [facility] FROM HOME WITH COMPLAINT OF WEAKNESS, SOA, AND PALPITATIONS. PT STATES STARTED THIS MORNING AROUND 9AM WITH PALPITATIONS. Source of Information: Patient, Family Exam Limitations: No Limitations History of Present Illness Date Seen by Provider: Oct 30, 2021 Time Seen by Provider: 15:56 Initial Comments This is 76-year-old gentleman presents to the emergency room via EMS with complaints of weakness, palpitations, and shortness of breath. He has no a ccompanied by his son. His constellation of symptoms are described and fairly vague terms. He describes some days having very little energy. He was also experiencing a vague discomfort in his chest with some palpitations. He has a history of systolic and diastolic heart failure, paroxysmal atrial fibrillation, and nonobstructive coronary artery disease as well as slow flow noted on heart cath in 2020. Vital signs are stable at this time and he is feeling better at present than he did earlier in the day. During review of systems, he does note some dribbling problems with urinary control. He does not feel like he is obstructing but he does take finasteride and sees Dr. Xie. Allergies and Home Medications Allergies Coded Allergies: Sulfa (Sulfonamide Antibiotics) (Unverified Allergy, Mild, N/V, 10/10/19) Patient Home Medication List Home Medication List Reviewed: Yes Acetaminophen (Tylenol Extra Strength) 500 Mg Tablet, 500-1,000 MG PO Q8H PRN for PAIN-MILD (1-4), (Reported) Entered as Reported by: KATHLEEN HANLEY on 09/28/21 1550 Allopurinol (Allopurinol) 300 Mg Tablet, 300 MG PO HS, (Reported) Entered as Reported by: KATHLEEN HANLEY on 09/28/21 1540 Apixaban (Eliquis) 5 Mg Tablet, 5 MG PO BID, (Reported) Entered as Reported by: KATHLEEN HANLEY on 09/28/21 1540 Atorvastatin Calcium (Atorvastatin Calcium) 10 Mg Tablet, 10 MG PO HS, (Reported) Entered as Reported by: KATHLEEN HANLEY on 09/28/21 1540 Cefdinir (Cefdinir) 300 Mg Capsule, 300 MG PO BID Prescribed by: YINA TENORIO on 10/30/211911 Finasteride (Finasteride) 5 Mg Tablet, 5 MG PO HS, (Reported) Entered as Reported by: KATHLEEN HANLEY on 09/28/21 1540 Furosemide (Lasix) 20 Mg Tablet, 20 MG PO DAILY Prescribed by: JENNY LOPEZ on 09/29/21 0817 Review of Systems Review of Systems Constitutional: see HPI EENTM: no symptoms reported Respiratory: see HPI Cardiovascular: see HPI Gastrointestinal: no symptoms reported Genitourinary: see HPI Musculoskeletal: no symptoms reported Skin: no symptoms reported Psychiatric/Neurological: No Symptoms Reported Hematologic/Lymphatic: No Symptoms Reported Immunological/Allergic: no symptoms reported Past Zblkkom-Ptiuov-Xnroon Hx Patient Social History Tobacco Use?: No Use of E-Cig and/or Vaping dev: No Substance use?: No Alcohol Use?: No Pt feels they are or have been: No Immunizations Up To Date Tetanus Booster (TDap): More than 5yrs PED Vaccines UTD: No First/Initial COVID19 Vaccinat: 08/06/20 Second COVID19 Vaccination Rayray: 09/04/20 Third COVID19 Vaccination Date: 08/06/20 Seasonal Allergies Seasonal Allergies: Yes Past Medical History Surgery/Hospitalization HX: Yes, CHF Surgeries: Yes (HERNIA REPAIR X 2;MULT SKIN CANCER REMOVALS; CARDIAC CATH; LINQ DEVICE ) Abdominal, Cardiac (Heart cath with no stenting, loop recorder), Tonsillectomy Respiratory: Yes Sleep Apnea Currently Using CPAP: Yes Cardiac: Yes (LINQ RECORDER; CARDIAC CATHS-NO INTERVENTION, systolic and diastolic CHF) Atrial Fibrillation (Paroxysmal), Chronic Edema/Swelling, Deep Vein Thrombosis, Hypertension Neurological: No Reproductive Disorders: No Sexually Transmitted Disease: No HIV/AIDS: No Genitourinary: Yes Benign Prostatic Hyperpl, Kidney Stones Gastrointestinal: Yes Gastroesophageal Reflux, Hiatal Hernia Musculoskeletal: No Endocrine: No (OBESITY) HEENT: Yes (GLASSES) Loss of Vision: Denies Hearing Impairment: Hard of Hearing Cancer: Yes Skin Did You Recieve Any Treatments: Yes What Type of Treatment Did You: Radiation, Surgical Intervention Psychosocial: No Integumentary: Yes (SKIN CANCERS ) Blood Disorders: No Adverse Reaction/Blood Tranf: No (N/A) Family Medical History Arthritis G8 BROTHER Cardiovascular disease 19 MOTHER (AFib) DVT G8 BROTHER FHx: respiratory disease G8 SISTER ADDITIONAL PSH: -EGD'S AND COLONOSCOPIES - Physical Exam Vital Signs Vital Signs - First Documented 10/30/21 15:46 Temp 36.4 Pulse 64 Resp 16 B/P (MAP) 157/107 (124) Pulse Ox 95 O2 Delivery Room Air Capillary Refill : Less Than 3 Seconds Height, Weight, BMI Height: 6'0" Weight: 275lbs. 0.0oz. 124.720662nh; 33.00 BMI Method:Stated General Appearance: No Apparent Distress, WD/WN HEENT: Normal ENT Inspection Neck: JVD Respiratory: No Accessory Muscle Use, No Respiratory Distress, Crackles (Faint in the bases) Cardiovascular: No Murmur, Irregularly Irregular (With controlled rate), Other (Significant pitting lower extremity edema equal bilaterally) Gastrointestinal: Non Tender, Soft Extremity: Normal Inspection, Pedal Edema, Swelling Neurologic/Psychiatric: Alert, Oriented x3, No Motor/Sensory Deficits, Normal Mood/Affect, iron caster II-XII Norm as Tested Skin: Normal Color, Warm/Dry Progress/Results/Core Measures Suspected Sepsis SIRS Temperature: Pulse: 64 Respiratory Rate: 16 Laboratory Tests 10/30/21 15:51: White Blood Count 6.0 Blood Pressure 157 /107 Mean: 124 Laboratory Tests 10/30/21 15:51: Creatinine 1.50H, INR Comment 1.6H, Platelet Count 201, Total Bilirubin 0.7 Results/Orders Lab Results Laboratory Tests Test 10/30/21 15:51 10/30/21 17:07 10/30/21 18:08 Range/Units White Blood Count 6.0 4.3-11.0 10^3/uL Red Blood Count 4.02 L 4.30-5.52 10^6/uL Hemoglobin 10.2 L 13.3-17.7 g/dL Hematocrit 33 L 40-54 % Mean Corpuscular Volume 82 80-99 fL Mean Corpuscular Hemoglobin 25 25-34 pg Mean Corpuscular Hemoglobin Concent 31 L 32-36 g/dL Red Cell Distribution Width 15.8 H 10.0-14.5 % Platelet Count 201 130-400 10^3/uL Mean Platelet Volume 10.1 9.0-12.2 fL Immature Granulocyte % (Auto) 0 % Neutrophils (%) (Auto) 63 42-75 % Lymphocytes (%) (Auto) 21 12-44 % Monocytes (%) (Auto) 11 0-12 % Eosinophils (%) (Auto) 4 0-10 % Basophils (%) (Auto) 1 0-10 % Neutrophils # (Auto) 3.7 1.8-7.8 10^3/uL Lymphocytes # (Auto) 1.2 1.0-4.0 10^3/uL Monocytes # (Auto) 0.7 0.0-1.0 10^3/uL Eosinophils # (Auto) 0.2 0.0-0.3 10^3/uL Basophils # (Auto) 0.1 0.0-0.1 10^3/uL Immature Granulocyte # (Auto) 0.0 0.0-0.1 10^3/uL Prothrombin Time 19.0 H 12.2-14.7 SEC INR Comment 1.6 H 0.8-1.4 Activated Partial Thromboplast Time 37 H 24-35 SEC Sodium Level 140 135-145 MMOL/L Potassium Level 4.3 3.6-5.0 MMOL/L Chloride Level 105 98-107 MMOL/L Carbon Dioxide Level 25 21-32 MMOL/L Anion Gap 10 5-14 MMOL/L Blood Urea Nitrogen 21 H 7-18 MG/DL Creatinine 1.50 H 0.60-1.30 MG/DL Estimat Glomerular Filtration Rate 47 BUN/Creatinine Ratio 14 Glucose Level 116 H 70-105 MG/DL Calcium Level 8.8 8.5-10.1 MG/DL Corrected Calcium 9.2 8.5-10.1 MG/DL Magnesium Level 1.8 1.6-2.4 MG/DL Total Bilirubin 0.7 0.1-1.0 MG/DL Aspartate Amino Transf (AST/SGOT) 22 5-34 U/L Alanine Aminotransferase (ALT/SGPT) 16 0-55 U/L Alkaline Phosphatase 134 40-136 U/L Myoglobin 46.1 10.0-92.0 NG/ML Troponin I 0.031 H 0.044 H <0.028 NG/ML C-Reactive Protein High Sensitivity 0.58 H 0.00-0.50 MG/DL B-Type Natriuretic Peptide 1216.0 H <100.0 PG/ML Total Protein 7.0 6.4-8.2 GM/DL Albumin 3.5 3.2-4.5 GM/DL Urine Color YELLOW Urine Clarity CLEAR Urine pH 5.5 5-9 Urine Specific Cedar >=1.030 1.016-1.022 Urine Protein 1+ H NEGATIVE Urine Glucose (UA) NEGATIVE NEGATIVE Urine Ketones NEGATIVE NEGATIVE Urine Nitrite NEGATIVE NEGATIVE Urine Bilirubin NEGATIVE NEGATIVE Urine Urobilinogen 0.2 < = 1.0 MG/DL Urine Leukocyte Esterase NEGATIVE NEGATIVE Urine RBC (Auto) NEGATIVE NEGATIVE Urine RBC NONE /HPF Urine WBC 0-2 /HPF Urine Squamous Epithelial Cells 0-2 /HPF Urine Crystals PRESENT H /LPF Urine Calcium Oxalate Crystals FEW H /LPF Urine Bacteria MODERATE H /HPF Urine Casts NONE /LPF Urine Hyaline Casts 0-2 H /LPF Urine Mucus SMALL H /LPF Urine Culture Indicated YES My Orders Orders - YINA MATTA MD Ekg Tracing (10/30/21 15:56) Monitor-Rhythm Ecg Trace Only (10/30/21 15:56) Cbc With Automated Diff (10/30/21 15:57) Magnesium (10/30/21 15:57) Chest 1 View, Ap/Pa Only (10/30/21 15:57) Comprehensive Metabolic Panel (10/30/21 15:57) Myoglobin Serum (10/30/21 15:57) Protime With Inr (10/30/21 15:57) Partial Thromboplastin Time (10/30/21 15:57) O2 (10/30/21 15:57) Ed Iv/Invasive Line Start (10/30/21 15:57) Troponin I [place] (10/30/21 15:57) Bnp Josh (10/30/21 15:57) Hs C Reactive Protein (10/30/21 15:57) Troponin I [place] (10/30/21 17:50) Ua Culture If Indicated (10/30/21 17:00) Urine Culture (10/30/21 17:07) Cefdinir Capsule (Omnicef Capsule) (10/30/21 19:15) Medications Given in ED Vital Signs/I&O 10/30/21 10/30/21 15:46 19:20 Temp 36.4 36.9 Pulse 64 45 Resp 16 20 B/P (MAP) 157/107 (124) 148/104 Pulse Ox 95 95 O2 Delivery Room Air Room Air Capillary Refill : Less Than 3 Seconds Blood Pressure Mean: 124 Progress Note : Progress Note Patient's vital signs remained stable. He is feeling relatively well compared to earlier in the day. Urinalysis revealed large bacteria but no WBC. Since he is having symptoms with the dribbling we will treat for urinary tract infection and await cultures. Creatinine is higher than on prior. He may be experiencing some acute renal insufficiency, particularly because weather has become hot and humid. He was advised to increase his oral intake of water. BNP was lower than prior suggesting his heart failure is under control. Troponin was elevated and repeated. If both troponins were within his range of usual chronic troponin elevation. He was not experiencing any chest pain. See discharge instructions for further discussion. ECG Initial ECG Impression Date: Oct 30, 2021 Initial ECG Impression Time: 16:05 Initial ECG Rate: 60 Initial ECG Rhythm: A Fib/Flutter Comment Chronic atrial fibrillation with premature complexes. No ST elevation or depression. Left axis deviation. Incomplete right bundle branch block. Diagnostic Imaging Diagonstic Imaging: Xray Plain Films/CT/US/NM/MRI: chest Comments NAME: CHETAN GARCIA MED REC#: [id number] PT STATUS: REG ER : 1945 PHYSICIAN: YINA MATTA MD ADMIT DATE: 10/30/21/ER Signed Date of Exam:10/30/21 CHEST 1 VIEW, AP/PA ONLY EXAMINATION: Chest 1 view HISTORY: Chest pain COMPARISON: 09/28/2021 FINDINGS: Stable enlargement of the cardiac silhouette. There are bilateral pleural effusions with atelectasis or consolidation within the mid and lower lungs bilaterally. No pneumothorax. Degenerative changes of the thoracic spine. Osseous structures are otherwise intact. IMPRESSION: 1. Stable cardiomegaly with bilateral pleural effusions. Stable bibasilar atelectasis or consolidation. Dictated by: Dictated on workstation # [id number] Dict: 10/30/21 1623 Trans: 10/30/211644 [facility] [id number] Interpreted by: ORLANDO NEUMANN DO Electronically signed by: ORLANDO NEUMANN DO 10/30/211 Departure Impression Primary Impression: Palpitations Additional Impressions: Urinary tract infection Qualified Codes: N39.0 - Urinary tract infection, site not specified Renal insufficiency Disposition: HOME, SELF-CARE Condition: Stable Departure-Patient Inst. Decision time for Depature: 19:11 Referrals: JULIANE MURPHY MD (PCP/Family) Primary Care Physician Patient Instructions: Urinary Tract Infection, Adult ED Add. Discharge Instructions: Increase your intake of noncaffeinated clear liquids, especially when the weather is hot and humid. Follow-up with your primary care provider or urologist on Tuesday to review urine culture results. Continue antibiotics until results of urine culture are known. 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 Return to the ER if you have worsening symptoms despite following these instructions. All discharge instructions reviewed with patient and/or family. Voiced un derstanding. Scripts Cefdinir (Cefdinir) 300 Mg Capsule 300 MG PO BID, #14 CAP Prov: YINA MATTA MD 10/30/21 Copy Copies To 1: JULIANE MURPHY MD Copies To 2: SMITA REBOLLAR MD, JOSHUA T MD Oct 30, 2021 19:13
[2021-10-30] MEDS ORDERED: CEFDINIR 300 MG (OMNICEF) CAP PO ONE (19:15)
[2021-10-30 19:20] VITALS: BP 148/104
== END 2021-10-30 19:25 | disposition home or self-care (01) ==
LOC: EDUNIT# 15:41 → ER 15:48
DX: R00.2 Palpitations (principal); N39.0 Urinary tract infection, site not specified; N28.9 Disorder of kidney and ureter, unspecified; I48.20 Chronic atrial fibrillation, unspecified; I45.10 Unspecified right bundle-branch block; R77.8 Other specified abnormalities of plasma proteins; G47.30 Sleep apnea, unspecified; E66.9 Obesity, unspecified; Z68.33 Body mass index [BMI] 33.0-33.9, adult; Z99.89 Dependence on other enabling machines and devices
CPT/HCPCS: 36415; 71045; 80053; 81000; 83735; 83874; 83880; 84484; 85025; 85610; 85730; 86141; 87088; 93005; 93041

== ENCOUNTER → 2021-11-09 | Outpatient (CLI) | payer MEDICARE ==
[~2021-11-09] MED LIST changes: +CEFD300C3 PO
[2021-11-09 17:37] LABS: POTASSIUM 4.2 MMOL/L (3.6-5.0)
[2021-11-09 17:43] LABS: CREATININE SERUM 1.5 MG/DL (0.60-1.30)
[2021-11-09 17:45] LABS: MAGNESIUM 1.8 MG/DL (1.6-2.4)
== END ==
LOC: LAB 17:03
PROVIDERS: ATTEND Internal Medicine
DX: I11.0 Hypertensive heart disease with heart failure (principal); I50.9 Heart failure, unspecified
CPT/HCPCS: 36415; 80048; 83735

== ENCOUNTER 2021-12-07 20:53 | Inpatient (IN) | payer MEDICARE ==
[~2021-12-07] VITALS: Ht 180 cm; Wt 123.2 kg
[2021-12-07] MEDS ORDERED: CEFEPIME INJECTION 1,000 MG in NS (IVPB) 50 ML IV ONE (21:00)
[2021-12-07] MEDS ORDERED: LACTATED RINGERS 1,000 ML IV ONE ×3 (21:00→23:45)
--- NOTE | 2021-12-07 21:09 | ED General ---
General Stated Complaint: FEVER Source of Information: Patient Exam Limitations: No Limitations History of Present Illness Date Seen by Provider: Dec 07, 2021 Time Seen by Provider: 20:45 Initial Comments The patient presents by EMS from home. Patient presents today with chief complaint of difficulty urinating, somnolence despite taking a nap this afterno on, weakness and a fever of 102.5. EMS established an IV in his left forearm. The patient has a history of heart failure, paroxysmal atrial fibrillation and nonobstructive coronary artery disease as well as slow flow noted on a heart cath in 2020. The patient was here 6 weeks ago with symptoms of UTI. Patient is on 2 L of oxygen supplementally at baseline. Allergies and Home Medications Allergies Coded Allergies: Sulfa (Sulfonamide Antibiotics) (Unverified Allergy, Mild, N/V, 10/10/19) Patient Home Medication List Home Medication List Reviewed: Yes Acetaminophen (Tylenol Extra Strength) 500 Mg Tablet, 500-1,000 MG PO Q8H PRN for PAIN-MILD (1-4), (Reported) Entered as Reported by: KATHLEEN HANLEY on 09/28/21 1550 Allopurinol (Allopurinol) 300 Mg Tablet, 300 MG PO HS, (Reported) Entered as Reported by: KATHLEEN HANLEY on 09/28/21 154 Apixaban (Eliquis) 5 Mg Tablet, 5 MG PO BID, (Reported) Entered as Reported by: KATHLEEN HANLEY on 09/28/21 154 Atorvastatin Calcium (Atorvastatin Calcium) 10 Mg Tablet, 10 MG PO HS, (Reported) Entered as Reported by: KATHLEEN HANLEY on 09/28/21 154 Cefdinir (Cefdinir) 300 Mg Capsule, 300 MG PO BID Prescribed by: YINA TENORIO on 10/30/211911 Finasteride (Finasteride) 5 Mg Tablet, 5 MG PO HS, (Reported) Entered as Reported by: KATHLEEN HANLEY on 09/28/21 154 Furosemide (Lasix) 20 Mg Tablet, 20 MG PO DAILY Prescribed by: JENNY TINOCO on 09/29/21 0817 Review of Systems Review of Systems Constitutional: No chills, No diaphoresis EENTM: No ear discharge, No ear pain Respiratory: No cough, No phlegm, No short of breath; wheezing Cardiovascular: No edema; Hx of Intervention; No palpitations, No vascular heart diseas Gastrointestinal: No abdominal pain, No constipation, No diarrhea Genitourinary: No discharge, No dysuria All Other Systems Reviewed Negative Unless Noted: Yes Past Hthenqm-Vrssdv-Kaksls Hx Patient Social History Tobacco Use?: No Use of E-Cig and/or Vaping dev: No Immunizations Up To Date Tetanus Booster (TDap): More than 5yrs PED Vaccines UTD: No First/Initial COVID19 Vaccinat: 08/06/20 Second COVID19 Vaccination Rayray: 09/04/20 Third COVID19 Vaccination Date: 08/06/20 Seasonal Allergies Seasonal Allergies: Yes Past Medical History Surgery/Hospitalization HX: Yes, CHF Surgeries: Yes (HERNIA REPAIR X 2;MULT SKIN CANCER REMOVALS; CARDIAC CATH; LINQ DEVICE ) Abdominal, Cardiac, Tonsillectomy Respiratory: Yes Sleep Apnea Currently Using CPAP: Yes Cardiac: Yes (LINQ RECORDER; CARDIAC CATHS-NO INTERVENTION, systolic and diastolic CHF) Atrial Fibrillation, Chronic Edema/Swelling, Deep Vein Thrombosis, Hypertension Neurological: No Reproductive Disorders: No Sexually Transmitted Disease: No HIV/AIDS: No Genitourinary: Yes Benign Prostatic Hyperpl, Kidney Stones Gastrointestinal: Yes Gastroesophageal Reflux, Hiatal Hernia Musculoskeletal: No Endocrine: No (OBESITY) HEENT: Yes (GLASSES) Loss of Vision: Denies Hearing Impairment: Hard of Hearing Cancer: Yes Skin Did You Recieve Any Treatments: Yes What Type of Treatment Did You: Radiation, Surgical Intervention Psychosocial: No Integumentary: Yes (SKIN CANCERS ) Blood Disorders: No Adverse Reaction/Blood Tranf: No (N/A) Family Medical History Arthritis G8 BROTHER Cardiovascular disease 19 MOTHER (AFib) DVT G8 BROTHER FHx: respiratory disease G8 SISTER ADDITIONAL PSH: -EGD'S AND COLONOSCOPIES - Physical Exam-Suspected Sepsis Physical Exam Vital Signs Vital Signs - First Documented 12/07/21 21:15 Temp 39.3 Pulse 111 Resp 20 B/P (MAP) 158/105 (122) Pulse Ox 90 O2 Delivery Room Air O2 Flow Rate 2.00 FiO2 90 Capillary Refill : Height, Weight, BMI Height: 6'0" Weight: 275lbs. 0.0oz. 124.345058yg; 33.00 BMI Method:Stated General Appearance: Mild Distress, Other (Disheveled, pants are soaking wet) Eyes: Bilateral Eye Normal Inspection, Bilateral Eye PERRL, Bilateral Eye EOMI HEENT: PERRL/EOMI; No Pharynx Normal (Dry oral mucosa), No Moist Mucous Membranes Neck: Full Range of Motion, Normal Inspection Respiratory: No Accessory Muscle Use, No Respiratory Distress, Wheezing (Right worse than left) Cardiovascular: No Murmur, Tachycardia (105), Other (2+ bipedal edema at baseline) Gastrointestinal: Normal Bowel Sounds, Non Tender, Soft Extremity: Normal Capillary Refill, Normal Inspection, Pedal Edema Neurologic/Psychiatric: Alert, Normal Mood/Affect, Other (Oriented to person but does not appropriately answer other questions.) Skin: normal color, warm/dry Focused Exam Lactate Level 12/07/21 21:05: Lactic Acid Level 2.37*H Lactic Acid Level Laboratory Tests Test 12/07/21 21:05 Lactic Acid Level 2.37 MMOL/L (0.50-2.00) *H Progress/Results/Core Measures Suspected Sepsis SIRS Temperature: Pulse: Respiratory Rate: Laboratory Tests 12/07/21 21:05: White Blood Count 14.0H Blood Pressure / Mean: 12/07/21 21:05: Lactic Acid Level 2.37*H Laboratory Tests 12/07/21 21:05: Creatinine 1.75H, INR Comment 1.6H, Platelet Count 209, Total Bilirubin 1.2H Results/Orders Lab Results Laboratory Tests Test 12/07/21 21:05 12/07/21 21:13 12/07/21 21:58 Range/Units White Blood Count 14.0 H 4.3-11.0 10^3/uL Red Blood Count 4.23 L 4.30-5.52 10^6/uL Hemoglobin 9.9 L 13.3-17.7 g/dL Hematocrit 33 L 40-54 % Mean Corpuscular Volume 78 L 80-99 fL Mean Corpuscular Hemoglobin 23 L 25-34 pg Mean Corpuscular Hemoglobin Concent 30 L 32-36 g/dL Red Cell Distribution Width 17.2 H 10.0-14.5 % Platelet Count 209 130-400 10^3/uL Mean Platelet Volume 10.2 9.0-12.2 fL Immature Granulocyte % (Auto) 1 % Neutrophils (%) (Auto) 88 H 42-75 % Lymphocytes (%) (Auto) 4 L 12-44 % Monocytes (%) (Auto) 6 0-12 % Eosinophils (%) (Auto) 1 0-10 % Basophils (%) (Auto) 0 0-10 % Neutrophils # (Auto) 12.3 H 1.8-7.8 10^3/uL Lymphocytes # (Auto) 0.6 L 1.0-4.0 10^3/uL Monocytes # (Auto) 0.9 0.0-1.0 10^3/uL Eosinophils # (Auto) 0.1 0.0-0.3 10^3/uL Basophils # (Auto) 0.0 0.0-0.1 10^3/uL Immature Granulocyte # (Auto) 0.1 0.0-0.1 10^3/uL Neutrophils % (Manual) 87 % Lymphocytes % (Manual) 7 % Monocytes % (Manual) 5 % Eosinophils % (Manual) 1 % Hypochromasia SLIGHT Poikilocytosis SLIGHT Prothrombin Time 19.7 H 12.2-14.7 SEC INR Comment 1.6 H 0.8-1.4 Activated Partial Thromboplast Time 33 24-35 SEC Sodium Level 140 135-145 MMOL/L Potassium Level 3.7 3.6-5.0 MMOL/L Chloride Level 102 98-107 MMOL/L Carbon Dioxide Level 24 21-32 MMOL/L Anion Gap 14 5-14 MMOL/L Blood Urea Nitrogen 32 H 7-18 MG/DL Creatinine 1.75 H 0.60-1.30 MG/DL Estimat Glomerular Filtration Rate 39 BUN/Creatinine Ratio 18 Glucose Level 112 H 70-105 MG/DL Lactic Acid Level 2.37 *H 0.50-2.00 MMOL/L Calcium Level 9.0 8.5-10.1 MG/DL Corrected Calcium 9.3 8.5-10.1 MG/DL Total Bilirubin 1.2 H 0.1-1.0 MG/DL Aspartate Amino Transf (AST/SGOT) 35 H 5-34 U/L Alanine Aminotransferase (ALT/SGPT) 22 0-55 U/L Alkaline Phosphatase 168 H 40-136 U/L Total Protein 7.5 6.4-8.2 GM/DL Albumin 3.6 3.2-4.5 GM/DL Urine Color YELLOW Urine Clarity CLEAR Urine pH 5.0 5-9 Urine Specific [place] 1.010 L 1.016-1.022 Urine Protein NEGATIVE NEGATIVE Urine Glucose (UA) NEGATIVE NEGATIVE Urine Ketones NEGATIVE NEGATIVE Urine Nitrite NEGATIVE NEGATIVE Urine Bilirubin NEGATIVE NEGATIVE Urine Urobilinogen 0.2 < = 1.0 MG/DL Urine Leukocyte Esterase 1+ H NEGATIVE Urine RBC (Auto) NEGATIVE NEGATIVE Urine RBC RARE /HPF Urine WBC RARE /HPF Urine Squamous Epithelial Cells RARE /HPF Urine Crystals NONE /LPF Urine Bacteria MODERATE H /HPF Urine Casts PRESENT /LPF Urine Hyaline Casts RARE /LPF Urine Mucus NEGATIVE /LPF Urine Culture Indicated CULTURE PENDING SARS-CoV-2 RNA (RT-PCR) Not Detected Not Detecte My Orders Orders - GUILLERMINA DUMONT Cbc With Automated Diff (12/07/21 20:59) Comprehensive Metabolic Panel (12/07/21 20:59) Blood Culture (12/07/21 20:59) Sputum Culture (12/07/21 20:59) Urinalysis (12/07/21 20:59) Urine Culture (12/07/21 20:59) Protime With Inr (12/07/21 20:59) Partial Thromboplastin Time (12/07/21 20:59) Chest 1 View, Ap/Pa Only (12/07/21 20:59) Ed Iv/Invasive Line Start (12/07/21 20:59) Ed Iv/Invasive Line Start (12/07/21 20:59) Vital Signs Adult Sepsis Patie Q15M (12/07/21 20:59) O2 (12/07/21 20:59) Remove Rings In Anticipation O (12/07/21 20:59) Lactic Acid Analyzer (12/07/21 20:59) Lactated Ringers (Lr 1000 Ml Iv Solution (12/07/21 21:00) Cefepime Injection (Maxipime Injection) (12/07/21 21:00) Ed Iv/Invasive Line Start (12/07/21 20:59) Lactated Ringers (Lr 1000 Ml Iv Solution (12/07/21 21:00) Covid 19 Inhouse Test (12/07/21 21:09) Albuterol/Ipra Inhalation Soln (Duoneb I (12/07/21 21:15) Svn Small Volume Nebulizer (12/07/21 21:09) Acetaminophen Tablet (Tylenol Tablet) (12/07/21 21:30) Manual Differential (12/07/21 21:05) Albuterol/Ipra Inhalation Soln (Duoneb I (12/07/21 21:28) Vancomycin Injection (Vancomycin Injecti (12/07/21 22:00) Medications Given in ED Current Medications Medications Dose Ordered Sig/Donna Route Start Time Stop Time Status Last Admin Dose Admin Acetaminophen 1,000 mg ONCE ONCE PO 12/07/21 21:30 12/07/21 21:31 DC 12/07/21 21:29 1,000 MG Albuterol/ Ipratropium 3 ml ONCE ONCE INH 12/07/21 21:15 12/07/21 21:16 DC 12/07/21 21:29 3 ML Cefepime HCl 1000 mg/Sodium Chloride 50 ml @ 100 mls/hr ONCE ONCE IV 12/07/21 21:00 12/07/21 21:29 DC 12/07/21 21:28 100 MLS/HR Lactated Ringer's 1,000 ml @ 0 mls/hr Q0M ONCE IV 12/07/21 21:00 12/07/21 21:07 DC 12/07/21 21:28 1,000 MLS/HR Vital Signs/I&O 12/07/21 12/07/21 12/07/21 12/07/21 21:15 21:15 21:15 21:37 Temp 39.3 39.3 Pulse 111 111 102 Resp 20 20 20 B/P (MAP) 158/105 (122) 158/105 128/89 Pulse Ox 90 95 98 O2 Delivery Room Air Room Air Nasal Cannula Nasal Cannula O2 Flow Rate 2.00 2.00 FiO2 90 12/07/21 22:39 O2 Delivery Nasal Cannula O2 Flow Rate 2.00 Capillary Refill : Progress Note : Time: 21:13 Progress Note Patient appears to have sepsis and we suspect again urinary symptoms would point to a urosepsis. He has some delirium on top of his dementia. We will start with 2 L based on an adjusted ideal body weight of 85 kg and cefepime. He is wheezy so we gave him a DuoNeb Diagnostic Imaging Diagonstic Imaging: Xray Plain Films/CT/US/NM/MRI: chest Comments NAME: CHETAN GARCIA MED REC#: [id number] PT STATUS: REG ER : 1945 PHYSICIAN: GUILLERMINA DUMONT MD ADMIT DATE: 12/07/21/ER Draft Date of Exam:12/07/21 CHEST 1 VIEW, AP/PA ONLY EXAMINATION: Chest 1 view HISTORY: Sepsis COMPARISON: 10/30/2021 FINDINGS: Heart is enlarged. There are moderate interstitial opacities and small pleural effusions. No pneumothorax. Loop recorder is present. IMPRESSION: 1. Moderate interstitial opacities and small pleural effusions most suggestive of edema. Dictated on workstation # [id number] Dict: 12/07/212145 Trans: 12/07/212155 [facility] [id number] Interpreted by: ESAU GARCES MD Electronically signed by: Reviewed: Reviewed by Me Departure Communication (Admissions) Time/Spoke to Admitting Phy: 22:05 2202: Left voicemail with Dr. Tinoco. 2305: Dr. Tinoco agrees to admit the patient with broad-spectrum antibiotics. Impression Primary Impression: Severe sepsis Additional Impressions: Pneumonia Qualified Codes: J18.9 - Pneumonia, unspecified organism Dehydration APRIL (acute kidney injury) Disposition: ADMITTED INPATIENT Condition: Stable Admissions Decision to Admit Reason: Admit from ER (General) Decision to Admit/Date: Dec 07, 2021 Time/Decision to Admit Time: 21:52 Departure-Patient Inst. Referrals: JULIANE MURPHY MD (PCP/Family) Primary Care Physician GUILLERMINA DUMONT Dec 07, 2021 21:09
[2021-12-07] MEDS ORDERED: RT-ALBUTEROL/IPRATROPIUM 3 ML (DUONEB) VIAL INH ONE (21:15)
[2021-12-07 21:16] LABS: BASOPHILS % (AUTO) 0 % (0-10); EOSINOPHILS # (AUTO) 0.1 10^3/uL (0.0-0.3); EOSINOPHILS % (AUTO) 1 % (0-10); HEMATOCRIT 33 % (40-54); HEMOGLOBIN 9.9 g/dL (13.3-17.7); LYMPHOCYTES # (AUTO) 0.6 10^3/uL (1.0-4.0); LYMPHOCYTES % (AUTO) 4 % (12-44); MEAN CORPUSCULAR HEMOGLOBIN 23 pg (25-34); MEAN CORPUSCULAR HGB CONC 30 g/dL (32-36); MEAN CORPUSCULAR VOLUME 78 fL (80-99); MEAN PLATELET VOLUME 10.2 fL (9.0-12.2); MONOCYTES # (AUTO) 0.9 10^3/uL (0.0-1.0); MONOCYTES % (AUTO) 6 % (0-12); NEUTROPHILS # (AUTO) 12.3 10^3/uL (1.8-7.8); NEUTROPHILS % (AUTO) 88 % (42-75); PLATELET COUNT 209 10^3/uL (130-400)
[2021-12-07 21:18] LABS: BILIRUBIN,URINE NEGATIVE (NEGATIVE); CLARITY,URINE CLEAR; COLOR,URINE YELLOW; GLUCOSE, URINE (UA) NEGATIVE (NEGATIVE); KETONES,URINE NEGATIVE (NEGATIVE); LEUKOCYTE ESTERASE ,URINE 1+ (NEGATIVE); NITRITE,URINE NEGATIVE (NEGATIVE); PROTEIN,URINE NEGATIVE (NEGATIVE)
[2021-12-07 21:26] LABS: BACTERIA,URINE MODERATE /HPF; HYALINE CASTS, URINE RARE /LPF; RBC,URINE RARE /HPF; SQUAMOUS EPITHELIAL CELL,UR RARE /HPF; WBC,URINE RARE /HPF
[2021-12-07 21:26] LABS: ALBUMIN 3.6 GM/DL (3.2-4.5); POTASSIUM 3.7 MMOL/L (3.6-5.0)
[2021-12-07] MEDS ORDERED: RT-ALBUTEROL/IPRATROPIUM 3 ML (DUONEB) VIAL ONE (21:28)
[2021-12-07 21:29] LABS: INR 1.6 (0.8-1.4); PROTHROMBIN TIME PATIENT 19.7 SEC (12.2-14.7); TOTAL PROTEIN 7.5 GM/DL (6.4-8.2)
[2021-12-07 21:30] LABS: BILIRUBIN,TOTAL 1.2 MG/DL (0.1-1.0)
[2021-12-07] MEDS ORDERED: ACETAMINOPHEN 500 MG TAB (TYLENOL) PO ONE (21:30)
[2021-12-07 21:32] LABS: CREATININE SERUM 1.75 MG/DL (0.60-1.30)
--- NOTE | 2021-12-07 21:56 | Diagnostic Imaging Report ---
EXAMINATION: Chest 1 view HISTORY: Sepsis COMPARISON: 10/30/2021 FINDINGS: Heart is enlarged. There are moderate interstitial opacities and small pleural effusions. No pneumothorax. Loop recorder is present. IMPRESSION: 1. Moderate interstitial opacities and small pleural effusions most suggestive of edema. Dictated by: Dictated on workstation # [id number]
[2021-12-07 22:01] LABS: EOSINOPHILS % (MANUAL) 1 %; HYPOCHROMASIA SLIGHT; LYMPHOCYTES % (MANUAL) 7 %; MONOCYTES % (MANUAL) 5 %; NEUTROPHILS % (MANUAL) 87 %; POIKILOCYTOSIS SLIGHT
[2021-12-07] MEDS: VANCOMYCIN INJECTION 1,000 MG in NS (IVPB) 250 ML IV SCH (22:24)
[2021-12-08] VITALS (36 sets, daily range): BP systolic 89–164; BP diastolic 48–105
[2021-12-08] MEDS ORDERED: RT-ALBUTEROL SULF 2.5 MG/3 ML PRE-MIX VIAL INH PRN (00:30)
[2021-12-08] MEDS ORDERED: ACETAMINOPHEN 325 MG TABLET PO PRN (00:45)
[2021-12-08] MEDS ORDERED: ONDANSETRON 4 MG/2 ML (SDV) Z0FRAN IV PRN (00:45)
[2021-12-08] MEDS ORDERED: LACTATED RINGERS 1,000 ML IV SCH (00:45)
[2021-12-08] MEDS ORDERED: VANCOMYCIN 1 GM/NS 250 ML IVPB IV ONE ×2 (03:00)
[2021-12-08] MEDS: CEFEPIME 1,000 MG/NS 50 ML IVPB IV SCH ×6 (05:35→21:13)
[2021-12-08 05:49] LABS: BASOPHILS # (AUTO) 0.1 10^3/uL (0.0-0.1); BASOPHILS % (AUTO) 0 % (0-10); EOSINOPHILS % (AUTO) 0 % (0-10); HEMATOCRIT 31 % (40-54); HEMOGLOBIN 9.5 g/dL (13.3-17.7); LYMPHOCYTES # (AUTO) 0.4 10^3/uL (1.0-4.0); LYMPHOCYTES % (AUTO) 2 % (12-44); MEAN CORPUSCULAR HEMOGLOBIN 24 pg (25-34); MEAN CORPUSCULAR HGB CONC 31 g/dL (32-36); MEAN CORPUSCULAR VOLUME 77 fL (80-99); MEAN PLATELET VOLUME 10.5 fL (9.0-12.2); MONOCYTES # (AUTO) 1.2 10^3/uL (0.0-1.0); MONOCYTES % (AUTO) 6 % (0-12); NEUTROPHILS # (AUTO) 19.2 10^3/uL (1.8-7.8); NEUTROPHILS % (AUTO) 91 % (42-75); PLATELET COUNT 168 10^3/uL (130-400)
[2021-12-08 05:57] LABS: POTASSIUM 3.7 MMOL/L (3.6-5.0)
[2021-12-08 05:59] LABS: CALCIUM 8.6 MG/DL (8.5-10.1)
[2021-12-08 06:03] LABS: CREATININE SERUM 1.78 MG/DL (0.60-1.30)
[2021-12-08] MEDS ORDERED: NS (IVPB) 50 ML ONE (06:27)
[2021-12-08] MEDS ORDERED: NOREPINEPHRINE 8 MG/250 ML 250 ML IV ONE (06:43)
[2021-12-08] MEDS ORDERED: NS IV 1000 ML 1,000 ML ONE ×2 (07:00→08:47)
--- NOTE | 2021-12-08 07:11 | History & Physical-Hospitalist ---
History of Present Illness HPI/Chief Complaint Pt is a 76yoCM known to me from previous admissions who presented to the emergency department due to weakness and fever. He was found to have pneumonia and meets severe sepsis criteria in the emergency department and was admitted for further management. He suffered a cardiac arrest around 6:00 this morning. Reportedly he had had blood work done at 530 on was his normal self and when the nurse checked on him it around 6 he was found unresponsive and pulseless. CPR was started and managed by the ER physician until my arrival. Prior to my arrival he had asystole and V. fib arrest x2. He responded to defibrillation and amiodarone. He achieved ROSC multiple times and seemed very sensitive to epinephrine and epinephrine drip was started. He was intubated by the ER. He was transferred to the ICU for further management I have attempted to call the family with no answer. Source: patient Date Seen 12/08/21 Time Seen by a Provider: 06:30 Attending Physician Cecilio Castano MD PCP Admitting Physician: Jenny Tinoco MD Attending Physician: Jenny Tinoco MD Referring Physician Date of Admission Dec 07, 2021 at 21:20 Home Medications & Allergies Home Medications Reviewed patient Home Medication Reconciliation performed by pharmacy medication reconciliations general service technician and/or nursing. Patients Allergies have been reviewed. Allergies Allergies Coded Allergies Sulfa (Sulfonamide Antibiotics) (Unverified Allergy, Mild, N/V, 10/10/19) Past Wnsyswh-Scylfu-Xekery Hx Patient Social History Employed/Student: retired Tobacco Use?: No Smoking Status: Never a Smoker Use of E-Cig and/or Vaping dev: No Substance use?: No Alcohol Use?: No Pt feels they are or have been: Unable to obtain Immunizations Up To Date Date of Influenza Vaccine: Apr 02, 2021 First/Initial COVID19 Vaccinat: 08/06/20 Second COVID19 Vaccination Rayray: 09/04/20 Tetanus Booster (TDap): Unknown PED Vaccines UTD: No Date of Pneumonia Vaccine: Jul 10, 2014 Seasonal Allergies Seasonal Allergies: Yes Current Status Advance Directives: Unable to obtain Communicates: Verbally Primary Language: Slovak Preferred Spoken Language: Slovak Past Medical History Surgeries: Abdominal, Cardiac, Tonsillectomy Sleep Apnea Currently Using CPAP: Yes Atrial Fibrillation, Chronic Edema/Swelling, Deep Vein Thrombosis, Hypertension Sexually Transmitted Disease: No HIV/AIDS: No Benign Prostatic Hyperpl, Kidney Stones Gastroesophageal Reflux, Hiatal Hernia Loss of Vision: Denies Hearing Impairment: Hard of Hearing Skin Did You Recieve Any Treatments: Yes What Type of Treatment Did You: Radiation, Surgical Intervention Blood Disorders: No Adverse Reaction/Blood Tranf: No (N/A) Family Medical History Reviewed Nursing Family Hx Arthritis G8 BROTHER Cardiovascular disease 19 MOTHER (AFib) DVT G8 BROTHER FHx: respiratory disease G8 SISTER ADDITIONAL PSH: -EGD'S AND COLONOSCOPIES - Review of Systems ROS-Unable to Obtain: unable to obtain due to clincal status Constitutional: see HPI Physical Exam Physical Exam Vital Signs Vital Signs - First Documented 12/07/21 21:15 Temp 39.3 Pulse 111 Resp 20 B/P (MAP) 158/105 (122) Pulse Ox 90 O2 Delivery Room Air O2 Flow Rate 2.00 FiO2 90 Capillary Refill : Less Than 3 Seconds Height, Weight, BMI Height: 6'0" Weight: 275lbs. 0.0oz. 124.718626on; 36.85 BMI Method:Stated General Appearance: Chronically ill, Obese, Other (unresponsive) HEENT: Moist Mucous Membranes Neck: Normal Inspection, Supple Respiratory: No Accessory Muscle Use, Decreased Breath Sounds; No Wheezing; Other (on vent) Cardiovascular: Regular Rate, Rhythm, No Murmur, Normal Peripheral Pulses Gastrointestinal: Normal Bowel Sounds, Non Tender, Soft Genital/Rectal: Other (greene in place) Extremity: Normal Capillary Refill, Pedal Edema, Swelling (3+ bilaterally) Neurologic/Psychiatric: Other (unresponsive, on vent) Skin: Normal Color, Warm/Dry; No Mottled Results Results/Procedures Labs Laboratory Tests 12/07/21 21:05 12/08/21 05:30 12/08/21 07:20 Patient resulted labs reviewed. Imaging: Reviewed Imaging Report Imaging [facility], [place] NAME: CHETAN GARCIA Sabrina MED REC#: [id number] PT STATUS: REG ER : 1945 PHYSICIAN: GUILLERMINA DUMONT MD ADMIT DATE: 12/07/21/ER Signed Date of Exam:12/07/21 CHEST 1 VIEW, AP/PA ONLY EXAMINATION: Chest 1 view HISTORY: Sepsis COMPARISON: 10/30/2021 FINDINGS: Heart is enlarged. There are moderate interstitial opacities and small pleural effusions. No pneumothorax. Loop recorder is present. IMPRESSION: 1. Moderate interstitial opacities and small pleural effusions most suggestive of edema. Dictated by: Dictated on workstation # [id number] Dict: 12/07/212145 Trans: 12/07/212233 [facility] [id number] Interpreted by: ESAU GARCES MD Electronically signed by: ESAU GARCES MD 12/07/212233 Assessment/Plan Admission Diagnosis Severe Sepsis Admission Status: Inpatient Order (span 2 midnights) Reason for Inpatient Admission: see below Assessment and Plan Cardiac arrest CAD CHF suffered cardiac arrest this morning at 610 asystole to v -fib arrest shocked x2 by ER Bolused with amiodarone ROSC achieved and lost multiple times, very dependent on epi Epi gtt ordered eICU updated General Surgery consulted for central line Anesthesia consult for art line Intubated by ER Both the nurse and I have attempted to call family multiple times with no answer Severe Sepsis Pneumonia Continue on IV abx Await cultures Leukocytosis up this AM before code, repeat labs pending APRIL on CKD 3 Baseline creatinine around 1.2, up to 1.7 IVF Trend creatinine, K normal Monitor UOP HLD BPH Obesity No acute needs Diagnosis/Problems Diagnosis/Problems (1) APRIL (acute kidney injury) Status: Acute (2) Severe sepsis Status: Acute (3) Pneumonia Status: Acute Qualifiers: Pneumonia type: due to unspecified organism Laterality: right Lung location: middle lobe of lung Qualified Codes: J18.9 - Pneumonia, unspecified organism (4) BPH (benign prostatic hyperplasia) Status: Chronic (5) Permanent atrial fibrillation Status: Chronic (6) Primary hypertension Status: Chronic (7) CHF (congestive heart failure) (8) HLD (hyperlipidemia) Status: Chronic (9) Obesity Status: Chronic JENNY TINOCO MD Dec 08, 2021 07:11
--- NOTE | 2021-12-08 07:26 | Anesthesia-Procedure Note ---
Procedures/Interventions Procedure Start/Stop/Diagnosis Date of Procedure: Dec 08, 2021 Start Time: 07:00 Stop Time: 07:05 Arterial Line Arterial Line Catheter: 20G Type: Radial Location: Right Procedure: prepped, draped in sterile fashion, good wave-form was obtained, patient tolerated procedure well, post procedure area cleaned, post procedure dressing applied JAYDEN BERRY CRNA Dec 08, 2021 07:26
[2021-12-08 07:28] LABS: BASOPHILS # (AUTO) 0.1 10^3/uL (0.0-0.1); BASOPHILS % (AUTO) 0 % (0-10); EOSINOPHILS % (AUTO) 0 % (0-10); HEMATOCRIT 31 % (40-54); HEMOGLOBIN 9.2 g/dL (13.3-17.7); LYMPHOCYTES % (AUTO) 8 % (12-44); MEAN CORPUSCULAR HEMOGLOBIN 24 pg (25-34); MEAN CORPUSCULAR HGB CONC 30 g/dL (32-36); MEAN CORPUSCULAR VOLUME 81 fL (80-99); MONOCYTES # (AUTO) 0.9 10^3/uL (0.0-1.0); MONOCYTES % (AUTO) 4 % (0-12); NEUTROPHILS # (AUTO) 21.4 10^3/uL (1.8-7.8); NEUTROPHILS % (AUTO) 85 % (42-75); PLATELET COUNT 178 10^3/uL (130-400); WHITE BLOOD COUNT 25.2 10^3/uL (4.3-11.0)
[2021-12-08] MEDS: EPINEPHrine 1 MG INJECTION 4 MG in NS (IVPB) 246 ML IV SCH ×2 (07:36→08:45)
[2021-12-08 07:56] LABS: ALBUMIN 2.9 GM/DL (3.2-4.5); BILIRUBIN,TOTAL 1.4 MG/DL (0.1-1.0); CREATININE SERUM 1.85 MG/DL (0.60-1.30); MAGNESIUM 1.9 MG/DL (1.6-2.4); PHOSPHORUS 6.6 MG/DL (2.3-4.7); POTASSIUM 3.4 MMOL/L (3.6-5.0); TOTAL PROTEIN 6.2 GM/DL (6.4-8.2)
[2021-12-08] MEDS ORDERED: RT-ALBUTEROL SULF 2.5 MG/3 ML PRE-MIX VIAL INH SCH (08:00)
--- NOTE | 2021-12-08 08:10 | Inpatient Code Blue ---
General Chief Complaint: Fever-Adult/Adol Stated Complaint: SEPSIS,PNA,APRIL,DEHYDRATION Nursing Triage Note: PT PRESENTS VIA EMS. EMS REPORT PTS SON CALLED THEM D/T PT HAVING A FEVER AND INCREASED CONFUSION AND LETHARGY THIS EVENING. REPORTS PT WAS RECENTLY TREATED FOR A UTI. PT IS POOR HISTORIAN. FEVER IS PRESENT. Source: RN/MD Exam Limitations: clinical condition History of Present Illness Date Seen by Provider: Dec 08, 2021 Time Seen by Provider: 06:12 Initial Comments Called emergently to room 4015 for CPR in progress. Patient is admitted for UTI with sepsis. Apparently had blood draw at 530 and has had antibiotics initiated. Nurse noted IV pump beeping and checked on the patient. He was responsive earlier but now is unresponsive and no pulse. CPR initiated and CODE BLUE called. On my arrival, CPR is in progress with RT bagging patient for respirations. Initial pulse check shows asystole. Allergies and Home Medications Allergies Coded Allergies: Sulfa (Sulfonamide Antibiotics) (Unverified Allergy, Mild, N/V, 10/10/19) Patient Home Medication List Home Medication List Reviewed: Yes Acetaminophen (Tylenol Extra Strength) 500 Mg Tablet, 500-1,000 MG PO Q8H PRN for PAIN-MILD (1-4), (Reported) Entered as Reported by: KATHLEEN HANLEY on 09/28/21 155 Allopurinol (Allopurinol) 300 Mg Tablet, 300 MG PO HS, (Reported) Entered as Reported by: KATHLEEN HANLEY on 09/28/21 1540 Apixaban (Eliquis) 5 Mg Tablet, 5 MG PO BID, (Reported) Entered as Reported by: KATHLEEN HANLEY on 09/28/21 1540 Atorvastatin Calcium (Atorvastatin Calcium) 10 Mg Tablet, 10 MG PO HS, (Reported) Entered as Reported by: KATHLEEN HANLEY on 09/28/21 1540 Cefdinir (Cefdinir) 300 Mg Capsule, 300 MG PO BID Prescribed by: YINA TENORIO on 10/30/211911 Finasteride (Finasteride) 5 Mg Tablet, 5 MG PO HS, (Reported) Entered as Reported by: KATHLEEN HANLEY on 09/28/21 1540 Furosemide (Lasix) 20 Mg Tablet, 20 MG PO DAILY Prescribed by: JENNY LOPEZ on 09/29/21 0817 Physical Exam Vital Signs Vital Signs - First Documented 12/07/21 21:15 Temp 39.3 Pulse 111 Resp 20 B/P (MAP) 158/105 (122) Pulse Ox 90 O2 Delivery Room Air O2 Flow Rate 2.00 FiO2 90 Capillary Refill : Less Than 3 Seconds Height, Weight, BMI Height: 6'0" Weight: 275lbs. 0.0oz. 124.565270hy; 36.85 BMI Method:Stated General Appearance: other (Unresponsive and pulseless) Respiratory: other (Ventilation via cbs-klezc-vuma. Postintubation with BVM and bilateral breath sounds that are coarse noted.) Cardiovascular: other (Pulseless) Skin: warm/dry Procedures/Interventions Date of ETT Placement: Dec 08, 2021 Time of ETT Placement: 635 Tube Size: 8.00 Positive End Tide CO2: Yes Breath Sounds after Intubation: bilateral-equal Intubation Complications: no complications Post Intubation Xray: Yes Tube in good position Critical Care Note Critical Care Start Time: 07:00 Stop Time: 07:05 Progress/Results/Core Measures Results/Orders Lab Results Laboratory Tests Test 12/07/21 21:05 12/07/21 21:13 12/07/21 21:58 12/08/21 00:20 Range/Units White Blood Count 14.0 H 4.3-11.0 10^3/uL Red Blood Count 4.23 L 4.30-5.52 10^6/uL Hemoglobin 9.9 L 13.3-17.7 g/dL Hematocrit 33 L 40-54 % Mean Corpuscular Volume 78 L 80-99 fL Mean Corpuscular Hemoglobin 23 L 25-34 pg Mean Corpuscular Hemoglobin Concent 30 L 32-36 g/dL Red Cell Distribution Width 17.2 H 10.0-14.5 % Platelet Count 209 130-400 10^3/uL Mean Platelet Volume 10.2 9.0-12.2 fL Immature Granulocyte % (Auto) 1 % Neutrophils (%) (Auto) 88 H 42-75 % Lymphocytes (%) (Auto) 4 L 12-44 % Monocytes (%) (Auto) 6 0-12 % Eosinophils (%) (Auto) 1 0-10 % Basophils (%) (Auto) 0 0-10 % Neutrophils # (Auto) 12.3 H 1.8-7.8 10^3/uL Lymphocytes # (Auto) 0.6 L 1.0-4.0 10^3/uL Monocytes # (Auto) 0.9 0.0-1.0 10^3/uL Eosinophils # (Auto) 0.1 0.0-0.3 10^3/uL Basophils # (Auto) 0.0 0.0-0.1 10^3/uL Immature Granulocyte # (Auto) 0.1 0.0-0.1 10^3/uL Neutrophils % (Manual) 87 % Lymphocytes % (Manual) 7 % Monocytes % (Manual) 5 % Eosinophils % (Manual) 1 % Hypochromasia SLIGHT Poikilocytosis SLIGHT Prothrombin Time 19.7 H 12.2-14.7 SEC INR Comment 1.6 H 0.8-1.4 Activated Partial Thromboplast Time 33 24-35 SEC Sodium Level 140 135-145 MMOL/L Potassium Level 3.7 3.6-5.0 MMOL/L Chloride Level 102 98-107 MMOL/L Carbon Dioxide Level 24 21-32 MMOL/L Anion Gap 14 5-14 MMOL/L Blood Urea Nitrogen 32 H 7-18 MG/DL Creatinine 1.75 H 0.60-1.30 MG/DL Estimat Glomerular Filtration Rate 39 BUN/Creatinine Ratio 18 Glucose Level 112 H 70-105 MG/DL Lactic Acid Level 2.37 *H 2.00 0.50-2.00 MMOL/L Calcium Level 9.0 8.5-10.1 MG/DL Corrected Calcium 9.3 8.5-10.1 MG/DL Total Bilirubin 1.2 H 0.1-1.0 MG/DL Aspartate Amino Transf (AST/SGOT) 35 H 5-34 U/L Alanine Aminotransferase (ALT/SGPT) 22 0-55 U/L Alkaline Phosphatase 168 H 40-136 U/L Total Protein 7.5 6.4-8.2 GM/DL Albumin 3.6 3.2-4.5 GM/DL Urine Color YELLOW Urine Clarity CLEAR Urine pH 5.0 5-9 Urine Specific Spearfish 1.010 L 1.016-1.022 Urine Protein NEGATIVE NEGATIVE Urine Glucose (UA) NEGATIVE NEGATIVE Urine Ketones NEGATIVE NEGATIVE Urine Nitrite NEGATIVE NEGATIVE Urine Bilirubin NEGATIVE NEGATIVE Urine Urobilinogen 0.2 < = 1.0 MG/DL Urine Leukocyte Esterase 1+ H NEGATIVE Urine RBC (Auto) NEGATIVE NEGATIVE Urine RBC RARE /HPF Urine WBC RARE /HPF Urine Squamous Epithelial Cells RARE /HPF Urine Crystals NONE /LPF Urine Bacteria MODERATE H /HPF Urine Casts PRESENT /LPF Urine Hyaline Casts RARE /LPF Urine Mucus NEGATIVE /LPF Urine Culture Indicated CULTURE PENDING SARS-CoV-2 RNA (RT-PCR) Not Detected Not Detecte Test 12/08/21 05:30 12/08/21 07:11 12/08/21 07:20 Range/Units White Blood Count 21.0 H 25.2 H 4.3-11.0 10^3/uL Red Blood Count 4.01 L 3.84 L 4.30-5.52 10^6/uL Hemoglobin 9.5 L 9.2 L 13.3-17.7 g/dL Hematocrit 31 L 31 L 40-54 % Mean Corpuscular Volume 77 L 81 80-99 fL Mean Corpuscular Hemoglobin 24 L 24 L 25-34 pg Mean Corpuscular Hemoglobin Concent 31 L 30 L 32-36 g/dL Red Cell Distribution Width 17.4 H 17.6 H 10.0-14.5 % Platelet Count 168 178 130-400 10^3/uL Mean Platelet Volume 10.5 11.0 9.0-12.2 fL Immature Granulocyte % (Auto) 1 3 % Neutrophils (%) (Auto) 91 H 85 H 42-75 % Lymphocytes (%) (Auto) 2 L 8 L 12-44 % Monocytes (%) (Auto) 6 4 0-12 % Eosinophils (%) (Auto) 0 0 0-10 % Basophils (%) (Auto) 0 0 0-10 % Neutrophils # (Auto) 19.2 H 21.4 H 1.8-7.8 10^3/uL Lymphocytes # (Auto) 0.4 L 2.0 1.0-4.0 10^3/uL Monocytes # (Auto) 1.2 H 0.9 0.0-1.0 10^3/uL Eosinophils # (Auto) 0.0 0.0 0.0-0.3 10^3/uL Basophils # (Auto) 0.1 0.1 0.0-0.1 10^3/uL Immature Granulocyte # (Auto) 0.2 H 0.8 H 0.0-0.1 10^3/uL Sodium Level 141 144 135-145 MMOL/L Potassium Level 3.7 3.4 L 3.6-5.0 MMOL/L Chloride Level 103 104 98-107 MMOL/L Carbon Dioxide Level 25 20 L 21-32 MMOL/L Anion Gap 13 20 H 5-14 MMOL/L Blood Urea Nitrogen 31 H 31 H 7-18 MG/DL Creatinine 1.78 H 1.85 H 0.60-1.30 MG/DL Estimat Glomerular Filtration Rate 39 37 BUN/Creatinine Ratio 17 17 Glucose Level 106 H 127 H 70-105 MG/DL Calcium Level 8.6 8.0 L 8.5-10.1 MG/DL Bedside Blood Gas pH (LAB) 7.095 *L 7.310-7.410 Bedside Blood Gas pCO2 (LAB) 80.1 *H 41.0-51.0 mmHg Bedside Blood Gas pO2 (LAB) 59 L 80-105 mmHg Bedside Blood Gas HCO3 (LAB) 24.6 23.0-28.0 mmol/L POC Blood Gas Total CO2 Calc 27 24-29 mmol/L Bedside Bl Gas O2 Saturation (Calc) 78 L 95-98 % Bedside Arterial Blood Base Excess -5 L -2-3 mmol/L Lactic Acid Level 8.14 *H 0.50-2.00 MMOL/L Corrected Calcium 8.9 8.5-10.1 MG/DL Phosphorus Level 6.6 H 2.3-4.7 MG/DL Magnesium Level 1.9 1.6-2.4 MG/DL Total Bilirubin 1.4 H 0.1-1.0 MG/DL Aspartate Amino Transf (AST/SGOT) 158 H 5-34 U/L Alanine Aminotransferase (ALT/SGPT) 88 H 0-55 U/L Alkaline Phosphatase 144 H 40-136 U/L Total Protein 6.2 L 6.4-8.2 GM/DL Albumin 2.9 L 3.2-4.5 GM/DL My Orders Orders - YONATHAN ONTIVEROS MD Chest 1 View, Ap/Pa Only (12/08/21 06:53) Cbc With Automated Diff (12/08/21 06:53) Comprehensive Metabolic Panel (12/08/21 06:53) Lactic Acid Analyzer (12/08/21 06:53) Magnesium (12/08/21 06:53) Phosphorus (12/08/21 06:53) Manual Differential (12/08/21 07:20) Medications Given in ED Current Medications Medications Dose Ordered Sig/Donna Route Start Time Stop Time Status Last Admin Dose Admin Acetaminophen 1,000 mg ONCE ONCE PO 12/07/21 21:30 12/07/21 21:31 DC 12/07/21 21:29 1,000 MG Albuterol/ Ipratropium 3 ml ONCE ONCE INH 12/07/21 21:15 12/07/21 21:16 DC 12/07/21 21:29 3 ML Cefepime HCl 1000 mg/Sodium Chloride 50 ml @ 100 mls/hr ONCE ONCE IV 12/07/21 21:00 12/07/21 21:29 DC 12/07/21 21:28 100 MLS/HR Lactated Ringer's 1,000 ml @ 0 mls/hr Q0M ONCE IV 12/07/21 21:00 12/07/21 21:07 DC 12/07/21 21:28 1,000 MLS/HR Norepinephrine Bitartrate 250 ml @ ud STK-MED ONCE IV 12/08/21 06:43 12/08/21 06:45 DC 12/08/21 07:38 11.3 MLS/HR Vancomycin HCl 1000 mg/Sodium Chloride 250 ml @ 250 mls/hr 0300 ONCE IV 12/08/21 03:00 12/08/21 03:59 DC 12/08/21 02:58 250 MLS/HR Vital Signs/I&O 12/07/21 12/07/21 12/07/21 12/07/21 21:15 21:15 21:15 21:37 Temp 39.3 39.3 Pulse 111 111 102 Resp 20 20 20 B/P (MAP) 158/105 (122) 158/105 128/89 Pulse Ox 90 95 98 O2 Delivery Room Air Room Air Nasal Cannula Nasal Cannula O2 Flow Rate 2.00 2.00 FiO2 90 12/07/21 12/07/21 12/07/21 12/08/21 22:39 23:14 23:23 00:00 Temp 38.3 Pulse 79 Resp 18 B/P (MAP) 159/87 Pulse Ox 96 95 O2 Delivery Nasal Cannula Nasal Cannula Nasal Cannula O2 Flow Rate 2.00 2.00 2.00 12/08/21 12/08/21 12/08/21 12/08/21 00:00 00:15 03:22 07:01 Temp 38.0 39.3 37.6 Pulse 89 111 70 90 Resp 20 20 B/P (MAP) 164/87 (112) 128/75 (92) Pulse Ox 95 94 94 O2 Delivery Nasal Cannula Nasal Cannula O2 Flow Rate 2.00 2.00 FiO2 28 12/08/21 12/08/21 07:17 07:38 Pulse 75 Resp 20 B/P (MAP) 135/69 Pulse Ox 90 FiO2 100 12/08/21 00:00 Intake Total 50 ml Balance 50 ml Blood Pressure Mean: 91 Progress Progress Note : Progress Note Arrived at bedside at 0612. CPR in progress. No pulse noted and compressions continued. 0614: We did have pulse check and asystole was noted on the monitor. We did initiate epinephrine 1 mg IV. 0618: Patient has remained in asystole on this pulse check, V. fib noted and and we initiated defibrillation and 120 J followed by 1 mg of epinephrine and 100 mg of lidocaine with CPR continued. 0620: Pulse checks noted ventricular fibrillation. Defibrillation at 200 J and CPR continued. 0622: Patient noted to have return of spontaneous circulation. Attending physician called and is in route. 0627: Patient has lost pulse and we have continued compressions. Epinephrine 1 mg IV given as well as 300 mg of amiodarone. 0629: Patient is in PEA. Sodium bicarb 1 amp IV given. 0631: Dr. Lopez is at bedside. Epinephrine 1 mg IV given for continued PEA. 0633: We did have return of spontaneous circulation. Levophed initiated 0.2 mcg/kg/min. Patient intubated with 8.0 ET tube by me using direct laryngoscopy. Initially placed at 26 cm at the teeth but backed to 25 cm at the teeth with good bilateral breath sounds and color change noted. 0637: No pulse and compressions restarted. Epinephrine 1 mg IV given. 0642 patient was given 1 mg of epinephrine IV and 1 amp of bicarbonate. We will continue Levophed which has been increased to 0.5 mcg/kg/min and he will have epidural initiated. Patient to go to ICU. Care transferred to Dr. Lopez who has assumed care. Patient with heart rate in the 70s to 80s and O2 sats in the 90s with blood pressure 80/49 at transfer of care. Diagnosis: Cardiopulmonary arrest with spontaneous return of circulation. Persistent respiratory failure Diagnostic Imaging Diagonstic Imaging: Xray Plain Films/CT/US/NM/MRI: chest Comments ET tube in good position. OG tube extends below the diaphragm. Central line has been placed subsequently. Infiltrates bilateral. No obvious pneumothorax. Reviewed by me. Time of Consult: 07:20 Reviewed: Reviewed by YONATHAN Guzmán MD Dec 08, 2021 08:10
--- NOTE | 2021-12-08 08:15 | Diagnostic Imaging Report ---
INDICATION: Tube placement. COMPARISON: 12/07/2021 TECHNIQUE: Single radiograph of the chest dated 12/08/2021 FINDINGS: Interval placement of endotracheal tube with the distal tip overlying the tracheal air column above the level of the madisyn just inferior to the clavicular heads. Interval placement of a right IJ central venous catheter with the distal tip overlying near the cavoatrial junction. Loop recorder is again seen overlying left chest. The cardiac silhouette is enlarged, similar to the prior examination. Central pulmonary vascular congestion is present. Diffuse predominantly interstitial opacities are again identified, appearing similar to the prior examination. This is associated with slightly worsening small right basilar pleural effusion. No pneumothorax. Osseous structures appear stable. IMPRESSION: Placement of lines and tubes as described above. Slightly worsening small right basilar pleural effusion with persistent bilateral interstitial infiltrate versus edema. Persistent cardiomegaly with mild central pulmonary vascular congestion. Dictated by: Dictated on workstation # [id number]
[2021-12-08 08:34] LABS: BAND NEUTROPHILS 14 %; BASOPHILS % (MANUAL) 0 %; EOSINOPHILS % (MANUAL) 0 %; HYPOCHROMASIA SLIGHT; LYMPHOCYTES % (MANUAL) 13 %; MONOCYTES % (MANUAL) 5 %; MYELOCYTES % 1 %; NEUTROPHILS % (MANUAL) 67 %
--- NOTE | 2021-12-08 08:48 | Tele-ICU Consult ---
History of Present Illness History of Present Illness Date Seen by Provider: Dec 08, 2021 Time Seen by Provider: 08:48 Date of Admission (Tele-ICU Physician , consultation) Available chart/ vitals / labs / Images reviewed H&P is from ER notes Patient's information available about PMH, Shx, Fhx allergy reviewed inEMR. ROS as per chart and RN report Video assessment done using teleICU camera, rest of exam as per RN Discussed with RN. VENT SETTINGS and ABG reviewed Sedation: RASS Not candidate for SBTContraindications : Cardiovascular Stability /Sedation Score / FI02/PEEP / ABG / CXR Consultants: Hospital course: (12/07) 76 y/o male admitted in ED to floor d/t sepsis- pna, urosepsis, de hydration, april. (12/08) pt. had cardiac arrest from the floor. Transferred to ICU- also had a brief cardiac arrest/cpr/acls done/rosc obtained. A/P S/p card arrest - PEA / asystoly / vfib - 2 shocks - ROSC - etiology not clear now ( ? 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 discussed with Dr Lopez Discussed with RN to reach out if any questions or concerns A total of 40 minutes of critical care time was devoted to this patient today, required to treat and/or prevent further deterioration of critical care condition ( as above ) . Allergies and Home Medications Allergies Coded Allergies: Sulfa (Sulfonamide Antibiotics) (Unverified Allergy, Mild, N/V, 10/10/19) Home Medications Acetaminophen 500 Mg Tablet, 500-1,000 MG PO Q8H PRN for PAIN-MILD (1-4), (Reported) Allopurinol 300 Mg Tablet, 300 MG PO HS, (Reported) Apixaban 5 Mg Tablet, 5 MG PO BID, (Reported) LAST FILLED 04-08-2021 #180/90 DAY SUPPLY Atorvastatin Calcium 10 Mg Tablet, 10 MG PO HS, (Reported) Cefdinir 300 Mg Capsule, 300 MG PO BID Prescribed by: YINA TENORIO on 10/30/211911 Finasteride 5 Mg Tablet, 5 MG PO HS, (Reported) LAST FILLED 05-13-2021 #90/90 DAY SUPPLY Furosemide 20 Mg Tablet, 20 MG PO DAILY Prescribed by: JENNY LOPEZ on 09/29/21 0817 Past Medical/Social/Family Hx Patient Social History Employed/Student: retired Tobacco Use?: No Smoking Status: Never a Smoker Use of E-Cig and/or Vaping dev: No Substance use?: No Alcohol Use?: No Pt stated abuse/neglect: Unable to obtain Immunizations Up To Date Influenza Vaccine Up-to-Date: No; Not Current First/Initial COVID19 Vaccinat: 08/06/20 Second COVID19 Vaccination Rayray: 09/04/20 Tetanus Booster (TDap): Unknown Date of Pneumonia Vaccine: Jul 10, 2014 Current Status Advance Directives: Unable to obtain Communicates: Verbally Primary Language: Tanzanian Preferred Spoken Language: Tanzanian Family Medical History Family Hx: ADDITIONAL PSH: -EGD'S AND COLONOSCOPIES - Review of Systems Constitutional: see HPI Focused Exam Lactate Level 12/07/21 21:05: Lactic Acid Level 2.37*H 12/08/21 00:20: Lactic Acid Level 2.00 12/08/21 07:20: Lactic Acid Level 8.14*H Height, Weight, BMI Height: 6'0" Weight: 275lbs. 0.0oz. 124.730560vq; 36.85 BMI Method:Stated Lactic Acid Level Laboratory Tests Test 12/08/21 07:20 Lactic Acid Level 8.14 MMOL/L (0.50-2.00) *H Exam Exam Patient acknowledged, consented, and participated in this virtual visit which was conducted using real time audio/video Vital Signs Date Time Temp Pulse Resp B/P (MAP) Pulse Ox O2 Delivery O2 Flow Rate FiO2 12/08/21 08:00 36.7 12/08/21 08:00 77 22 138/76 (96) 100 Mechanical Ventilator 100.00 12/08/21 07:45 77 20 126/71 (89) 80 Mechanical Ventilator 100.00 12/08/21 07:38 135/69 12/08/21 07:30 78 20 146/73 (97) 100 Mechanical Ventilator 100.00 12/08/21 07:17 75 20 90 100 12/08/21 07:15 81 20 105/55 (72) 89 Mechanical Ventilator 100.00 12/08/21 07:01 90 12/08/21 07:00 90 26 118/72 (87) 86 Mechanical Ventilator 100.00 12/08/21 03:22 37.6 70 20 128/75 (92) 94 Nasal Cannula 2.00 12/08/21 00:15 39.3 111 94 28 12/08/21 00:00 38.0 89 20 164/87 (112) 95 Nasal Cannula 2.00 12/08/21 00:00 95 Nasal Cannula 2.00 12/07/21 23:23 38.3 12/07/21 23:14 79 18 159/87 96 Nasal Cannula 2.00 12/07/21 22:39 Nasal Cannula 2.00 12/07/21 21:37 102 20 128/89 98 Nasal Cannula 2.00 12/07/21 21:15 39.3 111 20 158/105 95 Nasal Cannula 2.00 12/07/21 21:15 Room Air 90 12/07/21 21:15 39.3 111 20 158/105 (122) 90 Room Air I & O 12/08/21 07:00 Intake Total 100 ml Output Total 350 ml Balance -250 ml Height & Weight Height: 6'0" Weight: 275lbs. 0.0oz. 124.594091iw; 36.85 BMI Method:Stated General Appearance: No Apparent Distress, Chronically ill, Obese, Other (un responsive) HEENT: Moist Mucous Membranes Neck: Normal Inspection, Supple Respiratory: No Accessory Muscle Use, Decreased Breath Sounds; No Wheezing; Other (on vent) Cardiovascular: Regular Rate, Rhythm, No Murmur, Normal Peripheral Pulses Capillary Refill: Less Than 3 Seconds Extremity: Normal Capillary Refill, Pedal Edema, Swelling (3+ bilaterally) Neurologic/Psychiatric: Other (unresponsive, on vent) Skin: Normal Color, Warm/Dry; No Mottled Results Lab Laboratory Tests 12/07/21 21:05 12/08/21 05:30 12/08/21 07:20 Assessment/Plan Assessment/Plan 1 JULIA POTTER MD Dec 08, 2021 08:48
[2021-12-08] MEDS: PANTOPRAZOLE 40 MG (PROTONIX) VIAL IVP SCH (08:58)
[2021-12-08] MEDS: fentaNYL INJ 100 MCG/2 ML AMP IVP PRN ×3 (09:17→12:52)
[2021-12-08] MEDS: NOREPINEPHRINE 8 MG/250 ML 250 ML IV SCH (09:18)
[2021-12-08] MEDS ORDERED: LIDOCAINE BOLUS 100 MG/5 ML (IMS) SYR INJ ONE (09:55)
[2021-12-08] MEDS ORDERED: D5W 250 ML (EXCEL) BAG IV ONE (09:55)
[2021-12-08] MEDS ORDERED: SODIUM BICARB 8.4% 50 MEQ/50 ML (ABBOTT) SYR INJ ONE (09:55)
[2021-12-08] MEDS ORDERED: CATHETER FLUSH 10 ML SYR IVP ONE (09:55)
[2021-12-08] MEDS ORDERED: NS 1000 ML IV BAG IV ONE (09:55)
[2021-12-08] MEDS ORDERED: AMIODARONE (BOLUS) 150 MG/3 ML IV ONE (09:55)
[2021-12-08] MEDS ORDERED: AMIODARONE 450 MG/9 ML (CORDARONE) VIAL IV ONE (09:55)
[2021-12-08] MEDS ORDERED: EPINEPHrine 0.1 MG/ML 10 ML (HOSPIRA) SYR INJ ONE ×2 (09:55→18:41)
--- NOTE | 2021-12-08 10:33 | Diagnostic Imaging Report ---
Clinical indications: Patient is status post ICD cardiac arrest. Exam: Axial CT scan of the brain without IV contrast with coronal and sagittal reformatted images. Auto Exposure Controls were utilized during the CT exam to meet ALARA standards for radiation dose reduction. Comparison: MRI of the brain without contrast dated 07/24/2021. Head CT without and with IV contrast dated 07/10/2014. Findings: There is skull streak artifact and dental streak artifact obscuring portions of the posterior fossa, and portions of the brain and skull base. Fleming-white matter distinction is not well delineated on this exam which may be related to imaging technique or true loss of fleming-white matter distinction. There is no evidence of intracranial hemorrhage, brain herniation or midline shift. There is no hydrocephalus. There is brain parenchymal volume loss seen. Basal cisterns are unremarkable. There is a small mucus retention cyst or polyp involving the left maxillary sinus. There is a small air-fluid level in right maxillary sinus. The remainder of the paranasal sinuses are clear. Mastoid air cells are clear. IMPRESSION: 1: The fleming-white matter distinction is not well delineated on this exam. Unable to determine if this is due to CT technique versus global hypoxic ischemia. MRI of the brain would better evaluate. Otherwise follow-up head CT would help evaluate for evolution or stability. 2: Otherwise, there are age-related brain parenchymal changes with no intracranial hemorrhage, brain herniation or midline shift. There is no hydrocephalus. Dictated by: Dictated on workstation # [id number]
[2021-12-08] MEDS: NS IV SCH ×2 (10:58→21:14)
[2021-12-08] MEDS: EPINEPHRINE IV SCH ×2 (10:58→21:14)
--- NOTE | 2021-12-08 11:58 | Diagnostic Imaging Report ---
PROCEDURE: US Venous Lower Ext Paco. TECHNIQUE: Multiple real-time grayscale images were obtained over the lower extremities in various projections, bilaterally. Additional duplex Doppler and color Doppler images were also obtained. INDICATION: Swelling and pain COMPARISON: 10/15/2019 FINDINGS: Internal echoes, eccentric flow, and lack of compression is noted within the mid right superficial femoral vein extending through the right popliteal vein. Otherwise, normal flow, compression, and augmentation within the deep visualized structures of the left lower extremity with normal flow within the remainder of the right lower extremity. IMPRESSION: Nonocclusive thrombus within the right superficial femoral vein extending through the right popliteal vein. This is of uncertain chronicity. No evidence of deep venous thrombosis within the left lower extremity. Dictated by: Dictated on workstation # [id number]
[2021-12-08] MEDS ORDERED: AMIO200T65 PO (12:08)
[2021-12-08] MEDS ORDERED: TORS20TA3 PO (12:08)
[2021-12-08] MEDS ORDERED: NS IV 1000 ML 1,000 ML IV SCH (12:15)
[2021-12-08] MEDS ORDERED: HEParin 1000 UNIT/ML (10ML VIAL) FOR BOLUS IV SCH (12:45)
[2021-12-08] MEDS ORDERED: HEParin DRIP 25000 UNIT/500ML 500 ML IV SCH (12:45)
[2021-12-08] MEDS ORDERED: HEParin 1000 UNIT/ML (10ML VIAL) FOR BOLUS ONE (12:54)
[2021-12-08 12:55] LABS: HEMATOCRIT 29 % (40-54); HEMOGLOBIN 8.6 g/dL (13.3-17.7); MEAN CORPUSCULAR HEMOGLOBIN 24 pg (25-34); MEAN CORPUSCULAR HGB CONC 30 g/dL (32-36); MEAN CORPUSCULAR VOLUME 81 fL (80-99); MEAN PLATELET VOLUME 10.4 fL (9.0-12.2); PLATELET COUNT 180 10^3/uL (130-400); WHITE BLOOD COUNT 17.9 10^3/uL (4.3-11.0)
[2021-12-08] MEDS ORDERED: HEParin DRIP 25000 UNIT/500ML 500 ML IV ONE (12:55)
[2021-12-08 13:06] LABS: INR 2.6 (0.8-1.4)
[2021-12-08 13:09] LABS: CALCIUM 7.9 MG/DL (8.5-10.1); CREATININE SERUM 2.1 MG/DL (0.60-1.30); POTASSIUM 3.3 MMOL/L (3.6-5.0)
[2021-12-08] MEDS ORDERED: fentaNYL DRIP PRE-MIX 250 ML IV ONE (13:11)
[2021-12-08] MEDS: fentaNYL DRIP PRE-MIX 250 ML IV SCH (13:12)
[2021-12-08] MEDS: RT-ALBUTEROL SULF 2.5 MG/3 ML PRE-MIX VIAL INH SCH ×3 (14:12→21:38)
--- NOTE | 2021-12-08 14:13 | Consultation - Surgery ---
History of Present Illness History of Present Illness Patient Consulted On(vijay/time) 12/08/21 14:08 Date Seen by Provider: Dec 08, 2021 Time Seen by Provider: 07:52 History of Present Illness Consult requested by Dr Lopez for post cardiac arrest with ROSC, poor venous access. Patient is a 76 year old male who was admitted for pneumonia and severe sepsis. He went to ED for evaluation due to weakness and fever. Patient had cardiac arrest had ROSC and was transferred to ICU. Patient is currently intubated. Not able to provide any information and family not able to be reached so far. Allergies and Home Medications Allergies Coded Allergies: Sulfa (Sulfonamide Antibiotics) (Unverified Allergy, Mild, N/V, 10/10/19) Patient Home Medication List Home Medication List Reviewed: Yes Allopurinol (Allopurinol) 300 Mg Tablet, 300 MG PO HS, (Reported) Entered as Reported by: KATHLEEN HANLEY on 09/28/211539 Last Action: Reviewed Amiodarone HCl (Amiodarone HCl) 200 Mg Tablet, 200 MG PO HS, (Reported) Entered as Reported by: KATHLEEN HANLEY on 12/08/211207 Last Action: Reviewed Apixaban (Eliquis) 5 Mg Tablet, 5 MG PO BID, (Reported) Entered as Reported by: KATHLEEN HANLEY on 09/28/211539 Last Action: Reviewed Atorvastatin Calcium (Atorvastatin Calcium) 10 Mg Tablet, 10 MG PO HS, (Reported) Entered as Reported by: KATHLEEN HANLEY on 09/28/211539 Last Action: Reviewed Finasteride (Finasteride) 5 Mg Tablet, 5 MG PO HS, (Reported) Entered as Reported by: KATHLEEN HANLEY on 09/28/211539 Last Action: Reviewed Torsemide (Torsemide) 20 Mg Tablet, 20 MG PO DAILY, (Reported) Entered as Reported by: KATHLEEN HANLEY on 12/08/211207 Last Action: Reviewed Discontinued Medications Acetaminophen (Tylenol Extra Strength) 500 Mg Tablet, 500-1,000 MG PO Q8H PRN for PAIN-MILD (1-4), (Reported) Discontinued Reason: No Longer Taking Entered as Reported by: KATHLEEN HANLEY on 09/28/211549 Last Action: Discontinued Cefdinir (Cefdinir) 300 Mg Capsule, 300 MG PO BID Discontinued Reason: Duplicate Order Prescribed by: YINA TENORIO on 10/30/211911 Last Action: Discontinued Furosemide (Lasix) 20 Mg Tablet, 20 MG PO DAILY Discontinued Reason: No Longer Taking Prescribed by: JENNY LOPEZ on 09/29/21816 Last Action: Discontinued Past Heltunl-Bthkcu-Dirivw Hx Patient Social History Smoking Status: Never a Smoker 2nd Hand Smoke Exposure: No Recent Hopitalizations: No Alcohol Use?: No Have you traveled recently?: Unable to obtain Immunizations Up To Date Tetanus Booster (TDap): More than 5yrs PED Vaccines UTD: No Date of Pneumonia Vaccine: Jul 10, 2014 Date of Influenza Vaccine: Apr 02, 2021 Seasonal Allergies Seasonal Allergies: Yes Surgeries History of Surgeries: Yes (HERNIA REPAIR X 2;MULT SKIN CANCER REMOVALS; CARDIAC CATH; LINQ DEVICE ) Surgeries: Abdominal, Cardiac, Tonsillectomy Respiratory History of Respiratory Disorde: Yes Respiratory Disorders: Sleep Apnea Cardiovascular History of Cardiac Disorders: Yes (LINQ RECORDER; CARDIAC CATHS-NO INTERVENTION, systolic and diastolic CHF) Cardiac Disorders: Atrial Fibrillation, Chronic Edema/Swelling, Deep Vein Thrombosis, Hypertension Neurological History of Neurological Disord: No Reproductive System Hx Reproductive Disorders: No Sexually Transmitted Disease: No HIV/AIDS: No Genitourinary History of Genitourinary Disor: Yes Genitourinary Disorders: Benign Prostatic Hyperpl, Kidney Stones Gastrointestinal History of Gastrointestinal Di: Yes Gastrointestinal Disorders: Gastroesophageal Reflux, Hiatal Hernia Musculoskeletal History of Musculoskeletal Dis: No Endocrine History of Endocrine Disorders: No (OBESITY) HEENT History of HEENT Disorders: Yes (GLASSES) Loss of Vision: Denies Hearing Impairment: Hard of Hearing Cancer History of Cancer: Yes Cancer: Skin Psychosocial History of Psychiatric Problem: No Integumentary History of Skin or Integumenta: Yes (SKIN CANCERS ) Blood Transfusions History of Blood Disorders: No Adverse Reaction to a Blood Tr: No (N/A) Reviewed Nursing Assessment Reviewed/Agree w Nursing PMH: Yes Family Medical History Significant Family History: No Pertinent Family Hx Family Medial History: Arthritis G8 BROTHER Cardiovascular disease 19 MOTHER (AFib) DVT G8 BROTHER FHx: respiratory disease G8 SISTER Review of Systems-General ROS-Unable to Obtain: intubated not able to obtain Physical Exam-General Problems Physical Exam Vital Signs Vital Signs - First Documented 12/07/21 21:15 Temp 39.3 Pulse 111 Resp 20 B/P (MAP) 158/105 (122) Pulse Ox 90 O2 Delivery Room Air O2 Flow Rate 2.00 FiO2 90 Capillary Refill : Less Than 3 Seconds General Appearance: other (intubated, unable to respond or any purposeful movement) HEENT: normal ENT inspection; No scleral icterus (L), No pale conjunctivae (R) Neck: supple, normal inspection Respiratory: other (equal chest rise, on ventilator) Cardiovascular: regular rate, rhythm, no JVD Gastrointestinal: non tender, soft Rectal: deferred Back: no CVA tenderness, no vertebral tenderness Extremities: non-tender, normal inspection Neurologic/Psychiatric: No alert, No oriented x 3; other (intubated not sedated does not have any movement purposeful currently.) Skin: normal color, warm/dry Lymphatic: no adenopathy Data Review Labs Laboratory Tests 12/07/21 21:05: White Blood Count 14.0H, Red Blood Count 4.23L, Hemoglobin 9.9L, Hematocrit 33L, Mean Corpuscular Volume 78L, Mean Corpuscular Hemoglobin 23L, Mean Corpuscular Hemoglobin Concent 30L, Red Cell Distribution Width 17.2H, Platelet Count 209, Mean Platelet Volume 10.2, Immature Granulocyte % (Auto) 1, Neutrophils (%) (Auto) 88H, Lymphocytes (%) (Auto) 4L, Monocytes (%) (Auto) 6, Eosinophils (%) (Auto) 1, Basophils (%) (Auto) 0, Neutrophils # (Auto) 12.3H, Lymphocytes # (Auto) 0.6L, Monocytes # (Auto) 0.9, Eosinophils # (Auto) 0.1, Basophils # (Auto) 0.0, Immature Granulocyte # (Auto) 0.1, Neutrophils % (Manual) 87, Lymphocytes % (Manual) 7, Monocytes % (Manual) 5, Eosinophils % (Manual) 1, Hypochromasia SLIGHT, Poikilocytosis SLIGHT, Prothrombin Time 19.7H, INR Comment 1.6H, Activated Partial Thromboplast Time 33, Sodium Level 140, Potassium Level 3.7, Chloride Level 102, Carbon Dioxide Level 24, Anion Gap 14, Blood Urea Nitrogen 32H, Creatinine 1.75H, Estimat Glomerular Filtration Rate 39, BUN/Creatinine Ratio 18, Glucose Level 112H, Lactic Acid Level 2.37*H, Calcium Level 9.0, Corrected Calcium 9.3, Total Bilirubin 1.2H, Aspartate Amino Transf (AST/SGOT) 35H, Alanine Aminotransferase (ALT/SGPT) 22, Alkaline Phosphatase 168H, Total Protein 7.5, Albumin 3.6 12/07/21 21:13: Urine Color YELLOW, Urine Clarity CLEAR, Urine pH 5.0, Urine Specific [place] 1.010L, Urine Protein NEGATIVE, Urine Glucose (UA) NEGATIVE, Urine Ketones NEGATIVE, Urine Nitrite NEGATIVE, Urine Bilirubin NEGATIVE, Urine Urobilinogen 0.2, Urine Leukocyte Esterase 1+H, Urine RBC (Auto) NEGATIVE, Urine RBC RARE, Urine WBC RARE, Urine Squamous Epithelial Cells RARE, Urine Crystals NONE, Urine Bacteria MODERATEH, Urine Casts PRESENT, Urine Hyaline Casts RARE, Urine Mucus NEGATIVE, Urine Culture Indicated CULTURE PENDING 12/07/21 21:58: SARS-CoV-2 RNA (RT-PCR) Not Detected 12/08/21 00:20: Lactic Acid Level 2.00 12/08/21 05:30: White Blood Count 21.0H, Red Blood Count 4.01L, Hemoglobin 9.5L, Hematocrit 31L, Mean Corpuscular Volume 77L, Mean Corpuscular Hemoglobin 24L, Mean Corpuscular Hemoglobin Concent 31L, Red Cell Distribution Width 17.4H, Platelet Count 168, Mean Platelet Volume 10.5, Immature Granulocyte % (Auto) 1, Neutrophils (%) (Auto) 91H, Lymphocytes (%) (Auto) 2L, Monocytes (%) (Auto) 6, Eosinophils (%) (Auto) 0, Basophils (%) (Auto) 0, Neutrophils # (Auto) 19.2H, Lymphocytes # (Auto) 0.4L, Monocytes # (Auto) 1.2H, Eosinophils # (Auto) 0.0, Basophils # (Auto) 0.1, Immature Granulocyte # (Auto) 0.2H, Sodium Level 141, Potassium Level 3.7, Chloride Level 103, Carbon Dioxide Level 25, Anion Gap 13, Blood Urea Nitrogen 31H, Creatinine 1.78H, Estimat Glomerular Filtration Rate 39, BUN/Creatinine Ratio 17, Glucose Level 106H, Calcium Level 8.6 12/08/21 07:11: Bedside Blood Gas pH (LAB) 7.095*L, Bedside Blood Gas pCO2 (LAB) 80.1*H, Bedside Blood Gas pO2 (LAB) 59L, Bedside Blood Gas HCO3 (LAB) 24.6, POC Blood Gas Total CO2 Calc 27, Bedside Bl Gas O2 Saturation (Calc) 78L, Bedside Arterial Blood Base Excess -5L 12/08/21 07:20: White Blood Count 25.2H, Red Blood Count 3.84L, Hemoglobin 9.2L, Hematocrit 31L, Mean Corpuscular Volume 81, Mean Corpuscular Hemoglobin 24L, Mean Corpuscular Hemoglobin Concent 30L, Red Cell Distribution Width 17.6H, Platelet Count 178, Mean Platelet Volume 11.0, Immature Granulocyte % (Auto) 3, Neutrophils (%) (Auto) 85H, Lymphocytes (%) (Auto) 8L, Monocytes (%) (Auto) 4, Eosinophils (%) (Auto) 0, Basophils (%) (Auto) 0, Neutrophils # (Auto) 21.4H, Lymphocytes # (Auto) 2.0, Monocytes # (Auto) 0.9, Eosinophils # (Auto) 0.0, Basophils # (Auto) 0.1, Immature Granulocyte # (Auto) 0.8H, Sodium Level 144, Potassium Level 3.4L, Chloride Level 104, Carbon Dioxide Level 20L, Anion Gap 20H, Blood Urea Nitrogen 31H, Creatinine 1.85H, Estimat Glomerular Filtration Rate 37, BUN/Creatinine Ratio 17, Glucose Level 127H, Calcium Level 8.0L, Neutrophils % (Manual) 67, Lymphocytes % (Manual) 13, Monocytes % (Manual) 5, Eosinophils % (Manual) 0, Basophils % (Manual) 0, Myelocytes % 1, Band Neutrophils 14, Hypochromasia SLIGHT, Lactic Acid Level 8.14*H, Corrected Calcium 8.9, Phosphorus Level 6.6H, Magnesium Level 1.9, Total Bilirubin 1.4H, Aspartate Amino Transf (AST/SGOT) 158H, Alanine Aminotransferase (ALT/SGPT) 88H, Alkaline Phosphatase 144H, Total Protein 6.2L, Albumin 2.9L 12/08/21 09:20: Lactic Acid Level 11.58*H 12/08/21 09:34: Bedside Blood Gas pH (LAB) 7.330, Bedside Blood Gas pCO2 (LAB) 33.8L, Bedside Blood Gas pO2 (LAB) 301H, Bedside Blood Gas HCO3 (LAB) 17.8*L, POC Blood Gas Total CO2 Calc 19L, Bedside Bl Gas O2 Saturation (Calc) 100H, Bedside Arterial Blood Base Excess -8L 12/08/21 11:50: Lactic Acid Level 12.87*H 12/08/21 12:40: White Blood Count 17.9H, Red Blood Count 3.62L, Hemoglobin 8.6L, Hematocrit 29L, Mean Corpuscular Volume 81, Mean Corpuscular Hemoglobin 24L, Mean Corpuscular Hemoglobin Concent 30L, Red Cell Distribution Width 17.4H, Platelet Count 180, Mean Platelet Volume 10.4, Prothrombin Time 28.0H, INR Comment 2.6H, Activated Partial Thromboplast Time 38H, Sodium Level 144, Potassium Level 3.3L, Chloride Level 106, Carbon Dioxide Level 14L, Anion Gap 24H, Blood Urea Nitrogen 34H, Creatinine 2.10H, Estimat Glomerular Filtration Rate 32, BUN/Creatinine Ratio 16, Glucose Level 84, Calcium Level 7.9L Microbiology 12/07/21 Blood Culture - Preliminary, Resulted Gram Positive Cocci In Chains Assessment/Plan Assessment/Plan Assessment/Plan cardiac arrest with ROSC Severe sepsis secondary to pneumonia poor venous access Placed central line emergently chest x ray to follow. will sign off, call if needed. PROCEDURE: RIGHT IJ U/s Guided Central line placement. Right neck prepped and draped in sterile fashion. u/s used to locate the right IJ vein. Local anesthetic 3 mL placed. Using U/s guidance the right IJ vein accessed. Guide wire inserted. 11 Blade scalpel used to make skin incision. Dilator advanced over wire and removed. Triple lumen catheter advanced over the wire and wire removed. Secured with 3-0 silk suture. All ports accessed and flushed without difficulty. Area washed and dried in sterile fashion. Sterile bandage applied. Chest x ray pending. AMBROCIO MARTINEZ DO Dec 08, 2021 14:13
[2021-12-08] MEDS: VANCOMYCIN INJECTION 1,750 MG in NS IV 500 ML 500 ML IV SCH (14:26)
[2021-12-08] MEDS: NS IV 1000 ML 1,000 ML IV ONE ×2 (15:18→15:25)
[2021-12-08] MEDS: POTASSIUM CL 10MEQ/50ML IVPB 50 ML IV SCH ×4 (16:17→20:23)
[2021-12-08 17:37] LABS: POTASSIUM 3.7 MMOL/L (3.6-5.0)
[2021-12-08 17:38] LABS: CALCIUM 7.9 MG/DL (8.5-10.1)
[2021-12-08 17:42] LABS: CREATININE SERUM 2.34 MG/DL (0.60-1.30)
[2021-12-08] MEDS ORDERED: ETOMIDATE IV SOLN 20 MG/10 ML VIAL IV ONE (18:41)
[2021-12-08] MEDS ORDERED: SUCCINYLCHOLINE INJ 100 MG/5 ML SYR/VIAL INJ ONE (18:41)
[2021-12-08] MEDS ORDERED: ATROPINE INJECTION 1 MG/10 ML SYR (ABBOTT) INJ ONE (18:41)
[2021-12-08] MEDS: VANCOMYCIN INJECTION 1,000 MG in NS (IVPB) 250 ML IV SCH (20:22)
[2021-12-08] MEDS: NYSTATIN OINTMENT 30 GM TUBE TOP SCH (20:24)
[2021-12-08] MEDS: PROPOFOL DRIP (ICU) 100 ML IV SCH (21:14)
[2021-12-08 21:30] LABS: BASOPHILS % (AUTO) 0 % (0-10); EOSINOPHILS % (AUTO) 0 % (0-10); HEMATOCRIT 29 % (40-54); HEMOGLOBIN 8.6 g/dL (13.3-17.7); LYMPHOCYTES # (AUTO) 0.5 10^3/uL (1.0-4.0); LYMPHOCYTES % (AUTO) 3 % (12-44); MEAN CORPUSCULAR HEMOGLOBIN 23 pg (25-34); MEAN CORPUSCULAR HGB CONC 30 g/dL (32-36); MEAN CORPUSCULAR VOLUME 78 fL (80-99); MEAN PLATELET VOLUME 11.3 fL (9.0-12.2); MONOCYTES # (AUTO) 0.9 10^3/uL (0.0-1.0); MONOCYTES % (AUTO) 4 % (0-12); NEUTROPHILS # (AUTO) 18.9 10^3/uL (1.8-7.8); NEUTROPHILS % (AUTO) 92 % (42-75); PLATELET COUNT 184 10^3/uL (130-400); WHITE BLOOD COUNT 20.5 10^3/uL (4.3-11.0)
[2021-12-08 22:01] LABS: ACANTHOCYTES MODERATE; BAND NEUTROPHILS 7 %; HYPOCHROMASIA MARKED; LYMPHOCYTES % (MANUAL) 1 %; MONOCYTES % (MANUAL) 2 %; NEUTROPHILS % (MANUAL) 90 %
[2021-12-09] VITALS (23 sets, daily range): BP systolic 102–152; BP diastolic 43–68
[2021-12-09] MEDS: fentaNYL DRIP PRE-MIX 250 ML IV SCH (00:04)
[2021-12-09] MEDS: NOREPINEPHRINE 8 MG/250 ML 250 ML IV SCH ×2 (00:05→17:46)
[2021-12-09] MEDS: RT-ALBUTEROL SULF 2.5 MG/3 ML PRE-MIX VIAL INH SCH ×5 (01:38→18:41)
[2021-12-09] MEDS: PROPOFOL DRIP (ICU) 100 ML IV SCH ×3 (02:50→17:46)
[2021-12-09 02:54] LABS: BASOPHILS % (AUTO) 0 % (0-10); EOSINOPHILS # (AUTO) 0.1 10^3/uL (0.0-0.3); EOSINOPHILS % (AUTO) 1 % (0-10); HEMATOCRIT 27 % (40-54); HEMOGLOBIN 8.2 g/dL (13.3-17.7); LYMPHOCYTES # (AUTO) 0.7 10^3/uL (1.0-4.0); LYMPHOCYTES % (AUTO) 3 % (12-44); MEAN CORPUSCULAR HEMOGLOBIN 24 pg (25-34); MEAN CORPUSCULAR HGB CONC 31 g/dL (32-36); MEAN CORPUSCULAR VOLUME 78 fL (80-99); MEAN PLATELET VOLUME 10.5 fL (9.0-12.2); MONOCYTES # (AUTO) 1.2 10^3/uL (0.0-1.0); MONOCYTES % (AUTO) 6 % (0-12); NEUTROPHILS # (AUTO) 19.7 10^3/uL (1.8-7.8); NEUTROPHILS % (AUTO) 90 % (42-75); PLATELET COUNT 174 10^3/uL (130-400)
[2021-12-09 03:09] LABS: POTASSIUM 3.7 MMOL/L (3.6-5.0)
[2021-12-09 03:10] LABS: CALCIUM 7.8 MG/DL (8.5-10.1)
[2021-12-09 03:14] LABS: CREATININE SERUM 2.71 MG/DL (0.60-1.30); PHOSPHORUS 4.4 MG/DL (2.3-4.7)
[2021-12-09 03:17] LABS: MAGNESIUM 1.5 MG/DL (1.6-2.4)
[2021-12-09] MEDS ORDERED: MAGNESIUM 1 GM/100 ML IVPB 100 ML IV SCH (06:00)
[2021-12-09] MEDS ORDERED: POTASSIUM CL 10MEQ/50ML IVPB 50 ML IV SCH (06:00)
[2021-12-09] MEDS ORDERED: KCL 20 MEQ TAB (K-DUR) PO SCH (06:00)
[2021-12-09] MEDS: CEFEPIME 1,000 MG/NS 50 ML IVPB IV SCH ×4 (06:22→16:09)
--- NOTE | 2021-12-09 06:42 | Occ Therapy Progress Note ---
Therapy Progress Note OT orders received. OT to monitor pt's status and will initiate treatment when pt is medically stable and able to actively participate in skilled therapy. HANH REED Dec 09, 2021 06:42
--- NOTE | 2021-12-09 07:59 | Physical Therapy Progress Note ---
Therapy Progress Note Patient transferred to ICU and on ventilator. PT will need new orders to evaluate when appropriate and patient can participate. SHIN RAMOS PT Dec 09, 2021 07:59
[2021-12-09] MEDS: EPINEPHRINE IV SCH (08:25)
[2021-12-09] MEDS: NS IV SCH (08:25)
--- NOTE | 2021-12-09 08:53 | Progress Note - Hospitalist ---
Subjective HPI/CC On Admission Date Seen by Provider: Dec 09, 2021 Pt is a 76yoCM known to me from previous admissions who presented to the emergency department due to weakness and fever. He was found to have pneumonia and meets severe sepsis criteria in the emergency department and was admitted for further management. He suffered a cardiac arrest around 6:00 this morning. Reportedly he had had blood work done at 530 on was his normal self and when the nurse checked on him it around 6 he was found unresponsive and pulseless. CPR was started and managed by the ER physician until my arrival. Prior to my arrival he had asystole and V. fib arrest x2. He responded to defibrillation and amiodarone. He achieved ROSC multiple times and seemed very sensitive to epinephrine and epinephrine drip was started. He was intubated by the ER. He was transferred to the ICU for further management I have attempted to call the family with no answer. Subjective/Events-last exam Pt remains intubated and sedated. Focused Exam Lactate Level 12/09/21 00:15: Lactic Acid Level 7.81*H 12/09/21 02:40: Lactic Acid Level 6.71*H 12/09/21 06:10: Lactic Acid Level 5.02*H Lactic Acid Level Objective Exam Vital Signs Vital Signs Date Time Temp Pulse Resp B/P (MAP) Pulse Ox O2 Delivery O2 Flow Rate FiO2 12/09/21 14:47 88 16 96 30 12/09/21 11:00 129/52 (77) Mechanical Ventilator 30.00 12/09/21 08:00 36.6 Capillary Refill : Less Than 3 Seconds General Appearance: Chronically ill Respiratory: No Respiratory Distress, Decreased Breath Sounds Cardiovascular: Regular Rate, Rhythm, No Murmur Gastrointestinal: Normal Bowel Sounds, Non Tender, Soft Genital/Rectal: Other (greene) Extremity: Pedal Edema Neurologic/Psychiatric: Other (intubated, unrespsonsive) Results/Procedures Lab Laboratory Tests 12/08/21 17:20 12/08/21 21:15 12/09/21 02:40 Patient resulted labs reviewed. Imaging: Reviewed Imaging Report Assessment/Plan Assessment and Plan Assess & Plan/Chief Complaint Cardiac arrest Acute hypercapnic respiratory failure CAD CHF atrial fibrillation Anoxic brain injury suffered cardiac arrest morning on 12/08 asystole to v -fib arrest shocked x2 then given amiodarone bolus still on pressors but only eICU consulted, appreciate recs Cardiology consulted, appreciate recs Severe Sepsis Pneumonia Continue on IV abx Blood cultures with strep and sputum with staph aureus- sensitivities pending Leukocytosis up this AM before code, repeat labs pending ARPIL on CKD 3 Baseline creatinine around 1.2, up to 2.7 this AM IVF Trend creatinine, K normal Monitor UOP- had been absymal yesterday, hopeful for improvement today with better perfusion HLD BPH Obesity No acute needs 1100: Returned to the room to discuss patient's situation with his daughter and his son. Son is DPOA and has brought pt's living will with him. They are in agreement that patient would not want to live in this condition as stated in his living will. They will call family to see patient and then plan to terminally extubate to [facility]. I updated production laborer who will visit them later. Comfort care orders placed for when decision made. Diagnosis/Problems Diagnosis/Problems (1) APRIL (acute kidney injury) Status: Acute (2) Severe sepsis Status: Acute (3) Pneumonia Status: Acute Qualifiers: Pneumonia type: due to unspecified organism Laterality: right Lung location: middle lobe of lung Qualified Codes: J18.9 - Pneumonia, unspecified organism (4) BPH (benign prostatic hyperplasia) Status: Chronic (5) Permanent atrial fibrillation Status: Chronic (6) Primary hypertension Status: Chronic (7) CHF (congestive heart failure) (8) HLD (hyperlipidemia) Status: Chronic (9) Obesity Status: Chronic JENNY LOPEZ MD Dec 09, 2021 08:53
[2021-12-09] MEDS: NYSTATIN OINTMENT 30 GM TUBE TOP SCH ×2 (08:54→19:45)
[2021-12-09] MEDS: PANTOPRAZOLE 40 MG (PROTONIX) VIAL IVP SCH (08:54)
--- NOTE | 2021-12-09 09:08 | Diagnostic Imaging Report ---
INDICATION: Intubated, mechanical ventilation, infiltrate. TECHNIQUE: Single view chest at 5:42 AM. CORRELATION STUDY: 12/08/2021. FINDINGS: The endotracheal tube is superimposed over the trachea just below the level of the clavicles at approximately the level of the aortic arch. Gastric tube tip passes below the left hemidiaphragm and likely into the stomach but is incompletely visualized. Right IJ central line tip at the right atrium. Heart size and mediastinum are enlarged and prominent. There is continued pulmonary vascular congestion and perihilar edema, perhaps slightly improved from prior. Opacities at both lung bases are likely a combination of infiltrate and/or edema along with effusions, right greater than left. IMPRESSION: 1. Stable appearance about the support lines and tubes. 2. Rather pronounced cardiac enlargement. Pulmonary vascular congestion and edema persist but are overall improved. 3. Opacities at both lung bases are likely a combination of effusion along with infiltrate, edema, and/or atelectasis, right greater than left. Overall adversely changed. Dictated by: Dictated on workstation # [id number]
[2021-12-09] MEDS ORDERED: SCOPOLAMINE 1.5 MG (TRANSDERM-SCOP) PATCH TOP SCH (11:45)
[2021-12-09] MEDS ORDERED: PROMETHAZINE INJ 25 MG/ML (PHENERGAN) AMP IVP PRN (11:45)
[2021-12-09] MEDS ORDERED: ARTIFICAL TEARS 0.4 ML UNIT DOSE (REFRESH PLUS) OU PRN (11:45)
[2021-12-09] MEDS ORDERED: ONDANSETRON 4 MG/2 ML (SDV) Z0FRAN IVP PRN (11:45)
[2021-12-09] MEDS ORDERED: BISACODYL 10 MG SUPP (DULCOLAX) PR PRN (11:45)
[2021-12-09] MEDS ORDERED: LORazepam 1 MG (ATIVAN) TAB SL PRN (11:45)
[2021-12-09] MEDS ORDERED: ACETAMINOPHEN 650 MG SUPP (TYLENOL) PR PRN (11:45)
[2021-12-09] MEDS ORDERED: RT-ALBUTEROL/IPRATROPIUM 3 ML (DUONEB) VIAL INH PRN (11:45)
[2021-12-09] MEDS ORDERED: SALIVA STIMULANT MOUTH SPRAY (BIOTENE) 1.5 OZ MM PRN (11:45)
[2021-12-09] MEDS ORDERED: ATROPINE 1% OPHTHALMIC SOLN 2 ML SL PRN (11:45)
--- NOTE | 2021-12-09 11:47 | Consultation-Cardiology ---
HPI-Cardiology Cardiology Consultation Date of Consultation 12/09/21 Date of Admission Time Seen by Provider: 07:52 Indication: s/p code blue, severe sepsis HPI Patient is a 76 y/o male with history of CAD, PAF Presented to the ER on evening of 12/07/21 with weakness and fever, found to have pneumonia with severe sepsis. Was admitted for further management. Had cardiac arrest yesterday morning at approx 6am. Had asystole and V. fib arrest x 2, responded to defibrillation and amiodarone and achieved ROSC. Transferred to the ICU. Upon evaluating the patient, he is sedated on and intubated. No family at bedside at this time and HPI is obtain from review of medical record. Home Medications & Allergies Allergies: Coded Allergies: Sulfa (Sulfonamide Antibiotics) (Unverified Allergy, Mild, N/V, 10/10/19) Home Medication List Reviewed: Yes FBN-Fdmmmi-Grhiti Hx Patient Social History Employed/Student: retired Smoking Status: Never a Smoker 2nd Hand Smoke Exposure: No Recent Hopitalizations: No Have you traveled recently?: Unable to obtain Alcohol Use?: No Immunizations Up To Date Tetanus Booster (TDap): More than 5yrs Date of Pneumonia Vaccine: Jul 10, 2014 Date of Influenza Vaccine: Apr 02, 2021 Past Medical History PAF, NSVT, TASHI, HTN Family Medical History Significant Family History: No Pertinent Family Hx Family History: Arthritis G8 BROTHER Cardiovascular disease 19 MOTHER (AFib) DVT G8 BROTHER FHx: respiratory disease G8 SISTER Review of Systems-General Review of Systems ROS-Unable to Obtain: unable to obtain full ROS Constitutional: see HPI EENTM: No ear discharge, No ear pain Respiratory: No cough, No phlegm, No short of breath Cardiovascular: No edema; Hx of Intervention; No palpitations, No vascular heart diseas Gastrointestinal: No abdominal pain, No constipation, No diarrhea Genitourinary: No discharge, No dysuria All Other Systems Reviewed Negative Unless Noted: Yes Reviewed Test Results Reviewed Test Results Lab Laboratory Tests 12/08/21 12:40: White Blood Count 17.9H, Red Blood Count 3.62L, Hemoglobin 8.6L, Hematocrit 29L, Mean Corpuscular Volume 81, Mean Corpuscular Hemoglobin 24L, Mean Corpuscular Hemoglobin Concent 30L, Red Cell Distribution Width 17.4H, Platelet Count 180, Mean Platelet Volume 10.4, Prothrombin Time 28.0H, INR Comment 2.6H, Activated Partial Thromboplast Time 38H, Sodium Level 144, Potassium Level 3.3L, Chloride Level 106, Carbon Dioxide Level 14L, Anion Gap 24H, Blood Urea Nitrogen 34H, Creatinine 2.10H, Estimat Glomerular Filtration Rate 32, BUN/Creatinine Ratio 16, Glucose Level 84, Calcium Level 7.9L 12/08/21 13:45: B-Type Natriuretic Peptide 3460.6H 12/08/21 16:15: Lactic Acid Level 12.91*H 12/08/21 17:20: Activated Partial Thromboplast Time > 200*H, Sodium Level 140, Potassium Level 3.7, Chloride Level 105, Carbon Dioxide Level 16L, Anion Gap 19H, Blood Urea Nitrogen 37H, Creatinine 2.34H, Estimat Glomerular Filtration Rate 28, BUN/Creatinine Ratio 16, Glucose Level 84, Calcium Level 7.9L, Triglycerides Level 58 12/08/21 19:15: Lactic Acid Level 11.02*H 12/08/21 21:15: Lactic Acid Level 9.17*H, White Blood Count 20.5H, Red Blood Count 3.67L, Hemoglobin 8.6L, Hematocrit 29L, Mean Corpuscular Volume 78L, Mean Corpuscular Hemoglobin 23L, Mean Corpuscular Hemoglobin Concent 30L, Red Cell Distribution Width 17.5H, Platelet Count 184, Mean Platelet Volume 11.3, Immature Granulocyte % (Auto) 1, Neutrophils (%) (Auto) 92H, Lymphocytes (%) (Auto) 3L, Monocytes (%) (Auto) 4, Eosinophils (%) (Auto) 0, Basophils (%) (Auto) 0, Neutrophils # (Auto) 18.9H, Lymphocytes # (Auto) 0.5L, Monocytes # (Auto) 0.9, Eosinophils # (Auto) 0.0, Basophils # (Auto) 0.0, Immature Granulocyte # (Auto) 0.1, Neutrophils % (Manual) 90, Lymphocytes % (Manual) 1, Monocytes % (Manual) 2, Band Neutrophils 7, Hypochromasia MARKED, Acanthocytes MODERATE 12/08/21 23:30: Glucometer 77 12/09/21 00:15: Lactic Acid Level 7.81*H, Activated Partial Thromboplast Time 128*H 12/09/21 00:22: Bedside Blood Gas pH (LAB) 7.442H, Bedside Blood Gas pCO2 (LAB) 30.6L, Bedside Blood Gas pO2 (LAB) 111H, Bedside Blood Gas HCO3 (LAB) 20.9L, POC Blood Gas Total CO2 Calc 22L, Bedside Bl Gas O2 Saturation (Calc) 99H, Bedside Arterial Blood Base Excess -3L 12/09/21 02:40: White Blood Count 22.0H, Red Blood Count 3.46L, Hemoglobin 8.2L, Hematocrit 27L, Mean Corpuscular Volume 78L, Mean Corpuscular Hemoglobin 24L, Mean Corpuscular Hemoglobin Concent 31L, Red Cell Distribution Width 17.4H, Platelet Count 174, Mean Platelet Volume 10.5, Immature Granulocyte % (Auto) 1, Neutrophils (%) (Auto) 90H, Lymphocytes (%) (Auto) 3L, Monocytes (%) (Auto) 6, Eosinophils (%) (Auto) 1, Basophils (%) (Auto) 0, Neutrophils # (Auto) 19.7H, Lymphocytes # (Auto) 0.7L, Monocytes # (Auto) 1.2H, Eosinophils # (Auto) 0.1, Basophils # (Auto) 0.0, Immature Granulocyte # (Auto) 0.2H, Sodium Level 141, Potassium Level 3.7, Chloride Level 106, Carbon Dioxide Level 17L, Anion Gap 18H, Blood Urea Nitrogen 43H, Creatinine 2.71H, Estimat Glomerular Filtration Rate 23, BUN/Creatinine Ratio 16, Glucose Level 119H, Lactic Acid Level 6.71*H, Calcium Level 7.8L, Phosphorus Level 4.4, Magnesium Level 1.5L 12/09/21 06:10: Lactic Acid Level 5.02*H, Activated Partial Thromboplast Time 78H 12/09/21 06:23: Bedside Blood Gas pH (LAB) 7.379, Bedside Blood Gas pCO2 (LAB) 38.1L, Bedside Blood Gas pO2 (LAB) 107H, Bedside Blood Gas HCO3 (LAB) 22.5L, POC Blood Gas Total CO2 Calc 24, Bedside Bl Gas O2 Saturation (Calc) 98, Bedside Arterial Blood Base Excess -3L Microbiology 12/08/21 Gram Stain - Final, Resulted 12/08/21 Sputum Culture - Preliminary, Resulted Staphylococcus aureus Usual upper respiratory lucinda 12/07/21 Blood Culture - Preliminary, Resulted Strep, Beta Hemolytic Group G 12/07/21 Urine Culture - Final, Complete Mixed Bacterial Lucinda Physical Exam Physical Exam Vital Signs Vital Signs - First Documented 12/07/21 21:15 Temp 39.3 Pulse 111 Resp 20 B/P (MAP) 158/105 (122) Pulse Ox 90 O2 Delivery Room Air O2 Flow Rate 2.00 FiO2 90 Capillary Refill : Less Than 3 Seconds Height, Weight, BMI Height: 6'0" Weight: 275lbs. 0.0oz. 124.663152zl; 38.02 BMI Method:Stated General Appearance: Chronically ill, Other (sedated and intubated) Eyes: Bilateral Eye Normal Inspection, Bilateral Eye PERRL, Bilateral Eye EOMI HEENT: Moist Mucous Membranes Neck: Normal Inspection, Supple Respiratory: Decreased Breath Sounds Cardiovascular: Regular Rate, Rhythm, No Murmur Gastrointestinal: Normal Bowel Sounds, Non Tender, Soft Extremity: Pedal Edema Skin: Normal Color, Warm/Dry; No Mottled A/P-Cardiology Admission Diagnosis Cardiac arrest Acute respiratory failure NSVT PAF Assessment/Plan Cardiac arrest morning of 12/08/21, asystole to vfib arrest, shocked x 2, amio bolus given, ROSC achieved, currently intubated, on pressors. Acute respiratory failure, sedated and intubated, management per medical services Pneumonia with severe sepsis, BC with strep, sputum cx revealing staph aureas, continue IV abx, management per medical services. Coronary artery disease, Cardiac catheterization done in June 2014 showing nonobstructive disease. Cardiac catheterization was carried out on April 17, 2021 showing slow flow in the coronary system with no significant obstructive disease. Continue to monitor CHF, 2D Echo done Paroxysmal atrial fibrillation, unable to tolerate beta nhi secondary to underlying bradycardia. Had been maintained on Amiodarone 200mg daily and Meri will as outpatient Nonsustained ventricular tachycardia noted during exercise stress test in June 2014. Holter monitor revealed episodes of nonsustained ventricular tachycardia. Has been maintained on Amiodarone 200mg daily. Acute on chronic kidney disease, worsening renal function, continue to monitor History of deep venous thrombosis, unprovoked, in the left calf, occurred April 2017, repeat ultrasound in October 2019 showed long segments of DVT on the right lower extremity, treated with Coumadin in the past, currently on Eliquis Peripheral edema, chronic lymphedema, was unable to tolerate diuretics. Using compression socks at this point. Continue to monitor HLD, monitored as outpatient Mild bilateral carotid stenosis, last ultrasound was done in August 2021, continue to monitor. Obesity History of basal and squamous cell skin carcinoma. Monitored by service officer in [place]. Continue to monitor. Thank you for allowing us to participate in the management of Mr. Masters. This is Rona Cox PA-C, as a scribe for Dr. Mack. Patient admission and events were reviewed. Discussed with Rona all the management plan Upon my evaluation I was informed that the family has required to be on comfort care. He is still intubated. Heart rate and blood pressure are stable, he is unresponsive. Has extensive cardiac history. Continue to monitor RONA DURON Dec 09, 2021 11:47 SMITA MACK MD Dec 09, 2021 15:50
--- NOTE | 2021-12-09 11:49 | Tele-ICU Progress Note ---
Subjective Date Seen by a Provider: Dec 09, 2021 Time Seen by a Provider: 11:49 Subjective/Events-last exam (Tele-ICU Physician , Progress Note ) Available chart/ vitals / labs / Images reviewed Video assessment done using teleICU camera, rest of exam as per RN Discussed with RN Events overnight : FEBRILE hemodynamically stable Respiratory - 30% I/O =+ Drips: Pressors- no VENT SETTINGS and ABG reviewed Sedation: RASS Not candidate for SBTContraindications : Cardiovascular Stability /Sedation Score / FI02/PEEP / ABG / CXR Consultants: Hospital course: (12/07) 76 y/o male admitted in ED to floor d/t sepsis- pna, urosepsis, dehydration, april. (12/08) pt. had cardiac arrest from the floor. Transferred to ICU- also had a brief cardiac arrest/cpr/acls done/rosc obtained. A/P S/p card arrest - PEA / asystoly / vfib - 2 shocks - ROSC - etiology not clear now ( ? CHF /PNA / PE / MI0 ECHO with moderate Right ventr dfsnct with RVSP 46 mm Hg - can be seen with acute PE - has h/o Vtach in past - consider anio gtt i as per cards - consider diuresis , but will await for ECHO and CVP Acute resp failure, post arrest - Intubated 12/08 , adjust vent , follow ABG SHock - septic and/or cardiogenic - cont fluid , pressors - CVP > 18 - ECHO 12/08 - EF 35%, serna=use hypokinesis, trop - ( consider heparing ( in no ICH) APRIL/CKD - WORSENING , up first 24 h only 400 Encephalopathy - no respond post arrest - off sedation , follow - CTH 12/08 - no bleed - pastor-white matter fifferention is poor suggesting global hypoxic ischemia vs due to CT technique h/o CAD, PAF , bradycardia ( last EF 45% ) - ekg , ECHO - as per cards H/o DVT ( on eliquis RETENTION SPECIALIST ) - PE is considered , can not do CTA chest with elev CR - ECHO stat of uncertain chronicity. -possible empiric heparin Possible PNA - sputum cx wit STAPH - blood cx 12/07 - strep - to repeat 12/09 - cont abx started Anemia - stable Shock Liver ( ischemic hepatitis ) - to follow h/p TASHI - CPAP Lines : 12/08 RIJ , (Central Line Necessity Reviewed) Tesfaye:+ OG: Nutrition: npo Analgesia: Anxiety/ delirium VTE Prophylaxis: was on eliquis RETENTION SPECIALIST - to follow Stress Ulcer Prophylaxis: ppi Plans in collaboration with bedside consultants and IM MDs. discussed with Dr Tinoco Sepsis Event Evaluation Height, Weight, BMI Height: 6'0" Weight: 275lbs. 0.0oz. 124.772025uy; 38.02 BMI Method:Stated Focused Exam Lactate Level 12/09/21 00:15: Lactic Acid Level 7.81*H 12/09/21 02:40: Lactic Acid Level 6.71*H 12/09/21 06:10: Lactic Acid Level 5.02*H Exam Exam Patient acknowledged, consented, and participated in this virtual visit which was conducted using real time audio/video Vital Signs Date Time Temp Pulse Resp B/P (MAP) Pulse Ox O2 Delivery O2 Flow Rate FiO2 12/09/21 10:54 84 17 96 30 12/09/21 08:00 84 16 105/46 (65) 96 Mechanical Ventilator 30.00 12/09/21 07:27 85 16 96 30 12/09/21 07:00 84 16 107/46 (66) 96 Mechanical Ventilator 30.00 12/09/21 06:51 86 12/09/21 06:00 88 16 111/48 (69) 96 Mechanical Ventilator 30.00 12/09/21 05:00 90 30 87 12/09/21 05:00 86 16 120/48 (72) 96 Mechanical Ventilator 30.00 12/09/21 04:12 Mechanical Ventilator 30 12/09/21 04:11 Mechanical Ventilator 30.00 12/09/21 04:00 89 16 118/48 (71) 91 Mechanical Ventilator 21.00 12/09/21 03:21 37.7 Mechanical Ventilator 21.00 12/09/21 03:00 75 16 114/48 (70) 90 Mechanical Ventilator 21.00 12/09/21 02:50 90 124/52 12/09/21 02:10 90 16 124/52 (76) 90 Mechanical Ventilator 21.00 12/09/21 02:00 90 24 122/50 (74) 91 Mechanical Ventilator 21.00 12/09/21 01:49 89 24 118/50 (72) 90 Mechanical Ventilator 21.00 12/09/21 01:39 87 22 92 21 12/09/21 01:00 89 12/09/21 01:00 89 24 114/48 (70) 96 Mechanical Ventilator 30.00 12/09/21 00:18 Mechanical Ventilator 30 12/09/21 00:15 89 24 125/57 (79) 96 Mechanical Ventilator 30.00 12/09/21 00:05 89 101/44 12/09/21 00:04 93 126/56 12/09/21 00:00 89 24 102/45 (64) 96 Mechanical Ventilator 30.00 12/08/21 23:49 37.2 12/08/21 23:10 37.7 Mechanical Ventilator 30.00 12/08/21 23:00 93 24 126/56 (79) 96 Mechanical Ventilator 30.00 12/08/21 22:52 93 28 96 30 12/08/21 22:00 80 24 100/49 (66) 97 Mechanical Ventilator 30.00 12/08/21 21:45 79 24 93/52 (66) 98 Mechanical Ventilator 30.00 12/08/21 21:38 79 24 99 30 12/08/21 21:14 75 137/67 12/08/21 21:00 77 24 123/64 (83) 99 Mechanical Ventilator 45.00 12/08/21 20:00 75 24 114/56 (75) 100 Mechanical Ventilator 45.00 12/08/21 20:00 Mechanical Ventilator 45 12/08/21 19:49 37.8 12/08/21 19:00 Mechanical Ventilator 45.00 12/08/21 19:00 77 24 120/49 (72) 99 Mechanical Ventilator 45.00 12/08/21 19:00 77 12/08/21 18:12 77 33 98 45 12/08/21 18:00 71 25 109/48 (68) 96 Mechanical Ventilator 45.00 12/08/21 17:45 77 27 112/53 (72) 96 Mechanical Ventilator 45.00 12/08/21 17:30 72 23 99/52 (68) 97 Mechanical Ventilator 45.00 12/08/21 17:15 73 25 100/51 (67) 100 Mechanical Ventilator 45.00 12/08/21 17:00 74 25 96/50 (65) 96 Mechanical Ventilator 45.00 12/08/21 16:45 75 25 103/49 (67) 98 Mechanical Ventilator 45.00 12/08/21 16:30 75 27 106/49 (68) 99 Mechanical Ventilator 45.00 12/08/21 16:15 71 23 103/49 (67) 99 Mechanical Ventilator 45.00 12/08/21 16:00 36.7 12/08/21 16:00 Mechanical Ventilator 45 12/08/21 16:00 73 21 100/48 (65) 98 Mechanical Ventilator 45.00 12/08/21 15:00 75 27 100/56 (71) 99 Mechanical Ventilator 45.00 12/08/21 14:12 73 38 96 45 12/08/21 14:00 74 11 89/53 (65) 97 Mechanical Ventilator 45.00 12/08/21 13:00 74 36 114/55 (74) 95 Mechanical Ventilator 45.00 12/08/21 12:45 75 12/08/21 12:00 36.3 12/08/21 12:00 Mechanical Ventilator 45 12/08/21 12:00 36.9 68 24 112/52 (72) 94 Mechanical Ventilator 45.00 I & O 12/09/21 07:00 Intake Total 2107.5 ml Output Total 80 ml Balance 2027.5 ml Height & Weight Height: 6'0" Weight: 275lbs. 0.0oz. 124.493353yw; 38.02 BMI Method:Stated General Appearance: Chronically ill HEENT: Moist Mucous Membranes Neck: Normal Inspection, Supple Respiratory: No Respiratory Distress, Decreased Breath Sounds Cardiovascular: Regular Rate, Rhythm, No Murmur Capillary Refill: Less Than 3 Seconds Gastrointestinal: non tender, soft Extremity: Pedal Edema Neurologic/Psychiatric: Other Skin: Normal Color, Warm/Dry; No Mottled Results Lab Laboratory Tests 12/07/21 21:05 12/08/21 05:30 12/08/21 07:20 12/08/21 12:40 12/08/21 17:20 12/08/21 21:15 12/09/21 02:40 Assessment/Plan Assessment/Plan 1 JULIA POTTER MD Dec 09, 2021 11:49
[2021-12-09] MEDS ORDERED: TROUGH ORDER-PHARMACY XX ONE (13:00)
[2021-12-09] MEDS: VANCOMYCIN INJECTION 1,750 MG in NS IV 500 ML 500 ML IV SCH (16:09)
[2021-12-09] MEDS: morphine INJ 4 MG/ML 1 ML (VIAL/SYRINGE) IV PRN ×3 (19:46→23:49)
[2021-12-09] MEDS: GLYCOPYRROLATE 0.2 MG/ML (ROBINUL) 2 ML VIAL IV PRN ×2 (20:04→23:49)
[2021-12-09] MEDS: LORazepam ORAL CONCENTRATE 2 MG/ML 30 ML (ATIVAN) PO PRN ×2 (20:04→23:50)
[2021-12-09] MEDS: fentaNYL INJ 100 MCG/2 ML AMP IVP PRN (20:44)
[2021-12-10] MEDS: GLYCOPYRROLATE 0.2 MG/ML (ROBINUL) 2 ML VIAL IV PRN (04:16)
[2021-12-10] MEDS: morphine INJ 4 MG/ML 1 ML (VIAL/SYRINGE) IV PRN (04:16)
[2021-12-10] MEDS: LORazepam ORAL CONCENTRATE 2 MG/ML 30 ML (ATIVAN) PO PRN (04:17)
[2021-12-12] MEDS ORDERED: SCOPOLAMINE PATCH REMOVAL TP SCH (11:44)
== END 2021-12-10 05:45 | disposition expired | DRG 871 ==
LOC: EDUNIT# 20:53 → ER 20:54 → 4TH 21:20 → ICU 12-08 06:45
PROVIDERS: ADMIT Family Medicine; ATTEND Family Medicine
PROC: 5A1945Z Respiratory Ventilation, 24-96 Consecutive Hours (ICD-10-PCS; principal; 2021-12-08)
PROC: 0BH18EZ Insertion of Endotracheal Airway into Trachea, Via Natural or Artificial Opening Endoscopic (ICD-10-PCS; 2021-12-08)
PROC: 5A2204Z Restoration of Cardiac Rhythm, Single (ICD-10-PCS; 2021-12-08)
PROC: 5A12012 Performance of Cardiac Output, Single, Manual (ICD-10-PCS; 2021-12-08)
DX: A40.8 Other streptococcal sepsis (principal); J15.211 Pneumonia due to Methicillin susceptible Staphylococcus aureus; J96.02 Acute respiratory failure with hypercapnia; K72.00 Acute and subacute hepatic failure without coma; N39.0 Urinary tract infection, site not specified; G93.1 Anoxic brain damage, not elsewhere classified; Z66 Do not resuscitate; Z51.5 Encounter for palliative care; Z20.822 Contact with and (suspected) exposure to COVID-19; N17.9 Acute kidney failure, unspecified; G93.40 Encephalopathy, unspecified; I13.0 Hypertensive heart and chronic kidney disease with heart failure and stage 1 through stage 4 chronic kidney disease, or unspecified chronic kidney disease; I50.40 Unspecified combined systolic (congestive) and diastolic (congestive) heart failure; I48.21 Permanent atrial fibrillation; F05 Delirium due to known physiological condition; R65.20 Severe sepsis without septic shock; E86.0 Dehydration; N18.30 Chronic kidney disease, stage 3 unspecified; Z79.01 Long term (current) use of anticoagulants; G47.33 Obstructive sleep apnea (adult) (pediatric); I25.10 Atherosclerotic heart disease of native coronary artery without angina pectoris; I46.9 Cardiac arrest, cause unspecified; I48.91 Unspecified atrial fibrillation; F03.90 Unspecified dementia, unspecified severity, without behavioral disturbance, psychotic disturbance, mood disturbance, and anxiety; E78.5 Hyperlipidemia, unspecified; N40.0 Benign prostatic hyperplasia without lower urinary tract symptoms; K21.9 Gastro-esophageal reflux disease without esophagitis; E66.9 Obesity, unspecified; Z68.38 Body mass index [BMI] 38.0-38.9, adult; I65.23 Occlusion and stenosis of bilateral carotid arteries; H91.90 Unspecified hearing loss, unspecified ear; Z86.718 Personal history of other venous thrombosis and embolism; Z88.2 Allergy status to sulfonamides; Z82.49 Family history of ischemic heart disease and other diseases of the circulatory system
CPT/HCPCS: 36415; 36600; 70450; 71045; 80048; 80053; 81000; 82805; 82947; 83605; 83735; 83880; 84100; 84478; 85007; 85025; 85027; 85610; 85730; 87040; 87070; 87077; 87088; 87184; 87186; 87205; 87636; 93005; 93306; 93970; 94002; 94003; 94640; 94799